=== PATIENT | female | born 1970 | race Caucasian/White ===

== ENCOUNTER → 2018-06-26 | Outpatient (CLI) | payer MEDICARE | LOC: LAB FS 18:37 | PROVIDERS: ATTEND Family Medicine | DX: N39.0 Urinary tract infection, site not specified (principal); R31.9 Hematuria, unspecified; Z79.2 Long term (current) use of antibiotics | CPT/HCPCS: 87077; 87088 ==

== ENCOUNTER → 2018-07-09 | Outpatient (CLI) | payer MEDICARE ==
[2018-07-09 16:09] LABS: CREATININE SERUM 0.62 MG/DL (0.60-1.30)
== END ==
LOC: LAB FS 14:16
PROVIDERS: ATTEND Family Medicine
DX: N39.0 Urinary tract infection, site not specified (principal)
CPT/HCPCS: 36415; 80170; 82565; 84520

== ENCOUNTER → 2018-07-17 | Outpatient (CLI) | payer MEDICARE ==
[2018-07-17 11:10] LABS: WHITE BLOOD COUNT 9.6 10^3/uL (4.3-11.0)
[2018-07-17 11:11] LABS: BASOPHILS # (AUTO) 0.1 10^3/uL (0.0-0.1); BASOPHILS % (AUTO) 1 % (0-10); EOSINOPHILS # (AUTO) 0.7 10^3/uL (0.0-0.3); EOSINOPHILS % (AUTO) 7 % (0-10); HEMATOCRIT 41 % (35-52); HEMOGLOBIN 13.4 G/DL (11.5-16.0); LYMPHOCYTES # (AUTO) 3.1 X 10^3 (1.0-4.0); LYMPHOCYTES % (AUTO) 32 % (12-44); MEAN CORPUSCULAR HEMOGLOBIN 31 PG (25-34); MEAN CORPUSCULAR HGB CONC 33 G/DL (32-36); MEAN CORPUSCULAR VOLUME 95 FL (80-99); MEAN PLATELET VOLUME 10.2 FL (7.4-10.4); MONOCYTES # (AUTO) 0.9 X 10^3 (0.0-1.0); MONOCYTES % (AUTO) 10 % (0-12); NEUTROPHILS # (AUTO) 4.7 X 10^3 (1.8-7.8); NEUTROPHILS % (AUTO) 49 % (42-75); PLATELET COUNT 343 10^3/uL (130-400); RED CELL DISTRIBUTION WIDTH 13.7 % (10.0-14.5)
[2018-07-17 11:32] LABS: BUN/CREATININE RATIO 20; CREATININE SERUM 0.46 MG/DL (0.60-1.30); GFR ESTIMATED > 60
== END ==
LOC: LAB FS 10:52
PROVIDERS: ATTEND Family Medicine
DX: Z51.81 Encounter for therapeutic drug level monitoring (principal); Z79.01 Long term (current) use of anticoagulants
CPT/HCPCS: 36415; 80170; 82565; 84520; 85025

== ENCOUNTER → 2018-09-09 | Outpatient (CLI) | payer MEDICARE ==
[2018-09-09 18:12] LABS: BILIRUBIN,URINE NEGATIVE (NEGATIVE); CLARITY,URINE CLOUDY; COLOR,URINE YELLOW; GLUCOSE, URINE (UA) NEGATIVE (NEGATIVE); KETONES,URINE NEGATIVE (NEGATIVE); LEUKOCYTE ESTERASE ,URINE 2+ (NEGATIVE); NITRITE,URINE NEGATIVE (NEGATIVE); PH,URINE 8.5 (5-9); PROTEIN,URINE 1+ (NEGATIVE); RBC,URINE 50-100 /HPF; UROBILINOGEN,URINE 0.2 MG/DL (NORMAL)
[2018-09-09 18:13] LABS: AMORPHOUS SEDIMENT,UR LARGE AMOR PHOSPHATE /LPF; BACTERIA,URINE TRACE /HPF; WBC,URINE 25-50 /HPF
== END ==
LOC: LAB FS 17:29
PROVIDERS: ATTEND Family Medicine
DX: R82.998 Other abnormal findings in urine (principal); Z87.440 Personal history of urinary (tract) infections
CPT/HCPCS: 81000; 87088

== ENCOUNTER 2018-10-23 21:02 | Emergency (ER) | payer MEDICARE, MEDICAID ==
[~2018-10-23] VITALS: Ht 167.6 cm; Wt 61.2 kg
--- OUTSIDE RECORDS SUMMARY | 2018-10-23 21:07 | XMS REPORT | Clinical Summary ---
Author Author Admin, E Organization [facility] Address Unknown Phone Unavailable Allergies, Adverse Reactions, Alerts Allergy Name Reaction Description Start Date Severity Status Provider VANCOMYCIN Critical Active Susan Zelaya MD SULFA Critical Active Susan Zelaya MD Conditions or Problems Problem Name Problem Code Onset Date Status Entry Date Provider Comment Standard Description Annotate Neurogenic Bladder Active Susan Zelaya MD Urinary Retention Active Susan Zelaya MD Retention of urine, unspecified Medication List Medication Instructions Start Date Stop Date Generic Name NDC Status Provider Patient Instruction DOXYCYCLINE HYCLATE 100 MG CAP 1 cap by mouth twice daily DOXYCYCLINE HYCLATE 05095716686 Active Susan Zelaya MD Active CALCIUM 1500 MG TAB 1 tab by mouth daily CALCIUM CARBONATE 18871228768 Active Susan Zelaya MD Active VITAMIN C 500 MG CHEW TAB 1 tab by mouth daily ASCORBIC ACID 81344749547 Active Susan Zelaya MD Active ZYRTEC ALLERGY 10 MG CAPS 1 po qd CETIRIZINE HCL 28261413722 Active Susan Zelaya MD Active DIAZEPAM 2 MG TABS 1 twice a day as needed for vertigo or stress DIAZEPAM 59652273172 Active Susan Zelaya MD Active BACLOFEN 10 MG TAB 1 tab by mouth daily BACLOFEN 55967743056 Active Susan Zelaya MD Active Vital Signs Date Name Value Unit Range Description blood pressure, diastolic - 8462-4 80 mm[Hg] BP santos blood pressure, systolic - 8480-6 118 mm[Hg] BP sys pulse rate E&M - 8867-4 75 /min Heart rate temperature E&M 98.6 [degF] Body temperature Encounters Code Encounter Date Provider Facility CPT-60159 Level 3 New Patient 08:20:55 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
--- OUTSIDE RECORDS SUMMARY | 2018-10-23 21:07 | XMS REPORT | Clinical Summary ---
Author Author Admin, QIE Organization [facility] Address Unknown Phone Unavailable Allergies, Adverse Reactions, [...] Generic Name NDC Status Provider Patient Instruction RENACIDIN SOLN instill 30ml threw catheter into the bladder and plug the catheter for 30ml for 20m irrigate the catheter with 60ml normal saline. CITRIC ACID-D GLUCONIC ACID 03057811356 Active Susan Zelaya MD Active DOXYCYCLINE HYCLATE 100 MG CAP 1 cap by mouth twice daily DOXYCYCLINE HYCLATE 11759578480 Active Susan Zelaya MD Active CALCIUM 1500 MG TAB 1 tab by mouth daily CALCIUM CARBONATE 67429768549 Active Susan Zelaya MD Active VITAMIN C 500 MG CHEW TAB 1 tab by mouth daily ASCORBIC ACID 45554834018 Active Susan Zelaya MD Active ZYRTEC ALLERGY 10 MG CAPS 1 po qd CETIRIZINE HCL 84228576803 Active Susan Zelaya MD Active DIAZEPAM 2 MG TABS 1 twice a day as needed for vertigo or stress DIAZEPAM 13394580852 Active Susan Zelaya MD Active BACLOFEN 10 MG TAB 1 tab by mouth daily BACLOFEN 70869865832 Active Susan Zelaya MD Active Vital Signs Date Name Value Unit Range Description blood pressure, diastolic 80 mm[Hg] BP santos blood pressure, systolic 118 mm[Hg] BP sys pulse rate E&M 75 /min Heart rate temperature E&M 98.6 [degF] Body temperature Encounters Code Encounter Date Provider Facility CPT-48058 Level 1 Est. 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
--- OUTSIDE RECORDS SUMMARY | 2018-10-23 21:07 | XMS REPORT | Clinical Summary ---
Author Author Admin, QIE Organization [facility] Address Unknown Phone Unavailable Allergies, Adverse Reactions, [...] 60ml normal saline. CITRIC ACID-D GLUCONIC ACID 41491255543 Active Susan Zelaya MD Active DOXYCYCLINE HYCLATE 100 MG CAP 1 cap by mouth twice daily DOXYCYCLINE HYCLATE 09722157166 Active Susan Zelaya MD Active CALCIUM 1500 MG TAB 1 tab by mouth daily CALCIUM CARBONATE 00638030031 Active Susan Zelaya MD Active VITAMIN C 500 MG CHEW TAB 1 tab by mouth daily ASCORBIC ACID 08824988922 Active Susan Zelaya MD Active ZYRTEC ALLERGY 10 MG CAPS 1 po qd CETIRIZINE HCL 31343480650 Active Susan Zelaya MD Active DIAZEPAM 2 MG TABS 1 twice a day as needed for vertigo or stress DIAZEPAM 76419930370 Active Susan Zelaya MD Active BACLOFEN 10 MG TAB 1 tab by mouth daily BACLOFEN 57143418232 Active Susan Zelaya MD Active Vital Signs Date Name Value Unit Range Description blood pressure, diastolic - 8462-4 80 mm[Hg] BP santos blood pressure, systolic - 8480-6 118 mm[Hg] BP sys pulse rate E&M - 8867-4 75 /min Heart rate temperature E&M 98.6 [degF] Body temperature Encounters Code Encounter Date Provider Facility CPT-07310 Level 3 New Patient 08:20:55 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
--- OUTSIDE RECORDS SUMMARY | 2018-10-23 21:07 | XMS REPORT | Clinical Summary ---
Author Author Admin, QIE Organization [facility] Address Unknown Phone Unavailable Allergies, Adverse [...] 60ml normal saline. CITRIC ACID-D GLUCONIC ACID 79874054649 Active Susan Zelaya MD Active DOXYCYCLINE HYCLATE 100 MG CAP 1 cap by mouth twice daily DOXYCYCLINE HYCLATE 94844899958 Active Susan Zelaya MD Active CALCIUM 1500 MG TAB 1 tab by mouth daily CALCIUM CARBONATE 13247162733 Active Susan Zelaya MD Active VITAMIN C 500 MG CHEW TAB 1 tab by mouth daily ASCORBIC ACID 88259271148 Active Susan Zelaya MD Active ZYRTEC ALLERGY 10 MG CAPS 1 po qd CETIRIZINE HCL 45442933026 Active Susan Zelaya MD Active DIAZEPAM 2 MG TABS 1 twice a day as needed for vertigo or stress DIAZEPAM 68079711611 Active Susan Zelaya MD Active BACLOFEN 10 MG TAB 1 tab by mouth daily BACLOFEN 39822696950 Active Susan Zelaya MD Active Vital Signs Date Name Value Unit Range Description blood pressure, diastolic - 8462-4 80 mm[Hg] BP santos blood pressure, systolic - 8480-6 118 mm[Hg] BP sys pulse rate E&M - 8867-4 75 /min Heart rate temperature E&M 98.6 [degF] Body temperature Encounters Code Encounter Date Provider Facility CPT-11447 Level 1 Est. 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
--- OUTSIDE RECORDS SUMMARY | 2018-10-23 21:07 | XMS REPORT | Clinical Summary ---
Author Author Admin, E Organization [facility] Address Unknown Phone Unavailable Allergies, [...] cap by mouth twice daily DOXYCYCLINE HYCLATE 92995430239 Active Susan Zelaya MD Active CALCIUM 1500 MG TAB 1 tab by mouth daily CALCIUM CARBONATE 37115488597 Active Susan Zelaya MD Active VITAMIN C 500 MG CHEW TAB 1 tab by mouth daily ASCORBIC ACID 61448081439 Active Susan Zelaya MD Active ZYRTEC ALLERGY 10 MG CAPS 1 po qd CETIRIZINE HCL 23952814866 Active Susan Zelaya MD Active DIAZEPAM 2 MG TABS 1 twice a day as needed for vertigo or stress DIAZEPAM 06707420691 Active Susan Zelaya MD Active BACLOFEN 10 MG TAB 1 tab by mouth daily BACLOFEN 93411980606 Active Susan Zelaya MD Active Vital Signs Date Name Value Unit Range Description blood pressure, diastolic - 8462-4 80 mm[Hg] BP santos blood pressure, systolic - 8480-6 118 mm[Hg] BP sys pulse rate E&M - 8867-4 75 /min Heart rate temperature E&M 98.6 [degF] Body temperature Encounters Code Encounter Date Provider Facility CPT-66065 Level 3 New Patient 08:20:55 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
--- OUTSIDE RECORDS SUMMARY | 2018-10-23 21:07 | XMS REPORT | Clinical Summary ---
Author Author Admin, QIE Organization [facility] Address Unknown Phone Unavailable Allergies, Adverse [...] 60ml normal saline. CITRIC ACID-D GLUCONIC ACID 55762083201 Active Susan Zelaya MD Active DOXYCYCLINE HYCLATE 100 MG CAP 1 cap by mouth twice daily DOXYCYCLINE HYCLATE 25418234195 Active Susan Zelaya MD Active CALCIUM 1500 MG TAB 1 tab by mouth daily CALCIUM CARBONATE 16667790588 Active Susan Zelaya MD Active VITAMIN C 500 MG CHEW TAB 1 tab by mouth daily ASCORBIC ACID 22296513921 Active Susan Zelaya MD Active ZYRTEC ALLERGY 10 MG CAPS 1 po qd CETIRIZINE HCL 23720844348 Active Susan Zelaya MD Active DIAZEPAM 2 MG TABS 1 twice a day as needed for vertigo or stress DIAZEPAM 65787092122 Active Susan Zelaya MD Active BACLOFEN 10 MG TAB 1 tab by mouth daily BACLOFEN 04198721038 Active Susan Zelaya MD Active Vital Signs Date Name Value Unit Range Description blood pressure, diastolic - 8462-4 80 mm[Hg] BP santos blood pressure, systolic - 8480-6 118 mm[Hg] BP sys pulse rate E&M - 8867-4 75 /min Heart rate temperature E&M 98.6 [degF] Body temperature Encounters Code Encounter Date Provider Facility CPT-80269 Level 1 Est. 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
--- OUTSIDE RECORDS SUMMARY | 2018-10-23 21:07 | XMS REPORT | Clinical Summary ---
Author Author Admin, QIE Organization [facility] Address Unknown Phone Unavailable Allergies, Adverse Reactions, [...] 60ml normal saline. CITRIC ACID-D GLUCONIC ACID 30576227353 Active Susan Zelaya MD Active DOXYCYCLINE HYCLATE 100 MG CAP 1 cap by mouth twice daily DOXYCYCLINE HYCLATE 82856208661 Active Susan Zelaya MD Active CALCIUM 1500 MG TAB 1 tab by mouth daily CALCIUM CARBONATE 90583795777 Active Susan Zelaya MD Active VITAMIN C 500 MG CHEW TAB 1 tab by mouth daily ASCORBIC ACID 24846417656 Active Susan Zelaya MD Active ZYRTEC ALLERGY 10 MG CAPS 1 po qd CETIRIZINE HCL 96172055743 Active Susan Zelaya MD Active DIAZEPAM 2 MG TABS 1 twice a day as needed for vertigo or stress DIAZEPAM 48926989163 Active Susan Zelaya MD Active BACLOFEN 10 MG TAB 1 tab by mouth daily BACLOFEN 43683831060 Active Susan Zelaya MD Active Vital Signs Date Name Value Unit Range Description blood pressure, diastolic - 8462-4 80 mm[Hg] BP santos blood pressure, systolic - 8480-6 118 mm[Hg] BP sys pulse rate E&M - 8867-4 75 /min Heart rate temperature E&M 98.6 [degF] Body temperature Encounters Code Encounter Date Provider Facility CPT-12271 Level 1 Est. 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
--- OUTSIDE RECORDS SUMMARY | 2018-10-23 21:08 | XMS REPORT | Continuity of Care Document ---
Author Organization Unknown Address Unknown Allergies There is no data. Medications There is no data. 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) USE OF ANTIBIOTICS 06/29/2018 MELY BEDOYA MD, Ot N39.0 URINARY TRACT INFECTION, SITE NOT SPECIF 06/29/2018 MELY BEDOYA MD, Ot R31.9 HEMATURIA, UNSPECIFIED 06/29/2018 MELY BEDOYA MD, Ot Z79.2 SHELTER (CURRENT) USE OF ANTIBIOTICS 07/01/2018 MELY BEDOYA MD Ot N39.0 URINARY TRACT INFECTION, SITE NOT SPECIF 07/01/2018 MELY BEDOYA MD Ot R31.9 HEMATURIA, UNSPECIFIED 07/01/2018 MELY BEDOYA MD Ot Z79.2 SHELTER (CURRENT) USE OF ANTIBIOTICS 07/10/2018 MELY BEDOYA MD Ot N39.0 URINARY TRACT INFECTION, SITE NOT SPECIF 07/20/2018 MELY BEDOYA MD Ot Z51.81 ENCOUNTER FOR THERAPEUTIC DRUG LEVEL MON 07/20/2018 MELY BEDOYA MD, Ot Z79.01 HEALTHCARE MANAGER (CURRENT) USE OF ANTICOAGULANT 08/06/2018 MELY BEDOYA MD Ot Z51.81 ENCOUNTER FOR THERAPEUTIC DRUG LEVEL MON 08/06/2018 MELY BEDOYA MD Ot Z79.01 SHELTER (CURRENT) USE OF ANTICOAGULANT 09/11/2018 MELY BEDOYA MD, Ot R82.998 OTHER ABNORMAL FINDINGS IN URINE 09/11/2018 MELY BEDOYA MD, Ot Z87.440 PERSONAL HISTORY OF URINARY (TRACT) INFE 10/05/2018 MELY BEDOYA MD, Ot R82.998 OTHER ABNORMAL FINDINGS IN URINE 10/05/2018 MELY BEDOYA MD, Ot Z87.440 PERSONAL HISTORY OF URINARY (TRACT) INFE Procedures There is no data. Results Test Result Range Bacterial urine culture - 06/26/18 17:15 Bacterial urine culture YEAST NRG COLONY COUNT >100,000/ML NRG FTX;REPORTABLE REPORTED 06/28/18 12:05 NRG FREE TEXT ENTRY 2 ID REPORTED 06/28/18 12:05 NRG RML Sensitivity Panel - 06/26/18 17:15 Gentamicin susceptibility test by minimum inhibitory concentration <= NRG Levofloxacin susceptibility test by minimum inhibitory concentration > NRG Tobramycin susceptibility test by minimum inhibitory concentration S NRG Piperacillin/tazobactam susceptibility test by minimum inhibitory concentration = NRG Ciprofloxacin susceptibility test by minimum inhibitory concentration > NRG Meropenem susceptibility test by minimum inhibitory concentration 1 NRG Aztreonam susceptibility test by minimum inhibitory concentration 8 NRG Cefepime susceptibility test by minimum inhibitory concentration 8 NRG Imipenem susceptibility test by minimum inhibitory concentration 4 NRG Ceftazidime susceptibility test by minimum inhibitory concentration 16 NRG Serum or plasma urea nitrogen measurement (mass/volume) - 07/09/18 09:45 Serum or plasma urea nitrogen measurement (mass/volume) 7 mg/dL 7-18 Serum or plasma creatinine measurement (mass/volume) - 07/09/18 09:45 Serum or plasma creatinine measurement (mass/volume) 0.62 mg/dL 0.60-1.30 Gentamicin trough - 07/09/18 09:45 Gentamicin trough 2.2 ug/mL <=2.0 Complete blood count (CBC) with automated white blood cell (WBC) differential - 07/17/18 10:15 Blood leukocytes automated count (number/volume) 9.6 10*3/uL 4.3-11.0 Blood erythrocytes automated count (number/volume) 4.28 10*6/uL 4.35-5.85 Venous blood hemoglobin measurement (mass/volume) 13.4 g/dL 11.5-16.0 Blood hematocrit (volume fraction) 41 % 35-52 Automated erythrocyte mean corpuscular volume 95 [foz_us] 80-99 Automated erythrocyte mean corpuscular hemoglobin (mass per erythrocyte) 31 pg 25-34 Automated erythrocyte mean corpuscular hemoglobin concentration measurement (mass/volume) 33 g/dL 32-36 Automated erythrocyte distribution width ratio 13.7 % 10.0- 14.5 Automated blood platelet count (count/volume) 343 10*3/uL 130-400 Automated blood platelet mean volume measurement 10.2 [foz_us] 7.4-10.4 Automated blood neutrophils/100 leukocytes 49 % 42-75 Automated blood lymphocytes/100 leukocytes 32 % 12-44 Blood monocytes/100 leukocytes 10 % 0-12 Automated blood eosinophils/100 leukocytes 7 % 0-10 Automated blood basophils/100 leukocytes 1 % 0-10 Blood neutrophils automated count (number/volume) 4.7 10*3 1.8-7.8 Blood lymphocytes automated count (number/volume) 3.1 10*3 1.0-4.0 Blood monocytes automated count (number/volume) 0.9 10*3 0.0- 1.0 Automated eosinophil count 0.7 10*3/uL 0.0-0.3 Automated blood basophil count (count/volume) 0.1 10*3/uL 0.0-0.1 [id number] - 07/17/18 10:15 Serum or plasma urea nitrogen measurement (mass/volume) 9 mg/dL 7-18 Serum or plasma creatinine measurement (mass/volume) 0.46 mg/dL 0.60-1.30 Serum or plasma urea nitrogen/creatinine mass ratio 20 NRG Serum or plasma creatinine measurement with calculation of estimated glomerular filtration rate > NRG Serum or plasma gentamicin measurement (mass/volume) - 07/17/18 10:15 Serum or plasma gentamicin measurement (mass/volume) 1.6 ug/mL <=10.0 CULTURE, URINE - 07/21/18 17:05 CULTURE, URINE, ROUTINE SEE NOTE NRG Complete urinalysis with reflex to culture - 09/09/18 16:20 Urine color determination YELLOW NRG Urine clarity determination CLOUDY NRG Urine pH measurement by test strip 8.5 5-9 Specific gravity of urine by test strip 1.015 1.016-1.022 Urine protein assay by test strip, semi-quantitative 1+ NEGATIVE Urine glucose detection by automated test strip NEGATIVE NEGATIVE Erythrocytes detection in urine sediment by light microscopy 3+ NEGATIVE Urine ketones detection by automated test strip NEGATIVE NEGATIVE Urine nitrite detection by test strip NEGATIVE NEGATIVE Urine total bilirubin detection by test strip NEGATIVE NEGATIVE Urine urobilinogen measurement by automated test strip (mass/volume) 0.2 mg/dL NORMAL Urine leukocyte esterase detection by dipstick 2+ NEGATIVE Automated urine sediment erythrocyte count by microscopy (number/high power field) [HPF] NRG Automated urine sediment leukocyte count by microscopy (number/high power field) [HPF] NRG Bacteria detection in urine sediment by light microscopy TRACE NRG Squamous epithelial cells detection in urine sediment by light microscopy 5-10 NRG Crystals detection in urine sediment by light microscopy PRESENT NRG Casts detection in urine sediment by light microscopy NONE NRG Mucus detection in urine sediment by light microscopy NONE NRG Complete urinalysis with reflex to culture YES NRG Amorphous sediment detection in urine sediment by light microscopy LARGE SANDIP PHOSPHATE NRG Bacterial urine culture - 09/09/18 16:20 Bacterial urine culture NG NRG Encounters ACCT No. Visit Date/Time Discharge Status Pt. Type Provider Facility Loc./Unit Complaint [id number] 07/21/2018 16:00:00 07/21/2018 23:59:59 CLS Outpatient MELY BEDOYA [facility] [id number] 07/21/2018 16:00:00 Document Registration [id number] 08/30/2016 09:44:01 ACT Unknown [id number] 09/09/2018 17:29:00 09/09/2018 23:59:59 CLS Outpatient MELY BEDOYA [facility] FS HX UTI SEPSIS [id number] 07/17/2018 10:52:00 07/17/2018 23:59:59 CLS Outpatient MELY BEDOYA MD [facility] FS UTI [id number] 07/09/2018 14:16:00 07/09/2018 23:59:59 CLS Outpatient MELY BEDOYA MD [facility] FS ACUTE UTI [id number] 06/26/2018 18:37:00 06/26/2018 23:59:59 CLS Outpatient MELY BEDOYA MD [facility] FS RECENT UTI; IV ANX RECURRENT EMATURIA
[2018-10-23 22:32] LABS: HEMATOCRIT 43 % (35-52); MEAN CORPUSCULAR HEMOGLOBIN 31 PG (25-34); MEAN CORPUSCULAR HGB CONC 33 G/DL (32-36); MEAN CORPUSCULAR VOLUME 93 FL (80-99); RED CELL DISTRIBUTION WIDTH 13.3 % (10.0-14.5); WHITE BLOOD COUNT 10.3 10^3/uL (4.3-11.0)
[2018-10-23 22:33] LABS: BASOPHILS # (AUTO) 0.1 10^3/uL (0.0-0.1); BASOPHILS % (AUTO) 1 % (0-10); EOSINOPHILS # (AUTO) 0.5 10^3/uL (0.0-0.3); EOSINOPHILS % (AUTO) 5 % (0-10); LYMPHOCYTES # (AUTO) 2.6 X 10^3 (1.0-4.0); LYMPHOCYTES % (AUTO) 26 % (12-44); MEAN PLATELET VOLUME 10.5 FL (7.4-10.4); MONOCYTES % (AUTO) 10 % (0-12); NEUTROPHILS # (AUTO) 5.9 X 10^3 (1.8-7.8); NEUTROPHILS % (AUTO) 58 % (42-75); PLATELET COUNT 311 10^3/uL (130-400)
[2018-10-23 22:34] LABS: BILIRUBIN,URINE NEGATIVE (NEGATIVE); CLARITY,URINE CLOUDY; COLOR,URINE YELLOW; GLUCOSE, URINE (UA) NEGATIVE (NEGATIVE); KETONES,URINE NEGATIVE (NEGATIVE); NITRITE,URINE NEGATIVE (NEGATIVE); PROTEIN,URINE NEGATIVE (NEGATIVE); UROBILINOGEN,URINE 0.2 MG/DL (NORMAL)
[2018-10-23 22:35] LABS: LEUKOCYTE ESTERASE ,URINE 3+ (NEGATIVE)
[2018-10-23 22:43] LABS: BACTERIA,URINE TRACE /HPF; WBC,URINE 50-100 /HPF
[2018-10-23 22:44] LABS: YEAST,URINE LARGE /HPF
[2018-10-23 22:56] LABS: BILIRUBIN,TOTAL 0.2 MG/DL (0.1-1.0); BUN/CREATININE RATIO 16; CALCIUM 9.4 MG/DL (8.5-10.1); CARBON DIOXIDE 22 MMOL/L (21-32); CHLORIDE 99 MMOL/L (98-107); CREATININE SERUM 0.43 MG/DL (0.60-1.30); GFR ESTIMATED > 60; GLUCOSE 127 MG/DL (70-105); POTASSIUM 3.8 MMOL/L (3.6-5.0); SODIUM 139 MMOL/L (135-145)
[2018-10-23 22:57] LABS: ALANINE AMINOTRANSFERASE 76 U/L (0-55); ALBUMIN 4.1 GM/DL (3.2-4.5); ALKALINE PHOSPHATASE 65 U/L (40-136); TOTAL PROTEIN 6.9 GM/DL (6.4-8.2)
[2018-10-23] MEDS ORDERED: FLUCONAZOLE 150 MG TABLET (ED ONLY) ONE (23:07)
--- NOTE | 2018-10-23 23:29 | ED Integumentary General ---
General Chief Complaint: Skin/Wound Problems Stated Complaint: SKIN PROBLEMS Nursing Triage Note: PT ARRIVED PER EMS WITH COMPLAINT OF VAGINAL SWELLING. PT STATES HER HOME HEALTH NURSE TOLD HER TO GET IT CHECKED. Source: patient Exam Limitations: no limitations History of Present Illness Date Seen by Provider: Oct 23, 2018 Time Seen by Provider: 22:30 Initial Comments Patient is a 48-year-old female with history of osteomyelitis with right isjqr-uwk-wdot amputation who presents is chronic pelvic therapy who presents with cottage cheese-like vaginal discharge with vaginal edema. Denies pain. No fever chills, nausea vomiting or sweats. No flank pain, other acute symptoms or complaints. Patient's on doxycycline and Augmentin daily. Timing/Duration: just prior to arrival Severity: mild Possible Cause: medications Associated Symptoms: change in skin texture, edema; No fever Allergies and Home Medications Allergies Coded Allergies: Sulfa (Sulfonamide Antibiotics) (Verified Allergy, Unknown, 10/23/18) vancomycin (Verified Allergy, Unknown, 10/23/18) Patient Home Medication List Home Medication List Reviewed: Yes Review of Systems Review of Systems Constitutional: no symptoms reported EENTM: no symptoms reported Respiratory: no symptoms reported Cardiovascular: no symptoms reported Gastrointestinal: no symptoms reported Genitourinary: see HPI Musculoskeletal: no symptoms reported Past Ozxutmw-Pthxlx-Ubjqvf Hx Past Med/Social Hx: Reviewed Nursing Past Med/Soc Hx Patient Social History Recent Foreign Travel: No Contact w/Someone Who Travel: No Recent Infectious Disease Expo: No Recent Hopitalizations: No Physical Abuse: No Sexual Abuse: No Mistreated: No Past Medical History Surgeries: Yes Respiratory: No Cardiac: No Neurological: No Genitourinary: No Gastrointestinal: No Musculoskeletal: No Endocrine: No HEENT: No Cancer: No Psychosocial: No Integumentary: No Blood Disorders: No Physical Exam Vital Signs Vital Signs - First Documented 10/23/18 21:02 Temp 98.4 Pulse 122 Resp 18 B/P (MAP) 130/70 (90) Pulse Ox 96 O2 Delivery Room Air Capillary Refill : Less Than 3 Seconds General Appearance: WD/WN, no apparent distress HEENT: PERRL/EOMI, normal ENT inspection Neck: full range of motion, supple Cardiovascular: normal peripheral pulses, regular rate, rhythm Respiratory: lungs clear, normal breath sounds Gastrointestinal: non tender, soft, other (external genitalia edema, copious cheese vaginal discharge, no external cellulitis, no gangrene) Back: normal inspection, no CVA tenderness Progress/Results/Core Measures Results/Orders Lab Results Laboratory Tests Test 10/23/18 22:21 Range/Units White Blood Count 10.3 4.3-11.0 10^3/uL Red Blood Count 4.58 4.35-5.85 10^6/uL Hemoglobin 14.0 11.5-16.0 G/DL Hematocrit 43 35-52 % Mean Corpuscular Volume 93 80-99 FL Mean Corpuscular Hemoglobin 31 25-34 PG Mean Corpuscular Hemoglobin Concent 33 32-36 G/DL Red Cell Distribution Width 13.3 10.0-14.5 % Platelet Count 311 130-400 10^3/uL Mean Platelet Volume 10.5 H 7.4-10.4 FL Neutrophils (%) (Auto) 58 42-75 % Lymphocytes (%) (Auto) 26 12-44 % Monocytes (%) (Auto) 10 0-12 % Eosinophils (%) (Auto) 5 0-10 % Basophils (%) (Auto) 1 0-10 % Neutrophils # (Auto) 5.9 1.8-7.8 X 10^3 Lymphocytes # (Auto) 2.6 1.0-4.0 X 10^3 Monocytes # (Auto) 1.0 0.0-1.0 X 10^3 Eosinophils # (Auto) 0.5 H 0.0-0.3 10^3/uL Basophils # (Auto) 0.1 0.0-0.1 10^3/uL Urine Color YELLOW Urine Clarity CLOUDY H Urine pH 7.0 5-9 Urine Specific [place] 1.010 L 1.016-1.022 Urine Protein NEGATIVE NEGATIVE Urine Glucose (UA) NEGATIVE NEGATIVE Urine Ketones NEGATIVE NEGATIVE Urine Nitrite NEGATIVE NEGATIVE Urine Bilirubin NEGATIVE NEGATIVE Urine Urobilinogen 0.2 NORMAL MG/DL Urine Leukocyte Esterase 3+ H NEGATIVE Urine RBC (Auto) 1+ H NEGATIVE Urine RBC 5-10 H /HPF Urine WBC 50-100 H /HPF Urine Squamous Epithelial Cells 2-5 /HPF Urine Crystals NONE /LPF Urine Bacteria TRACE /HPF Urine Casts NONE /LPF Urine Mucus NEGATIVE /LPF Urine Yeast LARGE H /HPF Urine Culture Indicated YES Sodium Level 139 135-145 MMOL/L Potassium Level 3.8 3.6-5.0 MMOL/L Chloride Level 99 98-107 MMOL/L Carbon Dioxide Level 22 21-32 MMOL/L Anion Gap 18 H 5-14 MMOL/L Blood Urea Nitrogen 7 7-18 MG/DL Creatinine 0.43 L 0.60-1.30 MG/DL Estimat Glomerular Filtration Rate > 60 BUN/Creatinine Ratio 16 Glucose Level 127 H 70-105 MG/DL Calcium Level 9.4 8.5-10.1 MG/DL Corrected Calcium 9.3 8.5-10.1 MG/DL Total Bilirubin 0.2 0.1-1.0 MG/DL Aspartate Amino Transf (AST/SGOT) 72 H 5-34 U/L Alanine Aminotransferase (ALT/SGPT) 76 H 0-55 U/L Alkaline Phosphatase 65 40-136 U/L Total Protein 6.9 6.4-8.2 GM/DL Albumin 4.1 3.2-4.5 GM/DL My Orders Orders - BELGICA ART DO Cbc With Automated Diff (10/23/18 22:08) Comprehensive Metabolic Panel (10/23/18 22:08) Ua Culture If Indicated (10/23/18 22:08) Urine Culture (10/23/18 22:21) Fluconazole Tablet (Ed Only) (Diflucan T (10/23/18 23:07) Vital Signs/I&O 10/23/18 21:02 Temp 98.4 Pulse 122 Resp 18 B/P (MAP) 130/70 (90) Pulse Ox 96 O2 Delivery Room Air Blood Pressure Mean: 90 Departure Communication (Admissions) Exam consistent with vaginal candidiasis. Patient provided hygiene and given dose of Diflucan. Will place on daily Diflucan for the next 7 days with inst ructions to follow up with PCP/INSERTING PRESS OPERATOR Impression Primary Impression: Yeast vaginitis Disposition: HOME, SELF-CARE Condition: Against Medical Advice Departure-Patient Inst. Decision time for Depature: 23:30 Referrals: MELY BEDOYA MD (PCP/Family) Primary Care Physician Patient Instructions: Vaginal Yeast Infection (DC) Add. Discharge Instructions: Please take anti-yeast medication as directed and follow-up with your PCP or INSERTING PRESS OPERATOR next week for reevaluation All discharge instructions reviewed with patient and/or family. Voiced understanding. Scripts Fluconazole (Diflucan) 100 Mg Tablet 100 MG PO DAILY, #10 TAB Prov: BELGICA ART DO 10/23/18 BELGICA ART 26, 2019 23:29
[2018-10-23] MEDS ORDERED: FLUC100T PO (23:30)
[2018-10-23 23:36] VITALS: BP 143/80
[2018-10-24] MEDS ORDERED: FLUCONAZOLE 150 MG TABLET (ED ONLY) PO ONE (20:30)
== END 2018-10-24 | disposition home or self-care (01) ==
LOC: EDUNIT# 21:02 → ER FS 21:04
DX: B37.3 Candidiasis of vulva and vagina (principal); Z89.611 Acquired absence of right leg above knee; Z88.2 Allergy status to sulfonamides; Z88.1 Allergy status to other antibiotic agents
CPT/HCPCS: 36415; 80053; 81000; 85025; 87088; 87186; 99283

== ENCOUNTER → 2018-10-30 | Outpatient (CLI) | payer MEDICARE, MEDICAID ==
[~2018-10-30] MED LIST: FLUC100T PO
[2018-10-30 16:06] LABS: CREATININE SERUM 0.59 MG/DL (0.60-1.30)
== END ==
LOC: LAB FS 15:28
PROVIDERS: ATTEND Family Medicine
DX: Z79.2 Long term (current) use of antibiotics (principal)
CPT/HCPCS: 36415; 80170; 82565; 84520

== ENCOUNTER → 2018-11-03 | Outpatient (CLI) | payer MEDICARE, MEDICAID ==
[2018-11-03 15:28] LABS: CREATININE SERUM 0.52 MG/DL (0.60-1.30)
== END ==
LOC: LAB FS 14:20
PROVIDERS: ATTEND Family Medicine
DX: N39.0 Urinary tract infection, site not specified (principal); B96.5 Pseudomonas (aeruginosa) (mallei) (pseudomallei) as the cause of diseases classified elsewhere
CPT/HCPCS: 36415; 80170; 82565; 84520

== ENCOUNTER → 2018-11-25 | Outpatient (CLI) | payer OTHER, MEDICAID ==
[2018-11-25 14:52] LABS: COLOR,URINE RED
[2018-11-25 14:53] LABS: BACTERIA,URINE MODERATE /HPF; BILIRUBIN,URINE NEGATIVE (NEGATIVE); CLARITY,URINE CLOUDY; GLUCOSE, URINE (UA) NEGATIVE (NEGATIVE); KETONES,URINE NEGATIVE (NEGATIVE); LEUKOCYTE ESTERASE ,URINE 3+ (NEGATIVE); NITRITE,URINE NEGATIVE (NEGATIVE); PH,URINE 7.5 (5-9); PROTEIN,URINE 1+ (NEGATIVE); RBC,URINE TNTC /HPF; UROBILINOGEN,URINE 0.2 MG/DL (NORMAL); WBC,URINE TNTC /HPF
== END ==
LOC: LAB FS 11:32
PROVIDERS: ATTEND Family Medicine
DX: N39.0 Urinary tract infection, site not specified (principal)
CPT/HCPCS: 81000; 87088

== ENCOUNTER 2018-12-04 15:46 | Emergency (ER) | payer MEDICARE, MEDICAID ==
[~2018-12-04] VITALS: Ht 165.1 cm; Wt 79.4 kg
[2018-12-04] MEDS ORDERED: NS IV 1000 ML 1,000 ML IV SCH (16:15)
--- NOTE | 2018-12-04 16:17 | ED GU-Female ---
General Chief Complaint: - Urinary Stated Complaint: UTI Nursing Triage Note: PT REPORTS SHE BELEIVES SHE HAS A UTI. HX OF CHRONIC UTI'S. Nursing Sepsis Screen: No Definite Risk History of Present Illness Date Seen by Provider: Dec 04, 2018 Time Seen by Provider: 16:13 Initial Comments Think she has a UTI. History of chronic intermittent UTIs. Indwelling Gonsalves catheter. Paraplegic with complicated medical history which she knows well. Treated for a UTI end of October. Allergies and Home Medications Allergies Coded Allergies: Sulfa (Sulfonamide Antibiotics) (Verified Allergy, Unknown, 10/23/18) vancomycin (Verified Allergy, Unknown, 10/23/18) Home Medications Fluconazole 100 Mg Tablet, 100 MG PO DAILY Prescribed by: BELGICA ART on 10/23/18 4589 Patient Home Medication List Home Medication List Reviewed: Yes Review of Systems Review of Systems Constitutional: No chills, No diaphoresis, No fever, No malaise, No weakness Respiratory: no symptoms reported Cardiovascular: no symptoms reported Gastrointestinal: No abdominal pain, No nausea, No vomiting Genitourinary: see HPI; denies burning, denies discharge, denies dysuria, denies frequency, denies flank pain, denies hematuria; incontinence; denies urgency Skin: other (irritated external genitalia - according to patient) Past Ytllzoq-Viwugt-Eyrakn Hx Past Med/Social Hx: Reviewed Nursing Past Med/Soc Hx Patient Social History Recent Foreign Travel: No Contact w/Someone Who Travel: No Recent Infectious Disease Expo: No Recent Hopitalizations: No Physical Abuse: No Sexual Abuse: No Mistreated: No Fear: No Past Medical History Surgeries: Yes Respiratory: No Cardiac: No Neurological: No Genitourinary: No Gastrointestinal: No Musculoskeletal: No Endocrine: No HEENT: No Cancer: No Psychosocial: No Integumentary: No Blood Disorders: No Physical Exam Vital Signs Vital Signs - First Documented 12/04/18 12/04/18 15:58 17:11 Temp 97.7 Pulse 97 Resp 18 B/P (MAP) 116/78 (91) Pulse Ox 99 O2 Delivery Room Air Capillary Refill : Less Than 3 Seconds Height, Weight, BMI Height: 5'5.00" Weight: 175lbs. oz. 79.091973jj; BMI Method:Estimated General Appearance: WD/WN, no apparent distress Cardiovascular: regular rate, rhythm, no edema, no JVD, no murmur Respiratory: chest non-tender, lungs clear, normal breath sounds Gastrointestinal: normal bowel sounds, non tender, soft; No distended, No guarding Focused Exam Lactate Level 12/04/18 16:29: Lactic Acid Level 2.34*H Lactic Acid Level Laboratory Tests Test 12/04/18 16:29 Lactic Acid Level 2.34 MMOL/L (0.50-2.00) *H Progress/Results/Core Measures Suspected Sepsis Recent Fever Within 48 Hours: No Infection Criteria Present: None New/Unexplained Altered Menta: No Sepsis Screen: No Definite Risk SIRS Temperature:97.7 Pulse: 97 Respiratory Rate: 18 Laboratory Tests 12/04/18 16:29: White Blood Count 8.4 Blood Pressure 116 /78 Mean: 91 12/04/18 16:29: Lactic Acid Level 2.34*H Laboratory Tests 12/04/18 16:29: Creatinine 0.62, Platelet Count 291, Total Bilirubin 0.3 Results/Orders Lab Results Laboratory Tests Test 12/04/18 16:25 12/04/18 16:29 Range/Units Urine Color YELLOW Urine Clarity CLOUDY Urine pH 6.0 5-9 Urine Specific [place] 1.020 1.016-1.022 Urine Protein NEGATIVE NEGATIVE Urine Glucose (UA) NEGATIVE NEGATIVE Urine Ketones NEGATIVE NEGATIVE Urine Nitrite NEGATIVE NEGATIVE Urine Bilirubin NEGATIVE NEGATIVE Urine Urobilinogen 0.2 NORMAL MG/DL Urine Leukocyte Esterase 2+ H NEGATIVE Urine RBC (Auto) NEGATIVE NEGATIVE Urine RBC 2-5 H /HPF Urine WBC 50-100 H /HPF Urine Squamous Epithelial Cells 10-25 H /HPF Urine Crystals NONE /LPF Urine Bacteria TRACE /HPF Urine Casts NONE /LPF Urine Mucus NONE /LPF Urine Yeast MODERATE H /HPF Urine Culture Indicated YES White Blood Count 8.4 4.3-11.0 10^3/uL Red Blood Count 4.53 4.35-5.85 10^6/uL Hemoglobin 14.1 11.5-16.0 G/DL Hematocrit 43 35-52 % Mean Corpuscular Volume 95 80-99 FL Mean Corpuscular Hemoglobin 31 25-34 PG Mean Corpuscular Hemoglobin Concent 33 32-36 G/DL Red Cell Distribution Width 13.4 10.0-14.5 % Platelet Count 291 130-400 10^3/uL Mean Platelet Volume 10.5 H 7.4-10.4 FL Neutrophils (%) (Auto) 54 42-75 % Lymphocytes (%) (Auto) 29 12-44 % Monocytes (%) (Auto) 8 0-12 % Eosinophils (%) (Auto) 7 0-10 % Basophils (%) (Auto) 1 0-10 % Neutrophils # (Auto) 4.5 1.8-7.8 X 10^3 Lymphocytes # (Auto) 2.4 1.0-4.0 X 10^3 Monocytes # (Auto) 0.7 0.0-1.0 X 10^3 Eosinophils # (Auto) 0.5 H 0.0-0.3 10^3/uL Basophils # (Auto) 0.1 0.0-0.1 10^3/uL Sodium Level 141 135-145 MMOL/L Potassium Level 3.8 3.6-5.0 MMOL/L Chloride Level 99 98-107 MMOL/L Carbon Dioxide Level 24 21-32 MMOL/L Anion Gap 18 H 5-14 MMOL/L Blood Urea Nitrogen 12 7-18 MG/DL Creatinine 0.62 0.60-1.30 MG/DL Estimat Glomerular Filtration Rate > 60 BUN/Creatinine Ratio 19 Glucose Level 144 H 70-105 MG/DL Lactic Acid Level 2.34 *H 0.50-2.00 MMOL/L Calcium Level 9.8 8.5-10.1 MG/DL Corrected Calcium 9.6 8.5-10.1 MG/DL Total Bilirubin 0.3 0.1-1.0 MG/DL Aspartate Amino Transf (AST/SGOT) 65 H 5-34 U/L Alanine Aminotransferase (ALT/SGPT) 77 H 0-55 U/L Alkaline Phosphatase 75 40-136 U/L Total Protein 7.1 6.4-8.2 GM/DL Albumin 4.3 3.2-4.5 GM/DL My Orders Orders - PRESLEY EVANS DO Urinalysis (12/04/18 15:57) Lactic Acid Analyzer (12/04/18 16:11) Ed Iv/Invasive Line Start (12/04/18 16:11) Cbc With Automated Diff (12/04/18 16:11) Comprehensive Metabolic Panel (12/04/18 16:11) Ns Iv 1000 Ml (Sodium Chloride 0.9%) (12/04/18 16:15) Urine Culture (12/04/18 16:25) Vital Signs/I&O 12/04/18 12/04/18 15:58 17:11 Temp 97.7 98.3 Pulse 97 82 Resp 18 16 B/P (MAP) 116/78 (91) 135/85 Pulse Ox 99 O2 Delivery Room Air Room Air Capillary Refill : Less Than 3 Seconds Blood Pressure Mean: 91 Progress Note : Progress Note discussed HPI further, treated multiple times for "UTI's".....review of most recent C&S from October 2018 shows only 40k u growth and moderate yeast. Patient treated w po Diflucan for 10 days and had no relief recently. Will treat w intravag. anti-fungal for 1 wk, the re-eval by PCP Departure Impression Primary Impression: Urinary tract infection Qualified Codes: T83.511S - Infection and inflammatory reaction due to indwelling urethral catheter, sequela; N39.0 - Urinary tract infection, site not specified Disposition: HOME, SELF-CARE Condition: Stable Departure-Patient Inst. Referrals: MELY BEDOYA MD (PCP/Family) Primary Care Physician see your doctor in follow-up in 10 to 14 days Patient Instructions: Urinary Incontinence, Female (DC) Scripts Miconazole Nitrate (Miconazole 7) 45 Gm Cream.appl 45 GM VG HS for 7 Days, #1 APPLIC 1 Refill Prov: PRESLEY EVANS DO 12/04/18 PRESLEY EVANS DO Dec 04, 2018 16:17
[2018-12-04 16:44] LABS: BASOPHILS % (AUTO) 1 % (0-10); EOSINOPHILS % (AUTO) 7 % (0-10); HEMATOCRIT 43 % (35-52); HEMOGLOBIN 14.1 G/DL (11.5-16.0); LYMPHOCYTES % (AUTO) 29 % (12-44); MEAN CORPUSCULAR HEMOGLOBIN 31 PG (25-34); MEAN CORPUSCULAR HGB CONC 33 G/DL (32-36); MEAN CORPUSCULAR VOLUME 95 FL (80-99); MEAN PLATELET VOLUME 10.5 FL (7.4-10.4); MONOCYTES % (AUTO) 8 % (0-12); NEUTROPHILS % (AUTO) 54 % (42-75); PLATELET COUNT 291 10^3/uL (130-400); RED CELL DISTRIBUTION WIDTH 13.4 % (10.0-14.5); WHITE BLOOD COUNT 8.4 10^3/uL (4.3-11.0)
[2018-12-04 16:45] LABS: BASOPHILS # (AUTO) 0.1 10^3/uL (0.0-0.1); EOSINOPHILS # (AUTO) 0.5 10^3/uL (0.0-0.3); LYMPHOCYTES # (AUTO) 2.4 X 10^3 (1.0-4.0); MONOCYTES # (AUTO) 0.7 X 10^3 (0.0-1.0); NEUTROPHILS # (AUTO) 4.5 X 10^3 (1.8-7.8)
[2018-12-04 16:53] LABS: BILIRUBIN,URINE NEGATIVE (NEGATIVE); CLARITY,URINE CLOUDY; COLOR,URINE YELLOW; GLUCOSE, URINE (UA) NEGATIVE (NEGATIVE); KETONES,URINE NEGATIVE (NEGATIVE); LEUKOCYTE ESTERASE ,URINE 2+ (NEGATIVE); NITRITE,URINE NEGATIVE (NEGATIVE); PROTEIN,URINE NEGATIVE (NEGATIVE); UROBILINOGEN,URINE 0.2 MG/DL (NORMAL); WBC,URINE 50-100 /HPF
[2018-12-04 16:54] LABS: BACTERIA,URINE TRACE /HPF; YEAST,URINE MODERATE /HPF
[2018-12-04 17:09] LABS: ALANINE AMINOTRANSFERASE 77 U/L (0-55); ALBUMIN 4.3 GM/DL (3.2-4.5); ALKALINE PHOSPHATASE 75 U/L (40-136); BILIRUBIN,TOTAL 0.3 MG/DL (0.1-1.0); BUN/CREATININE RATIO 19; CALCIUM 9.8 MG/DL (8.5-10.1); CARBON DIOXIDE 24 MMOL/L (21-32); CHLORIDE 99 MMOL/L (98-107); CREATININE SERUM 0.62 MG/DL (0.60-1.30); GFR ESTIMATED > 60; GLUCOSE 144 MG/DL (70-105); POTASSIUM 3.8 MMOL/L (3.6-5.0); SODIUM 141 MMOL/L (135-145); TOTAL PROTEIN 7.1 GM/DL (6.4-8.2)
[2018-12-04] MEDS ORDERED: MICO45CR16 VG (17:36)
[2018-12-04 17:50] VITALS: BP 111/57
== END 2018-12-04 18:15 | disposition home or self-care (01) ==
LOC: EDUNIT# 15:46 → ER FS 15:47
DX: N39.0 Urinary tract infection, site not specified (principal); Z88.2 Allergy status to sulfonamides; Z88.1 Allergy status to other antibiotic agents
CPT/HCPCS: 36415; 80053; 81000; 83605; 85025; 87088

== ENCOUNTER → 2019-01-05 | Outpatient (CLI) | payer MEDICARE, MEDICAID ==
[~2019-01-05] MED LIST changes: +MICO45CR16 VG
[2019-01-05 15:15] LABS: BASOPHILS # (AUTO) 0.1 10^3/uL (0.0-0.1); BASOPHILS % (AUTO) 1 % (0-10); EOSINOPHILS # (AUTO) 0.7 10^3/uL (0.0-0.3); EOSINOPHILS % (AUTO) 8 % (0-10); HEMATOCRIT 41 % (35-52); LYMPHOCYTES # (AUTO) 2.7 X 10^3 (1.0-4.0); LYMPHOCYTES % (AUTO) 30 % (12-44); MEAN CORPUSCULAR HEMOGLOBIN 31 PG (25-34); MEAN CORPUSCULAR HGB CONC 32 G/DL (32-36); MEAN CORPUSCULAR VOLUME 97 FL (80-99); MEAN PLATELET VOLUME 10.6 FL (7.4-10.4); MONOCYTES # (AUTO) 0.9 X 10^3 (0.0-1.0); MONOCYTES % (AUTO) 10 % (0-12); NEUTROPHILS # (AUTO) 4.5 X 10^3 (1.8-7.8); NEUTROPHILS % (AUTO) 40 % (42-75); PLATELET COUNT 315 10^3/uL (130-400); RED CELL DISTRIBUTION WIDTH 13.4 % (10.0-14.5)
[2019-01-05 16:25] LABS: ALKALINE PHOSPHATASE 72 U/L (40-136); BILIRUBIN,TOTAL 0.3 MG/DL (0.1-1.0); BUN/CREATININE RATIO 22; CALCIUM 9.5 MG/DL (8.5-10.1); CARBON DIOXIDE 25 MMOL/L (21-32); CHLORIDE 102 MMOL/L (98-107); CREATININE SERUM 0.45 MG/DL (0.60-1.30); GFR ESTIMATED > 60; GLUCOSE 99 MG/DL (70-105); POTASSIUM 3.5 MMOL/L (3.6-5.0); SODIUM 142 MMOL/L (135-145)
[2019-01-05 16:26] LABS: ALANINE AMINOTRANSFERASE 57 U/L (0-55); ALBUMIN 3.9 GM/DL (3.2-4.5); TOTAL PROTEIN 6.6 GM/DL (6.4-8.2)
[2019-01-06 15:13] LABS: TSH (THYROID ANALYZER) 2.36 UIU/ML (0.35-4.94)
== END ==
LOC: LAB FS 14:46
PROVIDERS: ATTEND Family Medicine
DX: N39.0 Urinary tract infection, site not specified (principal); G82.20 Paraplegia, unspecified
CPT/HCPCS: 36415; 80053; 80061; 84443; 85025

== ENCOUNTER → 2019-03-05 | Outpatient (CLI) | payer MEDICARE, MEDICAID ==
[~2019-03-05] MED LIST changes: +AMOX-358 PO; +ASCO10006 PO; +BACL20TA PO; +CALC200T50 PO; +CETI10TA17 PO; +DIAZ10TA3 PO; +DOXY100C42 PO; +IBUP-2473 PO; +OMEP20TA7 PO; +OXB5TCR PO; +OXYB10TA6 PO; +RIVA10TA PO; +RIVA20TA PO; +SERT100T8 PO
[2019-03-05 20:43] LABS: BASOPHILS % (AUTO) 1 % (0-10); EOSINOPHILS % (AUTO) 6 % (0-10); HEMATOCRIT 41 % (35-52); HEMOGLOBIN 13.2 G/DL (11.5-16.0); LYMPHOCYTES % (AUTO) 29 % (12-44); MEAN CORPUSCULAR HEMOGLOBIN 30 PG (25-34); MEAN CORPUSCULAR HGB CONC 32 G/DL (32-36); MEAN CORPUSCULAR VOLUME 94 FL (80-99); MEAN PLATELET VOLUME 10.4 FL (7.4-10.4); MONOCYTES % (AUTO) 9 % (0-12); NEUTROPHILS % (AUTO) 54 % (42-75); PLATELET COUNT 344 10^3/uL (130-400); RED CELL DISTRIBUTION WIDTH 13.3 % (10.0-14.5); WHITE BLOOD COUNT 8.7 10^3/uL (4.3-11.0)
[2019-03-05 20:44] LABS: BASOPHILS # (AUTO) 0.1 10^3/uL (0.0-0.1); EOSINOPHILS # (AUTO) 0.5 10^3/uL (0.0-0.3); LYMPHOCYTES # (AUTO) 2.6 X 10^3 (1.0-4.0); MONOCYTES # (AUTO) 0.8 X 10^3 (0.0-1.0); NEUTROPHILS # (AUTO) 4.7 X 10^3 (1.8-7.8)
[2019-03-05 21:09] LABS: ALANINE AMINOTRANSFERASE 41 U/L (0-55); ALBUMIN 3.8 GM/DL (3.2-4.5); ALKALINE PHOSPHATASE 72 U/L (40-136); BILIRUBIN,TOTAL 0.2 MG/DL (0.1-1.0); BUN/CREATININE RATIO 27; CALCIUM 9.2 MG/DL (8.5-10.1); CARBON DIOXIDE 25 MMOL/L (21-32); CHLORIDE 101 MMOL/L (98-107); CREATININE SERUM 0.45 MG/DL (0.60-1.30); GFR ESTIMATED > 60; GLUCOSE 165 MG/DL (70-105); POTASSIUM 3.4 MMOL/L (3.6-5.0); SODIUM 138 MMOL/L (135-145); TOTAL PROTEIN 6.7 GM/DL (6.4-8.2)
[2019-03-06 09:08] LABS: FREE T4 (FREE THYROXINE) 0.91 NG/DL (0.70-1.48)
== END ==
LOC: LAB FS 20:29
PROVIDERS: ATTEND Family Medicine
DX: M86.60 Other chronic osteomyelitis, unspecified site (principal); Z79.01 Long term (current) use of anticoagulants
CPT/HCPCS: 36415; 80053; 84439; 84443; 85025

== ENCOUNTER → 2019-03-11 | Outpatient (CLI) | payer MEDICARE, MEDICAID ==
[~2019-03-11] MED LIST changes: -AMOX-358 PO; -ASCO10006 PO; -BACL20TA PO; -CALC200T50 PO; -CETI10TA17 PO; -DIAZ10TA3 PO; -DOXY100C42 PO; -IBUP-2473 PO; -OMEP20TA7 PO; -OXB5TCR PO; -OXYB10TA6 PO; -RIVA10TA PO; -RIVA20TA PO; -SERT100T8 PO
== END ==
LOC: LAB FS 19:59
PROVIDERS: ATTEND Family Medicine
DX: Z43.5 Encounter for attention to cystostomy (principal); G82.20 Paraplegia, unspecified
CPT/HCPCS: 87077; 87088; 87186

== ENCOUNTER → 2019-03-16 | Outpatient (CLI) | payer MEDICARE, MEDICAID | LOC: IHC 17:50 | PROVIDERS: ATTEND Family Medicine | DX: M86.60 Other chronic osteomyelitis, unspecified site (principal); Z79.01 Long term (current) use of anticoagulants; Z53.8 Procedure and treatment not carried out for other reasons ==

== ENCOUNTER → 2019-04-04 | Outpatient (CLI) | payer MEDICARE, MEDICAID ==
[2019-04-04 19:09] LABS: CARBON DIOXIDE 24 MMOL/L (21-32); CHLORIDE 99 MMOL/L (98-107); POTASSIUM 3.5 MMOL/L (3.6-5.0); SODIUM 138 MMOL/L (135-145)
[2019-04-04 19:10] LABS: ALANINE AMINOTRANSFERASE 32 U/L (0-55); ALKALINE PHOSPHATASE 73 U/L (40-136); BILIRUBIN,TOTAL 0.3 MG/DL (0.1-1.0); BUN/CREATININE RATIO 23; CALCIUM 9.5 MG/DL (8.5-10.1); CREATININE SERUM 0.53 MG/DL (0.60-1.30); GFR ESTIMATED > 60; GLUCOSE 135 MG/DL (70-105); TOTAL PROTEIN 7.2 GM/DL (6.4-8.2)
== END ==
LOC: LAB FS 18:41
PROVIDERS: ATTEND Family Medicine
DX: G82.20 Paraplegia, unspecified (principal)
CPT/HCPCS: 36415; 80053

== ENCOUNTER → 2019-04-05 | Outpatient (CLI) | payer MEDICARE, MEDICAID ==
[~2019-04-05] MED LIST changes: +AMOX-358 PO; +ASCO10006 PO; +BACL20TA PO; +CALC200T50 PO; +CETI10TA17 PO; +DIAZ10TA3 PO; +DOXY100C42 PO; +IBUP-2055 PO; +OMEP20TA7 PO; +OXB5TCR PO; +OXYB10TA6 PO; +RIVA10TA PO; +RIVA20TA PO; +SERT100T8 PO
== END ==
LOC: CATH 18:25
PROVIDERS: ATTEND Family Medicine
DX: Z01.89 Encounter for other specified special examinations (principal); Z87.440 Personal history of urinary (tract) infections
CPT/HCPCS: 87077; 87088

== ENCOUNTER 2019-04-10 09:34 | Inpatient (IN) | payer MEDICARE, MEDICAID ==
[2019-04-10] VITALS (8 sets, daily range): BP systolic 116–142; BP diastolic 65–89
[~2019-04-10] VITALS: Ht 165 cm; Wt 78.0 kg
[~2019-04-10 09:34] MED LIST changes: -AMOX-358 PO; -ASCO10006 PO; -BACL20TA PO; -CALC200T50 PO; -CETI10TA17 PO; -DIAZ10TA3 PO; -DOXY100C42 PO; -IBUP-2055 PO; -OMEP20TA7 PO; -OXB5TCR PO; -OXYB10TA6 PO; -RIVA10TA PO; -RIVA20TA PO; -SERT100T8 PO
--- NOTE | 2019-04-10 10:03 | ED GI ---
General Chief Complaint: Abdominal/GI Problems Stated Complaint: VOMITING, NAUSEA Source of Information: Patient Exam Limitations: No Limitations History of Present Illness Date Seen by Provider: Apr 10, 2019 Time Seen by Provider: 09:59 Initial Comments This 49-year-old white female was found to have a urinary tract infection within the last several days. The urinary tract infection has not been treated. The patient subsequently developed nausea and vomiting with associated fever and chills. Allergies and Home Medications Allergies Coded Allergies: Sulfa (Sulfonamide Antibiotics) (Verified Allergy, Unknown, 10/23/18) vancomycin (Verified Allergy, Unknown, 10/23/18) Home Medications Fluconazole 100 Mg Tablet, 100 MG PO DAILY Prescribed by: BELGICA ART on 10/23/18 2330 Miconazole Nitrate 45 Gm Cream.appl, 45 GM VG HS Prescribed by: PRESLEY EVANS on 12/04/18 6886 Patient Home Medication List Home Medication List Reviewed: Yes Review of Systems Review of Systems Constitutional: chills, malaise EENTM: No Symptoms Reported Respiratory: No Symptoms Reported Cardiovascular: No Symptoms Reported Gastrointestinal: Nausea, Vomiting Genitourinary: See HPI Musculoskeletal: no symptoms reported Skin: no symptoms reported Psychiatric/Neurological: No Symptoms Reported Endocrine: No Symptoms Reported Hematologic/Lymphatic: No Symptoms Reported Past Bbfodqo-Tfjtsn-Mzcdvs Hx Past Med/Social Hx: Reviewed Nursing Past Med/Soc Hx Patient Social History 2nd Hand Smoke Exposure: No Recent Hopitalizations: No Past Medical History Surgeries: Yes Amputation, Cystectomy, Gallbladder, 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, Orthopedic, Urinary Diversion Respiratory: No Cardiac: No Neurological: Yes Paralysis, Spinal Cord Injury Female Reproductive Disorders: Endometriosis, Ovarian Cyst 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 oz. 79.226345dq; BMI Method:Estimated General Appearance: WD/WN, mild distress HEENT: normal ENT inspection Neck: non-tender, full range of motion, supple Respiratory: no respiratory distress Cardiovascular: regular rate, rhythm, tachycardia Gastrointestinal: abnormal bowel sounds, distended, tenderness Extremities: other (amputation) Back: normal inspection Neurologic/Psychiatric: no motor/sensory deficits, alert, normal mood/affect Skin: normal color, warm/dry Focused Exam Lactate Level 04/10/19 09:45: Lactic Acid Level 2.95*H Lactic Acid Level Laboratory Tests Test 04/10/19 09:45 Lactic Acid Level 2.95 MMOL/L (0.50-2.00) *H Progress/Results/Core Measures Results/Orders Lab Results Laboratory Tests Test 04/10/19 09:45 Range/Units White Blood Count 12.7 H 4.3-11.0 10^3/uL Red Blood Count 5.39 4.35-5.85 10^6/uL Hemoglobin 16.3 H 11.5-16.0 G/DL Hematocrit 49 35-52 % Mean Corpuscular Volume 91 80-99 FL Mean Corpuscular Hemoglobin 30 25-34 PG Mean Corpuscular Hemoglobin Concent 33 32-36 G/DL Red Cell Distribution Width 13.7 10.0-14.5 % Platelet Count 377 130-400 10^3/uL Mean Platelet Volume 10.1 7.4-10.4 FL Neutrophils (%) (Auto) 81 H 42-75 % Lymphocytes (%) (Auto) 10 L 12-44 % Monocytes (%) (Auto) 7 0-12 % Eosinophils (%) (Auto) 1 0-10 % Basophils (%) (Auto) 1 0-10 % Neutrophils # (Auto) 10.3 H 1.8-7.8 X 10^3 Lymphocytes # (Auto) 1.3 1.0-4.0 X 10^3 Monocytes # (Auto) 0.9 0.0-1.0 X 10^3 Eosinophils # (Auto) 0.1 0.0-0.3 10^3/uL Basophils # (Auto) 0.1 0.0-0.1 10^3/uL Prothrombin Time 16.1 H 12.2-14.7 SEC INR Comment 1.2 0.8-1.4 Activated Partial Thromboplast Time 37 H 24-35 SEC Urine Color YELLOW Urine Clarity CLOUDY Urine pH 5.5 5-9 Urine Specific [place] >1.030 1.016-1.022 Urine Protein 2+ H NEGATIVE Urine Glucose (UA) NEGATIVE NEGATIVE Urine Ketones 1+ H NEGATIVE Urine Nitrite POSITIVE H NEGATIVE Urine Bilirubin NEGATIVE NEGATIVE Urine Urobilinogen 0.2 < = 1.0 MG/DL Urine Leukocyte Esterase 2+ H NEGATIVE Urine RBC (Auto) 3+ H NEGATIVE Urine RBC /HPF Urine WBC /HPF Urine Crystals /LPF Urine Bacteria /HPF Urine Casts /LPF Urine Mucus /LPF Urine Culture Indicated CULTURE PENDING Sodium Level 139 135-145 MMOL/L Potassium Level 3.1 L 3.6-5.0 MMOL/L Chloride Level 97 L 98-107 MMOL/L Carbon Dioxide Level 24 21-32 MMOL/L Anion Gap 18 H 5-14 MMOL/L Blood Urea Nitrogen 13 7-18 MG/DL Creatinine 0.50 L 0.60-1.30 MG/DL Estimat Glomerular Filtration Rate > 60 BUN/Creatinine Ratio 26 Glucose Level 142 H 70-105 MG/DL Lactic Acid Level 2.95 *H 0.50-2.00 MMOL/L Calcium Level 9.4 8.5-10.1 MG/DL Corrected Calcium 8.5-10.1 MG/DL Total Bilirubin 0.3 0.1-1.0 MG/DL Aspartate Amino Transf (AST/SGOT) 33 5-34 U/L Alanine Aminotransferase (ALT/SGPT) 43 0-55 U/L Alkaline Phosphatase 86 40-136 U/L Total Protein 7.9 6.4-8.2 GM/DL Albumin 4.6 H 3.2-4.5 GM/DL My Orders Orders - RANJITH ROME MD Cbc With Automated Diff (04/10/19 09:56) Comprehensive Metabolic Panel (04/10/19 09:56) Blood Culture (04/10/19 09:56) Sputum Culture (04/10/19 09:56) Urinalysis (04/10/19 09:56) Urine Culture (04/10/19 09:56) Protime With Inr (04/10/19 09:56) Partial Thromboplastin Time (04/10/19 09:56) Chest 1 View Ap/Pa Only (04/10/19 09:56) Ed Iv/Invasive Line Start (04/10/19 09:56) Ed Iv/Invasive Line Start (04/10/19 09:56) Vital Signs Adult Sepsis Patie Q15M (04/10/19 09:56) O2 (04/10/19 09:56) Remove Rings In Anticipation O (04/10/19 09:56) Lactic Acid Analyzer (04/10/19 09:56) Ns Iv 1000 Ml (Sodium Chloride 0.9%) (04/10/19 09:56) Meropenem (Merrem 1000 Mg) (04/10/19 11:00) Ct Abdomen/Pelvis Wo (04/10/19 10:55) Meropenem (Merrem 500 Mg) (04/10/19 11:01) Water (Sterile) For Injection (Sterile W (04/10/19 11:01) Vital Signs/I&O 04/10/19 09:40 Temp 36.2 Pulse 136 Resp 16 B/P (MAP) 126/62 (83) Pulse Ox 97 Progress Progress Note : Time: 11:37 Progress Note The patient's lactic acid was elevated. 2 blood cultures have been done. The patient received a gram of meropenem IV. Because of the distended abdomen and a CT of the abdomen and pelvis as been ordered. Telephone consultation was undertaken with Dr. Castillo who is kind enough to accept the patient to the ICU at [facility] for her urosepsis. We anticipate that the transfer will be delayed due to weather conditions. Departure Communication (Admissions) Time/Spoke to Admitting Phy: 11:39 Dr. Castillo. Impression Primary Impression: Urinary tract infection Qualified Codes: T83.511A - Infection and inflammatory reaction due to indwelling urethral catheter, initial encounter; N39.0 - Urinary tract infection, site not specified Additional Impressions: Sepsis due to urinary tract infection Osteomyelitis Qualified Codes: M86.461 - Chronic osteomyelitis with draining sinus, right tibia and fibula Disposition: ADMITTED INPATIENT Condition: Improved Admissions Decision to Admit Reason: Admit from ER (General) Decision to Admit/Date: Apr 10, 2019 Time/Decision to Admit Time: 12:08 Transfer Transfer Reason: Exceeds level of care Time Spoke to Accepting Phy: 12:[address] Castillo Transfer Time: 12:07 Transfer Facility: [facility] Method of Transfer: EMS Departure-Patient Inst. Referrals: MELY BEDOYA MD (PCP/Family) Primary Care Physician RANJITH ROME MD Apr 10, 2019 10:02
[2019-04-10] MEDS: NS IV 1000 ML 1,000 ML IV SCH ×4 (10:08→23:37)
[2019-04-10 10:10] LABS: BASOPHILS # (AUTO) 0.1 10^3/uL (0.0-0.1); BASOPHILS % (AUTO) 1 % (0-10); EOSINOPHILS # (AUTO) 0.1 10^3/uL (0.0-0.3); EOSINOPHILS % (AUTO) 1 % (0-10); HEMATOCRIT 49 % (35-52); HEMOGLOBIN 16.3 G/DL (11.5-16.0); LYMPHOCYTES # (AUTO) 1.3 X 10^3 (1.0-4.0); LYMPHOCYTES % (AUTO) 10 % (12-44); MEAN CORPUSCULAR HEMOGLOBIN 30 PG (25-34); MEAN CORPUSCULAR HGB CONC 33 G/DL (32-36); MEAN CORPUSCULAR VOLUME 91 FL (80-99); MEAN PLATELET VOLUME 10.1 FL (7.4-10.4); MONOCYTES # (AUTO) 0.9 X 10^3 (0.0-1.0); MONOCYTES % (AUTO) 7 % (0-12); NEUTROPHILS # (AUTO) 10.3 X 10^3 (1.8-7.8); NEUTROPHILS % (AUTO) 81 % (42-75); PLATELET COUNT 377 10^3/uL (130-400); RED CELL DISTRIBUTION WIDTH 13.7 % (10.0-14.5); WHITE BLOOD COUNT 12.7 10^3/uL (4.3-11.0)
[2019-04-10 10:11] LABS: CLARITY,URINE CLOUDY; COLOR,URINE YELLOW
[2019-04-10 10:12] LABS: BACTERIA,URINE QNS /HPF; BILIRUBIN,URINE NEGATIVE (NEGATIVE); GLUCOSE, URINE (UA) NEGATIVE (NEGATIVE); KETONES,URINE 1+ (NEGATIVE); LEUKOCYTE ESTERASE ,URINE 2+ (NEGATIVE); NITRITE,URINE POSITIVE (NEGATIVE); PH,URINE 5.5 (5-9); PROTEIN,URINE 2+ (NEGATIVE); RBC,URINE QNS /HPF; WBC,URINE QNS /HPF
[2019-04-10 10:17] LABS: INR 1.2 (0.8-1.4); PROTHROMBIN TIME PATIENT 16.1 SEC (12.2-14.7)
[2019-04-10 10:25] LABS: BUN/CREATININE RATIO 26; CALCIUM 9.4 MG/DL (8.5-10.1); CARBON DIOXIDE 24 MMOL/L (21-32); CHLORIDE 97 MMOL/L (98-107); GFR ESTIMATED > 60; GLUCOSE 142 MG/DL (70-105); POTASSIUM 3.1 MMOL/L (3.6-5.0); SODIUM 139 MMOL/L (135-145)
[2019-04-10 10:26] LABS: ALANINE AMINOTRANSFERASE 43 U/L (0-55); ALBUMIN 4.6 GM/DL (3.2-4.5); ALKALINE PHOSPHATASE 86 U/L (40-136); BILIRUBIN,TOTAL 0.3 MG/DL (0.1-1.0); TOTAL PROTEIN 7.9 GM/DL (6.4-8.2)
[2019-04-10] MEDS ORDERED: MEROPENEM 1,000 MG in WATER (STERILE) FOR INJECTION 20 ML IV ONE (11:00)
[2019-04-10] MEDS ORDERED: WATER (STERILE) FOR INJECTION 20 ML ONE (11:01)
[2019-04-10] MEDS ORDERED: MEROPENEM 500 MG VIAL (MERREM) IV ONE (11:01)
--- NOTE | 2019-04-10 12:24 | Diagnostic Imaging Report ---
INDICATION: Fever, nausea and vomiting.. TECHNIQUE: Single view chest 11:31 a.m. CORRELATION STUDY: None FINDINGS: Left-sided Dhdbtm-w-Dmsi catheter tip is obscured by extensive thoracolumbar spinal fixation hardware. Heart size and mediastinal vasculature are within normal limits. The lungs are clear with no consolidating infiltrate. There is no significant effusion or pneumothorax. Mild rightward curvature of the thoracic spine. IMPRESSION: 1. Negative for acute abnormality of the chest. Dictated by: Dictated on workstation # [id number]
--- NOTE | 2019-04-10 12:44 | Diagnostic Imaging Report ---
PROCEDURE: CT abdomen and pelvis without contrast. TECHNIQUE: Multiple contiguous axial images were obtained through the abdomen and pelvis without the use of intravenous contrast. Auto Exposure Controls were utilized during the CT exam to meet ALARA standards for radiation dose reduction. DATE: April 10, 2019. COMPARISON: None. INDICATION: 49-year-old female, fever, nausea, vomiting. FINDINGS: There are limitations for evaluation of the abdominal organs, neoplastic processes, abscess, and limited evaluation of the vasculature relating to the lack of intravenous contrast. There is a 7 mm right lower lobe nodule on axial image 16. The additional visualized portions of the lung bases are clear. The heart is not enlarged. There is no pericardial effusion. There is diffuse fatty infiltration of the liver. The outer liver contours are not nodular. The patient is status post cholecystectomy. There is no biliary ductal dilation. Very limited noncontrast evaluation of the pancreas is grossly unremarkable. The spleen is not enlarged. There is an accessory splenule on axial image 41. The adrenal glands are unremarkable. There is a nonobstructing left renal stone on axial image 51 which measures 6.5 mm in size. There is a smaller nonobstructing left renal stone measuring approximately 2 to 3 mm in size in axial image 47. There are nonobstructing 1 to 2 mm right renal stone subjacent to each other. There is no hydronephrosis. There is no identified ureteral stone. There is a suprapubic catheter within the bladder which is underdistended and not well evaluated. The pelvis is incompletely imaged The appendiceal tip is best seen on axial image 71 and adjacent sequential images and in is unremarkable in appearance. There is distorted appearance of the cecum and expected region of the origin of the appendix with abnormal fluid attenuation in this region. Comparison imaging is not available to assess for potential stability. There are fluid-filled abnormally distended segments of small bowel measuring up to approximately 3.9 cm in diameter. There is no identified free intraperitoneal air. There is abnormal swirling of mesenteric contents well illustrated on axial image 68 and adjacent sequential images. There is no identified drainable fluid collection within the abdominal or pelvic cavities. There is extensive abnormal fluid type attenuation within the subcutaneous tissues at the distal margin of the included field of view superficial to the expected location of the right hip and more medial subcutaneous tissues. This has an axial extent of approximately 8.9 x 4.7 cm on axial image 91. This is not clearly well marginated although is fairly focal and may relate to a nonspecific developing fluid collection. The right proximal femur appears absent. The pelvic bones are incompletely imaged. There is a dysmorphic appearance of the pelvis. There is hardware in the left proximal femur incompletely imaged. There are degenerative changes of the spine. There is spinal hardware with prominent associated artifact which does limit adjacent evaluation. There is intervertebral hardware at T10-T11. There is bridging across the spinal canal at this level best illustrated on sagittal image 78 and Image 23. IMPRESSION: 1. Extensive abnormal fluid attenuation within the subcutaneous tissues superficial to the expected location of the right hip and more medial subtendinous tissues which may relate to a large developing fluid collection. Recommend correlation clinically. 2. Abnormal distorted appearance in the region of the cecum expected location of the appendiceal origin with abnormal fluid attenuation at this location. This is suspicious for an infectious or inflammatory process. The appendiceal tip is unremarkable in appearance. 3. Abnormal fluid filled segments of small bowel which are abnormally distended. There is also swirling of mesenteric contents. This does raise concern for potential small bowel obstruction. 4. Diffuse fatty infiltration of the liver. 5. 7 mm right lower lobe pulmonary nodule. 6. Postprocedural changes of the spine. 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 6. Dysmorphic appearance of the pelvis. Dictated by: Dictated on workstation # [id number]
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
[2019-04-10] MEDS ORDERED: ASCO10006 PO (16:07)
[2019-04-10] MEDS ORDERED: BACL20TA PO (16:07)
[2019-04-10] MEDS ORDERED: OXYB10TA6 PO (16:07)
[2019-04-10] MEDS ORDERED: RIVA10TA PO (16:07)
[2019-04-10] MEDS ORDERED: AMOX-358 PO (16:07)
[2019-04-10] MEDS ORDERED: CALC200T50 PO (16:07)
[2019-04-10] MEDS ORDERED: DOXY100C42 PO (16:07)
[2019-04-10] MEDS ORDERED: OXB5TCR PO (16:07)
[2019-04-10] MEDS ORDERED: SERT100T8 PO (16:07)
[2019-04-10] MEDS ORDERED: OMEP20TA7 PO (16:07)
[2019-04-10] MEDS ORDERED: DIAZ10TA3 PO (16:07)
[2019-04-10] MEDS ORDERED: DIAZEPAM 5 MG (VALIUM) TABLET PO SCH (17:00)
[2019-04-10] MEDS ORDERED: BACLOFEN 10 MG (LIORESAL) TAB PO SCH (17:00)
[2019-04-10 17:15] LABS: BASOPHILS % (AUTO) 0 % (0-10); EOSINOPHILS # (AUTO) 0.1 10^3/uL (0.0-0.3); EOSINOPHILS % (AUTO) 1 % (0-10); HEMATOCRIT 43 % (35-52); LYMPHOCYTES # (AUTO) 1.2 X 10^3 (1.0-4.0); LYMPHOCYTES % (AUTO) 13 % (12-44); MEAN CORPUSCULAR HEMOGLOBIN 30 PG (25-34); MEAN CORPUSCULAR HGB CONC 33 G/DL (32-36); MEAN CORPUSCULAR VOLUME 92 FL (80-99); MEAN PLATELET VOLUME 10.4 FL (7.4-10.4); MONOCYTES # (AUTO) 1.1 X 10^3 (0.0-1.0); MONOCYTES % (AUTO) 12 % (0-12); NEUTROPHILS # (AUTO) 6.4 X 10^3 (1.8-7.8); NEUTROPHILS % (AUTO) 73 % (42-75); PLATELET COUNT 298 10^3/uL (130-400); RED CELL DISTRIBUTION WIDTH 14.6 % (10.0-14.5); WHITE BLOOD COUNT 8.7 10^3/uL (4.3-11.0)
[2019-04-10] MEDS ORDERED: KCL 10 MEQ TAB (MICRO K) PO ONE (17:15)
[2019-04-10] MEDS: MEROPENEM 500 MG/SWFI 10 ML IV PUSH IV SCH ×4 (17:51→23:34)
[2019-04-10] MEDS: BACLOFEN 10 MG (LIORESAL) TAB PO SCH ×2 (17:54→20:49)
[2019-04-10] MEDS: PANTOPRAZOLE 20 MG TABLET (PROTONIX) PO SCH (17:55)
[2019-04-10] MEDS: DIAZEPAM 5 MG (VALIUM) TABLET PO SCH ×2 (17:55→20:49)
[2019-04-10] MEDS: LINEZOLID IVPB 300 ML IV SCH (17:58)
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
[2019-04-10 18:07] LABS: ALANINE AMINOTRANSFERASE 37 U/L (0-55); ALBUMIN 3.6 GM/DL (3.2-4.5); ALKALINE PHOSPHATASE 61 U/L (40-136); BILIRUBIN,TOTAL 0.3 MG/DL (0.1-1.0); BUN/CREATININE RATIO 15; CALCIUM 8.4 MG/DL (8.5-10.1); CARBON DIOXIDE 21 MMOL/L (21-32); CHLORIDE 108 MMOL/L (98-107); CREATININE SERUM 0.65 MG/DL (0.60-1.30); GFR ESTIMATED > 60; GLUCOSE 96 MG/DL (70-105); POTASSIUM 3.2 MMOL/L (3.6-5.0); SODIUM 141 MMOL/L (135-145)
[2019-04-10 18:42] LABS: MAGNESIUM 1.4 MG/DL (1.6-2.4); PHOSPHORUS 1.6 MG/DL (2.3-4.7)
[2019-04-10] MEDS ORDERED: RIVAROXABAN 20 MG TABLET (XARELTO) ONE (20:41)
[2019-04-10] MEDS: MAGNESIUM 1 GM/100 ML IVPB 100 ML IV SCH ×2 (20:48→21:55)
[2019-04-10] MEDS: ASCORBIC ACID (VIT C) 500 MG TABLET PO SCH (20:49)
[2019-04-10] MEDS: RIVAROXABAN 10 MG TABLET (XARELTO) PO SCH ×2 (20:50→20:52)
[2019-04-10] MEDS ORDERED: CALCIUM CITRATE 200 MG PO SCH (21:00)
[2019-04-10] MEDS ORDERED: DOXYCYCLINE 100 MG (VIBRAMYCIN) TABLET PO SCH (21:00)
[2019-04-10] MEDS ORDERED: AUGMENTIN 875 MG TAB (AMOXICILLIN/CLAVULANATE) PO SCH (21:00)
[2019-04-11] VITALS (14 sets, daily range): BP systolic 123–162; BP diastolic 77–110
[2019-04-11] MEDS ORDERED: ONDANSETRON 4 MG/2 ML (SDV) Z0FRAN ONE (00:38)
[2019-04-11] MEDS: ONDANSETRON 4 MG/2 ML (SDV) Z0FRAN IV PRN (01:00)
[2019-04-11] MEDS: DIAZEPAM 5 MG (VALIUM) TABLET PO SCH ×4 (02:06→21:25)
[2019-04-11] MEDS: BACLOFEN 10 MG (LIORESAL) TAB PO SCH ×4 (02:06→21:26)
[2019-04-11] MEDS: OXYBUTYNIN (DITROPAN) 5 MG TAB PO SCH ×2 (02:07→10:47)
[2019-04-11] MEDS ORDERED: ONDANSETRON 4 MG/2 ML (SDV) Z0FRAN IVP PRN (02:15)
[2019-04-11 03:24] LABS: BASOPHILS % (AUTO) 0 % (0-10); EOSINOPHILS # (AUTO) 0.1 10^3/uL (0.0-0.3); EOSINOPHILS % (AUTO) 1 % (0-10); HEMATOCRIT 40 % (35-52); HEMOGLOBIN 13.1 G/DL (11.5-16.0); LYMPHOCYTES # (AUTO) 1.5 X 10^3 (1.0-4.0); LYMPHOCYTES % (AUTO) 19 % (12-44); MEAN CORPUSCULAR HEMOGLOBIN 30 PG (25-34); MEAN CORPUSCULAR HGB CONC 33 G/DL (32-36); MEAN CORPUSCULAR VOLUME 91 FL (80-99); MEAN PLATELET VOLUME 10.1 FL (7.4-10.4); MONOCYTES # (AUTO) 1.3 X 10^3 (0.0-1.0); MONOCYTES % (AUTO) 17 % (0-12); NEUTROPHILS # (AUTO) 4.7 X 10^3 (1.8-7.8); NEUTROPHILS % (AUTO) 62 % (42-75); PLATELET COUNT 303 10^3/uL (130-400); RED CELL DISTRIBUTION WIDTH 14.5 % (10.0-14.5); WHITE BLOOD COUNT 7.5 10^3/uL (4.3-11.0)
[2019-04-11 03:49] LABS: ALANINE AMINOTRANSFERASE 47 U/L (0-55); ALBUMIN 3.7 GM/DL (3.2-4.5); ALKALINE PHOSPHATASE 67 U/L (40-136); BILIRUBIN,TOTAL 0.3 MG/DL (0.1-1.0); BUN/CREATININE RATIO 13; CALCIUM 7.9 MG/DL (8.5-10.1); CARBON DIOXIDE 21 MMOL/L (21-32); CHLORIDE 106 MMOL/L (98-107); CREATININE SERUM 0.56 MG/DL (0.60-1.30); GFR ESTIMATED > 60; GLUCOSE 111 MG/DL (70-105); MAGNESIUM 1.9 MG/DL (1.6-2.4); PHOSPHORUS 1.5 MG/DL (2.3-4.7); POTASSIUM 3.3 MMOL/L (3.6-5.0); SODIUM 138 MMOL/L (135-145); TOTAL PROTEIN 6.3 GM/DL (6.4-8.2)
[2019-04-11] MEDS: LINEZOLID IVPB 300 ML IV SCH ×2 (04:39→18:21)
[2019-04-11] MEDS: POTASSIUM CL 10MEQ/50ML IVPB 50 ML IV SCH ×4 (05:46→08:28)
[2019-04-11] MEDS ORDERED: KCL 20 MEQ TAB (K-DUR) PO SCH (06:00)
[2019-04-11] MEDS ORDERED: POTASSIUM CL 10MEQ/50ML IVPB 50 ML IV SCH (06:00)
[2019-04-11] MEDS ORDERED: MAGNESIUM 1 GM/100 ML IVPB 100 ML IV SCH (06:00)
[2019-04-11] MEDS: MEROPENEM 500 MG/SWFI 10 ML IV PUSH IV SCH ×10 (06:27→23:59)
[2019-04-11 06:58] LABS: OCCULT BLOOD,GASTRIC FLUID NEGATIVE (NEGATIVE)
[2019-04-11] MEDS ORDERED: POTASSIUM PHOSPHATE INJ 30 MM in NS (IVPB) 250 ML IV NR (07:15)
[2019-04-11] MEDS ORDERED: PROMETHAZINE INJ 25 MG/ML (PHENERGAN) AMP IVP PRN (07:30)
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
[2019-04-11 07:53] LABS: AMYLASE 18 U/L (25-125); LIPASE 19 U/L (8-78)
--- NOTE | 2019-04-11 08:04 | Diagnostic Imaging Report ---
EXAMINATION: Chest radiograph, portable AP view. DATE: 04/11/2019 3:13 AM hours. INDICATION: 49-year-old female, urosepsis. COMPARISON: April 10, 2019. FINDINGS: There is spine hardware. There is a redemonstrated left-sided port catheter with tip overlying the upper SVC. Stable overall appearance of the cardiomediastinal silhouette. There is no identified pneumothorax. There is no large pleural effusion. There is no identified focal airspace consolidation. There is gas distention of the stomach. IMPRESSION: 1. No identified acute cardiopulmonary abnormality. 2. Gas-distended stomach. Dictated by: Dictated on workstation # [id number]
[2019-04-11 08:31] LABS: BILIRUBIN,URINE NEGATIVE (NEGATIVE); CLARITY,URINE CLEAR; COLOR,URINE DARK YELLOW; GLUCOSE, URINE (UA) NEGATIVE (NEGATIVE); KETONES,URINE 1+ (NEGATIVE); LEUKOCYTE ESTERASE ,URINE NEGATIVE (NEGATIVE); NITRITE,URINE NEGATIVE (NEGATIVE); PROTEIN,URINE 1+ (NEGATIVE)
[2019-04-11 08:41] LABS: BACTERIA,URINE TRACE /HPF; YEAST,URINE MODERATE /HPF
--- NOTE | 2019-04-11 08:45 | NUR ---
REC'D PER BED FROM ICU. SEE ASSESSMENT.
[2019-04-11] MEDS ORDERED: SERTRALINE 100 MG (ZOLOFT) TAB PO SCH (10:30)
[2019-04-11] MEDS: NS IV 1000 ML 1,000 ML IV SCH ×4 (10:41→23:02)
[2019-04-11] MEDS: ASCORBIC ACID (VIT C) 500 MG TABLET PO SCH ×2 (10:47→21:26)
--- NOTE | 2019-04-11 11:50 | Progress Note - Surgery ---
LUIS M WILLIAMSON,MED STUDENT 04/11/19 1150: Subjective Date Seen by a Provider: Apr 11, 2019 Time Seen by a Provider: 11:04 Subjective/Events-last exam Patient seen and examined this morning in bed. States she has a sore throat, and thinks it is because she sleeps with her mouth open. She also feels like she has a fever. Stomach pain and distension about the same as yesterday. Review of Systems General: Chills, Malaise HEENT: Sinus Congestion, Sore Throat Pulmonary: No Dyspnea, No Cough Cardiovascular: No: Chest Pain, Palpitations, Edema Gastrointestinal: Abdominal Pain Focused Exam Lactate Level 04/10/19 09:45: Lactic Acid Level 2.95*H 04/10/19 12:10: Lactic Acid Level 3.38*H 04/10/19 17:00: Lactic Acid Level 1.73 Objective Exam Vital Signs Date Time Temp Pulse Resp B/P (MAP) Pulse Ox O2 Delivery O2 Flow Rate FiO2 04/11/19 08:49 36.8 117 14 162/110 (127) 94 Room Air 04/11/19 08:45 Room Air 04/11/19 08:00 94 Room Air 04/11/19 08:00 111 10 149/107 (121) 93 Room Air 04/11/19 07:00 114 12 135/89 (104) 92 Room Air 04/11/19 07:00 114 04/11/19 06:00 117 24 146/95 (112) 94 Room Air 04/11/19 05:00 112 23 141/77 (98) 90 Room Air 04/11/19 04:00 92 Room Air 04/11/19 04:00 112 23 141/89 (106) 95 Room Air 04/11/19 03:00 117 19 139/89 (106) 96 Room Air 04/11/19 02:00 114 19 126/84 (98) 95 Room Air 04/11/19 01:00 116 15 141/90 (107) 93 Room Air 04/11/19 01:00 116 04/11/19 00:00 99 Room Air 04/11/19 00:00 116 20 136/83 (100) 90 Room Air 04/10/19 23:00 120 20 131/89 (103) 93 Room Air 04/10/19 22:00 116 21 128/77 (94) 90 Room Air 04/10/19 21:00 116 16 117/79 (92) 96 Room Air 04/10/19 20:00 36.6 04/10/19 20:00 99 Room Air 04/10/19 20:00 122 18 142/89 (106) 95 Room Air 04/10/19 19:44 115 04/10/19 19:00 113 16 125/76 (92) 96 Room Air 04/10/19 17:00 118 9 116/65 (82) 96 Room Air 04/10/19 16:13 116 04/10/19 16:00 117 15 125/78 (94) 95 Room Air 04/10/19 16:00 36.6 04/10/19 15:43 95 Room Air 04/10/19 15:15 125 124/69 (87) Room Air 04/10/19 14:31 36.6 128 22 115/69 95 I & O 04/11/19 07:00 Intake Total 4095 ml Output Total 1400 ml Balance 2695 ml Capillary Refill : Less Than 3 SecondsLess Than 3 Seconds General Appearance: WD/WN, Chronically ill HEENT: PERRL/EOMI, Moist Mucous Membranes; No Pharyngeal Erythema Neck: Non Tender, Supple Respiratory: Lungs Clear, No Accessory Muscle Use, No Respiratory Distress Cardiovascular: Regular Rate, Rhythm, No Murmur Peripheral Pulses: 2+ Left Dors-Pedis (L), 2+ Radial Pulses (R), 2+ Radial Pulses (L) Gastrointestinal: normal bowel sounds, distended (minimally), tenderness (diffuse) Extremity: Other (right hip disarticulation, no erythema or tenderness to the area) Neurologic/Psychiatric: Alert, Oriented x3, Motor Weakness (T5 spinal cord) Skin: Warm/Dry, Pallor Results Lab Laboratory Tests 04/10/19 12:10: Lactic Acid Level 3.38*H 04/10/19 17:00: Lactic Acid Level 1.73, White Blood Count 8.7, Red Blood Count 4.63, Hemoglobin 14.0, Hematocrit 43, Mean Corpuscular Volume 92, Mean Corpuscular Hemoglobin 30, Mean Corpuscular Hemoglobin Concent 33, Red Cell Distribution Width 14.6H, P latelet Count 298, Mean Platelet Volume 10.4, Neutrophils (%) (Auto) 73, Lymphocytes (%) (Auto) 13, Monocytes (%) (Auto) 12, Eosinophils (%) (Auto) 1, Basophils (%) (Auto) 0, Neutrophils # (Auto) 6.4, Lymphocytes # (Auto) 1.2, Monocytes # (Auto) 1.1H, Eosinophils # (Auto) 0.1, Basophils # (Auto) 0.0 04/10/19 17:40: Sodium Level 141, Potassium Level 3.2L, Chloride Level 108H, Carbon Dioxide Level 21, Anion Gap 12, Blood Urea Nitrogen 10, Creatinine 0.65, Estimat Glomerular Filtration Rate > 60, BUN/Creatinine Ratio 15, Glucose Level 96, Tobias cium Level 8.4L, Corrected Calcium 8.7, Phosphorus Level 1.6L, Magnesium Level 1.4L, Total Bilirubin 0.3, Aspartate Amino Transf (AST/SGOT) 25, Alanine Aminotransferase (ALT/SGPT) 37, Alkaline Phosphatase 61, Total Protein 6.0L, Albumin 3.6 04/11/19 03:15: White Blood Count 7.5, Red Blood Count 4.36, Hemoglobin 13.1, Hematocrit 40, Mean Corpuscular Volume 91, Mean Corpuscular Hemoglobin 30, Mean Corpuscular Hemoglobin Concent 33, Red Cell Distribution Width 14.5, Platelet Count 303, Mean Platelet Volume 10.1, Neutrophils (%) (Auto) 62, Lymphocytes (%) (Auto) 19, Monocytes (%) (Auto) 17H, Eosinophils (%) (Auto) 1, Basophils (%) (Auto) 0, Neutrophils # (Auto) 4.7, Lymphocytes # (Auto) 1.5, Monocytes # (Auto) 1.3H, Eosinophils # (Auto) 0.1, Basophils # (Auto) 0.0, Sodium Level 138, Potassium Level 3.3L, Chloride Level 106, Carbon Dioxide Level 21, Anion Gap 11, Blood Urea Nitrogen 7, Creatinine 0.56L, Estimat Glomerular Filtration Rate > 60, BUN/Creatinine Ratio 13, Glucose Level 111H, Calcium Level 7.9L, Corrected Calcium 8.1L, Phosphorus Level 1.5L, Magnesium Level 1.9, Total Bilirubin 0.3, Aspartate Amino Transf (AST/SGOT) 41H, Alanine Aminotransferase (ALT/SGPT) 47, Alkaline Phosphatase 67, Total Protein 6.3L, Albumin 3.7, Amylase Level 18L, Lipase 19 04/11/19 05:45: Urine Color DARK YELLOW, Urine Clarity CLEAR, Urine pH 6.0, Urine Specific [place] >=1.030, Urine Protein 1+H, Urine Glucose (UA) NEGATIVE, Urine Ketones 1+H, Urine Nitrite NEGATIVE, Urine Bilirubin NEGATIVE, Urine Urobilinogen 0.2, Urine Leukocyte Esterase NEGATIVE, Urine RBC (Auto) 2+H, Urine RBC 5-10H, Urine WBC 10-25H, Urine Squamous Epithelial Cells 2-5, Urine Crystals NONE, Urine Bacteria TRACE, Urine Casts NONE, Urine Mucus NEGATIVE, Urine Yeast MODERATEH, Urine Culture Indicated YES 04/11/19 06:45: Gastric Fluid Occult Blood NEGATIVE Microbiology 04/10/19 Urine Culture - Preliminary, Resulted Gram Negative Mike YEAST Assessment/Plan Assessment/Plan Assessment/Plan Assessment: -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 Right hip area appears unchanged from yesterday. Continue IV fluids, IV antibiotics, potassium and phosphate replacement, and pain control. Clinical Quality Measures DVT/VTE Risk/Contraindication: Risk Factor Score Per Nursin RFS Level Per Nursing on Admit: 4+=Very High VU SANTOS DO 04/11/19 1324: Subjective Time Seen by a Provider: 12:04 Subjective/Events-last exam Pt seen and examined, sleeping but easily arousable. Nurse states she has not let anyone come in this am; "cause they kept me up all night". Review of Systems General: Chills, Malaise Pulmonary: Dyspnea, Cough Cardiovascular: Chest Pain, Palpitations Gastrointestinal: Abdominal Pain Objective Exam General Appearance: No Apparent Distress HEENT: PERRL/EOMI, Moist Mucous Membranes Respiratory: Lungs Clear, No Accessory Muscle Use, No Respiratory Distress Gastrointestinal: distended (minimally), tenderness (diffuse) Extremity: Other (right hip disarticulation, no erythema or tenderness to the area) Assessment/Plan Assessment/Plan Assessment/Plan No changes in the right hip/pelvis area; therefore I doubt this is an abscess. I asked pt about enema to help with impacted stool and she said, "it works itself out". Continue ABX and IV fluids. No surgical intervention needed at this time, I will continue to follow along. Supervisory-Addendum Brief Verification & Attestation Participated in pt care: history, MDM, physical Personally performed: exam, history, MDM Care discussed with: Medical Student Procedures: n/a Verification and Attestation of Medical Student E/M Service A medical student performed and documented this service in my presence. I reviewed and verified all information documented by the medical student and made modifications to such information, when appropriate. I personally performed the physical exam and medical decision making. Vu Santos, Apr 11, 2019,13:24 LUIS M WILLIAMSON,MED STUDENT Apr 11, 2019 11:50 VU SANTOS DO Apr 11, 2019 13:24
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
[2019-04-11] MEDS: FLUCONAZOLE 200 MG/100 ML 50 ML, EMPTY IV BAG (PVC) 1 EA IV SCH ×2 (15:45)
[2019-04-11] MEDS: PANTOPRAZOLE 20 MG TABLET (PROTONIX) PO SCH (15:45)
--- NOTE | 2019-04-11 18:35 | NUR ---
PT HAD C/O ABD DISTENTION. SAT UP IN BED AND LARGE AMOUNT GAS EXPELLED BY BELCHING AND LARGE AMOUNT FLATUS PASSED. ABD LESS DISTENDED AND PT STATES "I FEEL 100% BETTER".
--- NOTE | 2019-04-11 21:00 | NUR ---
Pt would not allow RN to do full assessment. RN unable to assess catheter placement and lower extremities as pt refused to cooperate. RN also unable to turn pt to check on her back due to pt refusal.
[2019-04-11] MEDS: RIVAROXABAN 10 MG TABLET (XARELTO) PO SCH (21:25)
[2019-04-12] MEDS: OXYBUTYNIN (DITROPAN) 5 MG TAB PO SCH ×2 (02:02→09:49)
[2019-04-12] MEDS: DIAZEPAM 5 MG (VALIUM) TABLET PO SCH ×4 (02:02→20:56)
[2019-04-12] MEDS: BACLOFEN 10 MG (LIORESAL) TAB PO SCH ×4 (02:08→20:56)
--- NOTE | 2019-04-12 03:15 | NUR ---
Pt is complaining of severe sinus headache and verbalized that she takes Ibuprofen 600mg at home. Notified Dr. Bear of pt's complain. Received orders for Tylenol 500mg q4 PRN and Ibuprofen 600mg TID PRN for pain. Input orders and gave Ibuprofen.
[2019-04-12] MEDS ORDERED: ACETAMINOPHEN 500 MG TAB (TYLENOL) PO PRN (03:30)
[2019-04-12] MEDS: IBUPROFEN 600 MG (MOTRIN) TAB PO PRN ×2 (03:31→09:48)
[2019-04-12] MEDS: LINEZOLID IVPB 300 ML IV SCH (04:57)
[2019-04-12 04:59] VITALS: BP 166/99
[2019-04-12 05:12] LABS: BASOPHILS % (AUTO) 0 % (0-10); EOSINOPHILS % (AUTO) 0 % (0-10); HEMATOCRIT 39 % (35-52); HEMOGLOBIN 12.8 G/DL (11.5-16.0); LYMPHOCYTES # (AUTO) 2.2 X 10^3 (1.0-4.0); LYMPHOCYTES % (AUTO) 22 % (12-44); MEAN CORPUSCULAR HEMOGLOBIN 30 PG (25-34); MEAN CORPUSCULAR HGB CONC 33 G/DL (32-36); MEAN CORPUSCULAR VOLUME 92 FL (80-99); MONOCYTES # (AUTO) 1.2 X 10^3 (0.0-1.0); MONOCYTES % (AUTO) 12 % (0-12); NEUTROPHILS # (AUTO) 6.4 X 10^3 (1.8-7.8); NEUTROPHILS % (AUTO) 65 % (42-75); PLATELET COUNT 286 10^3/uL (130-400); RED CELL DISTRIBUTION WIDTH 14.2 % (10.0-14.5); WHITE BLOOD COUNT 9.9 10^3/uL (4.3-11.0)
[2019-04-12 05:37] LABS: ALANINE AMINOTRANSFERASE 37 U/L (0-55); ALBUMIN 3.4 GM/DL (3.2-4.5); ALKALINE PHOSPHATASE 64 U/L (40-136); BILIRUBIN,TOTAL 0.3 MG/DL (0.1-1.0); BUN/CREATININE RATIO 9; CALCIUM 7.4 MG/DL (8.5-10.1); CARBON DIOXIDE 19 MMOL/L (21-32); CHLORIDE 105 MMOL/L (98-107); CREATININE SERUM 0.55 MG/DL (0.60-1.30); GFR ESTIMATED > 60; GLUCOSE 102 MG/DL (70-105); MAGNESIUM 1.6 MG/DL (1.6-2.4); PHOSPHORUS 1.3 MG/DL (2.3-4.7); POTASSIUM 3.6 MMOL/L (3.6-5.0); SODIUM 135 MMOL/L (135-145); TOTAL PROTEIN 5.7 GM/DL (6.4-8.2)
[2019-04-12] MEDS: MEROPENEM 500 MG/SWFI 10 ML IV PUSH IV SCH ×6 (06:24→17:26)
[2019-04-12] MEDS: NS IV 1000 ML 1,000 ML IV SCH ×3 (06:57→20:56)
--- NOTE | 2019-04-12 07:04 | Progress Note - Surgery ---
LUIS M WILLIAMSON,MED STUDENT 04/12/19 0704: Subjective Date Seen by a Provider: Apr 12, 2019 Time Seen by a Provider: 06:45 Subjective/Events-last exam Patient seen and examined in bed this morning. States she is not feeling well has a horrible headache. Stomach pain has improved since yesterday though. She states she is still very gassy Review of Systems General: Fatigue HEENT: No Head Aches; Eye Pain, Sore Throat Pulmonary: No Dyspnea, No Cough Cardiovascular: No: Chest Pain, Palpitations Gastrointestinal: Nausea, Vomiting; No: Abdominal Pain Focused Exam Lactate Level 04/10/19 09:45: Lactic Acid Level 2.95*H 04/10/19 12:10: Lactic Acid Level 3.38*H 04/10/19 17:00: Lactic Acid Level 1.73 Objective Exam Vital Signs Date Time Temp Pulse Resp B/P (MAP) Pulse Ox O2 Delivery O2 Flow Rate FiO2 04/12/19 04:59 36.5 116 18 166/99 (121) 94 Room Air 04/11/19 23:45 36.5 114 20 123/85 (98) 92 Room Air 04/11/19 21:00 Room Air 04/11/19 20:21 36.5 112 14 123/79 (94) 93 Room Air 04/11/19 16:14 36.5 119 16 153/98 (116) 93 Room Air 04/11/19 12:07 37.3 120 16 150/92 (111) 94 Room Air 04/11/19 08:49 36.8 117 14 162/110 (127) 94 Room Air 04/11/19 08:45 Room Air 04/11/19 08:00 94 Room Air 04/11/19 08:00 111 10 149/107 (121) 93 Room Air 04/11/19 07:00 114 12 135/89 (104) 92 Room Air 04/11/19 07:00 114 I & O 04/12/19 07:00 Intake Total 2200 ml Output Total 1400 ml Balance 800 ml Capillary Refill : Less Than 3 SecondsLess Than 3 Seconds General Appearance: WD/WN, Chronically ill, Mild Distress HEENT: PERRL/EOMI, Moist Mucous Membranes; No Pharyngeal Erythema Respiratory: Normal Breath Sounds, No Accessory Muscle Use, No Respiratory Distress Cardiovascular: Regular Rate, Rhythm, No Murmur Peripheral Pulses: 2+ Left Dors-Pedis (L), 2+ Radial Pulses (R), 2+ Radial Pulses (L) Gastrointestinal: normal bowel sounds, distended (minimally); No tenderness Extremity: Other (right hip disarticulation, no erythema or tenderness to the area) Neurologic/Psychiatric: Alert, Oriented x3, Normal Mood/Affect, Motor Weakness (paraplegia) Skin: Warm/Dry, Pallor Results Lab Laboratory Tests 04/12/19 05:00: White Blood Count 9.9, Red Blood Count 4.28L, Hemoglobin 12.8, Hematocrit 39, Mean Corpuscular Volume 92, Mean Corpuscular Hemoglobin 30, Mean Corpuscular Hemoglobin Concent 33, Red Cell Distribution Width 14.2, Platelet Count 286, Mean Platelet Volume 10.0, Neutrophils (%) (Auto) 65, Lymphocytes (%) (Auto) 22, Monocytes (%) (Auto) 12, Eosinophils (%) (Auto) 0, Basophils (%) (Auto) 0, Neutrophils # (Auto) 6.4, Lymphocytes # (Auto) 2.2, Monocytes # (Auto) 1.2H, Eosinophils # (Auto) 0.0, Basophils # (Auto) 0.0, Sodium Level 135, Potassium Level 3.6, Chloride Level 105, Carbon Dioxide Level 19L, Anion Gap 11, Blood Urea Nitrogen 5L, Creatinine 0.55L, Estimat Glomerular Filtration Rate > 60, BUN/Creatinine Ratio 9, Glucose Level 102, Calcium Level 7.4L, Corrected Calcium 7.9L, Phosphorus Level 1.3L, Magnesium Level 1.6, Total Bilirubin 0.3, Aspartate Amino Transf (AST/SGOT) 26, Alanine Aminotransferase (ALT/SGPT) 37, Alkaline Phosphatase 64, Total Protein 5.7L, Albumin 3.4 Microbiology 04/10/19 MRSA Screen - Final, Complete MRSA not isolated 04/10/19 Urine Culture - Preliminary, Resulted Gram Negative Mike YEAST Assessment/Plan Assessment/Plan Assessment/Plan Assessment: -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 Right hip area appears unchanged from yesterday. Continue IV fluids, IV antibiotics, phosphate replacement, and pain control. Clinical Quality Measures DVT/VTE Risk/Contraindication: Risk Factor Score Per Nursin RFS Level Per Nursing on Admit: 4+=Very High PAUL SANTOS DO 04/12/19 1430: Subjective Time Seen by a Provider: 13:09 Subjective/Events-last exam Pt seen and examined, no change denies any new pain. Objective Exam General Appearance: No Apparent Distress, WD/WN Respiratory: Normal Breath Sounds, No Accessory Muscle Use, No Respiratory Distress Gastrointestinal: soft; No distended, No tenderness Skin: Normal Color, Warm/Dry Assessment/Plan Assessment/Plan Assessment/Plan Fluid Collection seen on CT, doubt this is an abscess; because no changes seen s uperficially, no pain and WBC normal. No surgical intervention needed; I will sign off and can reconsult if needed. Supervisory-Addendum Brief Verification & Attestation Participated in pt care: history, MDM, physical Personally performed: exam, history, MDM Care discussed with: Medical Student Procedures: n/a Verification and Attestation of Medical Student E/M Service A medical student performed and documented this service in my presence. I reviewed and verified all information documented by the medical student and made modifications to such information, when appropriate. I personally performed the physical exam and medical decision making. Paul Santos, Apr 12, 2019,14:29 LUIS M WILLIAMSON,MED STUDENT Apr 12, 2019 07:04 PAUL SANTOS DO Apr 12, 2019 14:30
[2019-04-12 08:00] VITALS: BP 163/93
[2019-04-12] MEDS: ONDANSETRON 4 MG/2 ML (SDV) Z0FRAN IV PRN (08:58)
[2019-04-12] MEDS ORDERED: RIVA20TA PO (09:12)
[2019-04-12] MEDS ORDERED: CETI10TA17 PO (09:14)
[2019-04-12] MEDS ORDERED: IBUP-2473 PO (09:21)
--- NOTE | 2019-04-12 09:22 | NUR ---
SPOKE WITH THE PT, WENT THRU THE EXT MED HISTORY AND CALLED JASON TO COMPLETE THE MED REC. I WENT THRU THE EXT MED HISTORY WITH THE PT (SHE WAS HAVING TROUBLE RECALLING THE NAMES) AND SOON I SAID THE MED SHE WAS ABLE TO TELL ME ABOUT IT WELL HOW/WHEN SHE TAKES EACH ONE. XARELTO 20MG: PT SAYS SHE BREAKS THEM IN HALF (SO SHE IS ONLY TAKING 10MG), HOWEVER THE DIRECTIONS SHOW " 1 TAB DAILY". THE PT SAYS HER DR IS AWARE THAT SHE DOES THIS. MEDS WERE ADDED TO THE MED REC DURING THE WEEKEND BY THE ICU STAFF. SERTRALINE 100MG WAS ADDED HOWEVER WHEN I ASKED THE PT ABOUT THIS SHE REPLIED WITH "YES I TAKE CETIRIZINE". I EXPLAINED THE DIFFERENCE IN THE TWO MEDS AND CLARIFIED THAT SERTRALINE IS ZOLOFT AND CETIRIZINE IS LORATADINE SHE STATES SHE DOES NOT TAKE SERTRALINE BUT DOES TAKE CETIRIZINE. I CALLED [facility] TO VERIFY THAT SHE DOESNT HAVE AN RX FOR THIS AND NEITHER ONE OF THEM HAS A RECORD OF THIS. I REMOVED THE SERTRALINE AND ADDED THE CETIRIZINE, THEN I LET THE PHARMACIST KNOW OF THE ERROR. OXYBUTYNIN: PT HAS AN RX FILLED AT [facility] FOR THE 10MG XL 1 TAB DAILY, HOWEVER THE PT IS USING UP AN OLD SCRIPT OF THE IMMEDIATE RELEASE 5MG ( 1 D AND 2 HS) AND THEN SHE SAYS SHE WILL START THE XL TABS. OTC MEDS: VIT C CALCIUM CETIRIZINE IBUPROFEN
[2019-04-12] MEDS: FLUCONAZOLE 200 MG/100 ML 50 ML, EMPTY IV BAG (PVC) 1 EA IV SCH ×2 (09:48)
[2019-04-12] MEDS: ASCORBIC ACID (VIT C) 500 MG TABLET PO SCH ×2 (09:49→20:56)
[2019-04-12] MEDS: CALCIUM CARBONATE 500 MG (TUMS) TAB.CHEW PO SCH ×2 (09:49→16:34)
[2019-04-12] MEDS: LORATADINE (CLARITIN) 10 MG TAB PO SCH (09:49)
--- NOTE | 2019-04-12 11:47 | NUR ---
"RD ASSESSMENT PMHx: paraplegia PT INTERACTION: Pt was semi-awake and pleasant during nutrition assessment. Pt states current appetite is poor and has been for awhile. Note avg PO intake <25% x2d, per chart review. Pt states following a regular diet at home and has no issues with chewing/swallowing food. Pt states recent episodes of nausea and vomiting at this time. Pt states some recent issues with constipation/diarrhea. Note last BM was 04/11 and pt not currently on bowel regimen per chart review. Pt states unsure of recent wt changes. Note unable to determine recent wt hx, per chart review. ABNORMAL NUTRITION-RELATED LAB VALUES LOW: BUN 5; cr 0.55; Ca 7.4; phos 1.3; Pro 5.7 HIGH: Est. kcal needs: 3532-1860 kcal | 20-25 kcal/kg Est. Pro needs: 78-94 g Pro | 1.0-1.2 g Pro/kg PES STATEMENT: Inadequate oral intake (NI-2.1) related to loss of appetite | nausea | vomiting | constipation | diarrhea as evidenced by pt interview | avg PO intake <25% x2d INTERVENTION: Continue with current diet order of Regular diet. Add Ensure Enlive (vary) to meals TID for increased kcal intake. Provides 350 kcal and 13 g Pro per serving. Will continue to follow and reassess as pt needs and status change. MONITOR/EVALUATE: PO Intake; Plan of Care; Hydration Status; Weight Status; Lab Values Estrella Cadena, MS, RD, LD"
[2019-04-12 12:00] VITALS: BP 155/90
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
[2019-04-12] MEDS: PANTOPRAZOLE 20 MG TABLET (PROTONIX) PO SCH (16:34)
[2019-04-12 16:51] VITALS: BP 124/81
[2019-04-12 19:44] VITALS: BP 148/78
[2019-04-12] MEDS: RIVAROXABAN 10 MG TABLET (XARELTO) PO SCH (20:56)
[2019-04-13] VITALS: BP 146/80
[2019-04-13] MEDS ORDERED: CEFEPIME 2 GM (MAXIPIME) VIAL ONE (00:46)
[2019-04-13] MEDS ORDERED: WATER (STERILE) FOR INJECTION 0 ML ONE (00:46)
[2019-04-13] MEDS: BACLOFEN 10 MG (LIORESAL) TAB PO SCH ×4 (01:18→21:19)
[2019-04-13] MEDS: MEROPENEM 500 MG/SWFI 10 ML IV PUSH IV SCH ×8 (01:18→17:28)
[2019-04-13] MEDS: OXYBUTYNIN (DITROPAN) 5 MG TAB PO SCH ×2 (01:19→10:24)
[2019-04-13] MEDS: DIAZEPAM 5 MG (VALIUM) TABLET PO SCH ×4 (01:19→21:19)
[2019-04-13] MEDS: IBUPROFEN 600 MG (MOTRIN) TAB PO PRN (03:20)
[2019-04-13] MEDS: NS IV 1000 ML 1,000 ML IV SCH ×3 (03:46→17:27)
[2019-04-13 04:15] VITALS: BP 134/72
[2019-04-13] MEDS: CALCIUM CARBONATE 500 MG (TUMS) TAB.CHEW PO SCH ×3 (05:12→16:02)
[2019-04-13 05:20] LABS: BASOPHILS % (AUTO) 1 % (0-10); EOSINOPHILS # (AUTO) 0.1 10^3/uL (0.0-0.3); EOSINOPHILS % (AUTO) 2 % (0-10); HEMATOCRIT 36 % (35-52); HEMOGLOBIN 11.6 G/DL (11.5-16.0); LYMPHOCYTES # (AUTO) 2.3 X 10^3 (1.0-4.0); LYMPHOCYTES % (AUTO) 37 % (12-44); MEAN CORPUSCULAR HEMOGLOBIN 30 PG (25-34); MEAN CORPUSCULAR HGB CONC 32 G/DL (32-36); MEAN CORPUSCULAR VOLUME 92 FL (80-99); MEAN PLATELET VOLUME 9.7 FL (7.4-10.4); MONOCYTES # (AUTO) 0.9 X 10^3 (0.0-1.0); MONOCYTES % (AUTO) 15 % (0-12); NEUTROPHILS # (AUTO) 2.9 X 10^3 (1.8-7.8); NEUTROPHILS % (AUTO) 46 % (42-75); PLATELET COUNT 285 10^3/uL (130-400); RED CELL DISTRIBUTION WIDTH 14.2 % (10.0-14.5); WHITE BLOOD COUNT 6.2 10^3/uL (4.3-11.0)
[2019-04-13 05:45] LABS: ALANINE AMINOTRANSFERASE 37 U/L (0-55); ALBUMIN 3.2 GM/DL (3.2-4.5); ALKALINE PHOSPHATASE 49 U/L (40-136); BILIRUBIN,TOTAL 0.2 MG/DL (0.1-1.0); BUN/CREATININE RATIO 8; CALCIUM 7.7 MG/DL (8.5-10.1); CARBON DIOXIDE 23 MMOL/L (21-32); CHLORIDE 108 MMOL/L (98-107); CREATININE SERUM 0.49 MG/DL (0.60-1.30); GFR ESTIMATED > 60; GLUCOSE 76 MG/DL (70-105); MAGNESIUM 1.5 MG/DL (1.6-2.4); PHOSPHORUS 1.4 MG/DL (2.3-4.7); POTASSIUM 3.4 MMOL/L (3.6-5.0); SODIUM 140 MMOL/L (135-145); TOTAL PROTEIN 5.3 GM/DL (6.4-8.2)
[2019-04-13 08:00] VITALS: BP 154/75
[2019-04-13] MEDS: fluCOnazole (DIFLUCAN) 100 MG TAB PO SCH (08:43)
[2019-04-13] MEDS: LORATADINE (CLARITIN) 10 MG TAB PO SCH (08:43)
[2019-04-13] MEDS: ASCORBIC ACID (VIT C) 500 MG TABLET PO SCH ×2 (10:24→21:19)
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
--- NOTE | 2019-04-13 15:08 | NUR ---
CM/SS: Visited with pt to discuss discharge planning Plan: Pt will return home with [facility] resumed when determined Summary: This pt is known to this worker from the [facility] as well as [facility]. Pt reports she is feeling better and that she will need an ambulance when she is discharged due to being unable to sit up. This worker will arrange once discharged has been finalized.
[2019-04-13 15:19] VITALS: BP 158/90
[2019-04-13] MEDS: PANTOPRAZOLE 20 MG TABLET (PROTONIX) PO SCH (16:02)
[2019-04-13] MEDS ORDERED: KCL 10 MEQ TAB (MICRO K) PO NR (20:30)
[2019-04-13] MEDS: RIVAROXABAN 10 MG TABLET (XARELTO) PO SCH (21:19)
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
[2019-04-13 23:04] VITALS: BP 133/68
[2019-04-14] MEDS: MEROPENEM 500 MG/SWFI 10 ML IV PUSH IV SCH ×6 (01:02→13:39)
[2019-04-14] MEDS: DIAZEPAM 5 MG (VALIUM) TABLET PO SCH ×2 (02:36→09:17)
[2019-04-14] MEDS: OXYBUTYNIN (DITROPAN) 5 MG TAB PO SCH ×2 (02:36→09:16)
[2019-04-14] MEDS: BACLOFEN 10 MG (LIORESAL) TAB PO SCH ×2 (02:36→09:17)
[2019-04-14 04:40] LABS: BASOPHILS % (AUTO) 0 % (0-10); EOSINOPHILS # (AUTO) 0.3 10^3/uL (0.0-0.3); EOSINOPHILS % (AUTO) 4 % (0-10); HEMATOCRIT 40 % (35-52); LYMPHOCYTES % (AUTO) 42 % (12-44); MEAN CORPUSCULAR HEMOGLOBIN 30 PG (25-34); MEAN CORPUSCULAR HGB CONC 33 G/DL (32-36); MEAN CORPUSCULAR VOLUME 92 FL (80-99); MONOCYTES # (AUTO) 0.9 X 10^3 (0.0-1.0); MONOCYTES % (AUTO) 12 % (0-12); NEUTROPHILS # (AUTO) 3.1 X 10^3 (1.8-7.8); NEUTROPHILS % (AUTO) 42 % (42-75); PLATELET COUNT 300 10^3/uL (130-400); WHITE BLOOD COUNT 7.3 10^3/uL (4.3-11.0)
[2019-04-14 05:10] LABS: ALANINE AMINOTRANSFERASE 53 U/L (0-55); ALBUMIN 3.5 GM/DL (3.2-4.5); ALKALINE PHOSPHATASE 56 U/L (40-136); BILIRUBIN,TOTAL 0.3 MG/DL (0.1-1.0); BUN/CREATININE RATIO 6; CALCIUM 8.2 MG/DL (8.5-10.1); CARBON DIOXIDE 22 MMOL/L (21-32); CHLORIDE 106 MMOL/L (98-107); CREATININE SERUM 0.53 MG/DL (0.60-1.30); GFR ESTIMATED > 60; GLUCOSE 77 MG/DL (70-105); MAGNESIUM 1.5 MG/DL (1.6-2.4); PHOSPHORUS 1.8 MG/DL (2.3-4.7); POTASSIUM 3.7 MMOL/L (3.6-5.0); SODIUM 139 MMOL/L (135-145); TOTAL PROTEIN 5.8 GM/DL (6.4-8.2)
[2019-04-14] MEDS: CALCIUM CARBONATE 500 MG (TUMS) TAB.CHEW PO SCH ×2 (06:45→13:38)
[2019-04-14] MEDS ORDERED: KCL 10 MEQ TAB (MICRO K) PO SCH (07:00)
[2019-04-14 08:00] VITALS: BP 163/98
[2019-04-14] MEDS: LORATADINE (CLARITIN) 10 MG TAB PO SCH (09:16)
[2019-04-14] MEDS: ASCORBIC ACID (VIT C) 500 MG TABLET PO SCH (09:17)
[2019-04-14] MEDS: fluCOnazole (DIFLUCAN) 100 MG TAB PO SCH (09:17)
[2019-04-14] MEDS: IBUPROFEN 600 MG (MOTRIN) TAB PO PRN (09:53)
--- NOTE | 2019-04-14 11:14 | D/C HH Face to Face Order ---
D/C Face to Face Orders Reconcile Patient Problems Problems Reviewed?: Yes Instructions for Patient [facility] Patient Instructions/FollowUp: [facility] 1 week Physician to follow Patient: Dr Kenneth Nelson Discharge Diet for Home: No Restrictions Patient Problems: Sepsis Goals for Patient: Indpendence Patient Data-Allergies,Ht & Wt Patient Allergies: Coded Allergies: Sulfa (Sulfonamide Antibiotics) (Verified Allergy, Unknown, 10/23/18) vancomycin (Verified Allergy, Unknown, 10/23/18) Height (Feet): 5 Height (Inches): 5.00 Weight (Pounds): 175 Home Health Need/Face to Face Date of Face to Face: Apr 14, 2019 Clinical Findings: Generalized weakness and fatigue, Non or partial weight bearing I have seen Pt [id number]: Yes Discharged To: Home Diagnosis/Conditions: Sepsis Patient is Homebound due to: CognItive deficits, Non-weight bearing Homebound Status Due to the above stated illness, injury or surgical procedure (medical condition or diagnosis) and associated clinical findings, the patient is homebound because of his/her inability to leave home except with aid of a supportive device and/or person AND leaving the home requires a considerable and taxing effort or is medically contraindicated. Pt req the following assistanc: Wheelchair Home Health Nursing Orders Home Health Services Order: Nursing Services, Food Mixer Assembler-Evaluate & Treat, Physical Therapy-Evaluate & Treat Home Health Infusion Therapy Line Start Date: Apr 10, 2019 Certify Stmt I certify that this patient is under my care and that I, a nurse practitioner or a physician; a law office assistant working with me, had a face to face encounter that - meets the physician face to face encounter requirements with this patient as ROMY Sawyer DO Apr 14, 2019 11:14
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
[2019-04-14 15:00] VITALS: BP 163/98
--- NOTE | 2019-04-14 15:00 | NUR ---
Patient states that she has her home pill box with her meds in it here at hospital. This RN looked for pills in room, in med room lock box, and ICU. Call was placed to pharmacy, no pills in pharmacy for that patient.
--- NOTE | 2019-04-14 15:38 | NUR ---
CM/SS: Pt will be discharged today back to her home with caregivers and will resume [facility] services. Non emergent EMS will be arranged for pt. Information faxed to [facility] for services to resume.
== END 2019-04-14 15:15 | disposition home health service (06) | DRG 698 ==
LOC: EDUNIT# 09:34 → ER FS 09:35 → ICU 14:02 → 4TH 04-11 08:38
PROVIDERS: ADMIT Internal Medicine; ATTEND Internal Medicine
DX: T83.511A Infection and inflammatory reaction due to indwelling urethral catheter, initial encounter (principal); B37.49 Other urogenital candidiasis; A41.9 Sepsis, unspecified organism; M86.461 Chronic osteomyelitis with draining sinus, right tibia and fibula; R65.20 Severe sepsis without septic shock; E87.2 Acidosis; B96.5 Pseudomonas (aeruginosa) (mallei) (pseudomallei) as the cause of diseases classified elsewhere; G83.9 Paralytic syndrome, unspecified; S24.102S Unspecified injury at T2-T6 level of thoracic spinal cord, sequela; S73.001A Unspecified subluxation of right hip, initial encounter; N31.9 Neuromuscular dysfunction of bladder, unspecified; F41.9 Anxiety disorder, unspecified; D64.9 Anemia, unspecified; K21.9 Gastro-esophageal reflux disease without esophagitis; E87.6 Hypokalemia; E83.39 Other disorders of phosphorus metabolism; R09.82 Postnasal drip; V29.9XXS Motorcycle rider (driver) (passenger) injured in unspecified traffic accident, sequela; Z88.1 Allergy status to other antibiotic agents
CPT/HCPCS: 36415; 71045; 74176; 80053; 81000; 82150; 82271; 83605; 83690; 83735; 84100; 85025; 85610; 85730; 87040; 87077; 87081; 87088; 87186; 96361; 96374

== ENCOUNTER → 2019-08-13 | Outpatient (CLI) | payer MEDICARE, MEDICAID ==
[~2019-08-13] MED LIST changes: +AMOX-358 PO; +ASCO10006 PO; +BACL20TA PO; +CALC200T50 PO; +CETI10TA17 PO; +DIAZ10TA3 PO; +DOXY100C42 PO; +IBUP-2473 PO; +OMEP20TA7 PO; +OXB5TCR PO; +OXYB10TA6 PO; +RIVA10TA PO; +RIVA20TA PO; +SERT100T8 PO
[2019-08-13 15:30] LABS: BILIRUBIN,URINE NEGATIVE (NEGATIVE); CLARITY,URINE CLOUDY; COLOR,URINE YELLOW; GLUCOSE, URINE (UA) NEGATIVE (NEGATIVE); KETONES,URINE NEGATIVE (NEGATIVE); LEUKOCYTE ESTERASE ,URINE 2+ (NEGATIVE); NITRITE,URINE POSITIVE (NEGATIVE); PROTEIN,URINE TRACE (NEGATIVE)
[2019-08-13 15:34] LABS: BACTERIA,URINE MODERATE /HPF; RBC,URINE >100 /HPF; SQUAMOUS EPITHELIAL CELL,UR 25-50 /HPF; WBC,URINE >100 /HPF
== END ==
LOC: LAB FS 15:07
PROVIDERS: ATTEND Family Medicine
DX: T83.038A Leakage of other urinary catheter, initial encounter (principal); R82.998 Other abnormal findings in urine; Z96.0 Presence of urogenital implants
CPT/HCPCS: 81000; 87077; 87088

== ENCOUNTER → 2019-08-20 | Outpatient (CLI) | payer MEDICARE, MEDICAID ==
[2019-08-20 10:05] LABS: BASOPHILS % (AUTO) 1 % (0-10); EOSINOPHILS % (AUTO) 4 % (0-10); LYMPHOCYTES # (AUTO) 0.5 X 10^3 (1.0-4.0); LYMPHOCYTES % (AUTO) 5 % (12-44); MEAN CORPUSCULAR HGB CONC 32 G/DL (32-36); MEAN CORPUSCULAR VOLUME 93 FL (80-99); MEAN PLATELET VOLUME 10.5 FL (7.4-10.4); MONOCYTES # (AUTO) 1.2 X 10^3 (0.0-1.0); MONOCYTES % (AUTO) 12 % (0-12); NEUTROPHILS % (AUTO) 79 % (42-75); PLATELET COUNT 345 10^3/uL (130-400); RED CELL DISTRIBUTION WIDTH 14.2 % (10.0-14.5); WHITE BLOOD COUNT 10.2 10^3/uL (4.3-11.0)
[2019-08-20 10:06] LABS: BASOPHILS # (AUTO) 0.1 10^3/uL (0.0-0.1); EOSINOPHILS # (AUTO) 0.4 10^3/uL (0.0-0.3)
[2019-08-20 10:27] LABS: ALANINE AMINOTRANSFERASE 38 U/L (0-55); ALBUMIN 3.6 GM/DL (3.2-4.5); ALKALINE PHOSPHATASE 66 U/L (40-136); BILIRUBIN,TOTAL 0.4 MG/DL (0.1-1.0); BUN/CREATININE RATIO 29; CALCIUM 8.6 MG/DL (8.5-10.1); CARBON DIOXIDE 23 MMOL/L (21-32); CHLORIDE 98 MMOL/L (98-107); CREATININE SERUM 0.48 MG/DL (0.60-1.30); GFR ESTIMATED > 60; GLUCOSE 158 MG/DL (70-105); POTASSIUM 3.7 MMOL/L (3.6-5.0); SODIUM 137 MMOL/L (135-145); TOTAL PROTEIN 6.2 GM/DL (6.4-8.2)
[2019-08-20 10:45] LABS: ERYTHROCYTE SEDIMENTATION RATE 8 MM/HR (0-20)
[2019-08-20 14:33] LABS: HEMATOCRIT 41 % (35-52); HEMOGLOBIN 13.2 G/DL (11.5-16.0); MEAN CORPUSCULAR HEMOGLOBIN 30 PG (25-34)
== END ==
LOC: LAB FS 09:51
PROVIDERS: ATTEND Family Medicine
DX: M86.60 Other chronic osteomyelitis, unspecified site (principal); Z87.440 Personal history of urinary (tract) infections
CPT/HCPCS: 36415; 80053; 80170; 85025; 85652

== ENCOUNTER 2019-08-23 14:44 | Emergency (ER) | payer MEDICARE, MEDICAID ==
[~2019-08-23] VITALS: Ht 165 cm; Wt 70.0 kg
--- OUTSIDE RECORDS SUMMARY | 2019-08-23 14:55 | XMS REPORT ---
Author Author Yancy BEDOYA Organization [facility] Address [address] [address] Care Team Providers Care Charge Operator Name Role Phone MELY BEDOYA Unavailable PROBLEMS Type Condition ICD9-CM Code [id number] Code Onset Dates Condition S tatus SNOMED Code Problem Paraplegia G82.20 Active 85283392 Problem Folliculitis L73.9 Active 4046764 6 Problem Chronic frontal sinusitis J32.1 Acti ve [id number] ALLERGIES No Information ENCOUNTERS Encounter Location Date Diagnosis [place] [address] [place] [phone] 9 May, [facility] [address] [place] [address] 80743-528 9 Mar, [place] [address] [place] [address]97[address]063 9 Mar, Hx: UTI (urinary tract infection) Z87.440 [place] [address] [place] [address]32-414 9 Feb, [place] [address] [place], [place] [id number] [place] [address]82[address]855 9 Feb, [place] [address] [place] [address]00-851 9 Feb, [place] [address] [place] [phone] 9 Feb, [place] [address] [place] [address]65-674 9 Feb, [place] [address] [place] [phone] 9 Jan, [place] [address] [place] [address] [phone] 9 Jan, [place] [address] [place], [place] [id number] [place] [address], [place] [address] 9 Jan, Encounter for immunization Z23 [facility] [address] [place] [address], [place] [address] 9 Jan, Chronic frontal sinusitis J32.1 ; Wellness examination Z00.00 ; Lipid screening Z13.220 ; Thyroid disorder screening Z13.29 and Folliculitis L73.9 [facility] [address] [place] [address], [place] [address] 9 Dec, [facility] [address] [place] [address], [place] [address] 9 Dec, [place] [address] [place] [address], [place] [address] 9 Dec, [facility] [address] [place] [address], [place] [address] 9 Nov, [facility] [address] [place] [id number] [place] [address], [place] [address] 9 Nov, [facility] [address] [place] [address], [place] [address] 9 Nov, [facility] [address] [place] [address], [place] [address] 9 Nov, [facility] [address] [place] [address], [place] [address] 9 Nov, [facility] [address] [place] [id number] [place] [address], [place] [address] 9 Nov, [facility] [address] [place] [address], [place] [address] 9 Oct, [facility] [address] [place] [address]593 9 Oct, [facility] [address] [place] [address]464 9 Oct, Post-nasal drip R09.82 ; Chronic frontal sinusitis J32.1 and Hx: UTI (urinary tract infection) Z87.440 [facility] [address] [place] [address]-585 9 Oct, [facility] [address] [id number] [place] [address] 9 Oct, [facility] [address] [id number] [address] 9 Oct, [facility] [address] [id number] [address] 9 Oct, [facility] [address] [id number] [place] [address] 9 Oct, [facility] [address] [id number] [address] 9 Sep, [facility] [address] [id number] [address] 9 Sep, [facility] [address] [id number] [place] [address] 9 Sep, [facility] [address] [id number] [place] [address] 9 Aug, [facility] [address] [id number] [address] 9 Aug, [facility] [address] [id number] [place] [address] 9 Aug, [facility] [address] [id number] [place] [address] 9 Aug, [facility] [address] [id number] [place] [address] 9 Aug, [facility] [address] [id number] [address] 9 July, [facility] [address] [id number] [address] 9 Jun, Urinary tract infection, site not specified N39.0 ; Bacterial infection A49.9 and Drug rash L27.0 [facility] [address] [id number] [address] 9 Jun, [facility] [address] [id number] [address] 9 Jun, Central line complication, initial encounter T82.9XXA [facility] [address] [place], [place] [id number] [place] [address] 9 Jun, [facility] [address] [place], [place] [id number] [place] [address] 9 Jun, [facility] [address] [place], [place] [id number] [place] [address] 9 Jun, [facility] [address] [place], [place] [id number] [place] [address] 9 Jun, [facility] [address] [place], [place] [id number] [place] [address] 9 Jun, [facility] [address] [place] [id number] [place] [address] 9 Jun, [facility] [address] [place] [id number] [place] [address] 9 Jun, [facility] [address] [place], [place] [id number] [place] [address] 9 May, [facility] [address] [place], [place] [id number] [place] [address] 9 May, [facility] [address] [place] [id number] [place] [address] 9 May, [facility] [address] [place] [id number] [place] [address] 9 May, [facility] [address] [place], [place] [id number] [place] [address] 9 Mar, [facility] [address] [place], [place] [id number] [place] [address] 9 Mar, [facility] [address] [place], [place] [id number] [place] [address] 9 Mar, [facility] [address] [id number] [place] [address] Mar, [facility] [address] [place] [id number] [place] [address] 9 Mar, Hematuria R31.9 ; Chronic frontal sinusitis J32.1 ; Paraplegia G82.20 and 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
--- OUTSIDE RECORDS SUMMARY | 2019-08-23 14:56 | XMS REPORT | Continuity of Care Document ---
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 (enzymatic activity/volume) 76 U/L 0-55 Serum or plasma protein measurement (mass/volume) 6.9 g/dL 6.4-8.2 Serum or plasma albumin measurement (mass/volume) 4.1 g/dL 3.2-4.5 CALCIUM CORRECTED 9.3 mg/dL 8.5-10.1 Bacterial urine culture - 10/23/18 22:21 Bacterial urine culture [id number] NRG COLONY COUNT >100,000/ML NRG FTX;REPORTABLE SUSCEPTIBILITY REPORTED 10/26/18 14: 15 NRG FREE TEXT ENTRY 2 ID REPORTED 10/26/18 06:05 NRG Dirithromycin susceptibility test by dis k diffusion - 10/23/18 22:21 Gentamicin susceptibility test by minimum inhibitory c oncentration 4 NRG Levofloxacin susceptibility test by minimum inhibitory concentration > NRG Tobramycin susceptibility test by minimum inhibitory c oncentration <= NRG Piperacillin/tazobactam susceptibility t est by minimum inhibitory concentration = NRG Ciprofloxacin susceptibility test by minimum inhibitor y concentration > NRG Meropenem susceptibility test by minimum inhibitory co ncentration 2 NRG Aztreonam susceptibility test by minimum inhibitory co ncentration > NRG Cefepime susceptibility test by minimum inhibitory con centration 16 NRG Amikacin susceptibility test by minimum inhibitory con centration <= NRG Imipenem susceptibility test by minimum inhibitory con centration 8 NRG Ceftazidime susceptibility test by minimum inhibitory concentration 16 NRG Serum or plasma urea nitrogen measuremen t (mass/volume) - 10/30/18 00:00 Serum or plasma urea nitrogen measurement (mass/volume ) 9 mg/dL 7-18 Serum or plasma creatinine measurement ( mass/volume) - 10/30/18 00:00 Serum or plasma creatinine measurement (mass/volume) 0.59 mg/dL 0.60-1.30 Serum or plasma gentamicin measurement ( mass/volume) - 10/30/18 00:00 Serum or plasma gentamicin measurement (mass/volume) 1.1 ug/mL <=10.0 Serum or plasma urea nitrogen measuremen t (mass/volume) - 11/03/18 13:40 Serum or plasma urea nitrogen measurement (mass/volume ) 14 mg/dL 7-18 Serum or plasma creatinine measurement ( mass/volume) - 11/03/18 13:40 Serum or plasma creatinine measurement (mass/volume) 0.52 mg/dL 0.60-1.30 Serum or plasma gentamicin measurement ( mass/volume) - 11/03/18 13:40 Serum or plasma gentamicin measurement (mass/volume) 1.7 ug/mL <=10.0 Complete urinalysis with reflex to cultu re - 11/25/18 11:00 Urine color determination RED NRG Urine clarity determination CLOUDY NR G Urine pH measurement by test strip 7.5 5-9 Specific gravity of urine by test strip 1.010 1.016-1.022 Urine protein assay by test strip, semi-quantitative 1+ NEGATIVE Urine glucose detection by automated test strip NE GATIVE NEGATIVE Erythrocytes detection in urine sediment by light micr oscopy 3+ NEGATIVE Urine ketones detection by automated test strip NE GATIVE NEGATIVE Urine nitrite detection by test strip NEGATIVE NEGATIVE Urine total bilirubin detection by test strip NEGA TIVE NEGATIVE Urine urobilinogen measurement by automated test strip (mass/volume) 0.2 mg/dL NORMAL Urine leukocyte esterase detection by dipstick 3+ NEGATIVE Automated urine sediment erythrocyte cou nt by microscopy (number/high power field) TNTC NRG Automated urine sediment leukocyte count by microscopy (number/high power field) TNTC NRG Bacteria detection in urine sediment by light microsco py MODERATE NRG Crystals detection in urine sediment by light microsco py NONE NRG Casts detection in urine sediment by light microscopy NONE NRG Mucus detection in urine sediment by light microscopy NEGATIVE NRG Complete urinalysis with reflex to culture YES NRG Bacterial urine culture - 11/25/18 11:00 Bacterial urine culture [id number] NRG COLONY COUNT 40,000 CFU/ML NRG Complete urinalysis with reflex to cultu re - 12/04/18 16:25 Urine color determination YELLOW NRG Urine clarity determination CLOUDY NR G Urine pH measurement by test strip 6.0 5-9 Specific gravity of urine by test strip 1.020 1.016-1.022 Urine protein assay by test strip, semi-quantitative NEGATIVE NEGATIVE Urine glucose detection by automated test strip NE GATIVE NEGATIVE Erythrocytes detection in urine sediment by light micr oscopy NEGATIVE NEGATIVE Urine ketones detection by automated test strip NE GATIVE NEGATIVE Urine nitrite detection by test strip NEGATIVE NEGATIVE Urine total bilirubin detection by test strip NEGA TIVE NEGATIVE Urine urobilinogen measurement by automated test strip (mass/volume) 0.2 mg/dL NORMAL Urine leukocyte esterase detection by dipstick 2+ NEGATIVE Automated urine sediment erythrocyte cou nt by microscopy (number/high power field) [HPF] NRG Automated urine sediment leukocyte count by microscopy (number/high power field) [HPF] NRG Bacteria detection in urine sediment by light microsco py TRACE NRG Squamous epithelial cells detection in u rine sediment by light microscopy 10-25 NRG Crystals detection in urine sediment by light microsco py NONE NRG Casts detection in urine sediment by light microscopy NONE NRG Mucus detection in urine sediment by light microscopy NONE NRG Complete urinalysis with reflex to culture YES NRG Yeast detection in urine sediment by light microscopy MODERATE NRG Bacterial urine culture - 12/04/18 16:25 Bacterial urine culture 3 OR MORE NRG COLONY COUNT 60,000 cfu/ml NRG FTX;REPORTABLE GRAM POSITIVE ISOLATES; SUGGESTING NRG FREE TEXT ENTRY 2 PROBABLE COLLECTION CONTAMINATIO N WITH NRG FREE TEXT ENTRY 3 SKIN YULIA. NO SUSCEPTIBILITY PE RFORMED. NRG Complete blood count (CBC) with automate d white blood cell (WBC) differential - 12/04/18 16:29 Blood leukocytes automated count (number/volume) 8.4 10*3/uL 4.3-11.0 Blood erythrocytes automated count (number/volume) 4.53 10*6/uL 4.35-5.85 Venous blood hemoglobin measurement (mass/volume) 14.1 g/dL 11.5-16.0 Blood hematocrit (volume fraction) 43 % 35-52 Automated erythrocyte mean corpuscular volume 95 [ foz_us] 80-99 Automated erythrocyte mean corpuscular h emoglobin (mass per erythrocyte) 31 pg 25-34 Automated erythrocyte mean corpuscular h emoglobin concentration measurement (mass/volume) 33 g/dL 32-36 Automated erythrocyte distribution width ratio 13. 4 % 10.0- 14.5 Automated blood platelet count (count/volume) 291 10*3/uL 130-400 Automated blood platelet mean volume measurement 10.5 [foz_us] 7.4-10.4 Automated blood neutrophils/100 leukocytes 54 % 42-75 Automated blood lymphocytes/100 leukocytes 29 % 12-44 Blood monocytes/100 leukocytes 8 % 0-12 Automated blood eosinophils/100 leukocytes 7 % 0-10 Automated blood basophils/100 leukocytes 1 % 0-10 Blood neutrophils automated count (number/volume) 4.5 10*3 1.8-7.8 Blood lymphocytes automated count (number/volume) 2.4 10*3 1.0-4.0 Blood monocytes automated count (number/volume) 0. 7 10*3 0.0-1.0 Automated eosinophil count 0.5 10*3/uL 0 .0-0.3 Automated blood basophil count (count/volume) 0.1 10*3/uL 0.0-0.1 Blood lactic acid measurement (moles/vol ume) - 12/04/18 16:29 Blood lactic acid measurement (moles/volume) 2.34 mmol/L 0.50-2.00 Comprehensive metabolic panel - 12/04/18 16:29 Serum or plasma sodium measurement (moles/volume) 141 mmol/L 135-145 Serum or plasma potassium measurement (moles/volume) 3.8 mmol/L 3.6-5.0 Serum or plasma chloride measurement (moles/volume) 99 mmol/L 98-107 Carbon dioxide 24 mmol/L 21-32 Serum or plasma anion gap determination (moles/volume) 18 mmol/L 5-14 Serum or plasma urea nitrogen measurement (mass/volume ) 12 mg/dL 7-18 Serum or plasma creatinine measurement (mass/volume) 0.62 mg/dL 0.60-1.30 Serum or plasma urea nitrogen/creatinine mass ratio 19 NRG Serum or plasma creatinine measurement w ith calculation of estimated glomerular filtration rate > NRG Serum or plasma glucose measurement (mass/volume) 144 mg/dL 70-105 Serum or plasma calcium measurement (mass/volume) 9.8 mg/dL 8.5-10.1 Serum or plasma total bilirubin measurement (mass/volu me) 0.3 mg/dL 0.1-1.0 Serum or plasma alkaline phosphatase leslie surement (enzymatic activity/volume) 75 U/L 40-136 Serum or plasma aspartate aminotransfera se measurement (enzymatic activity/volume) 65 U/L 5-34 Serum or plasma alanine aminotransferase measurement (enzymatic activity/volume) 77 U/L 0-55 Serum or plasma protein measurement (mass/volume) 7.1 g/dL 6.4-8.2 Serum or plasma albumin measurement (mass/volume) 4.3 g/dL 3.2-4.5 CALCIUM CORRECTED 9.6 mg/dL 8.5-10.1 Complete blood count (CBC) with automate d white blood cell (WBC) differential - 01/05/19 13:50 Blood leukocytes automated count (number/volume) 9.0 10*3/uL 4.3-11.0 Blood erythrocytes automated count (number/volume) 4.26 10*6/uL 4.35-5.85 Venous blood hemoglobin measurement (mass/volume) 13.0 g/dL 11.5-16.0 Blood hematocrit (volume fraction) 41 % 35-52 Automated erythrocyte mean corpuscular volume 97 [ foz_us] 80-99 Automated erythrocyte mean corpuscular h emoglobin (mass per erythrocyte) 31 pg 25-34 Automated erythrocyte mean corpuscular h emoglobin concentration measurement (mass/volume) 32 g/dL 32-36 Automated erythrocyte distribution width ratio 13. 4 % 10.0- 14.5 Automated blood platelet count (count/volume) 315 10*3/uL 130-400 Automated blood platelet mean volume measurement 10.6 [foz_us] 7.4-10.4 Automated blood neutrophils/100 leukocytes 40 % 42-75 Automated blood lymphocytes/100 leukocytes 30 % 12-44 Blood monocytes/100 leukocytes 10 % 0-12 Automated blood eosinophils/100 leukocytes 8 % 0-10 Automated blood basophils/100 leukocytes 1 % 0-10 Blood neutrophils automated count (number/volume) 4.5 10*3 1.8-7.8 Blood lymphocytes automated count (number/volume) 2.7 10*3 1.0-4.0 Blood monocytes automated count (number/volume) 0. 9 10*3 0.0-1.0 Automated eosinophil count 0.7 10*3/uL 0 .0-0.3 Automated blood basophil count (count/volume) 0.1 10*3/uL 0.0-0.1 Lipid 1996 panel - 01/05/19 13:50 Serum or plasma triglyceride measurement (mass/volume) 285 mg/dL <150 Serum or plasma cholesterol measurement (mass/volume) 213 mg/dL < 200 Serum or plasma cholesterol in HDL measurement (mass/v olume) 33 mg/dL 40-60 Cholesterol in LDL [mass/volume] in serum or plasma by direct assay 148 mg/dL 1-129 Serum or plasma cholesterol in VLDL measurement (mass/ volume) 57 mg/dL 5-40 Serum or plasma thyrotropin measurement by detection limit <=0.05 miu/l (units/volume) - 01/05/19 13:50 Serum or plasma thyrotropin measurement by detection limit <=0.05 miu/l (units/volume) 2.36 u[iU]/mL 0.35-4.94 Comprehensive metabolic panel - 01/05/19 14:10 Serum or plasma sodium measurement (moles/volume) 142 mmol/L 135-145 Serum or plasma potassium measurement (moles/volume) 3.5 mmol/L 3.6-5.0 Serum or plasma chloride measurement (moles/volume) 102 mmol/L 98-107 Carbon dioxide 25 mmol/L 21-32 Serum or plasma anion gap determination (moles/volume) 15 mmol/L 5-14 Serum or plasma urea nitrogen measurement (mass/volume ) 10 mg/dL 7-18 Serum or plasma creatinine measurement (mass/volume) 0.45 mg/dL 0.60-1.30 Serum or plasma urea nitrogen/creatinine mass ratio 22 NRG Serum or plasma creatinine measurement w ith calculation of estimated glomerular filtration rate > NRG Serum or plasma glucose measurement (mass/volume) 99 mg/dL 70-105 Serum or plasma calcium measurement (mass/volume) 9.5 mg/dL 8.5-10.1 Serum or plasma total bilirubin measurement (mass/volu me) 0.3 mg/dL 0.1-1.0 Serum or plasma alkaline phosphatase leslie surement (enzymatic activity/volume) 72 U/L 40-136 Serum or plasma aspartate aminotransfera se measurement (enzymatic activity/volume) 42 U/L 5-34 Serum or plasma alanine aminotransferase measurement (enzymatic activity/volume) 57 U/L 0-55 Serum or plasma protein measurement (mass/volume) 6.6 g/dL 6.4-8.2 Serum or plasma albumin measurement (mass/volume) 3.9 g/dL 3.2-4.5 CALCIUM CORRECTED 9.6 mg/dL 8.5-10.1 Complete blood count (CBC) with automate d white blood cell (WBC) differential - 03/05/19 18:50 Blood leukocytes automated count (number/volume) 8.7 10*3/uL 4.3-11.0 Blood erythrocytes automated count (number/volume) 4.38 10*6/uL 4.35-5.85 Venous blood hemoglobin measurement (mass/volume) 13.2 g/dL 11.5-16.0 Blood hematocrit (volume fraction) 41 % 35-52 Automated erythrocyte mean corpuscular volume 94 [ foz_us] 80-99 Automated erythrocyte mean corpuscular h emoglobin (mass per erythrocyte) 30 pg 25-34 Automated erythrocyte mean corpuscular h emoglobin concentration measurement (mass/volume) 32 g/dL 32-36 Automated erythrocyte distribution width ratio 13. 3 % 10.0- 14.5 Automated blood platelet count (count/volume) 344 10*3/uL 130-400 Automated blood platelet mean volume measurement 10.4 [foz_us] 7.4-10.4 Automated blood neutrophils/100 leukocytes 54 % 42-75 Automated blood lymphocytes/100 leukocytes 29 % 12-44 Blood monocytes/100 leukocytes 9 % 0-12 Automated blood eosinophils/100 leukocytes 6 % 0-10 Automated blood basophils/100 leukocytes 1 % 0-10 Blood neutrophils automated count (number/volume) 4.7 10*3 1.8-7.8 Blood lymphocytes automated count (number/volume) 2.6 10*3 1.0-4.0 Blood monocytes automated count (number/volume) 0. 8 10*3 0.0-1.0 Automated eosinophil count 0.5 10*3/uL 0 .0-0.3 Automated blood basophil count (count/volume) 0.1 10*3/uL 0.0-0.1 Comprehensive metabolic panel - 03/05/19 18:50 Serum or plasma sodium measurement (moles/volume) 138 mmol/L 135-145 Serum or plasma potassium measurement (moles/volume) 3.4 mmol/L 3.6-5.0 Serum or plasma chloride measurement (moles/volume) 101 mmol/L 98-107 Carbon dioxide 25 mmol/L 21-32 Serum or plasma anion gap determination (moles/volume) 12 mmol/L 5-14 Serum or plasma urea nitrogen measurement (mass/volume ) 12 mg/dL 7-18 Serum or plasma creatinine measurement (mass/volume) 0.45 mg/dL 0.60-1.30 Serum or plasma urea nitrogen/creatinine mass ratio 27 NRG Serum or plasma creatinine measurement w ith calculation of estimated glomerular filtration rate > NRG Serum or plasma glucose measurement (mass/volume) 165 mg/dL 70-105 Serum or plasma calcium measurement (mass/volume) 9.2 mg/dL 8.5-10.1 Serum or plasma total bilirubin measurement (mass/volu me) 0.2 mg/dL 0.1-1.0 Serum or plasma alkaline phosphatase leslie surement (enzymatic activity/volume) 72 U/L 40-136 Serum or plasma aspartate aminotransfera se measurement (enzymatic activity/volume) 31 U/L 5-34 Serum or plasma alanine aminotransferase measurement (enzymatic activity/volume) 41 U/L 0-55 Serum or plasma protein measurement (mass/volume) 6.7 g/dL 6.4-8.2 Serum or plasma albumin measurement (mass/volume) 3.8 g/dL 3.2-4.5 CALCIUM CORRECTED 9.4 mg/dL 8.5-10.1 THYROID STIMULATING HORMONE - 03/05/19 1 8:50 THYROID STIMULATING HORMONE 2.22 u[iU]/mL 0.35-4.94 Serum or plasma thyroxine (T4) free dee dee urement (mass/volume) - 03/05/19 18:50 Serum or plasma thyroxine (T4) free measurement (mass/ volume) 0.91 ng/dL 0.70-1.48 Bacterial urine culture - 03/11/19 19:15 Bacterial urine culture [id number] NRG COLONY COUNT 20,000 CFU/ML NRG FTX;REPORTABLE SUSCEPTIBILITY REPORTED 03/15 10:40 NRG Dirithromycin susceptibility test by dis k diffusion - 03/11/19 19:15 Gentamicin susceptibility test by minimum inhibitory c oncentration <= NRG Levofloxacin susceptibility test by minimum inhibitory concentration <= NRG Tobramycin susceptibility test by minimum inhibitory c oncentration <= NRG Piperacillin/tazobactam susceptibility t est by minimum inhibitory concentration = NRG Ciprofloxacin susceptibility test by minimum inhibitor y concentration <= NRG Meropenem susceptibility test by minimum inhibitory co ncentration 1 NRG Aztreonam susceptibility test by minimum inhibitory co ncentration <= NRG Cefepime susceptibility test by minimum inhibitory con centration <= NRG Imipenem susceptibility test by minimum inhibitory con centration <= NRG Ceftazidime susceptibility test by minimum inhibitory concentration <= NRG Comprehensive metabolic panel - 04/04/19 17:40 Serum or plasma sodium measurement (moles/volume) 138 mmol/L 135-145 Serum or plasma potassium measurement (moles/volume) 3.5 mmol/L 3.6-5.0 Serum or plasma chloride measurement (moles/volume) 99 mmol/L 98-107 Carbon dioxide 24 mmol/L 21-32 Serum or plasma anion gap determination (moles/volume) 15 mmol/L 5-14 Serum or plasma urea nitrogen measurement (mass/volume ) 12 mg/dL 7-18 Serum or plasma creatinine measurement (mass/volume) 0.53 mg/dL 0.60-1.30 Serum or plasma urea nitrogen/creatinine mass ratio 23 NRG Serum or plasma creatinine measurement w ith calculation of estimated glomerular filtration rate > NRG Serum or plasma glucose measurement (mass/volume) 135 mg/dL 70-105 Serum or plasma calcium measurement (mass/volume) 9.5 mg/dL 8.5-10.1 Serum or plasma total bilirubin measurement (mass/volu me) 0.3 mg/dL 0.1-1.0 Serum or plasma alkaline phosphatase leslie surement (enzymatic activity/volume) 73 U/L 40-136 Serum or plasma aspartate aminotransfera se measurement (enzymatic activity/volume) 31 U/L 5-34 Serum or plasma alanine aminotransferase measurement (enzymatic activity/volume) 32 U/L 0-55 Serum or plasma protein measurement (mass/volume) 7.2 g/dL 6.4-8.2 Serum or plasma albumin measurement (mass/volume) 4.0 g/dL 3.2-4.5 CALCIUM CORRECTED 9.5 mg/dL 8.5-10.1 Bacterial urine culture - 04/05/19 17:50 Bacterial urine culture [id number] NRG COLONY COUNT 20,000 CFU/ML NRG FTX;REPORTABLE NO SUSCEPTIBILITY PERFORMED NRG Complete blood count (CBC) with automate d white blood cell (WBC) differential - 04/10/19 09:45 Blood leukocytes automated count (number/volume) 12.7 10*3/uL 4.3-11.0 Blood erythrocytes automated count (number/volume) 5.39 10*6/uL 4.35-5.85 Venous blood hemoglobin measurement (mass/volume) 16.3 g/dL 11.5-16.0 Blood hematocrit (volume fraction) 49 % 35-52 Automated erythrocyte mean corpuscular volume 91 [ foz_us] 80-99 Automated erythrocyte mean corpuscular h emoglobin (mass per erythrocyte) 30 pg 25-34 Automated erythrocyte mean corpuscular h emoglobin concentration measurement (mass/volume) 33 g/dL 32-36 Automated erythrocyte distribution width ratio 13. 7 % 10.0- 14.5 Automated blood platelet count (count/volume) 377 10*3/uL 130-400 Automated blood platelet mean volume measurement 10.1 [foz_us] 7.4-10.4 Automated blood neutrophils/100 leukocytes 81 % 42-75 Automated blood lymphocytes/100 leukocytes 10 % 12-44 Blood monocytes/100 leukocytes 7 % 0-12 Automated blood eosinophils/100 leukocytes 1 % 0-10 Automated blood basophils/100 leukocytes 1 % 0-10 Blood neutrophils automated count (number/volume) 10.3 10*3 1.8-7.8 Blood lymphocytes automated count (number/volume) 1.3 10*3 1.0-4.0 Blood monocytes automated count (number/volume) 0. 9 10*3 0.0-1.0 Automated eosinophil count 0.1 10*3/uL 0 .0-0.3 Automated blood basophil count (count/volume) 0.1 10*3/uL 0.0-0.1 Complete urinalysis with reflex to cultu re - 04/10/19 09:45 Urine color determination YELLOW NRG Urine clarity determination CLOUDY NR G Urine pH measurement by test strip 5.5 5-9 Specific gravity of urine by test strip > 1.016-1.022 Urine protein assay by test strip, semi-quantitative 2+ NEGATIVE Urine glucose detection by automated test strip NE GATIVE NEGATIVE Erythrocytes detection in urine sediment by light micr oscopy 3+ NEGATIVE Urine ketones detection by automated test strip 1+ NEGATIVE Urine nitrite detection by test strip POSITIVE NEGATIVE Urine total bilirubin detection by test strip NEGA TIVE NEGATIVE Urine urobilinogen measurement by automated test strip (mass/volume) 0.2 mg/dL < = 1.0 Urine leukocyte esterase detection by dipstick 2+ NEGATIVE Automated urine sediment erythrocyte cou nt by microscopy (number/high power field) QNS NRG Automated urine sediment leukocyte count by microscopy (number/high power field) QNS NRG Bacteria detection in urine sediment by light microsco py QNS NRG Crystals detection in urine sediment by light microsco py QNS NRG Casts detection in urine sediment by light microscopy QNS NRG Mucus detection in urine sediment by light microscopy QNS NRG Complete urinalysis with reflex to culture CULTURE PENDING NRG PT panel in platelet poor plasma by coag ulation assay - 04/10/19 09:45 Prothrombin time (PT) in platelet poor plasma by coagu lation assay 16.1 s 12.2-14.7 INR in platelet poor plasma or blood by coagulation as say 1.2 0.8-1.4 Activated partial thromboplastin time (a PTT) in platelet poor plasma bycoagulation assay - 04/10/19 09:45 Activated partial thromboplastin time (a PTT) in platelet poor plasma bycoagulation assay 37 s 24-35 Blood lactic acid measurement (moles/vol ume) - 04/10/19 09:45 Blood lactic acid measurement (moles/volume) 2.95 mmol/L 0.50-2.00 Comprehensive metabolic panel - 04/10/19 09:45 Serum or plasma sodium measurement (moles/volume) 139 mmol/L 135-145 Serum or plasma potassium measurement (moles/volume) 3.1 mmol/L 3.6-5.0 Serum or plasma chloride measurement (moles/volume) 97 mmol/L 98-107 Carbon dioxide 24 mmol/L 21-32 Serum or plasma anion gap determination (moles/volume) 18 mmol/L 5-14 Serum or plasma urea nitrogen measurement (mass/volume ) 13 mg/dL 7-18 Serum or plasma creatinine measurement (mass/volume) 0.50 mg/dL 0.60-1.30 Serum or plasma urea nitrogen/creatinine mass ratio 26 NRG Serum or plasma creatinine measurement w ith calculation of estimated glomerular filtration rate > NRG Serum or plasma glucose measurement (mass/volume) 142 mg/dL 70-105 Serum or plasma calcium measurement (mass/volume) 9.4 mg/dL 8.5-10.1 Serum or plasma total bilirubin measurement (mass/volu me) 0.3 mg/dL 0.1-1.0 Serum or plasma alkaline phosphatase leslie surement (enzymatic activity/volume) 86 U/L 40-136 Serum or plasma aspartate aminotransfera se measurement (enzymatic activity/volume) 33 U/L 5-34 Serum or plasma alanine aminotransferase measurement (enzymatic activity/volume) 43 U/L 0-55 Serum or plasma protein measurement (mass/volume) 7.9 g/dL 6.4-8.2 Serum or plasma albumin measurement (mass/volume) 4.6 g/dL 3.2-4.5 Bacterial urine culture - 04/10/19 09:45 Bacterial urine culture SEE COMMEN NRG COLONY COUNT . NRG FTX;REPORTABLE SUSCEPTIBILITY REPORTED 04/13/19 13: 55 NRG Bacterial blood culture - 04/10/19 09:45 Bacterial blood culture NG NRG Dirithromycin susceptibility test by dis k diffusion - 04/10/19 09:45 Gentamicin susceptibility test by minimum inhibitory c oncentration <= NRG Levofloxacin susceptibility test by minimum inhibitory concentration > NRG Tobramycin susceptibility test by minimum inhibitory c oncentration <= NRG Piperacillin/tazobactam susceptibility t est by minimum inhibitory concentration = NRG Ciprofloxacin susceptibility test by minimum inhibitor y concentration > NRG Meropenem susceptibility test by minimum inhibitory co ncentration 1 NRG Aztreonam susceptibility test by minimum inhibitory co ncentration > NRG Cefepime susceptibility test by minimum inhibitory con centration > NRG Imipenem susceptibility test by minimum inhibitory con centration 4 NRG Ceftazidime susceptibility test by minimum inhibitory concentration 8 NRG Serum or plasma lactate measurement (mol es/volume) - 04/10/19 12:10 Serum or plasma lactate measurement (moles/volume) 3.38 mmol/L 0.50-2.00 Bacterial blood culture - 04/10/19 12:10 Bacterial blood culture NG NRG Methicillin resistant Staphylococcus aur eus (MRSA) screening culture - 04/10/19 16:15 Methicillin resistant Staphylococcus aureus (MRSA) scr eening culture NEG NRG Complete blood count (CBC) with automate d white blood cell (WBC) differential - 04/10/19 17:00 Blood leukocytes automated count (number/volume) 8.7 10*3/uL 4.3-11.0 Blood erythrocytes automated count (number/volume) 4.63 10*6/uL 4.35-5.85 Venous blood hemoglobin measurement (mass/volume) 14.0 g/dL 11.5-16.0 Blood hematocrit (volume fraction) 43 % 35-52 Automated erythrocyte mean corpuscular volume 92 [ foz_us] 80-99 Automated erythrocyte mean corpuscular h emoglobin (mass per erythrocyte) 30 pg 25-34 Automated erythrocyte mean corpuscular h emoglobin concentration measurement (mass/volume) 33 g/dL 32-36 Automated erythrocyte distribution width ratio 14. 6 % 10.0- 14.5 Automated blood platelet count (count/volume) 298 10*3/uL 130-400 Automated blood platelet mean volume measurement 10.4 [foz_us] 7.4-10.4 Automated blood neutrophils/100 leukocytes 73 % 42-75 Automated blood lymphocytes/100 leukocytes 13 % 12-44 Blood monocytes/100 leukocytes 12 % 0-12 Automated blood eosinophils/100 leukocytes 1 % 0-10 Automated blood basophils/100 leukocytes 0 % 0-10 Blood neutrophils automated count (number/volume) 6.4 10*3 1.8-7.8 Blood lymphocytes automated count (number/volume) 1.2 10*3 1.0-4.0 Blood monocytes automated count (number/volume) 1. 1 10*3 0.0-1.0 Automated eosinophil count 0.1 10*3/uL 0 .0-0.3 Automated blood basophil count (count/volume) 0.0 10*3/uL 0.0-0.1 Blood lactic acid measurement (moles/vol ume) - 04/10/19 17:00 Blood lactic acid measurement (moles/volume) 1.73 mmol/L 0.50-2.00 Comprehensive metabolic panel - 04/10/19 17:40 Serum or plasma sodium measurement (moles/volume) 141 mmol/L 135-145 Serum or plasma potassium measurement (moles/volume) 3.2 mmol/L 3.6-5.0 Serum or plasma chloride measurement (moles/volume) 108 mmol/L 98-107 Carbon dioxide 21 mmol/L 21-32 Serum or plasma anion gap determination (moles/volume) 12 mmol/L 5-14 Serum or plasma urea nitrogen measurement (mass/volume ) 10 mg/dL 7-18 Serum or plasma creatinine measurement (mass/volume) 0.65 mg/dL 0.60-1.30 Serum or plasma urea nitrogen/creatinine mass ratio 15 NRG Serum or plasma creatinine measurement w ith calculation of estimated glomerular filtration rate > NRG Serum or plasma glucose measurement (mass/volume) 96 mg/dL 70-105 Serum or plasma calcium measurement (mass/volume) 8.4 mg/dL 8.5-10.1 Serum or plasma total bilirubin measurement (mass/volu me) 0.3 mg/dL 0.1-1.0 Serum or plasma alkaline phosphatase leslie surement (enzymatic activity/volume) 61 U/L 40-136 Serum or plasma aspartate aminotransfera se measurement (enzymatic activity/volume) 25 U/L 5-34 Serum or plasma alanine aminotransferase measurement (enzymatic activity/volume) 37 U/L 0-55 Serum or plasma protein measurement (mass/volume) 6.0 g/dL 6.4-8.2 Serum or plasma albumin measurement (mass/volume) 3.6 g/dL 3.2-4.5 CALCIUM CORRECTED 8.7 mg/dL 8.5-10.1 Serum or plasma phosphate measurement (m ass/volume) - 04/10/19 17:40 Serum or plasma phosphate measurement (mass/volume) 1.6 mg/dL 2.3-4.7 Magnesium - 04/10/19 17:40 Magnesium 1.4 mg/dL 1.6-2.4 Complete blood count (CBC) with automate d white blood cell (WBC) differential - 04/11/19 03:15 Blood leukocytes automated count (number/volume) 7.5 10*3/uL 4.3-11.0 Blood erythrocytes automated count (number/volume) 4.36 10*6/uL 4.35-5.85 Venous blood hemoglobin measurement (mass/volume) 13.1 g/dL 11.5-16.0 Blood hematocrit (volume fraction) 40 % 35-52 Automated erythrocyte mean corpuscular volume 91 [ foz_us] 80-99 Automated erythrocyte mean corpuscular h emoglobin (mass per erythrocyte) 30 pg 25-34 Automated erythrocyte mean corpuscular h emoglobin concentration measurement (mass/volume) 33 g/dL 32-36 Automated erythrocyte distribution width ratio 14. 5 % 10.0- 14.5 Automated blood platelet count (count/volume) 303 10*3/uL 130-400 Automated blood platelet mean volume measurement 10.1 [foz_us] 7.4-10.4 Automated blood neutrophils/100 leukocytes 62 % 42-75 Automated blood lymphocytes/100 leukocytes 19 % 12-44 Blood monocytes/100 leukocytes 17 % 0-12 Automated blood eosinophils/100 leukocytes 1 % 0-10 Automated blood basophils/100 leukocytes 0 % 0-10 Blood neutrophils automated count (number/volume) 4.7 10*3 1.8-7.8 Blood lymphocytes automated count (number/volume) 1.5 10*3 1.0-4.0 Blood monocytes automated count (number/volume) 1. 3 10*3 0.0-1.0 Automated eosinophil count 0.1 10*3/uL 0 .0-0.3 Automated blood basophil count (count/volume) 0.0 10*3/uL 0.0-0.1 Comprehensive metabolic panel - 04/11/19 03:15 Serum or plasma sodium measurement (moles/volume) 138 mmol/L 135-145 Serum or plasma potassium measurement (moles/volume) 3.3 mmol/L 3.6-5.0 Serum or plasma chloride measurement (moles/volume) 106 mmol/L 98-107 Carbon dioxide 21 mmol/L 21-32 Serum or plasma anion gap determination (moles/volume) 11 mmol/L 5-14 Serum or plasma urea nitrogen measurement (mass/volume ) 7 mg/dL 7-18 Serum or plasma creatinine measurement (mass/volume) 0.56 mg/dL 0.60-1.30 Serum or plasma urea nitrogen/creatinine mass ratio 13 NRG Serum or plasma creatinine measurement w ith calculation of estimated glomerular filtration rate > NRG Serum or plasma glucose measurement (mass/volume) 111 mg/dL 70-105 Serum or plasma calcium measurement (mass/volume) 7.9 mg/dL 8.5-10.1 Serum or plasma total bilirubin measurement (mass/volu me) 0.3 mg/dL 0.1-1.0 Serum or plasma alkaline phosphatase leslie surement (enzymatic activity/volume) 67 U/L 40-136 Serum or plasma aspartate aminotransfera se measurement (enzymatic activity/volume) 41 U/L 5-34 Serum or plasma alanine aminotransferase measurement (enzymatic activity/volume) 47 U/L 0-55 Serum or plasma protein measurement (mass/volume) 6.3 g/dL 6.4-8.2 Serum or plasma albumin measurement (mass/volume) 3.7 g/dL 3.2-4.5 CALCIUM CORRECTED 8.1 mg/dL 8.5-10.1 Serum or plasma phosphate measurement (m ass/volume) - 04/11/19 03:15 Serum or plasma phosphate measurement (mass/volume) 1.5 mg/dL 2.3-4.7 Magnesium - 04/11/19 03:15 Magnesium 1.9 mg/dL 1.6-2.4 Serum or plasma amylase measurement (enz ymatic activity/volume) - 04/11/19 03:15 Serum or plasma amylase measurement (enzymatic activit y/volume) 18 U/L 25-125 Lipase - 04/11/19 03:15 Lipase 19 U/L 8-78 Complete urinalysis with reflex to cultu re - 04/11/19 05:45 Urine color determination DARK YELLOW N RG Urine clarity determination CLEAR NR G Urine pH measurement by test strip 6.0 5-9 Specific gravity of urine by test strip >= 1.016-1.022 Urine protein assay by test strip, semi-quantitative 1+ NEGATIVE Urine glucose detection by automated test strip NE GATIVE NEGATIVE Erythrocytes detection in urine sediment by light micr oscopy 2+ NEGATIVE Urine ketones detection by automated test strip 1+ NEGATIVE Urine nitrite detection by test strip NEGATIVE NEGATIVE Urine total bilirubin detection by test strip NEGA TIVE NEGATIVE Urine urobilinogen measurement by automated test strip (mass/volume) 0.2 mg/dL < = 1.0 Urine leukocyte esterase detection by dipstick NEG ATIVE NEGATIVE Automated urine sediment erythrocyte cou nt by microscopy (number/high power field) [HPF] NRG Automated urine sediment leukocyte count by microscopy (number/high power field) [HPF] NRG Bacteria detection in urine sediment by light microsco py TRACE NRG Squamous epithelial cells detection in u rine sediment by light microscopy 2-5 NRG Crystals detection in urine sediment by light microsco py NONE NRG Casts detection in urine sediment by light microscopy NONE NRG Mucus detection in urine sediment by light microscopy NEGATIVE NRG Complete urinalysis with reflex to culture YES NRG Yeast detection in urine sediment by light microscopy MODERATE NRG Bacterial urine culture - 04/11/19 05:45 Bacterial urine culture [id number] NRG COLONY COUNT 10,000/ML - 100,000/ML NRG FREE TEXT ENTRY 2 YEAST REPORTED BY [facility] 04/12 07:20 NRG Occult blood panel - gastric fluid - 03/19 06:45 Gastric fluid gastrointestinal hemoglobin detection NEGATIVE NEGATIVE Complete blood count (CBC) with automate d white blood cell (WBC) differential - 04/12/19 05:00 Blood leukocytes automated count (number/volume) 9.9 10*3/uL 4.3-11.0 Blood erythrocytes automated count (number/volume) 4.28 10*6/uL 4.35-5.85 Venous blood hemoglobin measurement (mass/volume) 12.8 g/dL 11.5-16.0 Blood hematocrit (volume fraction) 39 % 35-52 Automated erythrocyte mean corpuscular volume 92 [ foz_us] 80-99 Automated erythrocyte mean corpuscular h emoglobin (mass per erythrocyte) 30 pg 25-34 Automated erythrocyte mean corpuscular h emoglobin concentration measurement (mass/volume) 33 g/dL 32-36 Automated erythrocyte distribution width ratio 14. 2 % 10.0- 14.5 Automated blood platelet count (count/volume) 286 10*3/uL 130-400 Automated blood platelet mean volume measurement 10.0 [foz_us] 7.4-10.4 Automated blood neutrophils/100 leukocytes 65 % 42-75 Automated blood lymphocytes/100 leukocytes 22 % 12-44 Blood monocytes/100 leukocytes 12 % 0-12 Automated blood eosinophils/100 leukocytes 0 % 0-10 Automated blood basophils/100 leukocytes 0 % 0-10 Blood neutrophils automated count (number/volume) 6.4 10*3 1.8-7.8 Blood lymphocytes automated count (number/volume) 2.2 10*3 1.0-4.0 Blood monocytes automated count (number/volume) 1. 2 10*3 0.0-1.0 Automated eosinophil count 0.0 10*3/uL 0 .0-0.3 Automated blood basophil count (count/volume) 0.0 10*3/uL 0.0-0.1 Comprehensive metabolic panel - 04/12/19 05:00 Serum or plasma sodium measurement (moles/volume) 135 mmol/L 135-145 Serum or plasma potassium measurement (moles/volume) 3.6 mmol/L 3.6-5.0 Serum or plasma chloride measurement (moles/volume) 105 mmol/L 98-107 Carbon dioxide 19 mmol/L 21-32 Serum or plasma anion gap determination (moles/volume) 11 mmol/L 5-14 Serum or plasma urea nitrogen measurement (mass/volume ) 5 mg/dL 7-18 Serum or plasma creatinine measurement (mass/volume) 0.55 mg/dL 0.60-1.30 Serum or plasma urea nitrogen/creatinine mass ratio 9 NRG Serum or plasma creatinine measurement w ith calculation of estimated glomerular filtration rate > NRG Serum or plasma glucose measurement (mass/volume) 102 mg/dL 70-105 Serum or plasma calcium measurement (mass/volume) 7.4 mg/dL 8.5-10.1 Serum or plasma total bilirubin measurement (mass/volu me) 0.3 mg/dL 0.1-1.0 Serum or plasma alkaline phosphatase leslie surement (enzymatic activity/volume) 64 U/L 40-136 Serum or plasma aspartate aminotransfera se measurement (enzymatic activity/volume) 26 U/L 5-34 Serum or plasma alanine aminotransferase measurement (enzymatic activity/volume) 37 U/L 0-55 Serum or plasma protein measurement (mass/volume) 5.7 g/dL 6.4-8.2 Serum or plasma albumin measurement (mass/volume) 3.4 g/dL 3.2-4.5 CALCIUM CORRECTED 7.9 mg/dL 8.5-10.1 Serum or plasma phosphate measurement (m ass/volume) - 04/12/19 05:00 Serum or plasma phosphate measurement (mass/volume) 1.3 mg/dL 2.3-4.7 Magnesium - 04/12/19 05:00 Magnesium 1.6 mg/dL 1.6-2.4 Complete blood count (CBC) with automate d white blood cell (WBC) differential - 04/13/19 05:10 Blood leukocytes automated count (number/volume) 6.2 10*3/uL 4.3-11.0 Blood erythrocytes automated count (number/volume) 3.89 10*6/uL 4.35-5.85 Venous blood hemoglobin measurement (mass/volume) 11.6 g/dL 11.5-16.0 Blood hematocrit (volume fraction) 36 % 35-52 Automated erythrocyte mean corpuscular volume 92 [ foz_us] 80-99 Automated erythrocyte mean corpuscular h emoglobin (mass per erythrocyte) 30 pg 25-34 Automated erythrocyte mean corpuscular h emoglobin concentration measurement (mass/volume) 32 g/dL 32-36 Automated erythrocyte distribution width ratio 14. 2 % 10.0- 14.5 Automated blood platelet count (count/volume) 285 10*3/uL 130-400 Automated blood platelet mean volume measurement 9.7 [foz_us] 7.4-10.4 Automated blood neutrophils/100 leukocytes 46 % 42-75 Automated blood lymphocytes/100 leukocytes 37 % 12-44 Blood monocytes/100 leukocytes 15 % 0-12 Automated blood eosinophils/100 leukocytes 2 % 0-10 Automated blood basophils/100 leukocytes 1 % 0-10 Blood neutrophils automated count (number/volume) 2.9 10*3 1.8-7.8 Blood lymphocytes automated count (number/volume) 2.3 10*3 1.0-4.0 Blood monocytes automated count (number/volume) 0. 9 10*3 0.0-1.0 Automated eosinophil count 0.1 10*3/uL 0 .0-0.3 Automated blood basophil count (count/volume) 0.0 10*3/uL 0.0-0.1 Comprehensive metabolic panel - 04/13/19 05:10 Serum or plasma sodium measurement (moles/volume) 140 mmol/L 135-145 Serum or plasma potassium measurement (moles/volume) 3.4 mmol/L 3.6-5.0 Serum or plasma chloride measurement (moles/volume) 108 mmol/L 98-107 Carbon dioxide 23 mmol/L 21-32 Serum or plasma anion gap determination (moles/volume) 9 mmol/L 5-14 Serum or plasma urea nitrogen measurement (mass/volume ) 4 mg/dL 7-18 Serum or plasma creatinine measurement (mass/volume) 0.49 mg/dL 0.60-1.30 Serum or plasma urea nitrogen/creatinine mass ratio 8 NRG Serum or plasma creatinine measurement w ith calculation of estimated glomerular filtration rate > NRG Serum or plasma glucose measurement (mass/volume) 76 mg/dL 70-105 Serum or plasma calcium measurement (mass/volume) 7.7 mg/dL 8.5-10.1 Serum or plasma total bilirubin measurement (mass/volu me) 0.2 mg/dL 0.1-1.0 Serum or plasma alkaline phosphatase leslie surement (enzymatic activity/volume) 49 U/L 40-136 Serum or plasma aspartate aminotransfera se measurement (enzymatic activity/volume) 30 U/L 5-34 Serum or plasma alanine aminotransferase measurement (enzymatic activity/volume) 37 U/L 0-55 Serum or plasma protein measurement (mass/volume) 5.3 g/dL 6.4-8.2 Serum or plasma albumin measurement (mass/volume) 3.2 g/dL 3.2-4.5 CALCIUM CORRECTED 8.3 mg/dL 8.5-10.1 Serum or plasma phosphate measurement (m ass/volume) - 04/13/19 05:10 Serum or plasma phosphate measurement (mass/volume) 1.4 mg/dL 2.3-4.7 Magnesium - 04/13/19 05:10 Magnesium 1.5 mg/dL 1.6-2.4 Complete blood count (CBC) with automate d white blood cell (WBC) differential - 04/14/19 04:29 Blood leukocytes automated count (number/volume) 7.3 10*3/uL 4.3-11.0 Blood erythrocytes automated count (number/volume) 4.31 10*6/uL 4.35-5.85 Venous blood hemoglobin measurement (mass/volume) 13.0 g/dL 11.5-16.0 Blood hematocrit (volume fraction) 40 % 35-52 Automated erythrocyte mean corpuscular volume 92 [ foz_us] 80-99 Automated erythrocyte mean corpuscular h emoglobin (mass per erythrocyte) 30 pg 25-34 Automated erythrocyte mean corpuscular h emoglobin concentration measurement (mass/volume) 33 g/dL 32-36 Automated erythrocyte distribution width ratio 14. 0 % 10.0- 14.5 Automated blood platelet count (count/volume) 300 10*3/uL 130-400 Automated blood platelet mean volume measurement 10.0 [foz_us] 7.4-10.4 Automated blood neutrophils/100 leukocytes 42 % 42-75 Automated blood lymphocytes/100 leukocytes 42 % 12-44 Blood monocytes/100 leukocytes 12 % 0-12 Automated blood eosinophils/100 leukocytes 4 % 0-10 Automated blood basophils/100 leukocytes 0 % 0-10 Blood neutrophils automated count (number/volume) 3.1 10*3 1.8-7.8 Blood lymphocytes automated count (number/volume) 3.0 10*3 1.0-4.0 Blood monocytes automated count (number/volume) 0. 9 10*3 0.0-1.0 Automated eosinophil count 0.3 10*3/uL 0 .0-0.3 Automated blood basophil count (count/volume) 0.0 10*3/uL 0.0-0.1 Comprehensive metabolic panel - 04/14/19 04:29 Serum or plasma sodium measurement (moles/volume) 139 mmol/L 135-145 Serum or plasma potassium measurement (moles/volume) 3.7 mmol/L 3.6-5.0 Serum or plasma chloride measurement (moles/volume) 106 mmol/L 98-107 Carbon dioxide 22 mmol/L 21-32 Serum or plasma anion gap determination (moles/volume) 11 mmol/L 5-14 Serum or plasma urea nitrogen measurement (mass/volume ) 3 mg/dL 7-18 Serum or plasma creatinine measurement (mass/volume) 0.53 mg/dL 0.60-1.30 Serum or plasma urea nitrogen/creatinine mass ratio 6 NRG Serum or plasma creatinine measurement w ith calculation of estimated glomerular filtration rate > NRG Serum or plasma glucose measurement (mass/volume) 77 mg/dL 70-105 Serum or plasma calcium measurement (mass/volume) 8.2 mg/dL 8.5-10.1 Serum or plasma total bilirubin measurement (mass/volu me) 0.3 mg/dL 0.1-1.0 Serum or plasma alkaline phosphatase leslie surement (enzymatic activity/volume) 56 U/L 40-136 Serum or plasma aspartate aminotransfera se measurement (enzymatic activity/volume) 45 U/L 5-34 Serum or plasma alanine aminotransferase measurement (enzymatic activity/volume) 53 U/L 0-55 Serum or plasma protein measurement (mass/volume) 5.8 g/dL 6.4-8.2 Serum or plasma albumin measurement (mass/volume) 3.5 g/dL 3.2-4.5 CALCIUM CORRECTED 8.6 mg/dL 8.5-10.1 Serum or plasma phosphate measurement (m ass/volume) - 04/14/19 04:29 Serum or plasma phosphate measurement (mass/volume) 1.8 mg/dL 2.3-4.7 Magnesium - 04/14/19 04:29 Magnesium 1.5 mg/dL 1.6-2.4 TSH w/ FREE T4 - 07/09/19 09:11 TSH 4.09 mIU/L NRG T4, FREE 1.1 ng/dL 0.8-1.8 CMP - 07/09/19 09:11 GLUCOSE 134 mg/dL 65-99 UREA NITROGEN (BUN) 20 mg/dL 7-25 CREATININE 0.64 mg/dL 0.50-1.10 eGFR NON-AFR. CONGOLESE 106 mL/min/1.73m2 > OR = 60 eGFR 122 mL/min/1.73m2 > OR = 60 BUN/CREATININE RATIO NOT APPLICABLE (calc) 6-22 SODIUM 139 mmol/L 135-146 POTASSIUM 4.2 mmol/L 3.5-5.3 CHLORIDE 101 mmol/L 98-110 CARBON DIOXIDE 27 mmol/L 20-32 CALCIUM 9.5 mg/dL 8.6-10.2 PROTEIN, TOTAL 6.6 g/dL 6.1-8.1 ALBUMIN 3.9 g/dL 3.6-5.1 GLOBULIN 2.7 g/dL (calc) 1.9-3.7 ALBUMIN/GLOBULIN RATIO 1.4 (calc) 1.0-2. 5 BILIRUBIN, TOTAL 0.3 mg/dL 0.2-1.2 ALKALINE PHOSPHATASE 71 U/L 31-125 AST 21 U/L 10-35 ALT 31 U/L 6-29 CBC w/MANUAL DIFF - 07/09/19 09:11 WHITE BLOOD CELL COUNT 9.3 Thousand/uL 3 .8-10.8 RED BLOOD CELL COUNT 4.69 Million/uL 3.8 0-5.10 HEMOGLOBIN 13.8 g/dL 11.7-15.5 HEMATOCRIT 43.4 % 35.0-45.0 MCV 92.5 fL 80.0-100.0 MCH 29.4 pg 27.0-33.0 MCHC 31.8 g/dL 32.0-36.0 RDW 13.2 % 11.0-15.0 PLATELET COUNT 387 Thousand/uL 140-400 MPV 10.4 fL 7.5-12.5 ABSOLUTE NEUTROPHILS 5506 cells/uL 1500- 7800 ABSOLUTE MONOCYTES 363 cells/uL 200-950 ABSOLUTE EOSINOPHILS 539 cells/uL 15-500 ABSOLUTE BASOPHILS 0 cells/uL 0-200 NEUTROPHILS 59.2 % NRG LYMPHOCYTES 29.1 % NRG MONOCYTES 3.9 % NRG EOSINOPHILS 5.8 % NRG BASOPHILS 0 % NRG ABSOLUTE BAND NEUTROPHILS 186 cells/uL 0 -750 ABSOLUTE LYMPHOCYTES 2706 cells/uL 850-3 900 BAND NEUTROPHILS 2.0 % NRG PLATELET ESTIMATION ADEQUATE ADEQUATE COMMENT(S) NRG Complete urinalysis with reflex to cultu re - 08/13/19 11:43 Urine color determination YELLOW NRG Urine clarity determination CLOUDY NR G Urine pH measurement by test strip 6.0 5-9 Specific gravity of urine by test strip 1.025 1.016-1.022 Urine protein assay by test strip, semi-quantitative TRACE NEGATIVE Urine glucose detection by automated test strip NE GATIVE NEGATIVE Erythrocytes detection in urine sediment by light micr oscopy 3+ NEGATIVE Urine ketones detection by automated test strip NE GATIVE NEGATIVE Urine nitrite detection by test strip POSITIVE NEGATIVE Urine total bilirubin detection by test strip NEGA TIVE NEGATIVE Urine urobilinogen measurement by automated test strip (mass/volume) 0.2 mg/dL < = 1.0 Urine leukocyte esterase detection by dipstick 2+ NEGATIVE Automated urine sediment erythrocyte cou nt by microscopy (number/high power field) > [HPF] NRG Automated urine sediment leukocyte count by microscopy (number/high power field) > [HPF] NRG Bacteria detection in urine sediment by light microsco py MODERATE NRG Squamous epithelial cells detection in u rine sediment by light microscopy 25-50 NRG Crystals detection in urine sediment by light microsco py NONE NRG Casts detection in urine sediment by light microscopy NONE NRG Mucus detection in urine sediment by light microscopy MODERATE NRG Complete urinalysis with reflex to culture YES NRG Bacterial urine culture - 08/13/19 11:43 Bacterial urine culture [id number] NRG COLONY COUNT <10,000 NRG SUSCEPTIBILITY SUSCEPTIBILITY REPORTED 08/17 10:05 NRG Dirithromycin susceptibility test by dis k diffusion - 08/13/19 11:43 Gentamicin susceptibility test by minimum inhibitory c oncentration 4 NRG Levofloxacin susceptibility test by minimum inhibitory concentration R NRG Tobramycin susceptibility test by minimum inhibitory c oncentration <= NRG Piperacillin/tazobactam susceptibility t est by minimum inhibitory concentration I NRG Ciprofloxacin susceptibility test by minimum inhibitor y concentration R NRG Meropenem susceptibility test by minimum inhibitory co ncentration 1 NRG Aztreonam susceptibility test by minimum inhibitory co ncentration 16 NRG Cefepime susceptibility test by minimum inhibitory con centration 2 NRG Imipenem susceptibility test by minimum inhibitory con centration 2 NRG Ceftazidime susceptibility test by minimum inhibitory concentration 16 NRG Complete blood count (CBC) with automate d white blood cell (WBC) differential - 08/20/19 08:22 Blood leukocytes automated count (number/volume) 10.2 10*3/uL 4.3-11.0 Blood erythrocytes automated count (number/volume) 4.44 10*6/uL 4.35-5.85 Venous blood hemoglobin measurement (mass/volume) 13.2 g/dL 11.5-16.0 Blood hematocrit (volume fraction) 41 % 35-52 Automated erythrocyte mean corpuscular volume 93 [ foz_us] 80-99 Automated erythrocyte mean corpuscular h emoglobin (mass per erythrocyte) 30 pg 25-34 Automated erythrocyte mean corpuscular h emoglobin concentration measurement (mass/volume) 32 g/dL 32-36 Automated erythrocyte distribution width ratio 14. 2 % 10.0- 14.5 Automated blood platelet count (count/volume) 345 10*3/uL 130-400 Automated blood platelet mean volume measurement 10.5 [foz_us] 7.4-10.4 Automated blood neutrophils/100 leukocytes 79 % 42-75 Automated blood lymphocytes/100 leukocytes 5 % 12-44 Blood monocytes/100 leukocytes 12 % 0-12 Automated blood eosinophils/100 leukocytes 4 % 0-10 Automated blood basophils/100 leukocytes 1 % 0-10 Blood neutrophils automated count (number/volume) 8.0 10*3 1.8-7.8 Blood lymphocytes automated count (number/volume) 0.5 10*3 1.0-4.0 Blood monocytes automated count (number/volume) 1. 2 10*3 0.0-1.0 Automated eosinophil count 0.4 10*3/uL 0 .0-0.3 Automated blood basophil count (count/volume) 0.1 10*3/uL 0.0-0.1 Comprehensive metabolic panel - 08/20/19 08:22 Serum or plasma sodium measurement (moles/volume) 137 mmol/L 135-145 Serum or plasma potassium measurement (moles/volume) 3.7 mmol/L 3.6-5.0 Serum or plasma chloride measurement (moles/volume) 98 mmol/L 98-107 Carbon dioxide 23 mmol/L 21-32 Serum or plasma anion gap determination (moles/volume) 16 mmol/L 5-14 Serum or plasma urea nitrogen measurement (mass/volume ) 14 mg/dL 7-18 Serum or plasma creatinine measurement (mass/volume) 0.48 mg/dL 0.60-1.30 Serum or plasma urea nitrogen/creatinine mass ratio 29 NRG Serum or plasma creatinine measurement w ith calculation of estimated glomerular filtration rate > NRG Serum or plasma glucose measurement (mass/volume) 158 mg/dL 70-105 Serum or plasma calcium measurement (mass/volume) 8.6 mg/dL 8.5-10.1 Serum or plasma total bilirubin measurement (mass/volu me) 0.4 mg/dL 0.1-1.0 Serum or plasma alkaline phosphatase leslie surement (enzymatic activity/volume) 66 U/L 40-136 Serum or plasma aspartate aminotransfera se measurement (enzymatic activity/volume) 32 U/L 5-34 Serum or plasma alanine aminotransferase measurement (enzymatic activity/volume) 38 U/L 0-55 Serum or plasma protein measurement (mass/volume) 6.2 g/dL 6.4-8.2 Serum or plasma albumin measurement (mass/volume) 3.6 g/dL 3.2-4.5 CALCIUM CORRECTED 8.9 mg/dL 8.5-10.1 Erythrocyte sedimentation rate by antonio gren method - 08/20/19 08:22 Erythrocyte sedimentation rate by westergren method 8 mm 0- 20 Gentamicin trough - 08/20/19 08:22 Gentamicin trough 0.8 ug/mL <=2.0 Encounters ACCT No. Visit Date/Time Discharge Status Pt. Type Provider Facility Loc./Unit Complaint [id number] 02/24/2019 15:40:00 02/24/2019 23:59: 59 CLS Outpatient MELY BEDOYA [facility] [id number] 07/09/2019 09:00:00 Document Registration [id number] 07/21/2018 16:00:00 Document Registration [id number] 08/05/2019 14:05:00 ACT Unknown [id number] 08/13/2019 15:07:00 23:59:59 CLS Outpatient MELY BEDOYA MD, [facility] LAB FS LEAKING CATH,URINE SEDI MENT,FOUL ODER [id number] 2019 14:02:00 15:15:00 DIS Inpatient ROMY SHAIKH DO, [facility] 4TH VOMITING, NAUSEA [id number] 04/05/2019 18:25:00 23:59:59 CLS Outpatient MELY BEDOYA MD [facility] LAB FS [id number] 04/04/2019 18:41:00 23:59:59 CLS Outpatient MELY BEDOYA MD [facility] LAB FS G82.20 [id number] 03/16/2019 17:50:00 23:59:59 CLS Outpatient MELY BEDOYA MD [facility] IHC CMP [id number] 03/11/2019 19:59:00 23:59:59 CLS Outpatient MELY BEDOYA MD [facility] LAB FS G82.20 [id number] 03/05/2019 20:29:00 23:59:59 CLS Outpatient MELY BEDOYA MD [facility] LAB FS ROUTINE LAB [id number] 01/05/2019 14:46:00 23:59:59 CLS Outpatient MELY BEDOYA MD [facility] LAB FS N39.0 G82.20 [id number] 12/04/2018 15:47:00 18:15:00 DIS Emergency PRESLEY EVANS DO [facility] ER FS UTI [id number] 11/25/2018 11:32:00 23:59:59 CLS Outpatient MELY BEDOYA MD [facility] LAB FS UTI [id number] 11/03/2018 14:20:00 23:59:59 CLS Out[facility] [facility] UTI [id number] 10/30/2018 15:28:00 23:59:59 CLS Outpatient MELY BEDOYA MD [facility] LAB FS IV ANTIBIOTICS [id number] 10/23/2018 21:04:00 00:00:00 DIS Emergency BELGICA ART DO [facility] ER FS SKIN PROBLEMS [id number] 09/09/2018 17:29:00 23:59:59 CLS Outpatient MELY BEDOYA MD [facility] LAB FS HX UTI SEPSIS [id number] 07/17/2018 10:52:00 23:59:59 CLS Outpatient MELY BEDOYA MD [facility] LAB FS UTI [id number] 07/09/2018 14:16:00 23:59:59 CLS Outpatient MELY BEDOYA MD [facility] LAB FS ACUTE UTI [id number] 06/26/2018 18:37:00 23:59:59 CLS Outpatient MELY BEDOYA MD [facility] LAB FS RECENT UTI; IV ANX RECU RRENT EMATURIA [id number] 08/20/2019 09:51:[address] Outpatient AURELIANO MCMILLAN, MELY Salazar [facility] LAB FS [id number] M86.60
--- NOTE | 2019-08-23 14:57 | ED General ---
General Chief Complaint: Fever-Adult/Adol Stated Complaint: IV ACCESS Source of Information: Patient Exam Limitations: No Limitations History of Present Illness Date Seen by Provider: August 23, 2019 Time Seen by Provider: 14:50 Initial Comments 49-year-old female brought in by EMS because her port was plugged. EMS evidently could not start an IV in the home for continued gentamicin homebound therapy. Patient was placed in the head while in the emergency room and nursing put in a 20-gauge in her right antecubital area. 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 Patient's port is in her left upper chest shows little bit of inflammation in it but does not function. Past medical history for this patient reveals that she has paralysis. She's had a cholecystectomy hysterectomy urostomy tube which is functioning now she has had ovarian cyst removal endometriosis treatment gastroesophageal reflux disorder treatment and has a neurogenic bladder. She is a T5 6 paraplegic. Patient will seek surgical services tomorrow to have a port reinserted. No other medical problems were going on with the patient. She is slightly dehydrated on examination she states that she can tolerate oral fluids and will make an effort to drink additional oral fluids today. Follow-up with primary care and surgery services. Timing/Duration: 2-3 Days Severity: Moderate Modifying Factors: improves with Movement Associated Systoms: Other (patient is receiving home on gentamicin therapy for chronic infection) Allergies and Home Medications Allergies Coded Allergies: Sulfa (Sulfonamide Antibiotics) (Verified Allergy, Unknown, 10/23/18) vancomycin (Verified Allergy, Unknown, 10/23/18) Home Medications Ascorbic Acid 1,000 Mg Tablet, 1,000 MG PO BID, (Reported) Baclofen 20 Mg Tablet, 20 MG PO QID, (Reported) Calcium Citrate 200 Mg Tablet, 200 MG PO BID, (Reported) Cetirizine HCl 10 Mg Tablet, 10 MG PO DAILY PRN for ALLERGY SYMPTOMS, (Reported) Diazepam 10 Mg Tablet, 10 MG PO QID, (Reported) Ibuprofen 200 Mg Tablet, 600 MG PO Q8H PRN for PAIN-MILD (1-4), (Reported) Omeprazole 20 Mg Tablet.dr, 20 MG PO DAILY, (Reported) Oxybutynin Chloride 5 Mg Tab, 5 MG PO DAILY, (Reported) Oxybutynin Chloride 10 Mg Tab.er.24, 10 MG PO HS, (Reported) Rivaroxaban 20 Mg Tablet, 10 MG PO DAILY, (Reported) TAKES OF A 20 MG TAB Patient Home Medication List Home Medication List Reviewed: Yes Review of Systems Review of Systems Constitutional: see HPI, chills, weakness, other (T5 6 paraplegia with urostomy tube history of necrotizing fasciitis and above-knee amputation of the right patient has a left chest port which is nonfunctioning for 2 days for IV homebound gentamicin therapy. 20-gauge IV was inserted into the left antecubital area without difficulty and patient may maintain her gentamicin with this IV and will seek surgical services for [place] tomorrow.) EENTM: see HPI, no symptoms reported, other (dry mouth and patient states that she can tolerate oral fluids and will increase her oral fluids today.) Respiratory: no symptoms reported Cardiovascular: no symptoms reported Gastrointestinal: heartburn (with gastroesophageal reflux disorder prior history of cholecystectomy and hysterectomy) Genitourinary: no symptoms reported, other (patient has chronic neurogenic bladder with urostomy tube T56 paraplegia. Patient also has had a hysterectomy.) : No Musculoskeletal: back pain, muscle stiffness (secondary T5 6 paraplegia.), muscle cramps Skin: change in color (near the port on her left upper chest this will be evaluated and most likely replaced by surgery no signs of fluctuance or) Psychiatric/Neurological: Anxiety (regarding nonfunctioning port patient understands to continue gentamicin when she returns home with herIV.) Hematologic/Lymphatic: No Symptoms Reported (but has chronic recurrent inf ections) Immunological/Allergic: no symptoms reported Past Sivmlsl-Htwndf-Pojtfm Hx Past Med/Social Hx: Reviewed Nursing Past Med/Soc Hx Patient Social History Alcohol Use: Denies Use Recreational Drug Use: No (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) Smoking Status: Never a Smoker 2nd Hand Smoke Exposure: No Recent Foreign Travel: No Contact w/Someone Who Travel: No Recent Hopitalizations: No Physical Abuse: No Sexual Abuse: No Mistreated: No Fear: No Immunizations Up To Date Date of Influenza Vaccine: Feb 08, 2019 Past Medical History Surgeries: Yes Amputation, Cystectomy, Gallbladder, 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, Orthopedic, Urinary Diversion Respiratory: No Cardiac: No Neurological: Yes Paralysis, Spinal Cord Injury Female Reproductive Disorders: Endometriosis, Ovarian Cyst TISSUE 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 Genitourinary: Yes Kidney Stones, Neurogenic Bladder, UTI-Chronic Gastrointestinal: No Gastroesophageal Reflux Musculoskeletal: Yes (OSTEOMYELITIS) Amputee, Back Injury Endocrine: No HEENT: No Cancer: No Psychosocial: Yes Anxiety Integumentary: Yes (DECUB STAGE 4, PRESSURE ULCER, CELLULITIS, MRSA) Blood Disorders: Yes (IRON DEFICIENCY ANEMIA) Family Medical History Reviewed Nursing Family Hx Heart Disease, Cancer, Stroke Physical Exam Vital Signs Vital Signs - First Documented 08/23/19 14:45 Temp 36.7 Pulse 102 Resp 16 B/P (MAP) 142/82 (102) Pulse Ox 95 Capillary Refill : Height, Weight, BMI Height: 5'5.00" Weight: 175lbs. oz. 79.320233cl; 19.00 BMI Method:Estimated General Appearance: Chronically ill (T56 paraplegia in addition to neurogenic bladder and chronic infections needing IV gentamicin therapy IV has been inserted and patient can continue on her gentamicin but will need to have a new port inserted by surgery tomorrow or the day after.) Eyes: Bilateral Eye Normal Inspection, Bilateral Eye PERRL, Bilateral Eye EOMI HEENT: PERRL/EOMI, Normal ENT Inspection (dry mucous membranes), Pharynx Normal Neck: Full Range of Motion, Normal Inspection, Non Tender, Supple Respiratory: Chest Non Tender, Lungs Clear, Normal Breath Sounds, No Accessory Muscle Use, No Respiratory Distress Cardiovascular: Regular Rate, Rhythm, No Edema (right lower leg removed above- knee), No Gallop, No JVD, No Murmur Gastrointestinal: Normal Bowel Sounds (urostomy tube present), No Organomegaly, No Pulsatile Mass, Non Tender, Soft Back: Decreased Range of Motion (patient has T5 6 paraplegia) Extremity: Normal Capillary Refill (in the 3 remaining extremities), Normal Inspection, Normal Range of Motion, Non Tender, No Calf Tenderness (in the left calf) Neurologic/Psychiatric: Alert, Oriented x3, No Motor/Sensory Deficits, Normal Mood/Affect (somewhat anxious in regard to be nonfunctioning port and understanding that he needs to be replaced), 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 Norm as Tested Skin: Normal Color (slight erythema around the left port surgery to evaluate), Warm/Dry Lymphatic: No Adenopathy Progress/Results/Core Measures Suspected Sepsis SIRS Temperature: Pulse: Respiratory Rate: Blood Pressure / Mean: Results/Orders My Orders Orders - GAGE HERRERA DO Iv/Invasive Line Insertion .IV start (08/23/19 14:51) Vital Signs/I&O 08/23/19 14:45 Temp 36.7 Pulse 102 Resp 16 B/P (MAP) 142/82 (102) Pulse Ox 95 Capillary Refill : Departure Impression Primary Impression: Obstruction of central line Additional Impressions: Dehydration Paraplegia at T4 level Neurogenic bladder Disposition: 01 HOME, SELF-CARE Condition: Improved Departure-Patient Inst. Decision time for Depature: 15:05 Referrals: MELY BEDOYA MD (PCP) Primary Care Physician Patient Instructions: Dehydration, Adult (DC), How to Care for a Central Line Catheter, Neurogenic Bladder in Adults Add. Discharge Instructions: 49-year-old female with T5 6 paraplegia and neurogenic bladder and recurrent infections right above-knee amputation presents for a dysfunctioning left upper chest central line port. Patient had a IV inserted into her right antecubital area for IV hydration. She also has some clinical dehydration and will continue to drink water which she says she can do without difficulty. Patient will follow up with Dr. Mely Bedoya and with surgery for reinsertion of a New port there is some discoloration in the in the area reports slight erythema which may indicate infiltration and/or infection patient agrees with discharge to home and continue care with IV gentamicin and oral hydration. All discharge instructions reviewed with patient and/or family. Voiced understanding. Copy Copies To 1: [facility]/GAGE NELSON DO August 23, 2019 14:57
[2019-08-23 15:04] VITALS: BP 142/82
== END 2019-08-23 15:23 | disposition home or self-care (01) ==
LOC: EDUNIT# 14:49 → ER FS 14:51
DX: T82.598A Other mechanical complication of other cardiac and vascular devices and implants, initial encounter (principal); E86.0 Dehydration; G82.20 Paraplegia, unspecified; N31.9 Neuromuscular dysfunction of bladder, unspecified; K21.9 Gastro-esophageal reflux disease without esophagitis; F41.9 Anxiety disorder, unspecified; Z90.49 Acquired absence of other specified parts of digestive tract; Z93.8 Other artificial opening status; Z88.2 Allergy status to sulfonamides; Z88.1 Allergy status to other antibiotic agents; Z89.611 Acquired absence of right leg above knee; Z90.710 Acquired absence of both cervix and uterus; Z82.49 Family history of ischemic heart disease and other diseases of the circulatory system

== ENCOUNTER 2019-10-25 18:37 | Inpatient (IN) | payer MEDICARE, MEDICAID ==
[~2019-10-25] VITALS: Ht 165 cm; Wt 64.8 kg
[2019-10-25] MEDS ORDERED: NS IV 500 ML 500 ML IV STA (18:40)
--- NOTE | 2019-10-25 18:46 | ED General ---
General Stated Complaint: ABD PAIN,HEADACHE Source of Information: Patient, EMS, EMS Notes Reviewed, Old Records, RN/MD Exam Limitations: No Limitations History of Present Illness Date Seen by Provider: Oct 25, 2019 Time Seen by Provider: 18:30 Initial Comments This patient is a 49-year-old female presents to the emergency department complaining of abdominal distention. Patient states that she is always like this patient is bed confined and is a paraplegic. Patient was seen by her home health nurse on Friday 4 days ago concern is possibly had a plugged catheter patient has a suprapubic Gonsalves catheter due to her chronic conditions of an injury at T4 level.. And concerned that she needed to go to the ER for evaluation. Patient did not go to the ER but decided to come here today to rule out sepsis. Patient has had no fever patient appears to be comfortable in no acute distress. Patient is actually leaking on a lollipop that she brought in with her. Patient states that her abdomen is distended but is always distended and had actually had a bowel movement prior to coming to the emergency department. We will do a medical screening exam and evaluate treat further as needed. This patient does not appear to be acutely sick. Timing/Duration: Intermittent Associated Systoms: Denies Symptoms Allergies and Home Medications Allergies Coded Allergies: Sulfa (Sulfonamide Antibiotics) (Verified Allergy, Unknown, 10/23/18) vancomycin (Verified Allergy, Unknown, 10/23/18) Home Medications Ascorbic Acid 1,000 Mg Tablet, 1,000 MG PO BID, (Reported) Baclofen 20 Mg Tablet, 20 MG PO QID, (Reported) Calcium Citrate 200 Mg Tablet, 200 MG PO BID, (Reported) Cetirizine HCl 10 Mg Tablet, 10 MG PO DAILY PRN for ALLERGY SYMPTOMS, (Reported) Diazepam 10 Mg Tablet, 10 MG PO QID, (Reported) Ibuprofen 200 Mg Tablet, 600 MG PO Q8H PRN for PAIN-MILD (1-4), (Reported) Omeprazole 20 Mg Tablet.dr, 20 MG PO DAILY, (Reported) Oxybutynin Chloride 5 Mg Tab, 5 MG PO DAILY, (Reported) Oxybutynin Chloride 10 Mg Tab.er.24, 10 MG PO HS, (Reported) Rivaroxaban 20 Mg Tablet, 10 MG PO DAILY, (Reported) TAKES OF A 20 MG TAB Patient Home Medication List Home Medication List Reviewed: Yes Review of Systems Review of Systems Constitutional: No no symptoms reported; see HPI; No chills, No diaphoresis, No dizziness, No fever, No malaise, No weakness, No weight gain, No weight loss, No other EENTM: No see HPI, No no symptoms reported, No ear discharge, No hearing loss, No ear pain, No blurred vision, No double vision, No eye pain, No tearing, No vision loss, No dental problems, No hoarseness, No mouth pain, No mouth swelling, No epistaxis, No nose congestion, No nose pain, No throat pain, No throat swelling, No other Respiratory: No no symptoms reported, No see HPI, No cough, No dyspnea on exertion, No hemoptysis, No orthopnea, No phlegm, No short of breath, No stridor, No wheezing, No other Cardiovascular: No no symptoms reported, No see HPI, No chest pain, No edema, No Hx of Intervention, No palpitations, No syncope, No vascular heart diseas, No other Gastrointestinal: No RUQ, No LUQ, No RLQ, No LLQ, No no symptoms reported; see HPI; No abdominal pain, No constipation, No diarrhea, No dysphagia, No hemate mesis, No heartburn, No jaundice, No loss of appetite, No melena, No nausea, No vomiting, No other Genitourinary: No no symptoms reported, No see HPI, No decreased output, No discharge, No dysuria, No frequency, No hematuria, No hesitancy, No incontinence, No nocturia, No pain, No other Musculoskeletal: No no symptoms reported, No see HPI, No back pain, No gout, No joint pain, No joint swelling, No muscle pain, No muscle stiffness, No muscle cramps, No muscle twitching, No muscle weakness, No neck pain, No other Skin: No no symptoms reported, No see HPI, No change in color, No change in hair/nails, No dryness, No hx of skin cancer, No lesions, No lumps, No pruritus, No rash, No other All Other Systems Reviewed Negative Unless Noted: Yes Past Cucqznb-Mlwwyf-Uxvvod Hx Patient Social History 2nd Hand Smoke Exposure: No Recent Hopitalizations: No Immunizations Up To Date Date of Influenza Vaccine: Feb 08, 2019 Past Medical History Surgeries: Yes Amputation, Cystectomy, Gallbladder, 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, Orthopedic, Urinary Diversion Respiratory: No Cardiac: No Neurological: Yes Paralysis, Spinal Cord Injury Female Reproductive Disorders: Endometriosis, Ovarian Cyst AUDIOVISUAL 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 Genitourinary: Yes Kidney Stones, Neurogenic Bladder, UTI-Chronic Gastrointestinal: No Gastroesophageal Reflux Musculoskeletal: Yes (OSTEOMYELITIS) Amputee, Back Injury Endocrine: No HEENT: No Cancer: No Psychosocial: Yes Anxiety Integumentary: Yes (DECUB STAGE 4, PRESSURE ULCER, CELLULITIS, MRSA) Blood Disorders: Yes (IRON DEFICIENCY ANEMIA) Family Medical History Heart Disease, Cancer, Stroke Physical Exam Vital Signs Vital Signs - First Documented 10/25/19 18:56 Temp 35.9 Pulse 105 Resp 16 B/P (MAP) 156/92 (113) Pulse Ox 96 Capillary Refill : Height, Weight, BMI Height: 5'5.00" Weight: 175lbs. oz. 79.277754gl; 25.00 BMI Method:Estimated General Appearance: No Apparent Distress, WD/WN Respiratory: Chest Non Tender, Lungs Clear, Normal Breath Sounds, No Accessory Muscle Use, No Respiratory Distress Cardiovascular: Regular Rate, Rhythm, No Edema, No Gallop, No JVD, No Murmur, Normal Peripheral Pulses Gastrointestinal: Normal Bowel Sounds, No Organomegaly, No Pulsatile Mass, Non Tender, Soft, Distended, Other (mildly distended abdomen the bowel sounds are present. Patient has no tenderness on palpation) Neurologic/Psychiatric: Alert, Oriented x3, No Motor/Sensory Deficits, Normal Mood/Affect Focused Exam Lactate Level 10/25/19 18:53: Lactic Acid Level 3.28*H Lactic Acid Level Laboratory Tests Test 10/25/19 18:53 Lactic Acid Level 3.28 MMOL/L (0.50-2.00) *H Progress/Results/Core Measures Suspected Sepsis SIRS Temperature: Pulse: Respiratory Rate: Laboratory Tests 10/25/19 18:53: White Blood Count 9.3 Blood Pressure / Mean: 10/25/19 18:53: Lactic Acid Level 3.28*H Laboratory Tests 10/25/19 18:53: Creatinine 0.37L, Platelet Count 320, Total Bilirubin 0.3 Results/Orders Lab Results Laboratory Tests Test 10/25/19 18:53 10/25/19 18:58 Range/Units White Blood Count 9.3 4.3-11.0 10^3/uL Red Blood Count 4.51 4.35-5.85 10^6/uL Hemoglobin 13.2 11.5-16.0 G/DL Hematocrit 41 35-52 % Mean Corpuscular Volume 90 80-99 FL Mean Corpuscular Hemoglobin 29 25-34 PG Mean Corpuscular Hemoglobin Concent 33 32-36 G/DL Red Cell Distribution Width 13.8 10.0-14.5 % Platelet Count 320 130-400 10^3/uL Mean Platelet Volume 10.5 H 7.4-10.4 FL Neutrophils (%) (Auto) 63 42-75 % Lymphocytes (%) (Auto) 23 12-44 % Monocytes (%) (Auto) 10 0-12 % Eosinophils (%) (Auto) 3 0-10 % Basophils (%) (Auto) 1 0-10 % Neutrophils # (Auto) 5.8 1.8-7.8 X 10^3 Lymphocytes # (Auto) 2.1 1.0-4.0 X 10^3 Monocytes # (Auto) 0.9 0.0-1.0 X 10^3 Eosinophils # (Auto) 0.3 0.0-0.3 10^3/uL Basophils # (Auto) 0.1 0.0-0.1 10^3/uL Sodium Level 137 135-145 MMOL/L Potassium Level 4.5 3.6-5.0 MMOL/L Chloride Level 100 98-107 MMOL/L Carbon Dioxide Level 22 21-32 MMOL/L Anion Gap 15 H 5-14 MMOL/L Blood Urea Nitrogen 9 7-18 MG/DL Creatinine 0.37 L 0.60-1.30 MG/DL Estimat Glomerular Filtration Rate > 60 BUN/Creatinine Ratio 24 Glucose Level 214 H 70-105 MG/DL Lactic Acid Level 3.28 *H 0.50-2.00 MMOL/L Calcium Level 9.5 8.5-10.1 MG/DL Corrected Calcium 9.4 8.5-10.1 MG/DL Total Bilirubin 0.3 0.1-1.0 MG/DL Aspartate Amino Transf (AST/SGOT) 93 H 5-34 U/L Alanine Aminotransferase (ALT/SGPT) 70 H 0-55 U/L Alkaline Phosphatase 80 40-136 U/L Total Protein 7.0 6.4-8.2 GM/DL Albumin 4.1 3.2-4.5 GM/DL Urine Color PALE YELLOW Urine Clarity SLT CLOUDY Urine pH 8.0 5-9 Urine Specific [place] 1.010 L 1.016-1.022 Urine Protein NEGATIVE NEGATIVE Urine Glucose (UA) NEGATIVE NEGATIVE Urine Ketones NEGATIVE NEGATIVE Urine Nitrite NEGATIVE NEGATIVE Urine Bilirubin NEGATIVE NEGATIVE Urine Urobilinogen 0.2 < = 1.0 MG/DL Urine Leukocyte Esterase 3+ H NEGATIVE Urine RBC (Auto) 1+ H NEGATIVE Urine RBC 2-5 H /HPF Urine WBC 5-10 H /HPF Urine Squamous Epithelial Cells RARE /HPF Urine Crystals NONE /LPF Urine Bacteria TRACE /HPF Urine Casts NONE /LPF Urine Mucus NEGATIVE /LPF Urine Yeast FEW H /HPF Urine Culture Indicated YES My Orders Orders - SHERRY VAZQUEZ MD Cbc With Automated Diff (10/25/19 18:40) Comprehensive Metabolic Panel (10/25/19 18:40) Urinalysis (10/25/19 18:40) Abdomen Flat & Upright/Decub (10/25/19 18:40) Ns Iv 500 Ml (Sodium Chloride 0.9%) (10/25/19 18:40) Lactic Acid Analyzer (10/25/19 18:42) Urine Culture (10/25/19 18:58) Ns Iv 1000 Ml (Sodium Chloride 0.9%) (10/25/19 19:19) Blood Culture (10/25/19 19:19) Blood Culture (10/25/19 19:19) Meropenem (Merrem 1000 Mg) (10/25/19 19:30) Piperacillin Sodium/Tazobactam (Zosyn Vi (10/25/19 19:30) Meropenem (Merrem 500 Mg) (10/25/19 19:25) Vital Signs/I&O 10/25/19 18:56 Temp 35.9 Pulse 105 Resp 16 B/P (MAP) 156/92 (113) Pulse Ox 96 Capillary Refill : Progress Note : Time: 19:32 Progress Note Patient appears to have some urosepsis going on due to a suprapubic catheter that's indwelling this is a chronic issue that patient has had numerous times always related to pseudomonas and Proteus infections in her urine. Patient's lactic acid is 3.8. I did discuss at length with Dr. Castillo. She is accepted this patient for transfer to [facility]. She recommends the patient be on meropenem and Zyvox. Patient has had order meropenem and Zosyn in the emergency department. Dr. Castillo states understanding she will see patient upon arrival. Departure Impression Primary Impression: Paraplegia at T4 level Additional Impressions: Sepsis UTI (urinary tract infection) Suprapubic catheter Pressure injury of skin of coccygeal region Disposition: 02 XFER SHT-TRM HOSP Condition: Stable Admissions Decision to Admit Reason: Admit from ER (General) Decision to Admit/Date: Oct 25, 2019 Time/Decision to Admit Time: 19:34 Transfer Transfer Reason: Exceeds level of care Time Spoke to Accepting Phy: 19:34 Transfer Progress Notes MD Jonathan Transfer Time: 19:34 Transfer Facility: [facility] Method of Transfer: EMS Departure-Patient Inst. Referrals: MELY BEDOYA MD (PCP/Family) Primary Care Physician SHERRY VAZQUEZ MD Oct 25, 2019 18:46
[2019-10-25 19:07] LABS: HEMATOCRIT 41 % (35-52); HEMOGLOBIN 13.2 G/DL (11.5-16.0); MEAN CORPUSCULAR HEMOGLOBIN 29 PG (25-34); MEAN CORPUSCULAR HGB CONC 33 G/DL (32-36); MEAN CORPUSCULAR VOLUME 90 FL (80-99); MEAN PLATELET VOLUME 10.5 FL (7.4-10.4); PLATELET COUNT 320 10^3/uL (130-400); RED CELL DISTRIBUTION WIDTH 13.8 % (10.0-14.5); WHITE BLOOD COUNT 9.3 10^3/uL (4.3-11.0)
[2019-10-25 19:08] LABS: BASOPHILS # (AUTO) 0.1 10^3/uL (0.0-0.1); BASOPHILS % (AUTO) 1 % (0-10); EOSINOPHILS # (AUTO) 0.3 10^3/uL (0.0-0.3); EOSINOPHILS % (AUTO) 3 % (0-10); LYMPHOCYTES # (AUTO) 2.1 X 10^3 (1.0-4.0); LYMPHOCYTES % (AUTO) 23 % (12-44); MONOCYTES # (AUTO) 0.9 X 10^3 (0.0-1.0); MONOCYTES % (AUTO) 10 % (0-12); NEUTROPHILS # (AUTO) 5.8 X 10^3 (1.8-7.8); NEUTROPHILS % (AUTO) 63 % (42-75)
[2019-10-25 19:15] LABS: BACTERIA,URINE TRACE /HPF; BILIRUBIN,URINE NEGATIVE (NEGATIVE); CLARITY,URINE SLT CLOUDY; COLOR,URINE PALE YELLOW; GLUCOSE, URINE (UA) NEGATIVE (NEGATIVE); KETONES,URINE NEGATIVE (NEGATIVE); LEUKOCYTE ESTERASE ,URINE 3+ (NEGATIVE); NITRITE,URINE NEGATIVE (NEGATIVE); PROTEIN,URINE NEGATIVE (NEGATIVE); SQUAMOUS EPITHELIAL CELL,UR RARE /HPF
[2019-10-25 19:16] LABS: YEAST,URINE FEW /HPF
[2019-10-25] MEDS ORDERED: NS IV 1000 ML 1,000 ML IV STA (19:19)
[2019-10-25 19:20] LABS: CARBON DIOXIDE 22 MMOL/L (21-32); CHLORIDE 100 MMOL/L (98-107); POTASSIUM 4.5 MMOL/L (3.6-5.0); SODIUM 137 MMOL/L (135-145)
[2019-10-25 19:21] LABS: ALANINE AMINOTRANSFERASE 70 U/L (0-55); ALBUMIN 4.1 GM/DL (3.2-4.5); ALKALINE PHOSPHATASE 80 U/L (40-136); BILIRUBIN,TOTAL 0.3 MG/DL (0.1-1.0); BUN/CREATININE RATIO 24; CALCIUM 9.5 MG/DL (8.5-10.1); CREATININE SERUM 0.37 MG/DL (0.60-1.30); GFR ESTIMATED > 60; GLUCOSE 214 MG/DL (70-105)
--- NOTE | 2019-10-25 19:24 | Diagnostic Imaging Report ---
INDICATION: Abdominal pain and distention There are postoperative findings with posterior spinal fixation involving the thoracic and upper lumbar regions. There is left hip internal fixation with disarticulation of the right hip. There is a moderate amount of colonic stool indicating constipation. No definite transition point is seen to indicate a site of obstruction. There is no evidence of free intraperitoneal gas or pneumatosis. IMPRESSION: Large stool load compatible with constipation. No definite site of obstruction or pneumoperitoneum is detected. Dictated by: Dictated on workstation # [id number]
[2019-10-25] MEDS ORDERED: MEROPENEM 500 MG VIAL (MERREM) IV ONE (19:25)
[2019-10-25] MEDS ORDERED: PIPERACILLIN SODIUM/TAZOBACTAM 4.5 GM in NS (IVPB) 100 ML IV ONE (19:30)
[2019-10-25] MEDS: MEROPENEM 1,000 MG in WATER (STERILE) FOR INJECTION 20 ML IV SCH (19:48)
--- NOTE | 2019-10-25 20:23 | NUR ---
EMS CALLED FOR TRANSPORT
--- OUTSIDE RECORDS SUMMARY | 2019-10-25 21:06 | XMS REPORT | Clinical Summary ---
Author Author Sigifredo, Yancy Davis Organization [facility] Address Unknown Phone Unavailable Allergies, Adverse Reactions, Alerts Allergy Name Reaction Description Start Date Severity Status Pr ovider VANCOMYCIN Critical Active Susan jennings MD SULFA Critical Active Susan jennings MD Conditions or Problems Problem Name Problem Code Onset Date Status Entry Date Provider Comment Standard Description Annotate Neurogenic Bladder Active Susan osorio MD Urinary Retention Active Susan Zelaya MD Retention of urine, unspecified Medication List Medication Instructions Start Date Stop Date Generic Name NDC Status Provider Patient Instruction RENACIDIN IRRIGATION SOLUTION instill 30ml threw [address] ter into the bladder and plug the catheter for 30ml for 20m irrigate the catheter with 60ml normal saline. CITRIC ACID-D GLUCONIC ACID 56764775397 Active Susan Zelaya MD Active DOXYCYCLINE HYCLATE 100 MG ORAL CAPSULE 1 cap by mouth twice daily DOXYCYCLINE HYCLATE 86086381758 Active Susan Zelaya MD A ctive CALCIUM CARBONATE 1500 (600 Ca) MG ORAL TABLET 1 tab by mouth daily CALCIUM CARBONATE 11389475475 Active Susan Zelaya MD Active VITAMIN C 500 MG ORAL TABLET CHEWABLE 1 tab by mouth daily ASCORBIC ACID 49292703338 Active Susan Zelaya MD Active ZYRTEC ALLERGY 10 MG ORAL CAPSULE 1 po qd CETIRIZINE HCL 40987627706 Active Susan Zelaya MD Active DIAZEPAM 2 MG ORAL TABLET 1 twice a day as needed for vertigo or st ress DIAZEPAM 80485495624 Active Susan Zelaya MD Active BACLOFEN 10 MG ORAL TABLET 1 tab by mouth daily BACLOFEN 22009665165 Active Susan Zelaya MD Active Vital Signs Date Name Value Unit Range Description blood pressure, diastolic, repeated by physician 60 BP santos blood pressure, diastolic 60 mm[Hg] BP santos blood pressure, systolic, repeated by physician 112 BP sys blood pressure, systolic 112 mm[Hg] BP sys pulse rate 70 /min Heart rate temperature E&M 98.7 [degF] Body temp erature Diagnostic Results Date Name Value Unit Range Description Office Visit: follow SP tube - PMH sexually transmitted disease no risk noted Encounters Code Encounter Date Provider Facility [id number] Level 3 Est. Patient 12:35:26 CDT Susan angel MD [facility] CPT-92131 Level 1 Est. 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
--- OUTSIDE RECORDS SUMMARY | 2019-10-25 21:06 | XMS REPORT | Clinical Summary ---
Author Author Sigifredo, Yancy Davis Organization [facility] Address Unknown Phone Unavailable Allergies, Adverse [...] 60ml normal saline. CITRIC ACID-D GLUCONIC ACID 62604882850 Active Susan Zelaya MD Active DOXYCYCLINE HYCLATE 100 MG ORAL CAPSULE 1 cap by mouth twice daily DOXYCYCLINE HYCLATE 65515083372 Active Susan Zelaya MD A ctive CALCIUM CARBONATE 1500 (600 Ca) MG ORAL TABLET 1 tab by mouth daily CALCIUM CARBONATE 44666415262 Active Susan Zelaya MD Active VITAMIN C 500 MG ORAL TABLET CHEWABLE 1 tab by mouth daily ASCORBIC ACID 69942537976 Active Susan Zelaya MD Active ZYRTEC ALLERGY 10 MG ORAL CAPSULE 1 po qd CETIRIZINE HCL 10955121338 Active Susan Zelaya MD Active DIAZEPAM 2 MG ORAL TABLET 1 twice a day as needed for vertigo or st ress DIAZEPAM 77114669266 Active Susan Zelaya MD Active BACLOFEN 10 MG ORAL TABLET 1 tab by mouth daily BACLOFEN 83866518248 Active Susan Zelaya MD Active Vital Signs [...] noted Encounters Code Encounter Date Provider Facility [id number] Level 3 Est. Patient 12:35:26 CDT Susan angel MD [facility] CPT-74879 Level 1 Est. 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
--- OUTSIDE RECORDS SUMMARY | 2019-10-25 21:06 | XMS REPORT | Clinical Summary ---
Author Author Sigifredo, Yancy Davis Organization [facility] Address Unknown Phone Unavailable Allergies, Adverse Reactions, [...] 60ml normal saline. CITRIC ACID-D GLUCONIC ACID 34077621258 Active Susan Zelaya MD Active DOXYCYCLINE HYCLATE 100 MG ORAL CAPSULE 1 cap by mouth twice daily DOXYCYCLINE HYCLATE 55097002593 Active Susan Zelaya MD A ctive CALCIUM CARBONATE 1500 (600 Ca) MG ORAL TABLET 1 tab by mouth daily CALCIUM CARBONATE 61081043148 Active Susan Zelaya MD Active VITAMIN C 500 MG ORAL TABLET CHEWABLE 1 tab by mouth daily ASCORBIC ACID 95933952129 Active Susan Zelaya MD Active ZYRTEC ALLERGY 10 MG ORAL CAPSULE 1 po qd CETIRIZINE HCL 42909904438 Active Susan Zelaya MD Active DIAZEPAM 2 MG ORAL TABLET 1 twice a day as needed for vertigo or st ress DIAZEPAM 10040891308 Active Susan Zelaya MD Active BACLOFEN 10 MG ORAL TABLET 1 tab by mouth daily BACLOFEN 48533708905 Active Susan Zelaya MD Active Vital Signs [...] noted Encounters Code Encounter Date Provider Facility CPT-32630 Level 3 Est. Patient 12:35:26 CDT Susan angel MD [facility] CPT-78728 Level 1 Est. 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
--- OUTSIDE RECORDS SUMMARY | 2019-10-25 21:06 | XMS REPORT | Clinical Summary ---
Author Author Sigifredo, Yancy Davis Organization [facility] Address Unknown Phone Unavailable Allergies, Adverse Reactions, [...] 60ml normal saline. CITRIC ACID-D GLUCONIC ACID 10573903817 Active Susan Zelaya MD Active DOXYCYCLINE HYCLATE 100 MG ORAL CAPSULE 1 cap by mouth twice daily DOXYCYCLINE HYCLATE 01517412852 Active Susan Zelaya MD A ctive CALCIUM CARBONATE 1500 (600 Ca) MG ORAL TABLET 1 tab by mouth daily CALCIUM CARBONATE 81825915209 Active Susan Zelaya MD Active VITAMIN C 500 MG ORAL TABLET CHEWABLE 1 tab by mouth daily ASCORBIC ACID 05588054194 Active Susan Zelaya MD Active ZYRTEC ALLERGY 10 MG ORAL CAPSULE 1 po qd CETIRIZINE HCL 90878390845 Active Susan Zelaya MD Active DIAZEPAM 2 MG ORAL TABLET 1 twice a day as needed for vertigo or st ress DIAZEPAM 89063858351 Active Susan Zelaya MD Active BACLOFEN 10 MG ORAL TABLET 1 tab by mouth daily BACLOFEN 26123246515 Active Susan Zelaya MD Active Vital Signs [...] noted Encounters Code Encounter Date Provider Facility CPT-19221 Level 3 Est. Patient 12:35:26 CDT Susan angel MD [facility] CPT-04515 Level 1 Est. 

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
[2019-10-25 22:00] VITALS: BP 106/84
[2019-10-25 22:15] VITALS: BP 127/91
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
[2019-10-25 23:00] VITALS: BP 119/72
[2019-10-25] MEDS ORDERED: NS IV 1000 ML 1,000 ML IV SCH ×2 (23:08→23:15)
[2019-10-25 23:09] LABS: BASOPHILS # (AUTO) 0.1 10^3/uL (0.0-0.1); BASOPHILS % (AUTO) 1 % (0-10); EOSINOPHILS # (AUTO) 0.3 10^3/uL (0.0-0.3); EOSINOPHILS % (AUTO) 4 % (0-10); HEMATOCRIT 40 % (35-52); LYMPHOCYTES # (AUTO) 2.1 X 10^3 (1.0-4.0); LYMPHOCYTES % (AUTO) 26 % (12-44); MEAN CORPUSCULAR HEMOGLOBIN 29 PG (25-34); MEAN CORPUSCULAR HGB CONC 32 G/DL (32-36); MEAN CORPUSCULAR VOLUME 91 FL (80-99); MEAN PLATELET VOLUME 10.5 FL (7.4-10.4); MONOCYTES # (AUTO) 0.8 X 10^3 (0.0-1.0); MONOCYTES % (AUTO) 10 % (0-12); NEUTROPHILS % (AUTO) 60 % (42-75); PLATELET COUNT 321 10^3/uL (130-400); RED CELL DISTRIBUTION WIDTH 14.1 % (10.0-14.5); WHITE BLOOD COUNT 8.4 10^3/uL (4.3-11.0)
[2019-10-25] MEDS: BACLOFEN 10 MG (LIORESAL) TAB PO SCH (23:11)
[2019-10-25] MEDS: DIAZEPAM 5 MG (VALIUM) TABLET PO SCH (23:11)
[2019-10-25] MEDS ORDERED: EPINEPHrine 1 MG INJECTION 2 MG in NS (IVPB) 248 ML IV SCH (23:15)
[2019-10-25] MEDS: NOREPINEPHRINE 4 MG/250 ML 250 ML IV SCH (23:21)
[2019-10-25] MEDS: VASOPRESSIN INJECTION 20 UNIT in NORMAL SALINE 100 ML IV SCH (23:21)
[2019-10-25 23:23] LABS: ALBUMIN 3.9 GM/DL (3.2-4.5); CHLORIDE 107 MMOL/L (98-107); POTASSIUM 3.7 MMOL/L (3.6-5.0); SODIUM 140 MMOL/L (135-145)
[2019-10-25 23:24] LABS: CALCIUM 8.6 MG/DL (8.5-10.1)
[2019-10-25 23:25] LABS: GLUCOSE 141 MG/DL (70-105)
[2019-10-25 23:26] LABS: TOTAL PROTEIN 6.6 GM/DL (6.4-8.2)
[2019-10-25 23:27] LABS: BILIRUBIN,TOTAL 0.4 MG/DL (0.1-1.0); CARBON DIOXIDE 19 MMOL/L (21-32)
[2019-10-25 23:29] LABS: ALKALINE PHOSPHATASE 77 U/L (40-136); GFR ESTIMATED > 60
[2019-10-25 23:30] VITALS: BP 119/72
[2019-10-25 23:30] LABS: BUN/CREATININE RATIO 13
[2019-10-25 23:32] LABS: ALANINE AMINOTRANSFERASE 72 U/L (0-55)
[2019-10-25] MEDS: LINEZOLID 600MG/300ML IVPB (PRE-MIX) IV SCH (23:44)
[2019-10-25] MEDS: NS IV 1000 ML 1,000 ML IV SCH (23:44)
[2019-10-26] VITALS (14 sets, daily range): BP systolic 83–173; BP diastolic 54–91
[2019-10-26 01:36] LABS: BASOPHILS % (AUTO) 1 % (0-10); EOSINOPHILS # (AUTO) 0.3 10^3/uL (0.0-0.3); EOSINOPHILS % (AUTO) 3 % (0-10); HEMATOCRIT 39 % (35-52); HEMOGLOBIN 12.6 G/DL (11.5-16.0); LYMPHOCYTES # (AUTO) 2.3 X 10^3 (1.0-4.0); LYMPHOCYTES % (AUTO) 26 % (12-44); MEAN CORPUSCULAR HEMOGLOBIN 29 PG (25-34); MEAN CORPUSCULAR HGB CONC 32 G/DL (32-36); MEAN CORPUSCULAR VOLUME 91 FL (80-99); MEAN PLATELET VOLUME 10.5 FL (7.4-10.4); MONOCYTES % (AUTO) 12 % (0-12); NEUTROPHILS % (AUTO) 58 % (42-75); PLATELET COUNT 321 10^3/uL (130-400); WHITE BLOOD COUNT 8.6 10^3/uL (4.3-11.0)
[2019-10-26 01:40] LABS: CHLORIDE 105 MMOL/L (98-107); POTASSIUM 3.8 MMOL/L (3.6-5.0); SODIUM 139 MMOL/L (135-145)
[2019-10-26 01:41] LABS: CALCIUM 8.7 MG/DL (8.5-10.1)
[2019-10-26 01:42] LABS: GLUCOSE 158 MG/DL (70-105)
[2019-10-26 01:43] LABS: CARBON DIOXIDE 21 MMOL/L (21-32)
[2019-10-26 01:45] LABS: PHOSPHORUS 2.4 MG/DL (2.3-4.7)
[2019-10-26 01:46] LABS: BUN/CREATININE RATIO 10; CREATININE SERUM 0.67 MG/DL (0.60-1.30); GFR ESTIMATED > 60
[2019-10-26 01:48] LABS: MAGNESIUM 1.6 MG/DL (1.6-2.4)
[2019-10-26] MEDS: NS IV 1000 ML 1,000 ML IV SCH ×3 (02:54→10:23)
[2019-10-26] MEDS ORDERED: MEROPENEM 1000 MG (MERREM) VIAL IV ONE (02:57)
[2019-10-26] MEDS ORDERED: WATER (STERILE) FOR INJECTION 20 ML ONE (02:57)
[2019-10-26] MEDS: MEROPENEM 1,000 MG in WATER (STERILE) FOR INJECTION 20 ML IV SCH (03:10)
[2019-10-26] MEDS: MAGNESIUM 1 GM/100 ML IVPB 100 ML IV SCH ×2 (03:34→04:23)
[2019-10-26] MEDS ORDERED: POTASSIUM CL 10MEQ/50ML IVPB 50 ML IV SCH (06:00)
[2019-10-26] MEDS ORDERED: KCL 20 MEQ TAB (K-DUR) PO SCH (06:00)
[2019-10-26] MEDS ORDERED: MAGNESIUM 1 GM/100 ML IVPB 100 ML IV SCH (06:00)
--- NOTE | 2019-10-26 06:31 | History & Physical-Hospitalist ---
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 She was givenaggressive IV fluid resuscitation, placed on broad spectrum antibiotics and she overall has improved since that time and will be transferred out of the ICU and down to the 4th floor. She is very sleepy down to the 4th floor. She is very sleepy and doesn't want to talk to me. Source: patient, RN/MD Exam Limitations: no limitations Date Seen 10/26/19 Time Seen by a Provider: 10:00 Attending Physician Nela Castillo Jay L MD Referring Physician Date of Admission Oct 25, 2019 at 21:22 Home Medications & Allergies Home Medications Reviewed patient Home Medication Reconciliation performed by pharmacy medication reconciliations survey field technician and/or nursing. Patients Allergies have been reviewed. Allergies Allergies Coded Allergies Sulfa (Sulfonamide Antibiotics) (Verified Allergy, Unknown, 10/23/18) vancomycin (Verified Allergy, Unknown, 10/23/18) Past Yauzmtx-Aentil-Djzajs Hx Past Med/Social Hx: Reviewed Nursing Past Med/Soc Hx, Reviewed and Corrections made Patient Social History Marrital Status: single Employed/Student: unemployed Alcohol Use: Denies Use Recreational Drug Use: No Smoking Status: Never a Smoker 2nd Hand Smoke Exposure: No Recent Foreign Travel: No Contact w/other who traveled: No Recent Hopitalizations: No Recent Infectious Disease Expo: No Immunizations Up To Date Date of Influenza Vaccine: Feb 08, 2019 Past Medical History Surgeries: Amputation, Cystectomy, Gallbladder, 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, Orthopedic, Urinary Diversion Neurological: Paralysis, Spinal Cord Injury Female Reproductive Disorders: Endometriosis, Ovarian Cyst 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 Genitourinary: Kidney Stones, Neurogenic Bladder, UTI-Chronic suprapubic catheter Gastrointestinal: Gastroesophageal Reflux Musculoskeletal: Amputee, Back Injury Psychosocial: Anxiety skin grafts History of Blood Disorders: Yes (IRON DEFICIENCY ANEMIA) Family History Heart Disease, Cancer, Stroke Review of Systems Constitutional: see HPI Physical Exam Physical Exam Vital Signs Vital Signs - First Documented 10/25/19 10/25/19 18:56 20:43 Temp 35.9 Pulse 105 Resp 16 B/P (MAP) 156/92 (113) Pulse Ox 96 O2 Delivery Room Air Capillary Refill : Less Than 3 Seconds Height, Weight, BMI Height: 5'5.00" Weight: 175lbs. oz. 79.745955ik; 25.27 BMI Method:Estimated General Appearance: No Apparent Distress, Chronically ill Eyes: Right Eye Normal Inspection, Right Eye PERRL HEENT: PERRL/EOMI, Normal ENT Inspection, Pharynx Normal, Moist Mucous Membranes Neck: Full Range of Motion, Normal Inspection, Non Tender Respiratory: Chest Non Tender, Lungs Clear, Normal Breath Sounds, No Accessory Muscle Use, No Respiratory Distress Cardiovascular: Regular Rate, Rhythm, No Edema, No Gallop, No JVD, No Murmur, Normal Peripheral Pulses Gastrointestinal: Normal Bowel Sounds, No Organomegaly, No Pulsatile Mass, Non Tender, Soft Back: Normal Inspection, No CVA Tenderness, No Vertebral Tenderness Extremity: Normal Capillary Refill, Normal Inspection, Normal Range of Motion, Non Tender, No Calf Tenderness, No Pedal Edema Neurologic/Psychiatric: Alert, Oriented x3, Normal Mood/Affect, Motor Weakness (lower extremities) Skin: Normal Color, Warm/Dry Lymphatic: No Adenopathy Results Results/Procedures Labs Laboratory Tests 10/25/19 18:53 10/25/19 22:55 10/26/19 01:14 Patient resulted labs reviewed. Assessment/Plan Admission Diagnosis Assessment: Severe sepsis UTI Paraplegia at T4 chronic SP catheter Mental illness Depression Leukocytosis Plan: IVF IV abx Tx to 4th floor Home meds Admission Status: Inpatient Order (span 2 midnights) Reason for Inpatient Admission: severe sepsis Diagnosis/Problems Diagnosis/Problems (1) Severe sepsis (2) UTI (urinary tract infection) (3) Suprapubic catheter (4) Paraplegia at T4 level (5) Pressure injury of skin of coccygeal region (6) Lactic acid acidosis (7) H/O skin graft (8) Neurogenic bladder Status: Acute Clinical Quality Measures DVT/VTE Risk/Contraindication: Risk Factor Score Per Nursin RFS Level Per Nursing on Admit: 4+=Very High NELA CASTILLO DO Oct 26, 2019 06:31
[2019-10-26] MEDS: VASOPRESSIN INJECTION 20 UNIT in NORMAL SALINE 100 ML IV SCH (07:18)
[2019-10-26] MEDS: NOREPINEPHRINE 4 MG/250 ML 250 ML IV SCH (07:18)
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
--- NOTE | 2019-10-26 08:02 | Diagnostic Imaging Report ---
INDICATION: Sepsis. Comparison with 04/10/2019. FINDINGS: Portable chest shows the lungs to be well-aerated and clear. Heart is not enlarged. No pneumothorax or pleural effusion. Baxter rods are present and unchanged. IMPRESSION: Stable portable chest with no acute abnormalities. Dictated by: Dictated on workstation # [id number]
[2019-10-26] MEDS ORDERED: ENOXAPARIN 40 MG/0.4 ML (LOVENOX) SYR SC SCH (09:00)
[2019-10-26] MEDS: BACLOFEN 10 MG (LIORESAL) TAB PO SCH ×4 (10:23→20:37)
[2019-10-26] MEDS: DIAZEPAM 5 MG (VALIUM) TABLET PO SCH ×4 (10:23→20:36)
[2019-10-26] MEDS: LINEZOLID 600MG/300ML IVPB (PRE-MIX) IV SCH ×2 (10:26→23:17)
[2019-10-26] MEDS ORDERED: MEROPENEM 500 MG/SWFI 10 ML IV PUSH IV SCH ×2 (12:00)
[2019-10-26] MEDS: MEROPENEM 500 MG/SWFI 10 ML IV PUSH IV SCH ×4 (13:35→17:41)
[2019-10-26] MEDS ORDERED: DOXY100C2 PO (13:42)
[2019-10-26] MEDS ORDERED: AMOX1TAB12 PO (13:42)
[2019-10-26] MEDS ORDERED: OXYB15TA19 PO (13:42)
--- NOTE | 2019-10-26 13:43 | NUR ---
SPOKE WITH THE PT AND WENT THRU THE EXT MED HISTORY TO COMPLETE THE MED REC PT WAS ABLE TO LIST ALL HER MEDS WELL HOW/WHEN SHE TAKES EACH XARELTO 20MG: DIRECTIONS SHOW 1 TAB DAILY HOWEVER THE PT SAYS SHE "BITES THEM IN HALF" AND ONLY TAKES TAB DAILY DOXYCYCLINE AND AMOX/CLAV ARE ANTIBIOTICS THE PT SAYS SHE TAKES ALL THE TIME FOR OSTEOMYELITIS OTC MEDS: VIT C CALCIUM ZYRTEC IBUPROFEN
--- NOTE | 2019-10-26 15:14 | NUR ---
CM/SS: Visited with pt as to the plan for discharge Plan: Pt is from home and has home community based services and [facility] in place Summary: Pt reports feeling better and that she has [facility] to assist her in the home as well as [facility]. [facility] is aware that pt is in the hospital. Pt has maintained with being home for several months. Pt does report she will need EMS stretcher transport for her return trip home. This worker will follow up.
[2019-10-26] MEDS ORDERED: OXYBUTYNIN (DITROPAN) 5 MG TAB ONE (16:35)
[2019-10-26] MEDS ORDERED: NON-FORMULARY MEDICATION 1 EA EA (Baclofen 20 MG) PO SCH (17:00)
[2019-10-26] MEDS ORDERED: NON-FORMULARY MEDICATION 1 EA EA (Diazepam 10 MG) PO SCH (17:00)
[2019-10-26] MEDS: ASCORBIC ACID (VIT C) 500 MG TABLET PO SCH (17:43)
[2019-10-26] MEDS: RIVAROXABAN 20 MG TABLET (XARELTO) PO SCH (20:38)
[2019-10-26] MEDS ORDERED: NON-FORMULARY MEDICATION 1 EA EA (Ascorbic Acid (Vitamin C) 1,000 MG) PO SCH (21:00)
[2019-10-26] MEDS ORDERED: CALCIUM CITRATE 200 MG PO SCH (21:00)
[2019-10-27 00:16] VITALS: BP 154/80
[2019-10-27] MEDS: MEROPENEM 500 MG/SWFI 10 ML IV PUSH IV SCH ×8 (00:43→16:53)
[2019-10-27 04:53] VITALS: BP 130/83
[2019-10-27] MEDS: NS IV 1000 ML 1,000 ML IV SCH ×2 (05:04→10:59)
[2019-10-27 05:51] LABS: BASOPHILS # (AUTO) 0.1 10^3/uL (0.0-0.1); BASOPHILS % (AUTO) 1 % (0-10); EOSINOPHILS # (AUTO) 0.3 10^3/uL (0.0-0.3); EOSINOPHILS % (AUTO) 4 % (0-10); HEMATOCRIT 42 % (35-52); HEMOGLOBIN 13.3 G/DL (11.5-16.0); LYMPHOCYTES # (AUTO) 2.2 X 10^3 (1.0-4.0); LYMPHOCYTES % (AUTO) 29 % (12-44); MEAN CORPUSCULAR HEMOGLOBIN 29 PG (25-34); MEAN CORPUSCULAR HGB CONC 32 G/DL (32-36); MEAN CORPUSCULAR VOLUME 91 FL (80-99); MEAN PLATELET VOLUME 10.4 FL (7.4-10.4); MONOCYTES # (AUTO) 0.8 X 10^3 (0.0-1.0); MONOCYTES % (AUTO) 10 % (0-12); NEUTROPHILS # (AUTO) 4.2 X 10^3 (1.8-7.8); NEUTROPHILS % (AUTO) 56 % (42-75); PLATELET COUNT 330 10^3/uL (130-400); RED CELL DISTRIBUTION WIDTH 14.5 % (10.0-14.5); WHITE BLOOD COUNT 7.5 10^3/uL (4.3-11.0)
[2019-10-27 06:08] LABS: CHLORIDE 106 MMOL/L (98-107); POTASSIUM 3.8 MMOL/L (3.6-5.0); SODIUM 139 MMOL/L (135-145)
[2019-10-27 06:09] LABS: CALCIUM 8.4 MG/DL (8.5-10.1)
[2019-10-27 06:10] LABS: GLUCOSE 130 MG/DL (70-105); TOTAL PROTEIN 6.8 GM/DL (6.4-8.2)
[2019-10-27 06:11] LABS: CARBON DIOXIDE 21 MMOL/L (21-32)
[2019-10-27 06:12] LABS: BILIRUBIN,TOTAL 0.4 MG/DL (0.1-1.0)
[2019-10-27 06:13] LABS: ALKALINE PHOSPHATASE 78 U/L (40-136)
[2019-10-27 06:14] LABS: CREATININE SERUM 0.61 MG/DL (0.60-1.30); GFR ESTIMATED > 60
[2019-10-27 06:15] LABS: BUN/CREATININE RATIO 10
[2019-10-27 06:16] LABS: ALANINE AMINOTRANSFERASE 74 U/L (0-55)
[2019-10-27 08:00] VITALS: BP 140/75
[2019-10-27] MEDS ORDERED: NON-FORMULARY MEDICATION 1 EA EA (Oxybutynin Chloride (Oxybutynin Chloride ER) 15 MG) PO SCH (09:00)
[2019-10-27] MEDS ORDERED: NON-FORMULARY MEDICATION 1 EA EA (Cetirizine HCl 10 MG) PO SCH (09:00)
[2019-10-27] MEDS: OXYBUTYNIN (DITROPAN) 5 MG TAB PO SCH ×3 (09:17→19:59)
[2019-10-27] MEDS: DIAZEPAM 5 MG (VALIUM) TABLET PO SCH ×4 (09:17→19:59)
[2019-10-27] MEDS: LORATADINE (CLARITIN) 10 MG TAB PO SCH (09:17)
[2019-10-27] MEDS: ASCORBIC ACID (VIT C) 500 MG TABLET PO SCH ×2 (09:17→16:53)
[2019-10-27] MEDS: BACLOFEN 10 MG (LIORESAL) TAB PO SCH ×4 (09:17→19:59)
[2019-10-27] MEDS: LINEZOLID 600MG/300ML IVPB (PRE-MIX) IV SCH ×2 (10:43→23:30)
--- NOTE | 2019-10-27 11:16 | Progress Note - Hospitalist ---
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 She was givenaggressive IV fluid resuscitation, placed on broad spectrum antibiotics and she overall has improved since that time and will be transferred out of the ICU and down to the 4th floor. She is very sleepy down to the 4th floor. She is very sleepy and doesn't want to talk to me. Subjective/Events-last exam Pt having some significant difficulties and quotes a lot about Pt rights. Urine culture pending still Vanc and Meropenem maintained Home medications were restarted Overall still having issues with her care and I tried to reassure her and provide support Discharge planned for or Friday Will need transport with a stretcher so will give social work plenty of time to arrange that Review of Systems General: Fatigue, Malaise Neurological: Weakness Focused Exam Lactate Level 10/25/19 23:15: Lactic Acid Level 2.25*H 10/26/19 01:14: Lactic Acid Level 2.41*H 10/26/19 03:19: Lactic Acid Level 2.00 Objective Exam Vital Signs Vital Signs Date Time Temp Pulse Resp B/P (MAP) Pulse Ox O2 Delivery O2 Flow Rate FiO2 10/27/19 19:59 36.0 10/27/19 16:15 Room Air 10/27/19 09:00 97 10/27/19 08:00 94 20 140/75 (96) Capillary Refill : Less Than 3 Seconds General Appearance: No Apparent Distress, WD/WN, Chronically ill HEENT: PERRL/EOMI, TMs Normal, Normal ENT Inspection, Pharynx Normal, Moist Mucous Membranes Neck: Full Range of Motion, Normal Inspection, Non Tender, Supple, Carotid Bruit Respiratory: Chest Non Tender, Lungs Clear, Normal Breath Sounds, No Accessory Muscle Use, No Respiratory Distress Cardiovascular: Regular Rate, Rhythm, No Edema, No Gallop, No JVD, No Murmur, Normal Peripheral Pulses Gastrointestinal: Normal Bowel Sounds, No Organomegaly, No Pulsatile Mass, Non Tender, Soft Back: Normal Inspection, No CVA Tenderness, No Vertebral Tenderness Extremity: Normal Capillary Refill, Normal Inspection, Normal Range of Motion, Non Tender, No Calf Tenderness, No Pedal Edema, Other (right leg amputation) Neurologic/Psychiatric: Alert, Oriented x3, No Motor/Sensory Deficits, Normal Mood/Affect Skin: Normal Color, Warm/Dry Lymphatic: No Adenopathy Results/Procedures Lab Laboratory Tests 10/27/19 05:10 Patient resulted labs reviewed. Assessment/Plan Assessment and Plan Assess & Plan/Chief Complaint Assessment: Severe sepsis UTI Paraplegia at T4 chronic SP catheter Mental illness Depression Leukocytosis 10/27/19: Maintain Vancomycin and Imelda Home meds Discharge planned for or Friday Diagnosis/Problems Diagnosis/Problems (1) Severe sepsis (2) UTI (urinary tract infection) (3) Suprapubic catheter (4) Paraplegia at T4 level (5) Pressure injury of skin of coccygeal region (6) Lactic acid acidosis (7) H/O skin graft (8) Neurogenic bladder Status: Acute Clinical Quality Measures DVT/VTE Risk/Contraindication: Risk Factor Score Per Nursin RFS Level Per Nursing on Admit: 4+=Very High ROMY SHAIKH DO Oct 27, 2019 11:16
--- NOTE | 2019-10-27 12:40 | Physician Query Clarification ---
"Physician Query-General Query to Physician: The medical record reflects the following clinical scenario: History/Risk factors: Paraplegia, supra pubic catheter Clinical Findings: Urine culture + for Pseudomonas and Yeast Treatment: IV ABX, IVFs Question: What condition best reflects the above clinical scenario? Please document response in the Progress notes or Discharge Summary. 1. UTI Due to Suprapubic catheter 2. UTI/Supra pubic catheter (As currently documented) 3. Other , with explanation of the clinical findings 4. Clinically undetermined, no explanation for the clinical findings Please remember a lack of response to the above will prompt a phone page by CDI/coding staff In responding to this query, please exercise your independent professional judgment. The purpose of this communication is to more accurately reflect the complexity of your patients condition. The fact that a question is asked does not imply that any particular answer is desired or expected. Thank you for timely response to this clarification. Mima Ames, MSN, RN RN Specialist-Clinical Doc Improvement CD -Health Info Mgmt Operations [address] [facility] t: [phone] | f: [phone] If you are unable to reach me at my extension, I may be working from home. Please contact me at [phone] PHYSICIAN RESPONSE: Based on the clinical findings in the record, please respond to the query above on this document as an addendum. Physician Response: Physician Response 1 If you have questions please contact: Trial Paralegal: Ext: Thank you for your time and cooperation. Clinical Scheduling Representative/Trial Paralegal This is a permanent part of the medical record MIMA AMES Oct 27, 2019 12:40 ROMY SHAIKH DO Oct 27, 2019 20:59"
[2019-10-27] MEDS: PANTOPRAZOLE 20 MG TABLET (PROTONIX) PO SCH (13:13)
[2019-10-27] MEDS ORDERED: CALCIUM CARBONATE 500 MG (TUMS) TAB.CHEW PO PRN (16:45)
--- NOTE | 2019-10-27 16:55 | NUR ---
HALF BOTTLE OF MAG CITRATE GIVEN ON 10/26/2019 FOR BOWEL PREP BUT THIS RN WAS UNABLE TO CHART THIS MEDICATION IT STATED IT WAS FROM HOME. PATIENT DID DRINK HALF THE BOTTLE BEFORE REFUSING TO DRINK THE REST.
[2019-10-27] MEDS ORDERED: CALCIUM CARBONATE 500 MG (TUMS) TAB.CHEW ONE (17:19)
[2019-10-27] MEDS: IBUPROFEN TABLET 200 MG TAB PO PRN (19:59)
[2019-10-27] MEDS: RIVAROXABAN 20 MG TABLET (XARELTO) PO SCH (20:00)
[2019-10-28] MEDS: MEROPENEM 500 MG/SWFI 10 ML IV PUSH IV SCH ×8 (04:59→18:09)
[2019-10-28] MEDS: NS IV 1000 ML 1,000 ML IV SCH (04:59)
--- NOTE | 2019-10-28 05:23 | NUR ---
pt refuses to have vitals taken and refuses to be turned and repositioned
[2019-10-28 05:38] LABS: BASOPHILS # (AUTO) 0.1 10^3/uL (0.0-0.1); BASOPHILS % (AUTO) 1 % (0-10); EOSINOPHILS # (AUTO) 0.3 10^3/uL (0.0-0.3); EOSINOPHILS % (AUTO) 4 % (0-10); HEMATOCRIT 41 % (35-52); HEMOGLOBIN 13.1 G/DL (11.5-16.0); LYMPHOCYTES # (AUTO) 2.5 X 10^3 (1.0-4.0); LYMPHOCYTES % (AUTO) 33 % (12-44); MEAN CORPUSCULAR HEMOGLOBIN 29 PG (25-34); MEAN CORPUSCULAR HGB CONC 32 G/DL (32-36); MEAN CORPUSCULAR VOLUME 91 FL (80-99); MEAN PLATELET VOLUME 10.4 FL (7.4-10.4); MONOCYTES # (AUTO) 0.7 X 10^3 (0.0-1.0); MONOCYTES % (AUTO) 9 % (0-12); NEUTROPHILS % (AUTO) 53 % (42-75); PLATELET COUNT 340 10^3/uL (130-400); RED CELL DISTRIBUTION WIDTH 14.3 % (10.0-14.5); WHITE BLOOD COUNT 7.6 10^3/uL (4.3-11.0)
[2019-10-28 05:56] LABS: ALANINE AMINOTRANSFERASE 78 U/L (0-55); ALBUMIN 3.9 GM/DL (3.2-4.5); ALKALINE PHOSPHATASE 79 U/L (40-136); BILIRUBIN,TOTAL 0.3 MG/DL (0.1-1.0); BUN/CREATININE RATIO 13; CALCIUM 8.7 MG/DL (8.5-10.1); CARBON DIOXIDE 20 MMOL/L (21-32); CHLORIDE 107 MMOL/L (98-107); CREATININE SERUM 0.67 MG/DL (0.60-1.30); GFR ESTIMATED > 60; GLUCOSE 136 MG/DL (70-105); POTASSIUM 3.7 MMOL/L (3.6-5.0); SODIUM 138 MMOL/L (135-145); TOTAL PROTEIN 6.8 GM/DL (6.4-8.2)
[2019-10-28 08:00] VITALS: BP_SYST 131; BP_SYST 31; BP_DIAS 84
[2019-10-28] MEDS: ASCORBIC ACID (VIT C) 500 MG TABLET PO SCH ×2 (10:27→18:10)
[2019-10-28] MEDS: BACLOFEN 10 MG (LIORESAL) TAB PO SCH ×4 (10:27→20:41)
[2019-10-28] MEDS: LORATADINE (CLARITIN) 10 MG TAB PO SCH (10:27)
[2019-10-28] MEDS: DIAZEPAM 5 MG (VALIUM) TABLET PO SCH ×4 (10:27→20:41)
[2019-10-28] MEDS: OXYBUTYNIN (DITROPAN) 5 MG TAB PO SCH ×3 (10:28→20:41)
[2019-10-28] MEDS ORDERED: fluCOnazole (DIFLUCAN) 100 MG TAB PO NR (11:15)
--- NOTE | 2019-10-28 12:15 | Progress Note - Hospitalist ---
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 She was givenaggressive IV fluid resuscitation, placed on broad spectrum antibiotics and she overall has improved since that time and will be transferred out of the ICU and down to the 4th floor. She is very sleepy down to the 4th floor. She is very sleepy and doesn't want to talk to me. Subjective/Events-last exam We will replace the port because it has dysfunction and she refuses a picc line but will need Meropenem at DC for resistant Pseudomonas organism along with addition of Diflucan Consulted Dr. Zuluaga for port placement Distended abdomen will also be assessed by Dr. Zuluaga Review of Systems General: Fatigue, Malaise Neurological: Weakness Focused Exam Lactate Level 10/25/19 23:15: Lactic Acid Level 2.25*H 10/26/19 01:14: Lactic Acid Level 2.41*H 10/26/19 03:19: Lactic Acid Level 2.00 Objective Exam Vital Signs Vital Signs Date Time Temp Pulse Resp B/P (MAP) Pulse Ox O2 Delivery O2 Flow Rate FiO2 10/28/19 16:27 36.0 85 20 150/90 (110) 97 Room Air Capillary Refill : Less Than 3 Seconds General Appearance: No Apparent Distress, WD/WN HEENT: PERRL/EOMI, Normal ENT Inspection, Pharynx Normal, Moist Mucous Membranes Neck: Full Range of Motion, Normal Inspection, Non Tender, Supple, Carotid Bruit Respiratory: Chest Non Tender, Lungs Clear, Normal Breath Sounds, No Accessory Muscle Use, No Respiratory Distress Cardiovascular: Regular Rate, Rhythm, No Edema, No Gallop, No JVD, No Murmur, Normal Peripheral Pulses Gastrointestinal: Normal Bowel Sounds, No Organomegaly, No Pulsatile Mass, Non Tender, Soft Back: Normal Inspection, No CVA Tenderness, No Vertebral Tenderness Extremity: Normal Capillary Refill, Normal Inspection, Normal Range of Motion, Non Tender, No Calf Tenderness, No Pedal Edema Neurologic/Psychiatric: Alert, Oriented x3, Normal Mood/Affect, Motor Weakness (right leg amputation at pelvis, paraplegia) Skin: Normal Color, Warm/Dry Lymphatic: No Adenopathy Results/Procedures Lab Laboratory Tests 10/28/19 05:10 Patient resulted labs reviewed. Assessment/Plan Assessment and Plan Assess & Plan/Chief Complaint Assessment: Severe sepsis UTI Paraplegia at T4 chronic SP catheter Mental illness Depression Leukocytosis 10/27/19: Maintain Vancomycin and Imelda Home meds Discharge planned for or Friday10/28/19: Replace port by Dr. Zuluaga Needs Meropenem and Diflucan Abdominal distension will be addressed by Dr. Zuluaga Diagnosis/Problems Diagnosis/Problems (1) Severe sepsis (2) UTI (urinary tract infection) (3) Suprapubic catheter (4) Paraplegia at T4 level (5) Pressure injury of skin of coccygeal region (6) Lactic acid acidosis (7) H/O skin graft (8) Neurogenic bladder Status: Acute Clinical Quality Measures DVT/VTE Risk/Contraindication: Risk Factor Score Per Nursin RFS Level Per Nursing on Admit: 4+=Very High ROMY SHAIKH DO Oct 28, 2019 12:15
--- NOTE | 2019-10-28 13:51 | NUR ---
CM/SS: Visit with pt as to plan for discharge Plan: When appropriate, pt will be discharge to home with [facility] Summary: Pt is eating lunch, and laying down while she is doing so. She is offered to assist with raising the head of the bed. Pt reports she eats this way all of the time. Pt reports she is in bed all of the time at home as she can not sit up due to being dizzy. Pt then begins to say she is needing to get with a company out of [place] to get her wheelchair, as her current one has flat tires, and that she has not used for at least a year. Pt request that her [place] worker be called to let her know that she is in the hospital and that she needs to get things going so she can get her wheelchair. Pt also talks about her rights and working with new people. Pt also says that she does not always like to be bothered. Pt is reminded that this worker will set up transportation when she is ready to discharge when deemed appropriate. This worker will follow up. Telephone Call to Mona Ricardo - [facility]/ [facility] - [place] [phone] - Letting her know that the pt is here and that she is checking on her wheelchair. Mona confirms that pt has 36.5 hours a week as well as 14 meals per week. She will put in the request for pt related to the wheelchair. Mona is informed that pt should be released to home on Friday or Friday, with [facility]. Mona reports she will follow up with pt once she is discharged from hospital.
[2019-10-28] MEDS: PANTOPRAZOLE 20 MG TABLET (PROTONIX) PO SCH (14:05)
--- NOTE | 2019-10-28 15:52 | Progress Note-Pre Operative ---
Pre-Operative Progress Note H&P Reviewed The H&P was reviewed, patient examined and no changes noted. Date Seen by Provider: Oct 28, 2019 Time Seen by Provider: 15:50 Date H&P Reviewed: Oct 28, 2019 Time H&P Reviewed: 15:50 Pre-Operative Diagnosis: malfunctioning port AIDA GOMEZ MD Oct 28, 2019 15:52
[2019-10-28 16:27] VITALS: BP 150/90
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
[2019-10-28] MEDS: RIVAROXABAN 20 MG TABLET (XARELTO) PO SCH (20:43)
[2019-10-28] MEDS: METOCLOPRAMIDE INJ 10 MG/2 ML (REGLAN) IVP SCH (20:44)
[2019-10-29] MEDS: MEROPENEM 500 MG/SWFI 10 ML IV PUSH IV SCH ×6 (00:38→12:28)
--- NOTE | 2019-10-29 04:54 | NUR ---
refuses vital signs yells at staff when enterng room Addendum: 10/29/19 at 0454 by KEVIN TURNER RN Amended: Links added.
--- NOTE | 2019-10-29 05:02 | NUR ---
pt is aware of npo status this am refuses to be tested for covid at this time
[2019-10-29 05:52] LABS: BASOPHILS # (AUTO) 0.1 10^3/uL (0.0-0.1); BASOPHILS % (AUTO) 1 % (0-10); EOSINOPHILS # (AUTO) 0.3 10^3/uL (0.0-0.3); EOSINOPHILS % (AUTO) 5 % (0-10); HEMATOCRIT 44 % (35-52); HEMOGLOBIN 13.7 G/DL (11.5-16.0); LYMPHOCYTES # (AUTO) 2.5 X 10^3 (1.0-4.0); LYMPHOCYTES % (AUTO) 33 % (12-44); MEAN CORPUSCULAR HEMOGLOBIN 29 PG (25-34); MEAN CORPUSCULAR HGB CONC 32 G/DL (32-36); MEAN CORPUSCULAR VOLUME 92 FL (80-99); MEAN PLATELET VOLUME 9.9 FL (7.4-10.4); MONOCYTES # (AUTO) 0.7 X 10^3 (0.0-1.0); MONOCYTES % (AUTO) 9 % (0-12); NEUTROPHILS # (AUTO) 3.9 X 10^3 (1.8-7.8); NEUTROPHILS % (AUTO) 52 % (42-75); PLATELET COUNT 363 10^3/uL (130-400); RED CELL DISTRIBUTION WIDTH 14.9 % (10.0-14.5); WHITE BLOOD COUNT 7.4 10^3/uL (4.3-11.0)
[2019-10-29 06:11] LABS: ALBUMIN 4.2 GM/DL (3.2-4.5); CHLORIDE 108 MMOL/L (98-107); POTASSIUM 3.9 MMOL/L (3.6-5.0); SODIUM 141 MMOL/L (135-145)
--- NOTE | 2019-10-29 06:11 | Progress Note - Hospitalist ---
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 She was givenaggressive IV fluid resuscitation, placed on broad spectrum antibiotics and she overall has improved since that time and will be transferred out of the ICU and down to the 4th floor. She is very sleepy down to the 4th floor. She is very sleepy and doesn't want to talk to me. Objective Exam Vital Signs Vital Signs Date Time Temp Pulse Resp B/P (MAP) Pulse Ox O2 Delivery O2 Flow Rate FiO2 10/29/19 09:00 Room Air 10/29/19 08:00 36.2 84 16 161/84 (109) 98 Capillary Refill : Less Than 3 SecondsLess Than 3 Seconds Results/Procedures Lab Laboratory Tests 10/29/19 05:41 Patient resulted labs reviewed. Assessment/Plan Assessment and Plan Assess & Plan/Chief Complaint Assessment: Severe sepsis UTI Paraplegia at T4 chronic SP catheter Mental illness Depression Leukocytosis 10/27/19: Maintain Vancomycin and Imelda Home meds Discharge planned for or Friday10/28/19: Replace port by Dr. Zuluaga Needs Meropenem and Diflucan Abdominal distension will be addressed by Dr. Zuluaga Diagnosis/Problems Diagnosis/Problems (1) Severe sepsis (2) UTI (urinary tract infection) (3) Suprapubic catheter (4) Paraplegia at T4 level (5) Pressure injury of skin of coccygeal region (6) Lactic acid acidosis (7) H/O skin graft (8) Neurogenic bladder Status: Acute Clinical Quality Measures DVT/VTE Risk/Contraindication: Risk Factor Score Per Nursin RFS Level Per Nursing on Admit: 4+=Very High ROMY SHAIKH DO Oct 29, 2019 06:11
[2019-10-29 06:13] LABS: GLUCOSE 133 MG/DL (70-105)
[2019-10-29 06:14] LABS: TOTAL PROTEIN 7.3 GM/DL (6.4-8.2)
[2019-10-29 06:15] LABS: BILIRUBIN,TOTAL 0.4 MG/DL (0.1-1.0); CARBON DIOXIDE 22 MMOL/L (21-32)
[2019-10-29 06:17] LABS: ALKALINE PHOSPHATASE 78 U/L (40-136); CREATININE SERUM 0.65 MG/DL (0.60-1.30); GFR ESTIMATED > 60
[2019-10-29 06:18] LABS: BUN/CREATININE RATIO 12
[2019-10-29 06:20] LABS: ALANINE AMINOTRANSFERASE 98 U/L (0-55)
[2019-10-29 08:00] VITALS: BP 161/84
[2019-10-29] MEDS ORDERED: fluCOnazole (DIFLUCAN) 100 MG TAB PO SCH (08:00)
[2019-10-29] MEDS: IBUPROFEN TABLET 200 MG TAB PO PRN (08:07)
--- NOTE | 2019-10-29 08:13 | NUR ---
PT C/O PAIN, SHE IS NPO. THIS RN CALLED ENVIRONMENTAL ENGINEERING TECHNICIAN, POOJA, TO SEE WHAT THE ESTIMATED TIME FOR HER SURGERY IS. POOJA REPORTED THAT TIME IS [id number] THIS MORNING AND POOJA ADVISED THIS NURSE HOSPICE CHAPLAIN TO ADMIN IBUPROFEN WITH A SMALL SIP OF WATER.
[2019-10-29] MEDS ORDERED: PROPOFOL INJECTION 50 ML IV ONE (09:08)
[2019-10-29] MEDS ORDERED: MIDAZOLAM 2 MG/2 ML (VERSED) VIAL ONE (09:09)
[2019-10-29] MEDS ORDERED: HEParin (CENTRAL IV FLUSH) 500 UNIT/5 ML SYR ONE (09:20)
[2019-10-29] MEDS ORDERED: 0.9% SODIUM CHLORIDE PF INJ 20 ML VIAL ONE (09:20)
[2019-10-29] MEDS ORDERED: BUP/EPI 0.5% 1:200,000 (MARCAINE) 10ML VIAL IJ ONE (09:20)
--- NOTE | 2019-10-29 10:01 | NUR ---
PT GOING TO SURGERY AT THIS TIME FOR PORT PLACEMENT.
[2019-10-29] MEDS ORDERED: ceFAZolin INJECTION 1,000 MG ONE (10:40)
[2019-10-29] MEDS ORDERED: LACTATED RINGERS 1,000 ML IV PRN (11:01)
[2019-10-29] MEDS ORDERED: FLUC100T6 PO (11:03)
[2019-10-29] MEDS ORDERED: METO5TAB75 PO (11:03)
[2019-10-29] MEDS ORDERED: MERO1PIG IV (11:03)
--- NOTE | 2019-10-29 11:05 | D/C HH Face to Face Order ---
D/C Face to Face Orders Reconcile Patient Problems Problems Reviewed?: Yes Instructions for Patient Home Health Patient Instructions/FollowUp: [facility] 1 week Physician to follow Patient: [facility] Discharge Diet for Home: No Restrictions Patient Problems: UTI resistant bacteria Goals for Patient: Complete IV abx Patient Data-Allergies,Ht & Wt Patient Allergies: Coded Allergies: Sulfa (Sulfonamide Antibiotics) (Verified Allergy, Unknown, 10/23/18) vancomycin (Verified Allergy, Unknown, 10/23/18) Height (Feet): 5 Height (Inches): 5.00 Weight (Pounds): 175 Home Health Need/Face to Face Date of Face to Face: Oct 29, 2019 Clinical Findings: Generalized weakness and fatigue, Immune-compromised, Muscle weakness, Non or partial weight bearing I have seen Pt venq-ib-[id number]: Yes Discharged To: Home Diagnosis/Conditions: UTI Patient is Homebound due to: Muscle weakness, Non-weight bearing Homebound Status Due to the above stated illness, injury or surgical procedure (medical condition or diagnosis) and associated clinical findings, the patient is homebound because of his/her inability to leave home except with aid of a supportive device and/or person AND leaving the home requires a considerable and taxing effort or is medically contraindicated. Pt req the following assistanc: Wheelchair Home Health Nursing Orders Home Health Services Order: Nursing Services (Meropenem 1000mg IV Q8 hours for 21 doses), Staff Radiographer-Evaluate & Treat, Physical Therapy-Evaluate & Treat Home Health Infusion Therapy Line Start Date: Oct 25, 2019 Certify Stmt I certify that this patient is under my care and that I, a nurse practitioner or a physician; a lead recreation assistant working with me, had a face to face encounter that -me ets the physician face to face encounter requirements with this patient as dated. ROMY SHAIKH DO Oct 29, 2019 11:05
--- NOTE | 2019-10-29 11:06 | Discharge Summary ---
Discharge Summary Hospital Course Was the Problem List Reviewed?: Yes Problems/Dx: (1) Severe sepsis (2) UTI (urinary tract infection) (3) Suprapubic catheter (4) Paraplegia at T4 level (5) Pressure injury of skin of coccygeal region (6) Lactic acid acidosis (7) H/O skin graft (8) Neurogenic bladder Status: Acute Hospital Course Date of Admission: Oct 25, 2019 at 21:22 Admission Diagnosis : Family Physician/Provider: Kenneth Nelson MD Date of Discharge: 10/29/19 Discharge Diagnosis: Assessment: Severe sepsis UTI Paraplegia at T4 chronic SP catheter Mental illness Depression Leukocytosis 10/27/19: Maintain Vancomycin and Imelda Home meds Discharge planned for or Friday10/28/19: Replace port by Dr. Zuluaga Needs Meropenem and Diflucan Abdominal distension will be addressed by Dr. Zuluaga Hospital Course: Patient had an uneventful course after admitted for severe sepsis with elevated lactic acid from UTI. Placed on empiric abx for presumed resistant organism. Port was replaced due to dysfunction and patient was dc in improved condition with 7 days of IV abx and PO diflucan. Labs and Pending Lab Test: Laboratory Tests 10/29/19 05:41: White Blood Count 7.4, Red Blood Count 4.75, Hemoglobin 13.7, Hematocrit 44, Mean Corpuscular Volume 92, Mean Corpuscular Hemoglobin 29, Mean Corpuscular Hemoglobin Concent 32, Red Cell Distribution Width 14.9H, Platelet Count 363, Mean Platelet Volume 9.9, Neutrophils (%) (Auto) 52, Lymphocytes (%) (Auto) 33, Monocytes (%) (Auto) 9, Eosinophils (%) (Auto) 5, Basophils (%) (Auto) 1, Neutrophils # (Auto) 3.9, Lymphocytes # (Auto) 2.5, Monocytes # (Auto) 0.7, Eosinophils # (Auto) 0.3, Basophils # (Auto) 0.1, Sodium Level 141, Potassium Level 3.9, Chloride Level 108H, Carbon Dioxide Level 22, Anion Gap 11, Blood Urea Nitrogen 8, Creatinine 0.65, Estimat Glomerular Filtration Rate > 60, BUN/Creatinine Ratio 12, Glucose Level 133H, Calcium Level 9.0, Corrected Calcium 8.8, Total Bilirubin 0.4, Aspartate Amino Transf (AST/SGOT) 132H, Alanine Aminotransferase (ALT/SGPT) 98H, Alkaline Phosphatase 78, Total Protein 7.3, Albumin 4.2 Microbiology 10/25/19 MRSA Screen - Final, Complete MRSA not isolated 10/25/19 Blood Culture - Preliminary, Resulted No growth 10/25/19 Urine Culture - Final, Complete Pseudomonas aeruginosa YEAST Home Meds Active Meropenem-0.9% NaCl 1 Gram/50 (Meropenem-0.9% Sodium Chloride) 1 Gm/50 Ml Piggyback 1 Gm IV Q8H Reglan (Metoclopramide HCl) 5 Mg Tablet 5 Mg PO BID Fluconazole 100 Mg Tablet 100 Mg PO DAILY@0800 Reported Oxybutynin Chloride ER (Oxybutynin Chloride) 15 Mg Tab.er.24 15 Mg PO DAILY Amox Tr-K Clv 875-125 mg Tab (Amoxicillin/Potassium Clav) 1 Each Tablet 1 Ea PO BID Doxycycline Hyclate 100 Mg Capsule 100 Mg PO BID Ibuprofen 200 Mg Tablet 600 Mg PO Q8H PRN Cetirizine HCl 10 Mg Tablet 10 Mg PO DAILY Xarelto (Rivaroxaban) 20 Mg Tablet 10 Mg PO HS TAKES OF A 20 MG TAB Omeprazole 20 Mg Tablet.dr 20 Mg PO 1400 Baclofen 20 Mg Tablet 20 Mg PO QID Diazepam 10 Mg Tablet 10 Mg PO QID Calcium Citrate 200 Mg Tablet 200 Mg PO BID Vitamin C (Ascorbic Acid) 1,000 Mg Tablet 1,000 Mg PO BID Assessment/Pt Instructions [facility] [address] Nelson Discharge Planning: <30 minutes discharge planning Discharge Instructions Pneumonia Vaccine Order Indica: Yes Discharge Physical Examination Vital Signs Vital Signs Date Time Temp Pulse Resp B/P (MAP) Pulse Ox O2 Delivery O2 Flow Rate FiO2 10/29/19 09:00 Room Air 10/29/19 08:00 36.2 84 16 161/84 (109) 98 General Appearance: No Apparent Distress, WD/WN Respiratory: Normal Breath Sounds Neurologic/Psychiatric: Alert, Oriented x3 Allergies: Coded Allergies: Sulfa (Sulfonamide Antibiotics) (Verified Allergy, Unknown, 10/23/18) vancomycin (Verified Allergy, Unknown, 10/23/18) Discharge Summary Date of Admission Oct 25, 2019 at 21:22 Date of Discharge Discharge Date: Oct 29, 2019 Admission Diagnosis Assessment: Severe sepsis UTI Paraplegia at T4 chronic SP catheter Mental illness Depression Leukocytosis Plan: IVF IV abx Tx to 4th floor Home meds Discharge Diagnosis Assessment: Severe sepsis UTI Paraplegia at T4 chronic SP catheter Mental illness Depression Leukocytosis 10/27/19: Maintain Vancomycin and Imelda Home meds Discharge planned for or Friday10/28/19: Replace port by Dr. Zuluaga Needs Meropenem and Diflucan Abdominal distension will be addressed by Dr. Zuluaga (1) Severe sepsis (2) UTI (urinary tract infection) (3) Suprapubic catheter (4) Paraplegia at T4 level (5) Pressure injury of skin of coccygeal region (6) Lactic acid acidosis (7) H/O skin graft (8) Neurogenic bladder Status: Acute Clinical Quality Measures DVT/VTE Risk/Contraindication: Risk Factor Score Per Nursin RFS Level Per Nursing on Admit: 4+=Very High ROMY SHAIKH DO Oct 29, 2019 11:06
--- NOTE | 2019-10-29 11:21 | Progress Note-Post Operative ---
Post-Operative Progess Note Surgeon (s)/Char Belt Operator (s) Surgeon AIDA GOMEZ MD Char Belt Operator: none Pre-Operative Diagnosis malfunctioning port Post-Operative Diagnosis same Procedure & Operative Findings Date of Procedure 10/29/19 Procedure Performed/Findings placement right subclavian groshong with power port under flouroscopy. removal left groshong implantable catheter. Anesthesia Type mac with local Estimated Blood Loss Estimated blood loss (mL): minimal Specimens/Packing Specimens Removed none AIDA GOMEZ MD Oct 29, 2019 11:21
[2019-10-29 11:26] VITALS: BP 132/77
[2019-10-29 11:31] VITALS: BP 125/78
[2019-10-29 11:40] VITALS: BP 122/78
--- NOTE | 2019-10-29 11:45 | Anesthesia-General Post-Op ---
MAC Patient Condition Mental Status/LOC: Same as Preop Cardiovascular: Satisfactory Nausea/Vomiting: Absent Respiratory: Satisfactory Pain: Controlled Complications: Absent Post Op Complications Complications None Follow Up Care/Instructions Patient Instructions None needed. Anesthesiology Discharge Order Discharge Order Patient is doing well, no complaints, stable vital signs, no apparent adverse anesthesia problems. No complications reported per nursing. CHRIS MCCORD CRNA Oct 29, 2019 11:45
[2019-10-29 11:48] VITALS: BP 116/81
--- NOTE | 2019-10-29 11:55 | NUR ---
PT BACK FROM SURGERY AT THIS TIME. SHE IS AWAKE AND ALERT. PORT PLACEMENT SUCCESSFUL
--- NOTE | 2019-10-29 12:09 | Diagnostic Imaging Report ---
INDICATION: Fluoroscopy INDICATION: Removal of left port and placement of a right port. Fluoroscopic assistance was provided for Dr. Zuluaga during his PowerPoint exchange procedure. 8 seconds of fluoroscopy time was utilized. A single spot film of the right thorax was obtained. There does appear to be a Port-A-Cath in place although the tip of the catheter is difficult to visualize. It seems to overlie the midportion of the superior vena cava. IMPRESSION: Fluoroscopic assistance was provided for Dr. Zuluaga. Dictated by: Dictated on workstation # [id number]
--- NOTE | 2019-10-29 12:14 | Diagnostic Imaging Report ---
INDICATION: Groshong catheter placement. COMPARISON: 10/26/2019. FINDINGS: Right subclavian line has been placed. Tip overlies the cavoatrial junction in good position. There is no pneumothorax. Postsurgical changes to the visualized thoracolumbar spine again noted. The heart size within normal limits. No vascular congestion. No failure, effusion or pneumothorax. IMPRESSION: Catheter placed via the right subclavian in good position. No pneumothorax. Interval removal of prior left-sided central venous catheter. Dictated by: Dictated on workstation # [id number]
[2019-10-29] MEDS: BACLOFEN 10 MG (LIORESAL) TAB PO SCH ×2 (12:28→12:45)
[2019-10-29] MEDS: DIAZEPAM 5 MG (VALIUM) TABLET PO SCH ×2 (12:28→12:45)
[2019-10-29] MEDS: METOCLOPRAMIDE INJ 10 MG/2 ML (REGLAN) IVP SCH (12:28)
[2019-10-29] MEDS: LORATADINE (CLARITIN) 10 MG TAB PO SCH (12:29)
[2019-10-29] MEDS: ASCORBIC ACID (VIT C) 500 MG TABLET PO SCH (12:29)
[2019-10-29] MEDS: OXYBUTYNIN (DITROPAN) 5 MG TAB PO SCH ×2 (12:35→12:36)
[2019-10-29] MEDS: PANTOPRAZOLE 20 MG TABLET (PROTONIX) PO SCH (12:35)
--- NOTE | 2019-10-29 13:12 | NUR ---
CM/SS: Pt wants to return home on today, getting Port placed and physician has ordered IV antibiotics for 7 days. Pt has used [facility] out of [place] in the past for IV antibiotics and has [facility]. Information is faxed to [facility] for IV medication. They are informed about [facility]. They will contact them as to the antibiotics. Stretcher transport is arranged for pt via [employer] [phone]. They are notified to picking supervisor pt around 2pm. [facility] - Mary [facility] Gonzales is faxed records from this hospital stay as well as the discharge information on pt. faxed to [phone] - This worker has been in contact with [facility] via telephone. They are aware of the dosing and frequency of the IV antibiotics. GILMAR Kwok from [facility] calls and speaks with this worker. The medication dosing is read to the nurse. Pt's [facility] [employer] Anesthesiologist Attending Mona Silva [phone] - was notified via voice mail left that pt will be discharged today to home with the IV antibiotics and [facility].
--- NOTE | 2019-10-29 13:26 | NUR ---
PT DISCHARGED VIA [facility].
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
== END 2019-10-29 13:20 | disposition home health service (06) | DRG 698 ==
LOC: EDUNIT# 18:37 → ER FS 18:38 → ICU 21:22 → 4TH 10-26 11:39
PROVIDERS: ADMIT Internal Medicine; ATTEND Internal Medicine
PROC: 02PY33Z Removal of Infusion Device from Great Vessel, Percutaneous Approach (ICD-10-PCS; 2019-10-29)
PROC: 0JPT0XZ Removal of Tunneled Vascular Access Device from Trunk Subcutaneous Tissue and Fascia, Open Approach (ICD-10-PCS; 2019-10-29)
PROC: 0JH63XZ Insertion of Tunneled Vascular Access Device into Chest Subcutaneous Tissue and Fascia, Percutaneous Approach (ICD-10-PCS; 2019-10-29)
PROC: 02HV33Z Insertion of Infusion Device into Superior Vena Cava, Percutaneous Approach (ICD-10-PCS; principal; 2019-10-29 10:25)
DX: T83.510A Infection and inflammatory reaction due to cystostomy catheter, initial encounter (principal); A41.9 Sepsis, unspecified organism; L89.154 Pressure ulcer of sacral region, stage 4; N39.0 Urinary tract infection, site not specified; E87.2 Acidosis; G82.20 Paraplegia, unspecified; E86.0 Dehydration; R51 Headache; N31.9 Neuromuscular dysfunction of bladder, unspecified; F41.9 Anxiety disorder, unspecified; K21.9 Gastro-esophageal reflux disease without esophagitis; Z89.611 Acquired absence of right leg above knee; Z90.6 Acquired absence of other parts of urinary tract; Z99.3 Dependence on wheelchair; Z74.01 Bed confinement status; Z86.14 Personal history of Methicillin resistant Staphylococcus aureus infection; Z87.828 Personal history of other (healed) physical injury and trauma
CPT/HCPCS: 36415; 71045; 74019; 76000; 80048; 80053; 81000; 83605; 83735; 84100; 85025; 87040; 87077; 87081; 87088; 87186

== ENCOUNTER → 2020-02-11 | Outpatient (CLI) | payer MEDICARE, MEDICAID ==
[~2020-02-11] MED LIST changes: +AMOX1TAB12 PO; +ASCO100024 PO; -ASCO10006 PO; +DOXY100C2 PO; +FLUC100T6 PO; +MERO1PIG IV; +METO5TAB75 PO; +OXYB15TA19 PO
[2020-02-11 18:14] LABS: CLARITY,URINE CLOUDY; COLOR,URINE YELLOW; PH,URINE 8.5 (5-9)
[2020-02-11 18:15] LABS: BACTERIA,URINE FEW /HPF; BILIRUBIN,URINE NEGATIVE (NEGATIVE); GLUCOSE, URINE (UA) NEGATIVE (NEGATIVE); KETONES,URINE TRACE (NEGATIVE); LEUKOCYTE ESTERASE ,URINE 2+ (NEGATIVE); NITRITE,URINE POSITIVE (NEGATIVE); PROTEIN,URINE 2+ (NEGATIVE); RBC,URINE >100 /HPF
== END ==
LOC: LAB FS 17:52
PROVIDERS: ATTEND Family Medicine
DX: N31.9 Neuromuscular dysfunction of bladder, unspecified (principal)
CPT/HCPCS: 81000; 87077; 87088; 87186

== ENCOUNTER → 2020-02-27 | Outpatient (CLI) | payer MEDICARE, MEDICAID | LOC: LAB FS 14:52 | PROVIDERS: ATTEND Family Medicine | DX: N31.9 Neuromuscular dysfunction of bladder, unspecified (principal); Z74.01 Bed confinement status | CPT/HCPCS: 87088 ==

== ENCOUNTER → 2020-03-09 | Outpatient (CLI) | payer MEDICARE, MEDICAID | LOC: LAB FS 17:35 | PROVIDERS: ATTEND Family Medicine | DX: N31.9 Neuromuscular dysfunction of bladder, unspecified (principal) | CPT/HCPCS: 87077; 87088; 87186 ==

== ENCOUNTER → 2020-04-11 | Outpatient (CLI) | payer MEDICARE, MEDICAID | LOC: LAB FS 12:15 | PROVIDERS: ATTEND Family Medicine | DX: N31.9 Neuromuscular dysfunction of bladder, unspecified (principal); M86.60 Other chronic osteomyelitis, unspecified site; R31.9 Hematuria, unspecified | CPT/HCPCS: 87088 ==

== ENCOUNTER → 2020-04-14 | Outpatient (CLI) | payer MEDICARE, MEDICAID ==
[2020-04-14 13:47] LABS: WHITE BLOOD COUNT 8.7 10^3/uL (4.3-11.0)
[2020-04-14 13:48] LABS: BASOPHILS % (AUTO) 1 % (0-10); EOSINOPHILS % (AUTO) 4 % (0-10); HEMATOCRIT 45 % (35-52); HEMOGLOBIN 14.6 G/DL (11.5-16.0); LYMPHOCYTES % (AUTO) 36 % (12-44); MEAN CORPUSCULAR HEMOGLOBIN 29 PG (25-34); MEAN CORPUSCULAR HGB CONC 32 G/DL (32-36); MEAN CORPUSCULAR VOLUME 91 FL (80-99); MONOCYTES % (AUTO) 9 % (0-12); NEUTROPHILS % (AUTO) 50 % (42-75); PLATELET COUNT 308 10^3/uL (130-400)
[2020-04-14 13:49] LABS: BASOPHILS # (AUTO) 0.1 10^3/uL (0.0-0.1); EOSINOPHILS # (AUTO) 0.3 10^3/uL (0.0-0.3); LYMPHOCYTES # (AUTO) 3.2 X 10^3 (1.0-4.0); MONOCYTES # (AUTO) 0.8 X 10^3 (0.0-1.0); NEUTROPHILS # (AUTO) 4.3 X 10^3 (1.8-7.8)
[2020-04-14 14:08] LABS: BUN/CREATININE RATIO 27; CARBON DIOXIDE 24 MMOL/L (21-32); CHLORIDE 102 MMOL/L (98-107); CREATININE SERUM 0.41 MG/DL (0.60-1.30); GFR ESTIMATED > 60; GLUCOSE 114 MG/DL (70-105); SODIUM 140 MMOL/L (135-145)
[2020-04-14 14:09] LABS: ALANINE AMINOTRANSFERASE 163 U/L (0-55); ALBUMIN 4.5 GM/DL (3.2-4.5); ALKALINE PHOSPHATASE 86 U/L (40-136); BILIRUBIN,TOTAL 0.2 MG/DL (0.1-1.0); CALCIUM 9.7 MG/DL (8.5-10.1); TOTAL PROTEIN 7.2 GM/DL (6.4-8.2)
== END ==
LOC: LAB FS 13:26
PROVIDERS: ATTEND Family Medicine
DX: Z43.5 Encounter for attention to cystostomy (principal)
CPT/HCPCS: 36415; 80053; 85025

== ENCOUNTER → 2020-05-03 | Outpatient (CLI) | payer MEDICARE, MEDICAID | LOC: LAB FS 17:45 | PROVIDERS: ATTEND Family Medicine | DX: Z43.5 Encounter for attention to cystostomy (principal); N31.9 Neuromuscular dysfunction of bladder, unspecified | CPT/HCPCS: 87088 ==

== ENCOUNTER → 2020-05-22 | Outpatient (CLI) | payer MEDICARE, MEDICAID ==
[~2020-05-22] MED LIST changes: +SERT-414 PO; -SERT100T8 PO
== END ==
LOC: IHC 17:31
PROVIDERS: ATTEND Family Medicine
DX: Z01.89 Encounter for other specified special examinations (principal); Z79.2 Long term (current) use of antibiotics
CPT/HCPCS: 87324; 87449

== ENCOUNTER → 2020-07-07 | Outpatient (CLI) | payer MEDICARE, MEDICAID ==
[2020-07-07 18:38] LABS: CLARITY,URINE CLOUDY; COLOR,URINE BROWN
[2020-07-07 18:39] LABS: BILIRUBIN,URINE NEGATIVE (NEGATIVE); GLUCOSE, URINE (UA) NEGATIVE (NEGATIVE); KETONES,URINE TRACE (NEGATIVE); LEUKOCYTE ESTERASE ,URINE 1+ (NEGATIVE); NITRITE,URINE POSITIVE (NEGATIVE); PROTEIN,URINE 2+ (NEGATIVE); RBC,URINE TNTC /HPF
== END ==
LOC: IHC 18:23
PROVIDERS: ATTEND Family Medicine
DX: Z43.5 Encounter for attention to cystostomy (principal); N31.9 Neuromuscular dysfunction of bladder, unspecified; Z87.440 Personal history of urinary (tract) infections
CPT/HCPCS: 81000; 87077; 87088

== ENCOUNTER 2020-07-17 14:48 | Emergency (ER) | payer MEDICARE, MEDICAID ==
[2020-07-17 15:03] VITALS: BP 149/66
--- NOTE | 2020-07-17 15:07 | ED General ---
General Chief Complaint: General Problems/Pain Stated Complaint: PORT NOT FLUSHING Source of Information: Patient Exam Limitations: No Limitations History of Present Illness Date Seen by Provider: Jul 17, 2020 Time Seen by Provider: 14:50 Initial Comments Here with report of Port-A-Cath not flushing. Patient received IV antibiotics f or resistant UTI. Port has not worked overnight and there was concerns about port failure. Denies any new symptoms otherwise. Quadriplegia limits movement. Timing/Duration: 12 Hours Severity: Moderate Associated Systoms: No Fever/Chills, No Nausea/Vomiting Allergies and Home Medications Allergies Coded Allergies: Sulfa (Sulfonamide Antibiotics) (Verified Allergy, Unknown, 10/23/18) vancomycin (Verified Allergy, Unknown, 10/23/18) Home Medications Ascorbic Acid 1,000 Mg Tablet, 1,000 MG PO BID, (Reported) Baclofen 20 Mg Tablet, 20 MG PO QID, (Reported) Calcium Citrate 200 Mg Tablet, 200 MG PO BID, (Reported) Cetirizine HCl 10 Mg Tablet, 10 MG PO DAILY, (Reported) Diazepam 10 Mg Tablet, 10 MG PO QID, (Reported) Doxycycline Hyclate 100 Mg Capsule, 100 MG PO BID, (Reported) Fluconazole 100 Mg Tablet, 100 MG PO DAILY@0800 Prescribed by: ROMY SHAIKH on 10/29/191102 Ibuprofen 200 Mg Tablet, 600 MG PO Q8H PRN for PAIN-MILD (1-4), (Reported) Meropenem-0.9% Sodium Chloride 1 Gm/50 Ml Piggyback, 1 GM IV Q8H Prescribed by: ROMY SHAIKH on 10/29/191102 Metoclopramide HCl 5 Mg Tablet, 5 MG PO BID Prescribed by: ROMY SHAIKH on 10/29/191102 Omeprazole 20 Mg Tablet.dr, 20 MG PO 1400, (Reported) Oxybutynin Chloride 15 Mg Tab.er.24, 15 MG PO DAILY, (Reported) Rivaroxaban 20 Mg Tablet, 10 MG PO HS, (Reported) TAKES OF A 20 MG TAB Patient Home Medication List Home Medication List Reviewed: Yes Review of Systems Review of Systems Constitutional: No chills, No fever Respiratory: no symptoms reported Musculoskeletal: see HPI Psychiatric/Neurological: See HPI Past Cbhnrhg-Zukdhi-Kjvjmp Hx Past Med/Social Hx: Reviewed Nursing Past Med/Soc Hx Patient Social History Alcohol Use: Denies Use Smoking Status: Never a Smoker 2nd Hand Smoke Exposure: No Recent Hopitalizations: No Immunizations Up To Date Date of Influenza Vaccine: Feb 08, 2019 Past Medical History Surgeries: Yes Amputation, Cystectomy, Gallbladder, 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, Orthopedic, Urinary Diversion Respiratory: No Cardiac: No Neurological: Yes Paralysis, Spinal Cord Injury Female Reproductive Disorders: Endometriosis, 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 Cyst 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: 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 Genitourinary: Yes Kidney Stones, Neurogenic Bladder, UTI-Chronic Gastrointestinal: No Gastroesophageal Reflux Musculoskeletal: Yes (OSTEOMYELITIS) Amputee, Back Injury Endocrine: No HEENT: No Cancer: No Psychosocial: Yes Anxiety Integumentary: Yes (DECUB STAGE 4, PRESSURE ULCER, CELLULITIS, MRSA) Blood Disorders: Yes (IRON DEFICIENCY ANEMIA) Family Medical History Reviewed Nursing Family Hx Heart Disease, Cancer, Stroke Physical Exam Vital Signs Vital Signs - First Documented 07/17/20 15:03 Temp 36.7 Pulse 102 Resp 18 B/P (MAP) 149/66 (93) Pulse Ox 100 Capillary Refill : Height, Weight, BMI Height: 5'5.00" Weight: 175lbs. oz. 79.628496to; 25.27 BMI Method:Estimated General Appearance: No Apparent Distress, WD/WN Respiratory: Lungs Clear, Normal Breath Sounds Cardiovascular: Regular Rate, Rhythm, No Murmur Neurologic/Psychiatric: Alert, Oriented x3 Skin: Normal Color, Warm/Dry Progress/Results/Core Measures Suspected Sepsis SIRS Temperature: Pulse: Respiratory Rate: Blood Pressure / Mean: Results/Orders Vital Signs/I&O 07/17/20 15:03 Temp 36.7 Pulse 102 Resp 18 B/P (MAP) 149/66 (93) Pulse Ox 100 Capillary Refill : Progress Note : Progress Note Seen and evaluated. Port-A-Cath site appears normal. We will have nursing attempt to place Port-A-Cath needle and flush. 1510: Port-A-Cath needle placed and nurse was able to achieve good flush and draw. Patient much more com fortable with port now. Discharged home with return precautions. Patient verbalized understanding instructions and agreement with plan. Departure Impression Primary Impression: Encounter for care related to Port-a-Cath Disposition: HOME, SELF-CARE Condition: Improved Departure-Patient Inst. Decision time for Depature: 15:10 Referrals: MELY BEDOYA MD (PCP/Family) Primary Care Physician Patient Instructions: How to Care for a Portacath Add. Discharge Instructions: All discharge instructions reviewed with patient and/or family. Voiced understanding. Continue medications as previously prescribed. Follow-up with Dr. Zuluaga as needed. Return for other concerns as needed. EDSI MONTANO MD Jul 17, 2020 15:07
== END 2020-07-17 15:20 | disposition home or self-care (01) ==
LOC: EDUNIT# 14:48 → ER FS 14:49
DX: Z45.2 Encounter for adjustment and management of vascular access device (principal); N39.0 Urinary tract infection, site not specified; K21.9 Gastro-esophageal reflux disease without esophagitis; F41.9 Anxiety disorder, unspecified; Z79.2 Long term (current) use of antibiotics; Z86.14 Personal history of Methicillin resistant Staphylococcus aureus infection; Z88.1 Allergy status to other antibiotic agents; Z88.2 Allergy status to sulfonamides; Z79.01 Long term (current) use of anticoagulants

== ENCOUNTER → 2020-07-20 | Outpatient (CLI) | payer MEDICARE, MEDICAID ==
[2020-07-20 18:09] LABS: HEMATOCRIT 42 % (35-52); HEMOGLOBIN 13.4 G/DL (11.5-16.0); LYMPHOCYTES % (AUTO) 39 % (12-44); MEAN CORPUSCULAR HEMOGLOBIN 30 PG (25-34); MEAN CORPUSCULAR HGB CONC 32 G/DL (32-36); MEAN CORPUSCULAR VOLUME 93 FL (80-99); MEAN PLATELET VOLUME 10.5 FL (7.4-10.4); NEUTROPHILS % (AUTO) 40 % (42-75); PLATELET COUNT 311 10^3/uL (130-400); WHITE BLOOD COUNT 7.5 10^3/uL (4.3-11.0)
[2020-07-20 18:10] LABS: BASOPHILS # (AUTO) 0.1 10^3/uL (0.0-0.1); BASOPHILS % (AUTO) 1 % (0-10); EOSINOPHILS # (AUTO) 0.7 10^3/uL (0.0-0.3); EOSINOPHILS % (AUTO) 10 % (0-10); LYMPHOCYTES # (AUTO) 2.9 X 10^3 (1.0-4.0); MONOCYTES # (AUTO) 0.8 X 10^3 (0.0-1.0); MONOCYTES % (AUTO) 10 % (0-12)
[2020-07-20 18:23] LABS: BUN/CREATININE RATIO 26; CARBON DIOXIDE 28 MMOL/L (21-32); CHLORIDE 103 MMOL/L (98-107); CREATININE SERUM 0.35 MG/DL (0.60-1.30); GFR ESTIMATED > 60; POTASSIUM 4.1 MMOL/L (3.6-5.0); SODIUM 142 MMOL/L (135-145)
[2020-07-20 18:24] LABS: ALANINE AMINOTRANSFERASE 126 U/L (0-55); ALBUMIN 4.4 GM/DL (3.2-4.5); ALKALINE PHOSPHATASE 82 U/L (40-136); BILIRUBIN,TOTAL 0.3 MG/DL (0.1-1.0); CALCIUM 9.8 MG/DL (8.5-10.1); GLUCOSE 83 MG/DL (70-105); TOTAL PROTEIN 6.9 GM/DL (6.4-8.2)
== END ==
LOC: IHC 17:52
PROVIDERS: ATTEND Family Medicine
DX: N39.0 Urinary tract infection, site not specified (principal)
CPT/HCPCS: 80053; 85025

== ENCOUNTER → 2020-08-17 | Outpatient (CLI) | payer MEDICARE, MEDICAID ==
[2020-08-17 20:43] LABS: BASOPHILS % (AUTO) 1 % (0-10); EOSINOPHILS % (AUTO) 5 % (0-10); HEMATOCRIT 41 % (35-52); HEMOGLOBIN 13.1 G/DL (11.5-16.0); LYMPHOCYTES % (AUTO) 42 % (12-44); MEAN CORPUSCULAR HEMOGLOBIN 30 PG (25-34); MEAN CORPUSCULAR HGB CONC 32 G/DL (32-36); MEAN CORPUSCULAR VOLUME 93 FL (80-99); MEAN PLATELET VOLUME 11.2 FL (7.4-10.4); MONOCYTES % (AUTO) 9 % (0-12); NEUTROPHILS % (AUTO) 42 % (42-75); PLATELET COUNT 309 10^3/uL (130-400); WHITE BLOOD COUNT 9.1 10^3/uL (4.3-11.0)
[2020-08-17 20:44] LABS: BASOPHILS # (AUTO) 0.1 10^3/uL (0.0-0.1); EOSINOPHILS # (AUTO) 0.5 10^3/uL (0.0-0.3); LYMPHOCYTES # (AUTO) 3.8 X 10^3 (1.0-4.0); MONOCYTES # (AUTO) 0.8 X 10^3 (0.0-1.0); NEUTROPHILS # (AUTO) 3.9 X 10^3 (1.8-7.8)
[2020-08-17 20:55] LABS: BILIRUBIN,DIRECT < 0.2 MG/DL (0.0-0.3); BILIRUBIN,TOTAL 0.2 MG/DL (0.1-1.0)
[2020-08-17 20:56] LABS: ALANINE AMINOTRANSFERASE 81 U/L (0-55); ALKALINE PHOSPHATASE 80 U/L (40-136); CLARITY,URINE CLOUDY; COLOR,URINE YELLOW; GLUCOSE, URINE (UA) NEGATIVE (NEGATIVE); KETONES,URINE NEGATIVE (NEGATIVE); PH,URINE 7.5 (5-9); PROTEIN,URINE 1+ (NEGATIVE); TOTAL PROTEIN 6.7 GM/DL (6.4-8.2)
[2020-08-17 20:57] LABS: BACTERIA,URINE MODERATE /HPF; BILIRUBIN,URINE NEGATIVE (NEGATIVE); CALCIUM OXALATE CRYSTALS,UR RARE /LPF; LEUKOCYTE ESTERASE ,URINE 3+ (NEGATIVE); NITRITE,URINE POSITIVE (NEGATIVE); WBC,URINE 25-50 /HPF
[2020-08-17 20:58] LABS: YEAST,URINE MODERATE /HPF
== END ==
LOC: IHC 20:21
PROVIDERS: ATTEND Family Medicine
DX: Z43.5 Encounter for attention to cystostomy (principal); N31.9 Neuromuscular dysfunction of bladder, unspecified; M86.60 Other chronic osteomyelitis, unspecified site; Z87.440 Personal history of urinary (tract) infections
CPT/HCPCS: 80076; 81000; 85025; 87077; 87088

== ENCOUNTER → 2020-09-01 | Outpatient (CLI) | payer MEDICARE, MEDICAID ==
[2020-09-01 13:46] LABS: BACTERIA,URINE FEW /HPF; BILIRUBIN,URINE NEGATIVE (NEGATIVE); CLARITY,URINE CLOUDY; COLOR,URINE YELLOW; GLUCOSE, URINE (UA) NEGATIVE (NEGATIVE); KETONES,URINE TRACE (NEGATIVE); LEUKOCYTE ESTERASE ,URINE 2+ (NEGATIVE); NITRITE,URINE POSITIVE (NEGATIVE); PROTEIN,URINE NEGATIVE (NEGATIVE); WBC,URINE 25-50 /HPF; YEAST,URINE LARGE /HPF
== END ==
LOC: IHC 13:04
PROVIDERS: ATTEND Family Medicine
DX: N31.9 Neuromuscular dysfunction of bladder, unspecified (principal)
CPT/HCPCS: 81000; 87077; 87088; 87106; 87186

== ENCOUNTER 2020-09-18 17:39 | Emergency (ER) | payer MEDICARE, MEDICAID ==
[~2020-09-18 17:39] MED LIST changes: +DOXY-311 PO; -DOXY100C42 PO
[2020-09-18] MEDS ORDERED: NS IV 1000 ML 1,000 ML IV STA ×2 (18:03→19:11)
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
[2020-09-18 18:43] LABS: HEMATOCRIT 43 % (35-52); HEMOGLOBIN 13.8 G/DL (11.5-16.0); MEAN CORPUSCULAR HEMOGLOBIN 29 PG (25-34); MEAN CORPUSCULAR HGB CONC 32 G/DL (32-36); MEAN CORPUSCULAR VOLUME 91 FL (80-99); WHITE BLOOD COUNT 11.3 10^3/uL (4.3-11.0)
[2020-09-18 18:44] LABS: BASOPHILS # (AUTO) 0.1 10^3/uL (0.0-0.1); BASOPHILS % (AUTO) 1 % (0-10); EOSINOPHILS # (AUTO) 0.7 10^3/uL (0.0-0.3); EOSINOPHILS % (AUTO) 6 % (0-10); LYMPHOCYTES % (AUTO) 35 % (12-44); MONOCYTES # (AUTO) 0.8 X 10^3 (0.0-1.0); MONOCYTES % (AUTO) 7 % (0-12); NEUTROPHILS # (AUTO) 5.7 X 10^3 (1.8-7.8); NEUTROPHILS % (AUTO) 51 % (42-75); PLATELET COUNT 325 10^3/uL (130-400)
[2020-09-18 18:46] LABS: BILIRUBIN,URINE NEGATIVE (NEGATIVE); CLARITY,URINE SL CLOUDY; COLOR,URINE YELLOW; GLUCOSE, URINE (UA) NEGATIVE (NEGATIVE); KETONES,URINE NEGATIVE (NEGATIVE); NITRITE,URINE POSITIVE (NEGATIVE); PROTEIN,URINE TRACE (NEGATIVE)
[2020-09-18 18:47] LABS: LEUKOCYTE ESTERASE ,URINE 2+ (NEGATIVE)
[2020-09-18 18:53] LABS: BACTERIA,URINE 1+ /HPF; RBC,URINE 50-100 /HPF; WBC,URINE 25-50 /HPF
[2020-09-18 18:54] LABS: YEAST,URINE MODERATE /HPF
[2020-09-18 18:59] LABS: POTASSIUM 3.9 MMOL/L (3.6-5.0); SODIUM 136 MMOL/L (135-145)
[2020-09-18 19:00] LABS: ALANINE AMINOTRANSFERASE 93 U/L (0-55); ALBUMIN 4.4 GM/DL (3.2-4.5); ALKALINE PHOSPHATASE 84 U/L (40-136); BILIRUBIN,TOTAL 0.4 MG/DL (0.1-1.0); BUN/CREATININE RATIO 25; CALCIUM 9.8 MG/DL (8.5-10.1); CARBON DIOXIDE 23 MMOL/L (21-32); CHLORIDE 101 MMOL/L (98-107); GFR ESTIMATED > 60; GLUCOSE 112 MG/DL (70-105); TOTAL PROTEIN 7.4 GM/DL (6.4-8.2)
[2020-09-18 19:08] LABS: ATYPICAL LYMPHOCYTES 12 %; BAND NEUTROPHILS 2 %; BASOPHILS % (MANUAL) 1 %; EOSINOPHILS % (MANUAL) 6 %; LYMPHOCYTES % (MANUAL) 20 %; MONOCYTES % (MANUAL) 7 %; NEUTROPHILS % (MANUAL) 52 %
[2020-09-18 19:09] LABS: RBC MORPH NORMAL
[2020-09-18] MEDS ORDERED: MEROPENEM 1,000 MG in WATER (STERILE) FOR INJECTION 20 ML IV STA (19:11)
[2020-09-18] MEDS ORDERED: WATER (STERILE) FOR INJECTION 20 ML ONE (19:18)
[2020-09-18] MEDS ORDERED: MEROPENEM 500 MG VIAL (MERREM) IV ONE (19:18)
[2020-09-18 20:10] VITALS: BP 134/75
== END 2020-09-18 20:42 | disposition short-term general hospital (02) ==
LOC: EDUNIT# 17:39 → ER FS 17:43
DX: A41.52 Sepsis due to Pseudomonas (principal); N30.80 Other cystitis without hematuria; B96.5 Pseudomonas (aeruginosa) (mallei) (pseudomallei) as the cause of diseases classified elsewhere; K21.9 Gastro-esophageal reflux disease without esophagitis; F41.9 Anxiety disorder, unspecified; Z46.6 Encounter for fitting and adjustment of urinary device; Z79.01 Long term (current) use of anticoagulants; Z79.899 Other long term (current) drug therapy
CPT/HCPCS: 36415; 80053; 81000; 83605; 85007; 85027; 86141; 87040; 87077; 87088; 87186; 93005; 93041; 99291

== ENCOUNTER 2020-12-08 05:33 | Outpatient (CLI) | payer MEDICARE, MEDICAID ==
[2020-12-08] MEDS ORDERED: METF-397 PO (09:43)
[2020-12-08] MEDS ORDERED: AMOX1TAB12 PO (09:43)
== END 2020-12-08 09:49 ==
LOC: PREOP 05:33
PROVIDERS: ATTEND Surgery
DX: Z01.818 Encounter for other preprocedural examination (principal)

== ENCOUNTER 2020-12-14 12:01 | Day surgery (SDC) | payer MEDICARE, MEDICAID ==
[2020-12-14] VITALS (8 sets, daily range): BP systolic 103–143; BP diastolic 56–81
[~2020-12-14 12:01] MED LIST changes: +METF-397 PO
--- OUTSIDE RECORDS SUMMARY | 2020-12-14 12:07 | XMS REPORT | Encounter Summary ---
Author Author [facility] Organization [facility] Address Unknown Phone Unavailable Care Team Providers Care Runner Man Name Role Phone Iban Arboleda PA-C Unavailable Agapito Garcia MD Unavailable Matthias Rutherford MD Unavailable Karime De La Cruz MD Unavailable Steffany Fair RN Unavailable Unavailable Suri Borrero MD Unavailable Anni Gordon RN Unavailable Unavailable Sunny Krishna MD Unavailable Trevon Brand MD Unavailable Rochelle Yen LPN Unavailable Unavailable Brianne Warren MD Unavailable Unavailable Delaney Rascon RN Unavailable Unavailable Esteban Britt MD Unavailable [phone] Surinder Ruiz MD Unavailable Henry Moeller MD Unavailable Kenneth Nelson MD PCP Reason for Visit * Reason Onset Date Comments Appointment 11/29/2020 Encounter Details Care Team Description Date Type Department Frank Parish MD [address] [facility] [address] [place] [address] Appointment 11/29/2020 Telephone Urology: Dusty aldana, [facility] [address] [place] [id number] Social History Date Tobacco Use Types Packs/Day Years Used Never Smoker Smokeless Tobacco: Never Used Comments Alcohol Use Standard Drinks/Week No 0 (1 standard drink = 0.6 o z pure alcohol) Sex Assigned at Date Recorded Not on file documented as of this encounter Functional Status Date of Assessment Functional Status Response 09/19/2020 Does the patient have a hearing impairment: No documented as of this encounter Miscellaneous Notes * Telephone Encounter - Deidre Silva RN - 11/29/2020 3:28 PM CDT Received call from patient requesting return call from department to get fax num [email or web address] for her to coordinate transportation. Returned call and spoke to patient. In quired further details about patient's initial message for fax number. Patient s tated she doesn't need it anymore. Stated her transportation company didn't ask for it. Confirmed upcoming appointment detail for [facility] establishing care with Dr. Parish. Patient verbalized understanding and was appreciative for call. No furt her questions. documented in this encounter Plan of Treatment Not on filedocumented as of this encounter Goals Goal Patient Associated Recent Progress Patient-Stat Aut hor Goal Type Problems ed? GOAL General On track (09/19/2020 No Alistair marcus, 12:02 PM CDT) GILMAR Steele Note: Get better and be able to sit up documented as of this encounter Visit Diagnoses Not on filedocumented in this encounter Additional Health Concerns Last Indicated Resolved Time Infection Onset Date 09/19/2020 Pseudomonas - MDRO 09/19/2020 Assessment Noted Time A fall risk assessment has been completed for the pat ient 09/21/2020 10:02 AM CDT documented as of this encounter
--- OUTSIDE RECORDS SUMMARY | 2020-12-14 12:07 | XMS REPORT | Clinical Summary ---
Author Author [facility] Organization [facility] Address Unknown Phone Unavailable Care Team Providers Care Log Manager Name Role Phone Iban Arboleda PA-C Unavailable Agapito Garcia MD Unavailable Matthias Rutherford MD Unavailable Karime De La Cruz MD Unavailable Steffany Fair RN Unavailable Unavailable Suri Borrero MD Unavailable Anni Gordon RN Unavailable Unavailable Sunny Krishna MD Unavailable Trevon Brand MD Unavailable Rochelle Yen LPN Unavailable Unavailable Brianne Warren MD Unavailable Unavailable Delaney Rascon RN Unavailable Unavailable Esteban Britt MD Unavailable [phone] Surinder Ruiz MD Unavailable Henry Moeller MD Unavailable Kenneth Nelson MD PCP Source Comments Some departments are not documenting in the electronic medical record. If you d o not see the information that you expected, contact Release of Information in [facility] Information Management department at [phone] for further assistan ce in locating additional records.[facility] Allergies Comments Active Allergy Reactions Severity Noted Date Meropenem HIVES Medium 10/04/2020 "tongue felt funny" Sulfa (Sulfonamide SEE COMMENTS 06/04/2011 Antibiotics) Vancomycin HIVES 06/04/2011 Medications End Date Status Medication Sig Dispensed Refills Start Date Active baclofen (LIORESAL) 20 mg Take 1 Tab by 0 08/30 tablet mouth four 2 times daily. Active ascorbic acid (VITAMIN-C) Take 1,000 mg 0 500 mg tablet by mouth twice daily. Active cetirizine (ZYRTEC) 10 mg Take 10 mg by 0 tablet mouth daily. Active calcium carbonate/vitamin Take 1 Tab by 0 D-3 (OSCAL-500+D) 1250 mouth twice mg/200 unit tablet daily. Calcium Carb 1250mg delivers 500mg elemental Ca Active diazepam (VALIUM) 10 mg Take 1 Tab by 0 tablet mouth four 6 times daily. Active calcium carbonate (TUMS) Chew 1-2 Tabs 0 12/05 500 mg (200 mg elemental by mouth 6 calcium) chewable tablet every 6 hours as needed (for heart burn). Active ibuprofen (MOTRIN) 600 mg Take 1 Tab by 30 Tab 0 tablet mouth every 6 6 hours as needed for Pain. Take with food. Active amoxicillin/K clavulanate TAKE 1 TABLET 60 Tab 3 (AUGMENTIN) 875/125 mg BY MOUTH 7 tablet EVERY 12 HOURS Active doxycycline(+) TAKE 1 60 capsule 11 (VIBRAMYCIN) 100 mg CAPSULE BY 7 capsule MOUTH TWICE DAILY Active oxybutynin XL (DITROPAN Take 15 mg by 0 XL) 15 mg tablet mouth daily. Active omeprazole DR (PRILOSEC) Take 20 mg by 0 20 mg capsule mouth daily before breakfast. Active metFORMIN (GLUCOPHAGE) Take 500 mg 0 500 mg tablet by mouth daily with breakfast. Active rivaroxaban (XARELTO) 10 Take one 30 tablet 0 0 mg tablet tablet by 1 mouth daily with dinner. Active Problems Problem Noted Date Hypotension 09/21/2020 Urinary tract infection associated with cystostomy ca theter 09/18/2020 Decubitus ulcer of ischium 11/29/2015 Paraplegia, complete 11/29/2015 Acute pulmonary embolism 11/07/2015 Tachycardia 11/07/2015 Pulmonary embolism 11/07/2015 Decubitus ulcer of left ischium, stage 4 09/28/2015 Neurogenic bowel 02/08/2015 Thoracic spinal cord injury 02/07/2015 Amputation of leg 02/01/2015 Overview: Formatting of this note might be differ ent from the original. right hemipelvectomy Neurogenic bladder 10/28/2013 Overview: Formatting of this note might be differ ent from the original. T5/6 paraplegia and neurogenic bladder managed with indwelling power (due to tx for necrotizing fascitis), previo usly performed CIC and ditropan 5mg bid Cysto (12/06/13): posterior bladder eryth ematous patch (likely secondary to indwelling fc) UDS (12/06/13): normal capacity; incomple te emptying; dyssinergia; +LPP Last cystoscopy (03/07/14): normal Using ditropan 5mg bid and cic q3-4hour s L ast Assessment & Plan: Formatting of this note might be differ ent from the original. - continue q3-4 h cic - continue ditropan 5mg bid - rtc one year w/ repeat renal US and f or cystoscopy Recurrent urinary tract infection 10/28/2013 Overview: Formatting of this note might be differ ent from the original. Frequent UTIs with indwelling catheter. We have no UCx confirmation of this and she dx based upon urine qualit y. L ast Assessment & Plan: Formatting of this note might be differ ent from the original. Will obtain UCx today - she is currentl y being treated with Cipro for a UTI by PCP. Paraplegia 10/18/2012 UTI (urinary tract infection) 07/30/2012 Osteomyelitis 07/30/2012 DVT (deep venous thrombosis) 07/30/2012 UTI (lower urinary tract infection) 07/28/2012 Sacral decubitus ulcer 11/04/2011 Protein-calorie malnutrition, severe 11/04/2011 Hypomagnesemia 11/04/2011 Charcot's joint, vertebrae 06/28/2011 Resolved Problems Problem Noted Date Resolved Date Femur fracture, left 10/22/2012 09/28/2015 Fracture, femur, shaft 05/25/2012 10/22/2012 Open wound of hip and thigh, complicated 09/18/2011 09/28/2015 Encounters Care Team Description Date Type Specialty Frank Parish MD Appointment 11/29/2020 Telephone Urology Elio Weber MD Outpatient Antibiotic Therapy (Opat) 10/04/2020 Telephone Infectious Diseases Elio Weber MD 09/28/2020 Outpt. Infectious Diseases Antibiotic Therapy Elio Weber MD Outpatient Antibiotic Therapy (Opat) 09/22/2020 Telephone Infectious Diseases Kavita Marie MD Upadhyayula, Satyasree, MD Poddutoori, Padma, MD Urinary tract infection associated with cystostomy catheter (HCC) 09/18/2020 Hospital - Encounter 09/22/2020 09/18/2020 Travel from Last 3 Months Immunizations Name Administration Dates Next Due FLU VACCINE >3YO 02/02/2012 (Preservative Free) Tdap Vaccine 02/02/2012 Surgical History Surgery Date Site/Laterality Comments HX BACK SURGERY HX CHOLECYSTECTOMY THORACOTOMY anterior; with corpectomy a nd strut grafting HX FUSION PROCEDURE posterior instrumented fusi on FEMUR FRACTURE SURGERY HERNIA REPAIR HX HYSTERECTOMY OOPHORECTOMY PRESSURE ULCER 11/29/2015 N/A V-Y ADVANCEMENT FLAP WITH GLUTEUS FOR LEFT DEBRIDEMENT PARASACRAL ULCER AND ADVANC EMENT OF THIGH FLAP FOR THE RIGHT ISCHEAL ULCER performed by Trevon Krishnamurthy MD at Main OR/Periop Medical History Medical History Date Comments Fracture of thoracic spine (HCC) T7, T11 DDD (degenerative disc disease), L5-S1 lumbar Charcot spine T10-11 Scoliosis Unspecified site of spinal cord injury 1988 without evidence of spinal bone injury Bladder infection recurrent Kidney reflex Back pain Wound healing, delayed Unspecified deficiency anemia Incontinence Family History Medical History Relation Name Comments Cancer Father Heart Failure Maternal Grandmother Arthritis-rheumatoid Mother Heart Disease Mother Stroke Mother Arthritis Other Lung Disease Other Relation Name Status Comments Father Maternal Grandmother Mother Other Other Social History Date Tobacco Use Types Packs/Day Years Used Never Smoker Smokeless Tobacco: Never Used Tobacco Cessation: Counseling Given: Yes Comments Alcohol Use Standard Drinks/Week No 0 (1 standard drink = 0.6 o z pure alcohol) Sex Assigned at Date Recorded Not on file Last Filed Vital Signs Reading Time Taken Comments Vital Sign 110/61 09/21/2020 8:33 PM CDT Blood Pressure 86 09/21/2020 8:33 PM CDT Pulse 36.7 C (98 F) 09/21/2020 8:33 PM CDT Temperature 16 10/28/2013 1:06 PM CDT Respiratory Rate 100% 09/21/2020 8:33 PM CDT Oxygen Saturation - - Inhaled Oxygen Concentration 61 kg (134 lb 7.7 oz) 09/19/2020 1:26 AM CDT Weight 163 cm (5' 4.17") 09/19/2020 1:26 AM CDT Height 22.96 09/19/2020 1:26 AM CDT Body Mass Index Plan of Treatment Health Maintenance Due Date Last Done Comments MEDICARE ANNUAL WELLNESS 1971 VISIT HIV SCREENING 1986 HEPATITIS C SCREENING 1989 PHYSICAL (COMPREHENSIVE) 1989 EXAM CERVICAL CANCER SCREENING 1992 BREAST CANCER SCREENING 2011 INFLUENZA VACCINE 12/29/2020 02/24/2019, 02/02/2012 DTAP/TDAP VACCINES (2 - 02/01/2022 02/02/2012 Td or Tdap) COVID-19 VACCINE Completed 07/25/2020, 06/28/2020 Goals Goal Patient Associated Recent Progress Patient-Stat Aut hor Goal Type Problems ed? GOAL General On track (09/19/2020 No Alistair marcus, 12:02 PM CDT) GILMAR Steele Note: Get better and be able to sit up Procedures Comments Procedure Name Priority Date/Time Associated Diag nosis COMPREHENSIVE METABOLIC Routine 09/25/2020 Compli cated UTI (urinary PANEL 1:00 PM CDT tract infection) CBC AND DIFF Routine 09/25/2020 Complicated UTI (urinary 1:00 PM CDT tract infection) HC MAGNESIUM Routine 09/21/2020 2:40 AM CDT HC COMPREHENSIVE Routine 09/21/2020 METABOLIC PANEL 2:40 AM CDT HC CBC W/ AUTOMATED DIFF Routine 09/21/2020 2:40 AM CDT HC MAGNESIUM Routine 09/20/2020 9:30 AM CDT HC COMPREHENSIVE Routine 09/20/2020 METABOLIC PANEL 9:30 AM CDT HC CBC W/ AUTOMATED DIFF Routine 09/20/2020 9:30 AM CDT HC LACTIC ACID(LACTATE) Routine 09/19/2020 5:30 PM CDT US RENAL BLADDER COMPLETE Routine 09/19/2020 5:01 PM CDT HC COMPREHENSIVE Routine 09/19/2020 METABOLIC PANEL 6:11 AM CDT HC CBC W/ AUTOMATED DIFF Routine 09/19/2020 6:11 AM CDT CULTURE-BLOOD Routine 09/19/2020 W/SENSITIVITY 1:00 AM CDT COVID-19 (SARS-COV-2) PCR Routine 09/19/2020 12:50 AM CDT URINALYSIS, MICROSCOPIC Routine 09/19/2020 12:30 AM CDT HC URINALYSIS, AUTO W Routine 09/19/2020 MICRO 12:30 AM CDT HC PHOSPHOROUS, SERUM Routine 09/19/2020 12:30 AM CDT HC MAGNESIUM Routine 09/19/2020 12:30 AM CDT HC COMPREHENSIVE Routine 09/19/2020 METABOLIC PANEL 12:30 AM CDT HC CBC W/ AUTOMATED DIFF Routine 09/19/2020 12:30 AM CDT CULTURE-BLOOD Routine 09/19/2020 W/SENSITIVITY 12:30 AM CDT CULTURE-URINE Routine 09/19/2020 W/SENSITIVITY 12:30 AM CDT ECG-SCAN 09/18/2020 12:00 AM CDT from Last 3 Months Results * CBC AND DIFF (09/25/2020 1:00 PM CDT) Only the most recent of 5 results within the time period is included. White Blood 11.38 OTHER OUTSIDE Cells LAB RBC OTHER OUTSIDE LAB Hemoglobin 13.3 OTHER OUTSIDE LAB Hematocrit OTHER OUTSIDE LAB MCV OTHER OUTSIDE LAB MCH OTHER OUTSIDE LAB MCHC OTHER OUTSIDE LAB Platelet Count 381 OTHER OUTSIDE LAB MPV OTHER OUTSIDE LAB RDW OTHER OUTSIDE LAB Neutrophils OTHER OUTSIDE LAB Absolute OTHER OUTSIDE Neutrophil LAB Count Lymphocytes OTHER OUTSIDE LAB Absolute Lymph OTHER OUTSIDE Count LAB Monocytes OTHER OUTSIDE LAB Absolute OTHER OUTSIDE Monocyte Count LAB Eosinophil OTHER OUTSIDE LAB Absolute OTHER OUTSIDE Eosinophil LAB Count Basophils OTHER OUTSIDE LAB Absolute OTHER OUTSIDE Basophil Count LAB Atypical Lym OTHER OUTSIDE LAB Metamyelocyte OTHER OUTSIDE LAB Myelocyte OTHER OUTSIDE LAB Promyelocyte OTHER OUTSIDE LAB Blast OTHER OUTSIDE LAB RBC Morph OTHER OUTSIDE LAB WBC Morphology OTHER OUTSIDE LAB Specimen Blood - Blood Narrative Performed At This result has an attachment that is n ot available. Performing Organization Address City/State/ZIP Code P varun Number OTHER OUTSIDE LAB * COMPREHENSIVE METABOLIC PANEL (09/25/2020 1:00 PM CDT) Only the most recent of 5 results within the time period is included. Sodium OTHER OUTSIDE LAB Potassium 3.9 OTHER OUTSIDE LAB Chloride OTHER OUTSIDE LAB CO2 OTHER OUTSIDE LAB Blood Urea 17 OTHER OUTSIDE Nitrogen LAB Creatinine 0.6 OTHER OUTSIDE LAB Glucose OTHER OUTSIDE LAB Calcium OTHER OUTSIDE LAB Total Protein OTHER OUTSIDE LAB Total Bilirubin OTHER OUTSIDE LAB Albumin OTHER OUTSIDE LAB Alk Phosphatase 79 OTHER OUTSIDE LAB AST (SGOT) 62 OTHER OUTSIDE LAB ALT (SGPT) 92 OTHER OUTSIDE LAB eGFR Non OTHER OUTSIDE LAB Angolan eGFR OTHER OUTSIDE Angolan LAB Anion Gap OTHER OUTSIDE LAB Specimen Blood - Blood Performing Organization Address City/State/ZIP Code P varun Number OTHER OUTSIDE LAB * MAGNESIUM (09/21/2020 2:40 AM CDT) Only the most recent of 3 results within the time period is included. Magnesium 2.0 1.6 - 2.6 mg/dL [facility] Specimen Blood Performing Organization Address City/State/ZIP Code P varun Number [facility] [address] [place] [address] * LACTIC ACID(LACTATE) (09/19/2020 5:30 PM CDT) Lactic Acid 1.5 0.5 - 2.0 MMOL/L [facility] Specimen Blood Performing Organization Address City/[facility]/ZIP Code P varun Number [facility] [address] [place] [address] * US RENAL BLADDER COMPLETE (09/19/2020 5:01 PM CDT) Specimen Impressions Performed At 1. Normal ultrasound appearance of the kidneys. No hydronephrosis or [facility] RESULTS ultrasound evidence of nephrolithiasis. 2. Diffuse hepatic steatosis. Finalized by Jordyn Askew M.D. on 5:06 PM. Dictated by Jordyn Askew M.D. on 09/19/2020 5:02 PM. Narrative Performed At RENAL ULTRASOUND [facility] RES[facility] CLINICAL INDICATION: Female, 50 years o ld; neurogenic bladder, evaluate for renal or bladder calculi. TECHNIQUE: Multiple grayscale ultrasoun d images were obtained through the kidneys and urinary bladder. COMPARISON: CT chest 11/07/2015 FINDINGS: Right kidney: Measures 10.3 cm in lengt h. No hydronephrosis. No shadowing renal calculus. Normal cortical thickne ss and echogenicity. Left kidney: Measures 10.1 cm in length . No hydronephrosis. No shadowing renal calculus. Normal cortical thickness and echogenicity. A dromedary hump is noted at the lateral aspect of the left kidne y, an anatomic variant. Urinary bladder: Decompressed by a Fole y catheter. Other findings: Visualized portions of the liver demonstrate diffuse steatosis. Procedure Note Interface, Radiant Results - 09/19/2020 5:09 PM CDT RENAL ULTRASOUND CLINICAL INDICATION: Female, 50 years old; neurogenic bladder, evaluate for renal or bladder calculi. TECHNIQUE: Multiple grayscale ultrasound images were obtained through the kidneys and urinary bladder. COMPARISON: CT chest 11/07/2015 FINDINGS: Right kidney: Measures 10.3 cm in length. No hydronephrosis. No shadowing renal calculus. Normal cortical thickness and echogenicity. Left kidney: Measures 10.1 cm in length. No hydronephrosis. No shadowing renal calculus. Normal cortical thickness and echogenicity. A dromedary hump is noted at the lateral aspect of the left kidney, an anatomic variant. Urinary bladder: Decompressed by a Power catheter. Other findings: Visualized portions of the liver demonstrate diffuse steatosis. IMPRESSION 1. Normal ultrasound appearance of the kidneys. No hydronephrosis or ultrasound evidence of nephrolithiasis. 2. Diffuse hepatic steatosis. Finalized by Jordyn Askew M.D. on 09/19/2020 5:06 PM. Dictated by Jordyn Askew M.D. on 09/19/2020 5:02 PM. Performing Organization Address City/State/ZIP Code P varun Number RAD RESULTS * CULTURE-BLOOD W/SENSITIVITY (09/19/2020 1:00 AM CDT) Only the most recent of 2 results within the time period is included. Battery Name BLOOD CULTURE [facility] Report Status FINAL 09/25/2020 [facility] Specimen BLOOD BLOOD, PERIPHERAL RIGHT MAIN LAB Description ANTECUBITAL Special NONE [facility] Requests Culture NO GROWTH 5 DAYS [facility] Specimen Blood - Blood,Peripheral Performing Organization Address City/[facility]/ZIP Code P varun Number MAIN LAB [address] [place] [address] * COVID-19 (SARS-COV-2) PCR (09/19/2020 12:50 AM CDT) COVID-19 FLOCKED SWAB [facility] (SARS-CoV-2) NASOPHARYNGEAL PCR Source COVID-19 NOT DETECTED DN-NOT DETECTED [facility] (SARS-CoV-2) Comment: PCR This assay is designed to detect the S and/or ORF1ab genes of SARS-CoV-2 using nucleic acid amplification. A "Not Detected" result does not preclude the possibility of SARS-CoV-2 infection since the adequacy of sample collection and/or low viral burden may result in the presence of viral nucleic acids below the analytical sensitivity of this test method. Test results should be used along with other clinical and laboratory data in making the diagnosis. Test parameters have not been validated for screening in asymptomatic patients.This test has not been FDA cleared or approved. This test is authorized for use under the FDA Emergency Use Authorization and performance characteristics have been verified by the [facility]. Fact sheet for providers: https://www.fda.gov/media/2903 85/download Fact sheet for patients: https://www.fda.gov/media/5725 87/download Specimen Flocked Swab - Nasopharyngeal Performing Organization Address City/State/ZIP Code P varun Number [facility] [address] [place] [id number] * URINALYSIS, MICROSCOPIC (09/19/2020 12:30 AM CDT) WBCs,UA 20-50 0 - 2 /HPF MAIN LAB RBCs,UA PACKED 0 - 3 /HPF [facility] MucousUA TRACE [facility] Hyaline Cast 0-2 MAIN LAB Specimen Urine - Urine Performing Organization Address City/State/ZIP Code P varun Number [facility] [address] [place] [address] * URINALYSIS DIPSTICK (09/19/2020 12:30 AM CDT) Color,UA YELLOW [facility] Turbidity,UA 1+ (A) CLEAR-CLEAR MAIN LAB Specific 1.012 1.003 - 1.035 MAIN LAB [place]-Urine pH,UA 6.0 5.0 - 8.0 [facility] Protein,UA NEG NEG-NEG [facility] Glucose,UA NEG NEG-NEG [facility] Ketones,UA NEG NEG-NEG MAIN LAB Bilirubin,UA NEG NEG-NEG MAIN LAB Blood,UA 2+ (A) NEG-NEG MAIN LAB Urobilinogen,UA NORMAL NORM-NORMAL MAIN LAB Nitrite,UA POS (A) NEG-NEG MAIN LAB Leukocytes,UA 3+ (A) NEG-NEG MAIN LAB Urine Ascorbic POS (A) NEG-NEG MAIN LAB Acid, UA Comment: Ascorbic acid is found in various food supplies and dietary supplements, and is reported to cause strong interference with Macroscopic Urinalysis testing for glucose, blood and nitrite, and can result in a false negative result. Specimen Urine - Urine Performing Organization Address City/State/ZIP Code P varun Number MAIN LAB [address] [place] [address] * CULTURE-URINE W/SENSITIVITY (09/19/2020 12:30 AM CDT) Battery Name URINE CULTURE MAIN LAB Report Status FINAL 09/20/2020 MAIN LAB Specimen URINE INDWELLING CATHETER MAIN LAB Description Special NONE MAIN LAB Requests Culture <100,000 CFU/ml MAIN LAB PSEUDOMONAS AERUGINOSA (A) Specimen Urine - Indwelling Catheter Antibiotic Method Susceptibility Organism Amikacin MARY (MCG/ML), INTERPRETATION, PHX <=8: Susceptible Pseudomonas aeruginosa Aztreonam MARY (MCG/ML), INTERPRETATION, PHX >16: Resistant Pseudomonas aeruginosa Cefepime MARY (MCG/ML), INTERPRETATION, PHX 16: Resistant Pseudomonas aeruginosa Gentamicin MARY (MCG/ML), INTERPRETATION, PHX 4: Susceptible Pseudomonas aeruginosa Levofloxacin MARY (MCG/ML), INTERPRETATION, PHX >4: Resistant Pseudomonas aeruginosa Meropenem MARY (MCG/ML), INTERPRETATION, PHX 1: Susceptible Pseudomonas aeruginosa Piperacil/Tazobactam MARY (MCG/ML), INTERPRETATION, PHX 16/4: Susceptible Pseudomonas aeruginosa Tobramycin MARY (MCG/ML), INTERPRETATION, PHX <=2: Susceptible Pseudomonas aeruginosa Performing Organization Address City/State/ZIP Code P varun Number MAIN LAB [address] [place] [address] * PHOSPHORUS (09/19/2020 12:30 AM CDT) Phosphorus 2.9 2.0 - 4.5 MG/DL [facility] Specimen Blood Performing Organization Address City/[facility]/ZIP Code P varun Number MAIN LAB [address] [place] [address] * ECG-SCAN (09/18/2020 12:00 AM CDT) Narrative Performed At This result has an attachment that is n ot available. Ordered by an unspecified provider. from Last 3 Months Additional Health Concerns Last Indicated Resolved Time Infection Onset Date 09/19/2020 Pseudomonas - MDRO 09/19/2020 Insurance Type Payer Benefit Subscriber ID Effective Phone Address Plan / Dates Group [employer] [address] [id number] 2020-P resent Medicaid [facility] MEDICAID [facility] [id number] 2015-P [facility]/HO [id number] 03/31/2014- P [place] resent HEALTH/SNF /INTERMEDIATE [phone] Advance Directives Patient Office Agent Explanation Type Date Recorded Advance Directives and Living Will Advance 11/07/2015 6:24 PM Directive/DPOA Date Inactivated Comments Code Status Date Activated 09/22/2020 11:15 AM Full Code 09/18/2020 11:31 PM Provider has discussed Code Status No, more discussi on w/Patient or Family? needed 12/06/2015 8:02 PM Full Code 11/29/2015 11:11 AM Provider has discussed Code Status No, discussion no t w/Patient or Family? necessary based on Dx 11/21/2015 9:04 PM Full Code 11/08/2015 4:02 PM Provider has discussed Code Status Yes w/Patient or Family? 11/08/2015 4:02 PM Full Code 11/08/2015 2:05 AM Provider has discussed Code Status No, more discussi on w/Patient or Family? needed 10/06/2012 7:16 PM Full Code 10/02/2012 8:00 AM Provider has discussed Code Status No, more discussi on w/Patient or Family? needed
[2020-12-14] MEDS: LACTATED RINGERS 1,000 ML IV PRN ×2 (12:30→14:40)
[2020-12-14] MEDS ORDERED: 0.9% SODIUM CHLORIDE PF INJ 20 ML VIAL ONE (12:45)
[2020-12-14] MEDS ORDERED: HEParin (CENTRAL IV FLUSH) 500 UNIT/5 ML SYR ONE (12:45)
[2020-12-14] MEDS ORDERED: LIDOCAINE/EPI 1%-1:100,000 (XYLOCAINE) 20ML ONE (12:45)
[2020-12-14] MEDS ORDERED: ceFAZolin 2 GM IV Premixed 50 ML IV ONE (13:00)
[2020-12-14] MEDS ORDERED: fentaNYL INJ 100 MCG/2 ML AMP ONE ×2 (13:00→15:35)
[2020-12-14] MEDS ORDERED: proPOfol 200 MG/20 ML (DIPRIVAN) VIAL IV ONE ×4 (13:00→15:01)
[2020-12-14] MEDS ORDERED: MIDAZOLAM 2 MG/2 ML (VERSED) VIAL ONE (13:00)
--- NOTE | 2020-12-14 13:53 | Progress Note-Pre Operative ---
Pre-Operative Progress Note H&P Reviewed The H&P was reviewed, patient examined and no changes noted. Date Seen by Provider: Dec 14, 2020 Time Seen by Provider: 13:00 Date H&P Reviewed: Dec 14, 2020 Time H&P Reviewed: 13:00 Pre-Operative Diagnosis: paraplegia, poor peripheral venous circulation AIDA GOMEZ MD Dec 14, 2020 13:53
[2020-12-14] MEDS ORDERED: HYDR-3817 PO (13:56)
--- NOTE | 2020-12-14 13:56 | Discharge Inst-Surgical ---
D/C Lap Instructions-PATRICIA New, Converted, or Re-Newed RX: RX on Chart AIDA GOMEZ MD Dec 14, 2020 13:56
[2020-12-14] MEDS ORDERED: ONDANSETRON 4 MG/2 ML (SDV) Z0FRAN IVP PRN ×2 (14:00→16:00)
[2020-12-14] MEDS ORDERED: morphine INJ 10 MG/ML 1ML (SYR OR VIAL) IVP PRN ×2 (14:00)
[2020-12-14] MEDS ORDERED: ACETAMINOPHEN 325 MG TABLET PO PRN (14:00)
[2020-12-14] MEDS ORDERED: oxyCODONE/APAP 5/325MG (PERCOCET 5) TABLET PO PRN (14:00)
[2020-12-14] MEDS: LIDOCAINE/EPI 1%-1:100,000 (XYLOCAINE) 20ML ONE ×2 (15:19→15:21)
--- NOTE | 2020-12-14 15:23 | Progress Note-Post Operative ---
Post-Operative Progess Note Surgeon (s)/Water Plant Maintenance Mechanic (s) Surgeon AIDA GOMEZ MD Water Plant Maintenance Mechanic: nay garza CREDIT CARD CONTROL CLERK Pre-Operative Diagnosis paraplegia, poor peripheral venous circulation Post-Operative Diagnosis same Procedure & Operative Findings Date of Procedure 12/14/20 Procedure Performed/Findings placement right IJ groshong implantable catheter under flouroscopy. Anesthesia Type mac with local Estimated Blood Loss Estimated blood loss (mL): minimal Specimens/Packing Specimens Removed none AIDA GOMEZ MD Dec 14, 2020 15:23
--- NOTE | 2020-12-14 15:35 | Diagnostic Imaging Report ---
INDICATION: Fluoroscopy during Groshong catheter placement. Fluoroscopy was provided in the OR during Groshong catheter placement. 550 seconds of fluoroscopic time was utilized. A single image was obtained showing a right-sided catheter overlying SVC. IMPRESSION: Fluoroscopy during Groshong catheter placement. Dictated by: Dictated on workstation # [id number]
--- NOTE | 2020-12-14 15:53 | Anesthesia-General Post-Op ---
MAC Patient Condition Mental Status/LOC: Same as Preop Cardiovascular: Satisfactory Nausea/Vomiting: Absent Respiratory: Satisfactory Pain: Controlled Complications: Absent Post Op Complications Complications None Follow Up Care/Instructions Patient Instructions None needed. Anesthesiology Discharge Order Discharge Order Patient is doing well, no complaints, stable vital signs, no apparent adverse anesthesia problems. No complications reported per nursing. QUAN GIL CRNA Dec 14, 2020 15:53
[2020-12-14] MEDS ORDERED: fentaNYL INJ 100 MCG/2 ML AMP IVP ONE (16:00)
--- NOTE | 2020-12-14 16:06 | Diagnostic Imaging Report ---
EXAMINATION: Chest 1 view HISTORY: Port placement COMPARISON: 10/28/2020 FINDINGS: There is a new right internal jugular port tip in the superior vena cava. There is a thoracic spine fusion. No pleural effusion or pneumothorax. Heart size is normal. Upper mediastinum widening is likely due in part to patient positioning and technique. IMPRESSION: 1. New right internal jugular port tip in the superior vena cava. Dictated by: Dictated on workstation # [id number]
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
== END 2020-12-14 17:15 ==
LOC: SDC 12:01
PROVIDERS: ATTEND Surgery
DX: T82.598A Other mechanical complication of other cardiac and vascular devices and implants, initial encounter (principal); G82.20 Paraplegia, unspecified; I87.2 Venous insufficiency (chronic) (peripheral); K21.9 Gastro-esophageal reflux disease without esophagitis; D64.9 Anemia, unspecified; N80.9 Endometriosis, unspecified; E11.9 Type 2 diabetes mellitus without complications; D50.9 Iron deficiency anemia, unspecified; Z79.899 Other long term (current) drug therapy; Z79.84 Long term (current) use of oral hypoglycemic drugs; Z90.49 Acquired absence of other specified parts of digestive tract; Z90.710 Acquired absence of both cervix and uterus
CPT/HCPCS: 71045; 76000; 87081

== ENCOUNTER 2020-12-15 17:40 | Emergency (ER) | payer MEDICARE, MEDICAID ==
[~2020-12-15 17:40] MED LIST changes: +HYDR-3817 PO
--- NOTE | 2020-12-15 19:05 | ED General ---
General Chief Complaint: Cardiac/General Problems Stated Complaint: ELEVATED HEART RATE Nursing Triage Note: Patient presents to the ED via EMS with c/o left upper abdominal pain and tachycardia. She reports that she had her port placed yesterday and then today started having sharp pains in her left upper abdomen. States, "When I get gas it travels up to my head and gets stuck and causes my chest to hurt". Reports that the pain is better when she change positions and worse when she is lying flat. Source of Information: Patient, EMS, Old Records History of Present Illness Date Seen by Provider: Dec 15, 2020 Time Seen by Provider: 17:44 Initial Comments 50 yo female presenting with complaints of chest pains since port placement yesterday and short of breath when laying flat. She feels better with being propped up. She also was concerned about her heart rate being elevated. She had sensation of gas pains in her upper left abdomen going into her chest. She states usually her gas pains going to her head and cause headaches. She has pain in her chest from where attempt was made to place a port on the left and then was successfully placed on the right yesterday on December 14. She has no fever or chills. She had a bowel movement just prior to leaving her house to come back to the ED. Timing/Duration: 1 Day Severity: Moderate Modifying Factors: worse with Other (position of laying flat worsens symptoms but improved with sitting up) Associated Systoms: Chest Pain (chest wall pain around sites of attempted placement in left chest and successful placement in right chest from 12/14); No Cough, No Diaphoresis, No Fever/Chills, No Headaches, No Loss of Appetite, No Nausea/Vomiting, No Seizure; Shortness of Air; No Syncope Allergies and Home Medications Allergies Coded Allergies: Sulfa (Sulfonamide Antibiotics) (Verified Allergy, Unknown, 10/23/18) vancomycin (Verified Allergy, Unknown, 10/23/18) Patient Home Medication List Home Medication List Reviewed: Yes Amoxicillin/Potassium Clav (Amox Tr-K Clv 875-125 mg Tab) 1 Each Tablet, 1 TAB PO Q12H, (Reported) Entered as Reported by: CONNOR SANTORO on 12/08/20 0943 Ascorbic Acid (Vitamin C) 1,000 Mg Tablet, 1,000 MG PO BID, (Reported) Entered as Reported by: CARLEY VERNON on 04/10/19 1607 Baclofen (Baclofen) 20 Mg Tablet, 20 MG PO QID, (Reported) Entered as Reported by: CARLEY VERNON on 04/10/19 160 Cetirizine HCl (Cetirizine HCl) 10 Mg Tablet, 10 MG PO DAILY, (Reported) Entered as Reported by: JAELYN MADRID on 04/12/19 0914 Diazepam (Diazepam) 10 Mg Tablet, 10 MG PO QID, (Reported) Entered as Reported by: CARLEY VERNON on 04/10/19 160 Doxycycline Hyclate (Doxycycline Hyclate) 100 Mg Capsule, 100 MG PO BID, (Reported) Entered as Reported by: JAELYN MADRID on 10/26/19 1342 Hydrocodone/Acetaminophen (Hydrocodone-Acetamin 7.5-325) 1 Each Tablet, 1 EACH PO Q4H Prescribed by: AIDA GOMEZ on 12/14/20 1356 Ibuprofen (Ibuprofen) 200 Mg Tablet, 600 MG PO Q8H PRN for PAIN-MILD (1-4), (Reported) Entered as Reported by: JAELYN MADRID on 04/12/19 0921 Metformin HCl (Metformin HCl) 500 Mg Tablet, 500 MG PO DAILY, (Reported) Entered as Reported by: CONNOR SANTORO on 12/08/20 0943 Omeprazole (Omeprazole) 20 Mg Tablet.dr, 20 MG PO 1400, (Reported) Entered as Reported by: CARLEY VERNON on 04/10/19 160 Oxybutynin Chloride (Oxybutynin Chloride ER) 15 Mg Tab.er.24, 15 MG PO DAILY, (Reported) Entered as Reported by: JAELYN MADRID on 10/26/19 1342 Rivaroxaban (Xarelto) 20 Mg Tablet, 20 MG PO HS, (Reported) Entered as Reported by: JAELYN MADRID on 04/12/19 0912 Review of Systems Review of Systems Constitutional: no symptoms reported EENTM: no symptoms reported Respiratory: no symptoms reported Cardiovascular: see HPI Gastrointestinal: see HPI; No nausea, No vomiting Genitourinary: no symptoms reported Musculoskeletal: other (Pain in the chest wall with palpation especially around incision sites for Port-A-Cath placement) Skin: see HPI, change in color (Some bruising around the recent Port-A-Cath sites) Psychiatric/Neurological: Anxiety Past Mjdrttl-Nhcxxf-Bjhusl Hx Patient Social History Tobacco Use?: No Use of E-Cig and/or Vaping dev: No Substance use?: No Alcohol Use?: No Pt feels they are or have been: No Immunizations Up To Date First/Initial COVID19 Vaccinat: yes Second COVID19 Vaccination Roosevelt: yes Seasonal Allergies Seasonal Allergies: No Past Medical History Surgeries: Yes (right AKA, sp tube, port x2, ORIF Left leg) Amputation, Cystectomy, Gallbladder, 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, Orthopedic, Urinary Diversion Respiratory: No Cardiac: No Neurological: Yes Paralysis, Spinal Cord Injury Female Reproductive Disorders: Endometriosis, Ovarian Cyst 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 Genitourinary: Yes (SP cath) Kidney Stones, Neurogenic Bladder, UTI-Chronic Gastrointestinal: Yes Gastroesophageal Reflux Musculoskeletal: Yes (OSTEOMYELITIS) Amputee, Back Injury Endocrine: Yes Diabetes, Non-Insulin dep HEENT: No Cancer: No Psychosocial: Yes Anxiety Integumentary: Yes (hx of DECUB STAGE 4, PRESSURE ULCER, CELLULITIS, MRSA) Blood Disorders: Yes (IRON DEFICIENCY ANEMIA) Family Medical History Heart Disease, Cancer, Stroke Physical Exam Vital Signs Vital Signs - First Documented 12/15/20 17:41 Temp 36.7 Pulse 119 Resp 15 B/P (MAP) 125/50 (75) Pulse Ox 94 O2 Delivery Room Air Capillary Refill : Less Than 3 Seconds Height, Weight, BMI Height: 5'5.00" Weight: 175lbs. oz. 79.663050at; 0.00 BMI Method:Estimated General Appearance: No Apparent Distress, Chronically ill HEENT: PERRL/EOMI, TMs Normal, Normal ENT Inspection, Pharynx Normal Neck: Full Range of Motion, Normal Inspection, Non Tender Respiratory: Lungs Clear, Normal Breath Sounds, No Accessory Muscle Use, Accessory Muscle Use Cardiovascular: Regular Rate, Rhythm, Normal Peripheral Pulses Extremity: Normal Capillary Refill Neurologic/Psychiatric: Alert, Oriented x3 Skin: Warm/Dry Progress/Results/Core Measures Suspected Sepsis SIRS Temperature: Pulse: 119 Respiratory Rate: 15 Blood Pressure 125 /50 Mean: 75 Results/Orders My Orders Orders - OZZY LEMUS MD Ekg Tracing (12/15/20 18:36) Vital Signs/I&O 12/15/20 12/15/20 12/15/20 12/15/20 17:41 18:45 19:15 19:20 Temp 36.7 36.7 Pulse 119 114 113 113 Resp 15 21 23 23 B/P (MAP) 125/50 (75) 110/57 112/60 112/60 Pulse Ox 94 94 94 94 O2 Delivery Room Air Room Air Room Air Room Air Capillary Refill : Less Than 3 Seconds Blood Pressure Mean: 75 Progress Note : Progress Note Electrocardiogram was obtained on arrival due to the patient's complaint of fast heart rate. This did show some mild tachycardia without ischemia. Discussed with the patient about obtaining x-rays and basic labs however she refused stating that she was feeling better would be appropriate set up so she would like to just try things at home with additional assistance sitting up. Anticipate this may be related to shallow breathing from chest wall pain due to her placement of Port-A-Cath yesterday. Counseled patient on follow-up and return precautions. ECG Initial ECG Impression Date: Dec 15, 2020 Initial ECG Impression Time: 17:45 Initial ECG Rate: 118 Initial ECG Rhythm: S.Tach Initial ECG Comparisson: No Previous ECG Available Comment Sinus tachycardia with heart rate of 118 bpm. IL interval 156 ms. QT interval 351 ms with a QTc interval [address] elevation. Appears similar to prior tracings in the system. Departure Impression Primary Impression: Musculoskeletal chest pain Additional Impressions: Port-A-Cath in place Shortness of breath Disposition: 01 HOME, SELF-CARE Condition: Stable Departure-Patient Inst. Decision time for Depature: 19:04 Referrals: MELY BEDOYA MD (PCP/Family) Primary Care Physician Patient Instructions: Shortness of Breath, Adult ED, [facility] ([place]) Add. Discharge Instructions: You can try the pillows and see if being propped up more helps control your symptoms. If you have worsening symptoms or are not improving then you can certainly follow up with surgeon in [place] or return for evaluation as discussed today of xrays of the chest, labs, IV fluids. All discharge instructions reviewed with patient and/or family. Voiced understanding. OZZY LEMUS MD Dec 15, 2020 19:05
[2020-12-15 19:20] VITALS: BP 112/60
== END 2020-12-15 19:20 | disposition home or self-care (01) ==
LOC: EDUNIT# 17:40 → ER FS 17:41
DX: R07.89 Other chest pain (principal); R06.02 Shortness of breath; R00.0 Tachycardia, unspecified; E11.9 Type 2 diabetes mellitus without complications; F41.9 Anxiety disorder, unspecified; K21.9 Gastro-esophageal reflux disease without esophagitis; Z95.9 Presence of cardiac and vascular implant and graft, unspecified; Z79.84 Long term (current) use of oral hypoglycemic drugs; Z79.899 Other long term (current) drug therapy
CPT/HCPCS: 93005

== ENCOUNTER 2020-12-23 18:41 | Emergency (ER) | payer MEDICARE, MEDICAID ==
[~2020-12-23] VITALS: Ht 167.7 cm; Wt 63.5 kg
[2020-12-23 18:41] VITALS: BP 119/70
[~2020-12-23 18:41] MED LIST changes: -DOXY100C2 PO; +DOXY100C5 PO
--- NOTE | 2020-12-23 19:54 | ED Upper Extremity ---
General Chief Complaint: Upper Extremity Stated Complaint: RT ARM PAIN Nursing Triage Note: PT ARRIVED BY [facility] WITH CHIEF COMPLAINT OF ARM PAIN, AREA OF CONCERN, POSSIBLE BLOOD CLOT. PT WAS ALERT, ORIENTED X4. PT STATED SHE GOT PORT PLACED ON THE . PT HAS PAIN IN RIGHT ARM/HAND AND WORRIED ABOUT A BLOOD CLOT DUE TO PORT BEING PLACED ON THE RIGHT SIDE OF HER CHEST. VITALS WERE DONE ON ARRIVAL AND REPORT WAS GIVEN TO PROVIDER. Source: patient, EMS, old records History of Present Illness Date Seen by Provider: Dec 23, 2020 Time Seen by Provider: 19:26 Initial Comments 50-year-old female presenting with complaints of right arm pain and swelling. She had a port placed on the right side of her chest December 12. She noticed soreness in her shoulder and right forearm that seem to be worse tonight. She felt like there was some swelling to her right forearm as well. There is no redness or increased warmth. She has oxygen saturation 96 to 98% on room air. Her blood pressure is normal. Her initial heart rate was in the 112-118 range which is not unusual for her. On my exam of her she was down to 100-104 for her heart rate. She denies any numbness or tingling to her right arm. She has good pulses and capillary refill. She is currently taking Xarelto and states that she has not missed any doses. She was concerned that she may have had a blood clot in her arm and came in to be evaluated. Pain/Injury Location: right shoulder, right forearm Modifying Factors: Worse With Movement Allergies and Home Medications Allergies Coded Allergies: Sulfa (Sulfonamide Antibiotics) (Verified Allergy, Unknown, 10/23/18) vancomycin (Verified Allergy, Unknown, 10/23/18) Patient Home Medication List Home Medication List Reviewed: Yes Amoxicillin/Potassium Clav (Amox Tr-K Clv 875-125 mg Tab) 1 Each Tablet, 1 TAB PO Q12H, (Reported) Entered as Reported by: CONNOR SANTORO on 12/08/20 0940 Ascorbic Acid (Vitamin C) 1,000 Mg Tablet, 1,000 MG PO BID, (Reported) Entered as Reported by: CARLEY VERNON on 04/10/19 1607 Baclofen (Baclofen) 20 Mg Tablet, 20 MG PO QID, (Reported) Entered as Reported by: CARLEY VERNON on 04/10/19 1607 Cetirizine HCl (Cetirizine HCl) 10 Mg Tablet, 10 MG PO DAILY, (Reported) Entered as Reported by: JAELYN MADRID on 04/12/19 0914 Diazepam (Diazepam) 10 Mg Tablet, 10 MG PO QID, (Reported) Entered as Reported by: CARLEY VERNON on 04/10/19 1607 Doxycycline Hyclate (Doxycycline Hyclate) 100 Mg Capsule, 100 MG PO BID, (Reported) Entered as Reported by: JAELYN MADRID on 10/26/19 1342 Hydrocodone/Acetaminophen (Hydrocodone-Acetamin 7.5-325) 1 Each Tablet, 1 EACH PO Q4H Prescribed by: AIDA GOMEZ on 12/14/20 1356 Ibuprofen (Ibuprofen) 200 Mg Tablet, 600 MG PO Q8H PRN for PAIN-MILD (1-4), (Reported) Entered as Reported by: JAELYN MADRID on 04/12/19 0921 Metformin HCl (Metformin HCl) 500 Mg Tablet, 500 MG PO DAILY, (Reported) Entered as Reported by: CONNOR SANTORO on 12/08/20 0943 Omeprazole (Omeprazole) 20 Mg Tablet.dr, 20 MG PO 1400, (Reported) Entered as Reported by: CARLEY VERNON on 04/10/19 1607 Oxybutynin Chloride (Oxybutynin Chloride ER) 15 Mg Tab.er.24, 15 MG PO DAILY, (Reported) Entered as Reported by: JAELYN MADRID on 10/26/19 1342 Rivaroxaban (Xarelto) 20 Mg Tablet, 20 MG PO HS, (Reported) Entered as Reported by: JAELYN MADRID on 04/12/19 0912 Review of Systems Constitutional: No chills, No fever EENTM: no symptoms reported Respiratory: No short of breath Cardiovascular: chest pain (improving musculoskeletal chest wall pain from recent procedure) Gastrointestinal: no symptoms reported Genitourinary: other (indwelling power) Musculoskeletal: see HPI Skin: see HPI; No change in color Psychiatric/Neurological: Anxiety Past Mlgwbho-Skcaod-Wwervw Hx Patient Social History Tobacco Use?: No Substance use?: No Alcohol Use?: No Pt feels they are or have been: No Immunizations Up To Date First/Initial COVID19 Vaccinat: yes Second COVID19 Vaccination [place]: yes Seasonal Allergies Seasonal Allergies: No Past Medical History Surgery/Hospitalization HX: 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 Surgeries: Yes (right AKA, sp tube, port x2, ORIF Left leg) Amputation, Cystectomy, Gallbladder, 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, Orthopedic, Urinary Diversion Respiratory: No Cardiac: No Neurological: Yes Paralysis, Spinal Cord Injury Female Reproductive Disorders: Endometriosis, Ovarian Cyst 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 Genitourinary: Yes (SP cath) Kidney Stones, Neurogenic Bladder, UTI-Chronic Gastrointestinal: Yes Gastroesophageal Reflux Musculoskeletal: Yes (OSTEOMYELITIS) Amputee, Back Injury Endocrine: Yes Diabetes, Non-Insulin dep HEENT: No Cancer: No Psychosocial: Yes Anxiety Integumentary: Yes (hx of DECUB STAGE 4, PRESSURE ULCER, CELLULITIS, MRSA) Blood Disorders: Yes (IRON DEFICIENCY ANEMIA) Family Medical History Heart Disease, Cancer, Stroke Physical Exam Vital Signs Vital Signs - First Documented 12/23/20 18:41 Temp 36.8 Pulse 112 Resp 16 B/P (MAP) 119/70 (86) Pulse Ox 96 O2 Delivery Room Air Capillary Refill : Less Than 3 Seconds Height, Weight, BMI Height: 5'5.00" Weight: 175lbs. oz. 79.470917mg; 22.00 BMI Method:Estimated General Appearance: no apparent distress Cardiovascular: normal peripheral pulses, tachycardia (100-104 heart rate) Respiratory: lungs clear, normal breath sounds, other (tender to palpation of chest wall) Elbow/Forearm: ecchymosis, soft tissue tenderness (right forearm) Neurologic/Tendon: normal sensation, normal motor functions, normal tendon functions Neurologic/Psychiatric: alert, oriented x 3 Skin: normal color, warm/dry Progress/Results/Core Measures Results/Orders Vital Signs/I&O 12/23/20 18:41 Temp 36.8 Pulse 112 Resp 16 B/P (MAP) 119/70 (86) Pulse Ox 96 O2 Delivery Room Air Blood Pressure Mean: 86 Progress Progress Note : Progress Note Explained to patient the process of obtaining ultrasound over the weekend to evaluate for DVT. She stated then she is on Xarelto already and did not have transportation to get to outpatient US if she did have positive D dimer. She Wanted to wait and just try symptomatic treatment and then if not improved counseled she could be seen during the week for ultrasound or have her doctor order outpatient order. Vital signs reassuring that O2 sats are mid to upper 90s and Heart rate down to 100-104. Departure Impression Primary Impression: Right forearm pain Additional Impressions: Right shoulder strain Qualified Codes: S46.911A - Strain of unspecified muscle, fascia and tendon at shoulder and upper arm level, right arm, initial encounter History of blood clots Disposition: HOME, SELF-CARE Condition: Stable Departure-Patient Inst. Decision time for Depature: 19:52 Referrals: MELY BEDOYA MD (PCP/Family) Primary Care Physician Patient Instructions: Muscle Strain ED, Muscle and Bone Pain (DC) Add. Discharge Instructions: Make sure you are continuing to take the Xarelto to treat for any blood clots and prevent any from forming. You may try applying a warm pack or heat to your forearm and shoulder to help with pain and inflammation. If not improving or having worsening symptoms over the next several days then you could call your doctor about scheduling an ultrasound as an outpatient or return during the morning hours when ultrasound would be available during the week All discharge instructions reviewed with patient and/or family. Voiced understanding. OZZY LEMUS MD Dec 23, 2020 19:54
== END 2020-12-23 20:16 | disposition home or self-care (01) ==
LOC: EDUNIT# 18:41 → ER FS 18:42
DX: S46.911A Strain of unspecified muscle, fascia and tendon at shoulder and upper arm level, right arm, initial encounter (principal); S50.11XA Contusion of right forearm, initial encounter; E11.9 Type 2 diabetes mellitus without complications; F41.9 Anxiety disorder, unspecified; K21.9 Gastro-esophageal reflux disease without esophagitis; Z79.01 Long term (current) use of anticoagulants; Z79.84 Long term (current) use of oral hypoglycemic drugs; Z79.899 Other long term (current) drug therapy; X58.XXXA Exposure to other specified factors, initial encounter
CPT/HCPCS: 99283

== ENCOUNTER → 2021-01-02 | Outpatient (CLI) | payer MEDICARE, MEDICAID | LOC: IHC 18:52 | PROVIDERS: ATTEND Family Medicine | DX: N39.0 Urinary tract infection, site not specified (principal) | CPT/HCPCS: 87077; 87088 ==

== ENCOUNTER 2021-01-08 09:02 | Emergency (ER) | payer MEDICARE, MEDICAID ==
[~2021-01-08] VITALS: Ht 162 cm; Wt 63.0 kg
[2021-01-08] MEDS ORDERED: PANTOPRAZOLE 40 MG (PROTONIX) VIAL IV STA (09:19)
[2021-01-08] MEDS ORDERED: ONDANSETRON 4 MG/2 ML (SDV) Z0FRAN IVP STA (09:19)
[2021-01-08] MEDS ORDERED: morphine INJ 10 MG/ML 1ML (SYR OR VIAL) IVP STA (09:19)
[2021-01-08] MEDS ORDERED: NS IV 1000 ML 1,000 ML IV STA (09:20)
[2021-01-08 09:39] LABS: HEMATOCRIT 39 % (35-52); HEMOGLOBIN 12.4 g/dL (11.5-16.0); MEAN CORPUSCULAR HEMOGLOBIN 29 pg (25-34); MEAN CORPUSCULAR HGB CONC 32 g/dL (32-36); MEAN CORPUSCULAR VOLUME 89 fL (80-99); MEAN PLATELET VOLUME 10.2 fL (9.0-12.2); PLATELET COUNT 437 10^3/uL (130-400); WHITE BLOOD COUNT 13.4 10^3/uL (4.3-11.0)
[2021-01-08 09:40] LABS: BASOPHILS % (AUTO) 1 % (0-10); EOSINOPHILS % (AUTO) 5 % (0-10); LYMPHOCYTES % (AUTO) 23 % (12-44); MONOCYTES % (AUTO) 12 % (0-12); NEUTROPHILS % (AUTO) 58 % (42-75)
[2021-01-08 09:41] LABS: BASOPHILS # (AUTO) 0.1 10^3/uL (0.0-0.1); EOSINOPHILS # (AUTO) 0.7 10^3/uL (0.0-0.3); LYMPHOCYTES # (AUTO) 3.2 X 10^3 (1.0-4.0); MONOCYTES # (AUTO) 1.6 X 10^3 (0.0-1.0); NEUTROPHILS # (AUTO) 7.8 X 10^3 (1.8-7.8)
--- NOTE | 2021-01-08 09:46 | ED General ---
General Chief Complaint: Chest Wall Stated Complaint: CHEST PAIN Nursing Triage Note: ARRIVED VIA AMBULANCE FROM HOME WITH MULTIPLE COMPLAINTS. COMPLAINS OF BILAT ARM PAIN, PAIN OVER HER RIGHT PORT AREA, AND REFLUX. Source of Information: Patient, EMS, Old Records History of Present Illness Date Seen by Provider: Jan 08, 2021 Time Seen by Provider: 09:03 Initial Comments 50-year-old female presenting by EMS from home with multiple complaints. She has had a port placed to her right chest in the last month. Ever since the port was placed she has had multiple ER visits for complaints of pain. She states that they are scheduled to do an ultrasound of her arm to check for blood clots. She does take a blood thinner. She has a history of DVT and PEs. She also has been having a lot of reflux and heartburn symptoms. She has been having to belch a lot. She takes chronic hydrocodone and ibuprofen for pain but states that it was not helping. She had EMS bring her to the emergency department today because she said that she could not take her symptoms any longer. She has testing scheduled for tomorrow to evaluate her arm and the port but again came in today to the ED because she felt like she could not tolerate her symptoms any longer. Severity: Moderate Modifying Factors: worse with Movement Associated Systoms: Chest Pain (burning indigestion pain in central chest); No Cough, No Diaphoresis, No Fever/Chills; Headaches; No Loss of Appetite; Malaise, Nausea/Vomiting (nausea with her heartburn but no vomiting); No Shortness of Air, No Syncope, No Weakness Allergies and Home Medications Allergies Coded Allergies: Sulfa (Sulfonamide Antibiotics) (Verified Allergy, Unknown, 10/23/18) vancomycin (Verified Allergy, Unknown, 10/23/18) Patient Home Medication List Home Medication List Reviewed: Yes Amoxicillin/Potassium Clav (Amox Tr-K Clv 875-125 mg Tab) 1 Each Tablet, 1 TAB PO Q12H, (Reported) Entered as Reported by: CONNOR SANTORO on 12/08/20 0961 Ascorbic Acid (Vitamin C) 1,000 Mg Tablet, 1,000 MG PO BID, (Reported) Entered as Reported by: CARLEY VERNON on 04/10/19 1607 Baclofen (Baclofen) 20 Mg Tablet, 20 MG PO QID, (Reported) Entered as Reported by: CARLEY VERNON on 04/10/19 1607 Cetirizine HCl (Cetirizine HCl) 10 Mg Tablet, 10 MG PO DAILY, (Reported) Entered as Reported by: JAELYN MADRID on 04/12/19 0914 Diazepam (Diazepam) 10 Mg Tablet, 10 MG PO QID, (Reported) Entered as Reported by: CARLEY VERNON on 04/10/19 1607 Doxycycline Hyclate (Doxycycline Hyclate) 100 Mg Capsule, 100 MG PO BID, (Reported) Entered as Reported by: JAELYN MADRID on 10/26/19 1342 Hydrocodone/Acetaminophen (Hydrocodone-Acetamin 7.5-325) 1 Each Tablet, 1 EACH PO Q4H Prescribed by: AIDA GOMEZ on 12/14/20 1356 Ibuprofen (Ibuprofen) 200 Mg Tablet, 600 MG PO Q8H PRN for PAIN-MILD (1-4), (Reported) Entered as Reported by: JAELYN MADRID on 04/12/19 0921 Magnesium Oxide (Magnesium Oxide) 250 Mg Tablet, 250 MG PO BID Prescribed by: OZZY LEMUS on 01/08/21 1042 Metformin HCl (Metformin HCl) 500 Mg Tablet, 500 MG PO DAILY, (Reported) Entered as Reported by: CONNOR SANTORO on 12/08/20 0943 Omeprazole (Omeprazole) 20 Mg Tablet.dr, 20 MG PO 1400, (Reported) Entered as Reported by: CARLEY VERNON on 04/10/19 1607 Oxybutynin Chloride (Oxybutynin Chloride ER) 15 Mg Tab.er.24, 15 MG PO DAILY, (Reported) Entered as Reported by: JAELYN MADRID on 10/26/19 1342 Rivaroxaban (Xarelto) 20 Mg Tablet, 20 MG PO HS, (Reported) Entered as Reported by: JAELYN MADRID on 04/12/19 0912 Sucralfate (Carafate) 1 Gm/10 Ml Oral.susp, 1 GM PO TID PRN for GERD with Esophagitis Prescribed by: OZZY LEMUS on 01/08/21 1042 Review of Systems Review of Systems Constitutional: No chills, No fever EENTM: no symptoms reported Respiratory: no symptoms reported Cardiovascular: see HPI, palpitations Gastrointestinal: see HPI; No abdominal pain, No constipation, No diarrhea; heartburn, nausea; No vomiting Genitourinary: other (recent diagnosis of UTI with pseudomonas and is to start IV antibiotics through port) Musculoskeletal: see HPI, muscle pain (RUE pain since shortly after port placed right chest) Skin: No change in color Psychiatric/Neurological: Anxiety Hematologic/Lymphatic: Blood Clots (hx of blood clots and takes Xarelto chronically) Past Wtdyyvm-Soaqdz-Ycxkoj Hx Patient Social History Smoking Status: Never a Smoker Substance use?: No Alcohol Use?: No Immunizations Up To Date First/Initial COVID19 Vaccinat: yes Second COVID19 Vaccination Roosevelt: unknown COVID19 Vaccine Grape Picker: moderna Seasonal Allergies Seasonal Allergies: No Past Medical History Surgery/Hospitalization HX: 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 Surgeries: Yes (right AKA, sp tube, port x2, ORIF Left leg) Amputation, Cystectomy, Gallbladder, 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, Orthopedic, Urinary Diversion Respiratory: No Cardiac: No Neurological: Yes Paralysis, Spinal Cord Injury Female Reproductive Disorders: Endometriosis, 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 Genitourinary: Yes (SP cath) Kidney Stones, Neurogenic Bladder, UTI-Chronic Gastrointestinal: Yes Gastroesophageal Reflux Musculoskeletal: Yes (OSTEOMYELITIS) Amputee, Back Injury Endocrine: Yes Diabetes, Non-Insulin dep HEENT: No Cancer: No Psychosocial: Yes Anxiety Integumentary: Yes (hx of DECUB STAGE 4, PRESSURE ULCER, CELLULITIS, MRSA) Blood Disorders: Yes (IRON DEFICIENCY ANEMIA) Family Medical History Heart Disease, Cancer, Stroke Physical Exam Vital Signs Vital Signs - First Documented 01/08/21 09:02 Temp 36.3 Pulse 119 Resp 16 B/P (MAP) 126/82 (97) Pulse Ox 95 O2 Delivery Room Air Capillary Refill : Less Than 3 Seconds Height, Weight, BMI Height: 5'5.00" Weight: 175lbs. oz. 79.721208wh; 24.00 BMI Method:Estimated General Appearance: No Apparent Distress HEENT: PERRL/EOMI, Pharynx Normal Neck: Full Range of Motion, Supple Respiratory: Lungs Clear, Normal Breath Sounds, No Accessory Muscle Use, No Respiratory Distress, Other (tender to palpation right anterior chest wall around port) Cardiovascular: Normal Peripheral Pulses, Tachycardia Gastrointestinal: Normal Bowel Sounds, No Pulsatile Mass, Non Tender, Soft Rectal: Deferred Extremity: Normal Capillary Refill, Other (complains of pain with palpation and movement of right arm) Neurologic/Psychiatric: Alert, Oriented x3, linen sorter II-XII Norm as Tested Skin: Normal Color, Warm/Dry; No Erythema Progress/Results/Core Measures Suspected Sepsis SIRS Temperature: Pulse: 119 Respiratory Rate: 16 Laboratory Tests 01/08/21 09:25: White Blood Count 13.4H Blood Pressure 126 /82 Mean: 97 Laboratory Tests 01/08/21 09:25: Creatinine 0.35L, INR Comment 1.2, Platelet Count 437H, Total Bilirubin 0.4 Results/Orders Lab Results Laboratory Tests Test 01/08/21 09:25 Range/Units White Blood Count 13.4 H 4.3-11.0 10^3/uL Red Blood Count 4.32 3.80-5.11 10^6/uL Hemoglobin 12.4 11.5-16.0 g/dL Hematocrit 39 35-52 % Mean Corpuscular Volume 89 80-99 fL Mean Corpuscular Hemoglobin 29 25-34 pg Mean Corpuscular Hemoglobin Concent 32 32-36 g/dL Red Cell Distribution Width 13.9 10.0-14.5 % Platelet Count 437 H 130-400 10^3/uL Mean Platelet Volume 10.2 9.0-12.2 fL Immature Granulocyte % (Auto) 0 % Neutrophils (%) (Auto) 58 42-75 % Lymphocytes (%) (Auto) 23 12-44 % Monocytes (%) (Auto) 12 0-12 % Eosinophils (%) (Auto) 5 0-10 % Basophils (%) (Auto) 1 0-10 % Neutrophils # (Auto) 7.8 1.8-7.8 X 10^3 Lymphocytes # (Auto) 3.2 1.0-4.0 X 10^3 Monocytes # (Auto) 1.6 H 0.0-1.0 X 10^3 Eosinophils # (Auto) 0.7 H 0.0-0.3 10^3/uL Basophils # (Auto) 0.1 0.0-0.1 10^3/uL Immature Granulocyte # (Auto) 0.1 0.0-0.1 10^3/uL Prothrombin Time 15.1 H 12.2-14.7 SEC INR Comment 1.2 0.8-1.4 Activated Partial Thromboplast Time 98 H 24-35 SEC Sodium Level 137 135-145 MMOL/L Potassium Level 3.6 3.6-5.0 MMOL/L Chloride Level 99 98-107 MMOL/L Carbon Dioxide Level 25 21-32 MMOL/L Anion Gap 13 5-14 MMOL/L Blood Urea Nitrogen 14 7-18 MG/DL Creatinine 0.35 L 0.60-1.30 MG/DL Estimat Glomerular Filtration Rate 198 BUN/Creatinine Ratio 40 Glucose Level 116 H 70-105 MG/DL Calcium Level 9.4 8.5-10.1 MG/DL Corrected Calcium 9.5 8.5-10.1 MG/DL Magnesium Level 1.4 L 1.6-2.4 MG/DL Total Bilirubin 0.4 0.1-1.0 MG/DL Aspartate Amino Transf (AST/SGOT) 17 5-34 U/L Alanine Aminotransferase (ALT/SGPT) 21 0-55 U/L Alkaline Phosphatase 89 40-136 U/L Troponin I < 0.30 <0.30 NG/ML Total Protein 7.3 6.4-8.2 GM/DL Albumin 3.9 3.2-4.5 GM/DL Lipase 21 8-78 U/L My Orders Orders - OZZY LEMUS MD Cbc With Automated Diff (01/08/21:) Magnesium (01/08/21:16) Chest 1 View Ap/Pa Only (01/08/21:) Ekg Tracing (01/08/21:) Comprehensive Metabolic Panel (01/08/21:16) Protime With Inr (01/08/21:) Partial Thromboplastin Time (01/08/21:) O2 (01/08/21:) Monitor-Rhythm Ecg Trace Only (01/08/21:16) Ed Iv/Invasive Line Start (01/08/21:16) Lipase (01/08/21:16) Troponin I Fs (01/08/21:16) Us Venous Upper Ext Rt (01/08/21:16) Pantoprazole Injection (Protonix Injecti (01/08/21:19) Ondansetron Injection (Zofran Injectio (01/08/21:19) Morphine Injection (Morphine Injection (01/08/21:) Ns Iv 1000 Ml (Sodium Chloride 0.9%) (01/08/21:20) Sucralfate Tablet (Carafate Tablet) (01/08/21 10:30) Heparin (Central Iv Flush) (Heparin (Raine (01/08/21 10:35) Vital Signs/I&O 01/08/21 01/08/21 09:02 11:01 Temp 36.3 Pulse 119 92 Resp 16 16 B/P (MAP) 126/82 (97) 138/76 Pulse Ox 95 98 O2 Delivery Room Air Room Air Capillary Refill : Less Than 3 Seconds Blood Pressure Mean: 97 Progress Note #1: Progress Note Access port to see if it is drawing back and flushing. CXR to evaluate port and chest. Ultrasound of RUE to evaluate for DVT. Morphine for pain, Zofran for nausea, Protonix for GERD. Check ECG and labs including cardiac enzymes since she has been having pain for several days to weeks. Progress Note #2: Progress Note Labs appear stable for patient without acute significant abnormality other than hypomagnesemia with a value of 1.4. Her cardiac enzymes and electrocardiogram did not show any acute ischemic damage or myocardial infarction. The ultrasound of the right arm did not demonstrate any acute DVT. Her x-ray of the chest showed port in place on the right and a small left pleural effusion. Reassured patient and educated about the results. Advised that the arm pain may be more musculoskeletal in nature. She already takes baclofen, Valium, ibuprofen, hydrocodone for spasms and pain. Encouraged to continue on those medicines will supplement with magnesium. From a reflux and heartburn standpoint will add on Carafate in addition to her omeprazole. Counseled on follow-up and return precautions. Her port was de-accessed and packed with Heparin. ECG Initial ECG Impression Date: Jan 08, 2021 Initial ECG Impression Time: 09:27 Initial ECG Rate: 118 Initial ECG Rhythm: S.Tach Initial ECG Comparisson: Unchanged Comment Sinus tachycardia with a heart rate of 118 bpm. SC interval 163 ms. QT interval 294 milliseconds and QTc interval [address] elevation. Appears similar to prior tracings in the system. Diagnostic Imaging Diagonstic Imaging: Xray Plain Films/CT/US/NM/MRI: chest Comments [facility] [place], [place] NAME: VIKI MCGREGOR MED REC#: [id number] PT STATUS: DEP ER : 1970 PHYSICIAN: OZZY LEMUS MD ADMIT DATE: 01/08/21/ER FS Signed Date of Exam:01/08/21 CHEST 1 VIEW AP/PA ONLY Indication: Chest wall pain, right arm pain, left shoulder pain. Compared: 12/14/2020. Findings: There has been interval development of a left pleural effusion. Right IJ at the SVC. Postoperative changes to the thoracolumbar spine stable. Impression: New left pleural effusion, no other change. Dictated by: Dictated on workstation # [id number] Dict: 01/08/21 0935 Trans: 01/08/21 1137 CVB [id number] Interpreted by: CIARRA GUZMÁN Electronically signed by: CIARRA GUZMÁN 01/08/21 1137 Reviewed: Reviewed by In Diagonstic Imaging: Ultrasound Plain Films/CT/US/NM/MRI: other (right arm) Comments [facility] [place], [place] NAME: VIKI MCGREGOR [facility] REC#: [id number] PT STATUS: REG ER : 1970 PHYSICIAN: OZZY LEMUS MD ADMIT DATE: 01/08/21/ER FS Draft Date of Exam:01/08/21 US VENOUS UPPER EXT RT INDICATION: Right arm pain. TECHNIQUE: Grayscale, color-flow, and duplex Doppler evaluation of the right upper extremity venous system was performed. FINDINGS: The right internal jugular vein as well as the right subclavian and axillary veins are widely patent. The brachial as well as cephalic and basilic veins are widely patent. The radial and ulnar veins are patent. No thrombus is identified. No fluid collection is detected. IMPRESSION: No evidence of right upper extremity DVT. Dictated on workstation # [id number] Dict: 01/08/21 1005 Trans: 01/08/21 1008 [id number] Interpreted by: ACE VELASQUEZ MD Electronically signed by: Departure Impression Primary Impression: Right arm pain Additional Impressions: GERD with esophagitis Qualified Codes: K21.00 - Gastro-esophageal reflux disease with esophagitis, without bleeding Chest wall pain Musculoskeletal pain of right upper extremity Pleural effusion on left Hypomagnesemia Disposition: HOME, SELF-CARE Condition: Stable Departure-Patient Inst. Decision time for Depature: 10:36 Referrals: MELY BEDOYA MD (PCP/Family) Primary Care Physician Patient Instructions: Shoulder Pain ED, Muscle Strain ED, Acid Reflux, Adult and Adolescent ED, Pleural Effusion (DC) Add. Discharge Instructions: Take Carafate (Sucralfate) to help with acid and indigestion. Take Magnesium supplement to help with your low magnesium. Follow up with your regular providers about your pain and pleural effusion. All discharge instructions reviewed with patient and/or family. Voiced understanding. Scripts Magnesium Oxide (Magnesium Oxide) 250 Mg Tablet 250 MG PO BID for hypomagnesemia for 15 Days, #30 TAB 0 Refills Prov: OZZY LEMUS MD 01/08/21 Sucralfate (Carafate) 1 Gm/10 Ml Oral.susp 1 GM PO TID PRN for GERD with Esophagitis for 7 Days, #210 ML 0 Refills Prov: OZZY LEMUS MD 01/08/21 OZZY LEMUS MD Jan 08, 2021 09:46
[2021-01-08 09:48] LABS: INR 1.2 (0.8-1.4); PROTHROMBIN TIME PATIENT 15.1 SEC (12.2-14.7)
[2021-01-08 10:06] LABS: BILIRUBIN,TOTAL 0.4 MG/DL (0.1-1.0); CALCIUM 9.4 MG/DL (8.5-10.1); CREATININE SERUM 0.35 MG/DL (0.60-1.30); MAGNESIUM 1.4 MG/DL (1.6-2.4); POTASSIUM 3.6 MMOL/L (3.6-5.0)
[2021-01-08 10:07] LABS: ALBUMIN 3.9 GM/DL (3.2-4.5); TOTAL PROTEIN 7.3 GM/DL (6.4-8.2)
--- NOTE | 2021-01-08 10:09 | Diagnostic Imaging Report ---
INDICATION: Right arm pain. TECHNIQUE: Grayscale, color-flow, and duplex Doppler evaluation of the right upper extremity venous system was performed. FINDINGS: The right internal jugular vein as well as the right subclavian and axillary veins are widely patent. The brachial as well as cephalic and basilic veins are widely patent. The radial and ulnar veins are patent. No thrombus is identified. No fluid collection is detected. IMPRESSION: No evidence of right upper extremity DVT. Dictated by: Dictated on workstation # [id number]
[2021-01-08] MEDS ORDERED: SUCRALFATE 1 GM (CARAFATE) TAB PO STA (10:30)
[2021-01-08] MEDS ORDERED: HEParin (CENTRAL IV FLUSH) 500 UNIT/5 ML SYR IV STA (10:35)
[2021-01-08] MEDS ORDERED: SUCR1ORA5 PO (10:42)
[2021-01-08] MEDS ORDERED: MAGN250T35 PO (10:42)
[2021-01-08 11:01] VITALS: BP 138/76
== END 2021-01-08 11:01 | disposition home or self-care (01) ==
LOC: EDUNIT# 09:02 → ER FS 09:04
DX: M79.601 Pain in right arm (principal); K21.00 Gastro-esophageal reflux disease with esophagitis, without bleeding; R07.89 Other chest pain; M79.621 Pain in right upper arm; J90 Pleural effusion, not elsewhere classified; E83.42 Hypomagnesemia; K21.9 Gastro-esophageal reflux disease without esophagitis; E11.9 Type 2 diabetes mellitus without complications; Z86.711 Personal history of pulmonary embolism; Z86.718 Personal history of other venous thrombosis and embolism; Z79.01 Long term (current) use of anticoagulants; Z79.899 Other long term (current) drug therapy; Z79.84 Long term (current) use of oral hypoglycemic drugs
CPT/HCPCS: 36415; 71045; 80053; 83690; 83735; 84484; 85025; 85610; 85730; 93005; 93041

== ENCOUNTER 2021-01-09 17:23 | Emergency (ER) | payer MEDICARE, MEDICAID ==
[~2021-01-09] VITALS: Ht 160 cm; Wt 63.0 kg
--- NOTE | 2021-01-09 17:45 | ED General ---
General Chief Complaint: General Problems/Pain Stated Complaint: PORT PROBLEMS Nursing Triage Note: PT ARRIVED VIA EMS ET STATES HER PORT WILL NOT WORK. PT CAME WITH A ACCESSED PORT TO RIGHT CHEST THAT SHE GETS IV ABX THRU. PT SITE CLEAN ET FLUSHED WITH 10CC NS WITH GOOD BLOOD RETURN ET PORT FLUSHED AGAIN. PT NOTIFIED BY STAFF INCLUDING THAT HER PORT WAS WORKING FINE. History of Present Illness Date Seen by Provider: Jan 09, 2021 Time Seen by Provider: 17:35 Initial Comments 50 y/o female presents w concern that her "port" is not functioning. Seen by home health today and they said it didn't work. No other significant concern Allergies and Home Medications Allergies Coded Allergies: Sulfa (Sulfonamide Antibiotics) (Verified Allergy, Unknown, 10/23/18) vancomycin (Verified Allergy, Unknown, 10/23/18) Patient Home Medication List Home Medication List Reviewed: Yes Amoxicillin/Potassium Clav (Amox Tr-K Clv 875-125 mg Tab) 1 Each Tablet, 1 TAB PO Q12H, (Reported) Entered as Reported by: CONNOR SANTORO on 12/08/20 0943 Ascorbic Acid (Vitamin C) 1,000 Mg Tablet, 1,000 MG PO BID, (Reported) Entered as Reported by: CARLEY VERNON on 04/10/19 1607 Baclofen (Baclofen) 20 Mg Tablet, 20 MG PO QID, (Reported) Entered as Reported by: CARLEY VERNON on 04/10/19 1607 Cetirizine HCl (Cetirizine HCl) 10 Mg Tablet, 10 MG PO DAILY, (Reported) Entered as Reported by: JAELYN MADRID on 04/12/19 0914 Diazepam (Diazepam) 10 Mg Tablet, 10 MG PO QID, (Reported) Entered as Reported by: CARLEY VERNON on 04/10/19 1607 Doxycycline Hyclate (Doxycycline Hyclate) 100 Mg Capsule, 100 MG PO BID, (Reported) Entered as Reported by: JAELYN MADRID on 10/26/19 1342 Hydrocodone/Acetaminophen (Hydrocodone-Acetamin 7.5-325) 1 Each Tablet, 1 EACH PO Q4H Prescribed by: AIDA GOMEZ on 12/14/20 1356 Ibuprofen (Ibuprofen) 200 Mg Tablet, 600 MG PO Q8H PRN for PAIN-MILD (1-4), (Reported) Entered as Reported by: JAELYN MADRID on 04/12/19 0921 Magnesium Oxide (Magnesium Oxide) 250 Mg Tablet, 250 MG PO BID Prescribed by: OZZY LEMUS on 01/08/21 1042 Metformin HCl (Metformin HCl) 500 Mg Tablet, 500 MG PO DAILY, (Reported) Entered as Reported by: CONNOR SANTORO on 12/08/20 0943 Omeprazole (Omeprazole) 20 Mg Tablet.dr, 20 MG PO 1400, (Reported) Entered as Reported by: CARLEY VERNON on 04/10/19 1607 Oxybutynin Chloride (Oxybutynin Chloride ER) 15 Mg Tab.er.24, 15 MG PO DAILY, (Reported) Entered as Reported by: JAELYN MADRID on 10/26/19 1342 Rivaroxaban (Xarelto) 20 Mg Tablet, 20 MG PO HS, (Reported) Entered as Reported by: JAELYN MADRID on 04/12/19 0912 Sucralfate (Carafate) 1 Gm/10 Ml Oral.susp, 1 GM PO TID PRN for GERD with Esophagitis Prescribed by: OZZY LEMUS on 01/08/21 1042 Review of Systems Review of Systems Constitutional: No chills, No fever, No weakness Respiratory: No cough, No short of breath Gastrointestinal: No nausea, No vomiting Skin: No change in color, No rash Past Pnohqtx-Hauhua-Jkfadw Hx Patient Social History Smoking Status: Never a Smoker Substance use?: No Alcohol Use?: No Immunizations Up To Date First/Initial COVID19 Vaccinat: yes Second COVID19 Vaccination [place]: unknown Seasonal Allergies Seasonal Allergies: No Past Medical History Surgery/Hospitalization HX: 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 Surgeries: Yes (right AKA, sp tube, port x2, ORIF Left leg) Amputation, Cystectomy, Gallbladder, 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, Orthopedic, Urinary Diversion Respiratory: No Cardiac: No Neurological: Yes Paralysis, Spinal Cord Injury Female Reproductive Disorders: Endometriosis, 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 Genitourinary: Yes (SP cath) Kidney Stones, Neurogenic Bladder, UTI-Chronic Gastrointestinal: Yes Gastroesophageal Reflux Musculoskeletal: Yes (OSTEOMYELITIS) Amputee, Back Injury Endocrine: Yes Diabetes, Non-Insulin dep HEENT: No Cancer: No Psychosocial: Yes Anxiety Integumentary: Yes (hx of DECUB STAGE 4, PRESSURE ULCER, CELLULITIS, MRSA) Blood Disorders: Yes (IRON DEFICIENCY ANEMIA) Family Medical History Heart Disease, Cancer, Stroke Physical Exam Vital Signs Vital Signs - First Documented 01/09/21 17:23 Temp 36.3 Pulse 130 Resp 16 B/P (MAP) 117/69 (85) Pulse Ox 94 O2 Delivery Room Air Capillary Refill : Less Than 3 Seconds Height, Weight, BMI Height: 5'5.00" Weight: 175lbs. oz. 79.829120qe; 24.00 BMI Method:Estimated General Appearance: No Apparent Distress, WD/WN Respiratory: Chest Non Tender, Lungs Clear Cardiovascular: Regular Rate, Rhythm, No JVD Gastrointestinal: Non Tender, Soft Skin: Normal Color, Warm/Dry Progress/Results/Core Measures Suspected Sepsis SIRS Temperature: Pulse: 130 Respiratory Rate: 16 Blood Pressure 117 /69 Mean: 85 Results/Orders Vital Signs/I&O 01/09/21 01/09/21 17:23 18:25 Temp 36.3 36.3 Pulse 130 119 Resp 16 16 B/P (MAP) 117/69 (85) 121/68 Pulse Ox 94 94 O2 Delivery Room Air Room Air Capillary Refill : Less Than 3 Seconds Blood Pressure Mean: 85 Progress Note : Progress Note Nurse accessed port with ease. Able to draw blood and flush. Nurse spent a lot of time attempting to alleviate patients concern that the port was not working when clearly it worked fine. Departure Impression Primary Impression: Feared condition not demonstrated Disposition: 01 HOME, SELF-CARE Condition: Stable Departure-Patient Inst. Decision time for Depature: 17:44 Referrals: MELY NELSON MD (PCP/Family) Primary Care Physician Add. Discharge Instructions: Follow up with Dr Nelson for any further questions related to your IV port. Continue your current medications and medical regimen including home health care All discharge instructions reviewed with patient and/or family. Voiced underst anding. PRESLEY EVANS DO Jan 09, 2021 17:45
[2021-01-09 18:25] VITALS: BP 121/68
== END 2021-01-09 18:25 | disposition home or self-care (01) ==
LOC: EDUNIT# 17:23 → ER FS 17:24
DX: Z71.1 Person with feared health complaint in whom no diagnosis is made (principal); E11.9 Type 2 diabetes mellitus without complications; F41.9 Anxiety disorder, unspecified; K21.9 Gastro-esophageal reflux disease without esophagitis; Z79.01 Long term (current) use of anticoagulants; Z79.84 Long term (current) use of oral hypoglycemic drugs; Z79.899 Other long term (current) drug therapy
CPT/HCPCS: 99285

== ENCOUNTER → 2021-01-09 | Outpatient (CLI) | payer MEDICARE, MEDICAID ==
[~2021-01-09] MED LIST changes: +MAGN250T35 PO; +SUCR1ORA5 PO
== END ==
LOC: IHC 08:36
PROVIDERS: ATTEND Family Medicine
DX: N39.0 Urinary tract infection, site not specified (principal)
CPT/HCPCS: 80170

== ENCOUNTER 2021-01-12 07:39 | Outpatient (CLI) | payer MEDICARE, MEDICAID ==
[~2021-01-12] VITALS: Wt 59.5 kg
[2021-01-12 07:50] VITALS: BP 85/59
== END 2021-01-12 08:30 | disposition home or self-care (01) ==
LOC: SDC 07:39
PROVIDERS: ATTEND Family Medicine
DX: N39.0 Urinary tract infection, site not specified (principal)
CPT/HCPCS: 36410; 76937

== ENCOUNTER → 2021-01-20 | Outpatient (CLI) | payer MEDICARE, MEDICAID | LOC: IHC 14:03 | PROVIDERS: ATTEND Family Medicine | DX: Z43.5 Encounter for attention to cystostomy (principal); N31.9 Neuromuscular dysfunction of bladder, unspecified; Z87.440 Personal history of urinary (tract) infections | CPT/HCPCS: 87088 ==

== ENCOUNTER → 2021-01-31 | Outpatient (CLI) | payer MEDICARE, MEDICAID ==
--- NOTE | 2021-01-31 11:06 | Diagnostic Imaging Report ---
INDICATION: Neck and back pain. COMPARISON: None. FINDINGS: Frontal, lateral, and open-mouth radiographic views of the cervical spine were obtained. The cervical spine is only seen down to the C6-C7 level on the lateral view. Evaluation of static alignment shows reversal of the normal lordotic curvature epicentered at the C5 level. There is no evidence of jumped facets. The open-mouth view shows normal C1-C2 alignment. The vertebral body heights are maintained. There is no acute fracture. Moderate multilevel degenerative changes are noted and consist of intervertebral disc height loss as well as multilevel anterior and posterior endplate osteophyte formations. These changes are greatest at the C4 through C6-7 levels. The included portions of the lung apices are clear. IMPRESSION: 1. No acute fracture or dislocation of the cervical spine with limitations as above. 2. Multilevel degenerative changes. Dictated by: Dictated on workstation # [id number]
--- NOTE | 2021-01-31 11:12 | Diagnostic Imaging Report ---
INDICATION: Back pain. History of previous thoracolumbar fusion. COMPARISON: CT abdomen and pelvis dated 04/10/2019 FINDINGS: Frontal and lateral radiograph views of the thoracic spine were obtained. There is mild S-shaped scoliotic deformity. Patient is status post previous T10 and T11 corpectomy. There are erosive changes involving the superior endplate of T12. This is best visualized on the frontal view and does appear to be new when compared to prior CT of the abdomen dated 04/10/2019. Bilateral Saleem rods are also identified. Evaluation of the mid and upper thoracic spine is suboptimal secondary to patient positioning and obscuration by overlying soft tissue and osseous structures. Visualized portions of the thoracic spine show no appreciable vertebral body height loss. No unexpected radiopaque foreign bodies are seen. Included portions lungs are clear. IMPRESSION: 1. Extensive postsurgical changes of the thoracic spine as described above. Again, there does appear to be new erosion of the superior endplate of T12. This is concerning for underlying infectious process. Correlation with CT or MRI is recommended. 2. Exam is otherwise significantly limited. Dictated by: Dictated on workstation # [id number]
== END ==
LOC: RAD FS 10:37
PROVIDERS: ATTEND Family Medicine
DX: M47.812 Spondylosis without myelopathy or radiculopathy, cervical region (principal); M41.84 Other forms of scoliosis, thoracic region; Z98.1 Arthrodesis status
CPT/HCPCS: 72040; 72070

== ENCOUNTER → 2021-02-15 | Outpatient (CLI) | payer MEDICARE, MEDICAID ==
--- NOTE | 2021-02-15 09:55 | Diagnostic Imaging Report ---
INDICATION: PLEURAL EFFUSION. TECHNIQUE: Two view chest 9:46 AM CORRELATION STUDY: 01/08/2021 FINDINGS: Right IJ Ancgzu-c-Djwb catheter tip obscured by thoracic spinal fixation rods but likely over the low SVC. Heart size and mediastinum unchanged. Decrease in size of the left pleural effusion. Small amount of fluid and/or pleural thickening does remain. No appreciable pneumothorax. Right lung clear. Extensive thoracolumbar spinal fixation hardware does obscure detail. Cholecystectomy clips in the right upper quadrant. IMPRESSION: 1. Decrease in size left pleural effusion. Some fluid and/or pleural thickening does remain. Dictated by: Dictated on workstation # [id number]
== END ==
LOC: RAD FS 09:36
PROVIDERS: ATTEND Family Medicine
DX: J90 Pleural effusion, not elsewhere classified (principal)
CPT/HCPCS: 71046

== ENCOUNTER → 2021-03-19 | Outpatient (CLI) | payer MEDICARE, MEDICAID ==
[~2021-03-19] MED LIST changes: +IOHEXOL 300 MG/ML 50 ML (OMNIPAQUE 300) VIAL IV ONE
--- NOTE | 2021-03-19 14:32 | Diagnostic Imaging Report ---
INDICATION: Malfunctioning port. Patient brought to the procedure room and placed on table in the supine position. The patient's right chest wall port was accessed by radiology nursing. A total of 70 mL Omnipaque 300 contrast was injected under fluoroscopic observation. 32 seconds of fluoroscopic time was utilized. 5 images were obtained. Right chest wall port has the tip in the lower right atrium. The port is widely patent. No abnormal kinking or interruption of the tubing is seen. There is no abnormal extravasation of contrast. IMPRESSION: No evidence of port malfunction. Dictated by: Dictated on workstation # [id number]
== END ==
LOC: RAD 14:00
DX: T82.598A Other mechanical complication of other cardiac and vascular devices and implants, initial encounter (principal)
CPT/HCPCS: 36598

== ENCOUNTER 2021-03-21 17:08 | Emergency (ER) | payer MEDICARE, MEDICAID ==
--- OUTSIDE RECORDS SUMMARY | 2021-03-21 17:13 | XMS REPORT | Encounter Summary ---
Author Author [facility] Organization [facility] Address Unknown Phone Unavailable Care Team Providers Care Noxious Weeds And Pest Inspector Name Role Phone Iban Arboleda PA-C Unavailable Agapito Garcia MD Unavailable Matthias Rutherford MD Unavailable Karime De La Cruz MD Unavailable Steffany Fair RN Unavailable Unavailable Suri Borrero MD Unavailable Anni Gordon RN Unavailable Unavailable Sunny Krishna MD Unavailable Trevon Brand MD Unavailable Rochelle Yen LPN Unavailable Unavailable Brianne Warren MD Unavailable Unavailable Delaney Rascon RN Unavailable Unavailable Esteban Britt MD Unavailable [phone] Surinder Ruiz MD Unavailable Henry Moeller MD Unavailable Kenneth Nelson MD PCP Reason for Visit * Reason Onset Date Comments General Question 03/21/2021 Encounter Details Care Team Description Date Type Department Benji Dow, DO [address] [place] [address] General Question 03/21/2021 Telephone Infectious Diseases : [facility] [place], [address], [address] [address] Social History Date Tobacco Use Types Packs/Day Years Used Never Smoker Smokeless Tobacco: Never Used Comments Alcohol Use Standard Drinks/Week No 0 (1 standard drink = 0.6 o z pure alcohol) Sex Assigned at Date Recorded Female 02/01/2021 9:37 AM CDT documented as of this encounter Functional Status Date of Assessment Functional Status Response 01/31/2021 Does the patient have a hearing impairment: No documented as of this encounter Miscellaneous Notes * Telephone Encounter - Maryam Lin RN - 03/21/2021 10:39 AM FACILITIES CUSTODIAN Called patients PCP office back, spoke with Dea. Let her know we would not be direct admitting patient and that they would need to speak with the hospitalist to arrange that. She voiced they were not able to do that as well. She will advi se patient to head to ED for evaluation of line. I let her know that would be ou r recommendation as well. No further questions. Maryam Lin RN LITIES CUSTODIAN * Telephone Encounter - Maryam Lin RN - 03/21/2021 9:13 AM FACILITIES CUSTODIAN RVM from Dea at patients pcp office letting us know patient has had complicati ons starting treatment. She states patient is needing admitted into the hospital and would like to know if we could direct admit her. Routing to to advise. Maryam Lin RN LITIES CUSTODIAN documented in this encounter Plan of Treatment Not on filedocumented as of this encounter Goals Goal Patient Associated Recent Progress Patient-Stat Aut hor Goal Type Problems ed? GOAL General On track (02/01/2021 No Alistair marcus, 9:39 AM CDT) GILMAR Steele Note: Get better and be able to sit up documented as of this encounter Visit Diagnoses Not on filedocumented in this encounter Additional Health Concerns Noted Time Assessment 02/09/2021 9:53 AM FACILITIES CUSTODIAN A fall risk assessment has been complet ed for the patient documented as of this encounter Care Teams Start Date End Date Noxious Weeds And Pest Inspector Relationship Specialty 09/28/20 Kenneth Nelson MD PCP - General Family [address] [place] [address] 05/31/11 Iban Arboleda PA-C Surgery, [address] [facility] [place] [address] 06/04/11 Agapito Garcia MD Surgery, [address] [place] [address] 09/06/11 Matthias Rutherford MD Trauma [address] [place] [address] 09/26/11 Karime De La Cruz MD Plastic [address] [place] [address] 11/04/11 Steffany Fair, RN 03/09/12 Suri Borrero MD Infectious [address] Disease [facility] Lvl [address] [place] [address] 03/10/12 Anni Gordon, RN 05/04/12 Sunny Krishna MD Surgery, [address] Orthopedic [facility] [address] [place] [address] 09/04/12 Trevon Brand MD Plastic [address] [place] [address] 09/11/12 Rochelle Yen LPN 10/28/13 Brianne Warren MD Urology Forwarding Address Unknown Left [facility] 10/28/18 11/25/13 Delaney Rascon, RN 02/01/15 Esteban Britt Rehabilitati MD on [address] [place] [address] 11/29/15 Surinder Ruiz MD Anesthesiolo [address] [facility] [id number] [place] [address] 12/08/15 Henry Moeller MD Infectious [address] Disease [facility] Lvl [address] [place] [address] documented as of this encounter
--- OUTSIDE RECORDS SUMMARY | 2021-03-21 17:13 | XMS REPORT | Encounter Summary ---
Author Author [facility] Organization [facility] Address Unknown Phone Unavailable Care Team Providers Care Sugar Mixer Name Role Phone Iban Arboleda PA-C Unavailable Agapito Garcia MD Unavailable Mtathias Rutherford MD Unavailable Karime De La Cruz MD Unavailable Steffany Fair RN Unavailable Unavailable Suri Borrero MD Unavailable Anni Gordon RN Unavailable Unavailable Sunny Krishna MD Unavailable Trevon Brand MD Unavailable Rochelle Yen LPN Unavailable Unavailable Brianne Warren MD Unavailable Unavailable Delaney Rascon RN Unavailable Unavailable Esteban Birtt MD Unavailable [phone] Surinder Ruiz MD Unavailable Henry Moeller MD Unavailable Kenneth Nelson MD PCP Reason for Visit * Reason Onset Date Comments UTI 02/27/2021 Results 02/27/2021 Encounter Details Care Team Description Date Type Department Elio Weber MD [address] Ortho[facility] [address] [place] [address] UTI; Results 02/27/2021 Telephone Infectious Diseases : Main [place], [facility] [address], [address] [phone] Social History Date Tobacco Use Types Packs/Day Years Used Never Smoker Smokeless Tobacco: Never Used Comments Alcohol Use Standard Drinks/Week No 0 (1 standard drink = 0.6 o z pure alcohol) Sex Assigned at Date Recorded Female 02/01/2021 9:37 AM CDT Date Recorded COVID-19 Exposure Response 01/31/2021 2:51 PM CDT In the last month, have you been in contact with No / Unsure someone who was confirmed or suspected to have Coronavirus / COVID-19? documented as of this encounter Functional Status Date of Assessment Functional Status Response 01/31/2021 Does the patient have a hearing impairment: No documented as of this encounter Miscellaneous Notes * Telephone Encounter - Maryam Lin RN - 03/06/2021 8:11 AM HAT CLEANER Called Anni at PCP's office to update her on plan. Let her know that patient woul d need to be admitted. She voiced understanding and had no further questions. Maryam Lin RN CLEANER * Telephone Encounter - Andree Shabazz RN - 03/05/2021 1:34 PM HAT CLEANER ----- Message from Benji Dow DO sent at 03/05/2021 1:23 PM HAT CLEANER ----- Regarding: RE: Urine culture There were no oral antibiotic options for this urine culture isolate. If she is having symptoms her primary care doctor needs to arrange for her to be admitted and receive IV antibiotics based on the sensitivity report. ----- Message ----- From: Maryam Lin RN Sent: 03/02/2021 3:23 PM HAT CLEANER To: Benji Dow DO Subject: RE: Urine culture Patient expressed she is having bleeding in her catheter. She reports she usuall y doesn't have symptoms until she is almost septic. She reports not feeling good though. ----- Message ----- From: Benji Dow DO Sent: 03/02/2021 2:53 PM HAT CLEANER To: Maryam Lin RN, Andree Shabazz RN Subject: Urine culture There is no oral options for treatment of this urine culture. Was she is sympto matic when they obtain the culture? ----- Message ----- From: Andree Shabazz RN Sent: 02/28/2021 3:21 PM HAT CLEANER To: Benji Dow DO CLEANER * Telephone Encounter - Andree Shabazz RN - 02/28/2021 1:28 PM HAT CLEANER Anni called back and LVM. We keep managing to miss each other and play phone tag. She stated that she needs a fax number so she can fax us results on Yancy's uri ne because Dr. Nelson would like us to treat her UTI that she has as she is a com plicated patient. Asking Dr. Weber whether or not he would like to receive these results, or if Dr. Dow would see patient since he saw her most recently in the hospital. Per Dr. Weber, Dr. Dow has seen patient most recently so he would like his input. Per Dr. Dow if they send over progress note, UA and urine culture he will formulate a plan on how to treat patient. Called Anni and got a hold of her. Let her know that we needed progress note, UA and urine cult ure. 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 Told her to go ahead and send the progress note and the ur ine culture. Provided her with my fax number and awaiting results. CLEANER * Telephone Encounter - Andree Shabazz RN - 02/27/2021 2:30 PM HAT CLEANER Anni from Dr. Nelson's called and LVM asking for return call. Attempted to call curry silva and had to leave message with someone else in office. CLEANER documented in this encounter Plan of Treatment Not on filedocumented as of this encounter Goals Goal Patient Associated Recent Progress Patient-Stat Aut hor Goal Type Problems ed? GOAL General On track (02/01/2021 No Claudejd amrit, 9:39 AM CDT) GILMAR Steele Note: Get better and be able to sit up documented as of this encounter Procedures Comments Procedure Name Priority Date/Time Associated Diag nosis CULTURE-URINE Routine 02/21/2021 Complicated UTI (urinary W/SENSITIVITY tract infection) documented in this encounter Results * (ABNORMAL) CULTURE-URINE W/SENSITIVITY (02/21/2021) Isolate 1 50,000-100,000 CFU/mL of OTHER OUTSID E psudomonas aeruginosa (A) LAB Specimen Urine - Urine specimen obtained via suprapubic indwelling urinary catheter (specimen) Narrative Antibiotic Method Susceptibility Organism Cefepime Intermediate Pseudomonas aeruginosa Ceftazidime Susceptible Pseudomonas aeruginosa Ciprofloxacin Resistant Pseudomonas aeruginosa Gentamicin Susceptible Pseudomonas aeruginosa Imipenem Resistant Pseudomonas aeruginosa Levofloxacin Resistant Pseudomonas aeruginosa Performing Organization Address City/State/ZIP Code P varun Number OTHER OUTSIDE LAB documented in this encounter Visit Diagnoses Diagnosis Complicated UTI (urinary tract infectio n) - Primary Urinary tract infection, site not speci fied documented in this encounter Additional Health Concerns Noted Time Assessment 02/09/2021 9:53 AM HAT CLEANER A fall risk assessment has been complet ed for the patient documented as of this encounter Care Teams Start Date End Date Sugar Mixer Relationship Specialty 09/28/20 Kenneth Nelson MD PCP - [place] [address] [place] [address] 05/31/11 Iban Arboleda PA-C Surgery, [address] [facility] [place] [address] 06/04/11 Agapito Garcia MD Surgery, [address] [facility] [place] [address] 09/06/11 Matthias Rutherford MD Trauma [address] [place] [address] 09/26/11 Karime De La Cruz MD Plastic [address] [place] [address] 11/04/11 Steffany Fair, RN 03/09/12 Suri Borrero MD Infectious [address] Disease Orth[facility] Lvl [address] [place] [address] 03/10/12 Anni Gordon, RN 05/04/12 Sunny Krishna MD Surgery, [address] Orthopedic [facility] [address] [place] [address] 09/04/12 Trevon Brand MD Plastic [address] [place] [address] 09/11/12 Rochelle Yen, CHALK EXTRUDING MACHINE OPERATOR 10/28/13 Brianne Warren MD Urology Forwarding Address Unknown Left 10/28/18 11/25/13 Delaney Rascon, RN 02/01/15 Esteban Britt, Malathi MCMILLAN on [address] [place] [address] 11/29/15 Surinder Ruiz MD Anesthesiolo [address] [facility] [address] [facility] [place] [address] 12/08/15 Henry Moeller MD Infectious [address] Disease Orth[facility] Lvl [address] [place] [address] documented as of this encounter
--- OUTSIDE RECORDS SUMMARY | 2021-03-21 17:13 | XMS REPORT | Clinical Summary ---
Author Author [facility] Organization [facility] Address Unknown Phone Unavailable Care Team Providers Care Webmaster Name Role Phone Iban Arboleda PA-C Unavailable Agapito Garcia MD Unavailable Matthias Rutherford MD Unavailable Karime De La Cruz MD Unavailable Steffany Fair RN Unavailable Unavailable Suri Borrero MD Unavailable Anni Gordon RN Unavailable Unavailable Sunny Krishna MD Unavailable Trevon Brand MD Unavailable Rochelle Yen LPN Unavailable Unavailable Brianne Warren MD Unavailable Unavailable Delaney Rascon RN Unavailable Unavailable Esteban Britt MD Unavailable [phone] Surinder Ruiz MD Unavailable Henry Moeller MD Unavailable Kenneth Nelson MD PCP Source Comments Some departments are not documenting in the electronic medical record. If you d o not see the information that you expected, contact Release of Information in [facility] Information Management department at [phone] for further assistan ce in locating additional records.[facility] Allergies Comments Active Allergy Reactions Severity [...] Take 10 mg by 0 tablet mouth every morning. Active calcium carbonate/vitamin Take 1 tablet 0 D-3 (OSCAL-500+D) 1250 by mouth mg/200 unit tablet twice daily. Active diazepam (VALIUM) 10 mg Take 1 Tab by 0 tablet mouth four 6 times daily. Active calcium carbonate (TUMS) Chew 1-2 Tabs 0 12/05 500 mg (200 mg elemental by mouth 6 calcium) chewable tablet every 6 hours as needed (for heart burn). Active oxybutynin XL (DITROPAN Take 15 mg by 0 XL) 15 mg tablet mouth daily. Active metFORMIN (GLUCOPHAGE) Take 500 mg 0 500 mg tablet by mouth daily with breakfast. Active rivaroxaban (XARELTO) 10 Take one 30 tablet 0 0 mg tablet tablet by 1 mouth daily with dinner. Additional Information Patient taking differently: 10 mg Oral AT BEDTIME DAILY, Informant: Self, Reported on 02/01/2021 Active traMADoL (ULTRAM) 50 mg Take 50 mg by 0 tablet mouth four times daily as needed for Pain. Active HYDROcodone/acetaminophen Take 1 tablet 0 (NORCO) 7.5/325 mg tablet by mouth every 4 hours as needed for Pain Active famotidine (PEPCID) 20 mg Take one 180 tablet 1 tablet tablet by 1 mouth twice daily. Active omeprazole DR (PRILOSEC) Take one 90 capsule 1 1 20 mg capsule capsule by 1 mouth daily before breakfast. Active Problems Problem Noted Date Loculated pleural effusion 02/09/2021 Lower back pain 01/31/2021 Hypotension 09/21/2020 Urinary tract infection associated with [...] Encounters Care Team Description Date Type Specialty Benji Dow, DO General Question 03/21/2021 Telephone Infectious Diseases Elio Weber MD UTI; Results 02/27/2021 Telephone Infectious Diseases Tita Abdi DO Barbaryan, Aram, MD Upadhyayula, Satyasree, MD Kelly, Brendan S, DO Loculated pleural effusion 01/31/2021 Hospital - Encounter 02/09/2021 01/31/2021 Travel from Last 3 Months Immunizations Name [...] Date Recorded Female 02/01/2021 9:37 AM CDT Last Filed Vital Signs Reading Time Taken Comments Vital Sign 114/74 02/09/2021 10:17 AM [employer] Blood Pressure 114 02/09/2021 10:17 AM [employer] Pulse 36.7 C (98.1 F) 02/09/2021 10:17 AM [employer] Temperature 16 10/28/2013 1:06 PM CDT Respiratory Rate 94% 02/09/2021 10:17 AM [employer] Oxygen Saturation - - Inhaled Oxygen Concentration 52.2 kg (115 lb) 02/01/2021 12:35 AM CDT Weight 162.6 cm (5' 4") 02/01/2021 12:35 AM CDT reported Height 19.74 02/01/2021 12:35 AM CDT Body Mass Index Plan of Treatment Health Maintenance Due Date Last Done Comments MEDICARE ANNUAL WELLNESS 1971 VISIT HIV SCREENING 1986 HEPATITIS C SCREENING 1989 PHYSICAL (COMPREHENSIVE) 1989 EXAM CERVICAL CANCER SCREENING 1992 BREAST CANCER SCREENING 2011 INFLUENZA VACCINE 10/29/2020 02/02/2012 COVID-19 VACCINE (3 - 01/24/2021 07/25/2020, Booster for Moderna 06/28/2020 series) DTAP/TDAP VACCINES (2 - 02/01/2022 02/02/2012 Td or Tdap) Goals Goal Patient Associated Recent Progress Patient-Stat Aut hor Goal Type Problems ed? GOAL General On track (02/01/2021 No Alistair marcus, 9:39 AM CDT) GILMAR Steele Note: Get better and be able to sit up Procedures Comments Procedure Name Priority Date/Time Associated Diag nosis CULTURE-URINE Routine 02/21/2021 Complicated UTI (urinary W/SENSITIVITY tract infection) CHEST SINGLE VIEW Routine 02/09/2021 9:50 AM [employer] HC MAGNESIUM Routine 02/08/2021 9:14 AM [employer] HC COMPREHENSIVE Routine 02/08/2021 METABOLIC PANEL 9:14 AM [employer] HC CBC,AUTOMATED Routine 02/08/2021 9:14 AM [employer] CHEST SINGLE VIEW Routine 02/08/2021 8:25 AM [employer] MRI PELVIS WO/W CONTRAST Routine 02/08/2021 4:03 AM [employer] HC MAGNESIUM Routine 02/07/2021 10:18 AM [employer] HC COMPREHENSIVE Routine 02/07/2021 METABOLIC PANEL 10:18 AM [employer] HC CBC,AUTOMATED Routine 02/07/2021 10:18 AM [employer] CHEST SINGLE VIEW Routine 02/07/2021 6:20 AM [employer] [facility] [place] Routine 02/06/2021 5:38 PM [employer] [facility] [place] Routine 02/06/2021 5:38 PM [employer] CHEST SINGLE VIEW Routine 02/06/2021 6:26 AM [employer] HC MAGNESIUM Routine 02/06/2021 5:59 AM [employer] HC COMPREHENSIVE Routine 02/06/2021 METABOLIC PANEL 5:59 AM [employer] HC CBC,AUTOMATED Routine 02/06/2021 5:59 AM [employer] CHEST SINGLE VIEW Routine 02/05/2021 6:17 AM [employer] HC MAGNESIUM Routine 02/05/2021 5:33 AM [employer] HC COMPREHENSIVE Routine 02/05/2021 METABOLIC PANEL 5:33 AM [employer] HC CBC,AUTOMATED Routine 02/05/2021 5:33 AM [employer] CHEST SINGLE VIEW Routine 02/04/2021 11:32 AM [employer] HC MAGNESIUM Routine 02/04/2021 9:23 AM [employer] HC COMPREHENSIVE Routine 02/04/2021 METABOLIC PANEL 9:23 AM [employer] HC CBC,AUTOMATED Routine 02/04/2021 9:23 AM [employer] HC NON-ENZYME CHEMIST/THIN PREP Routine 02/03/2021 3:42 PM CDT CYTOLOGY SPECIMEN LABEL Routine 02/03/2021 3:35 PM CDT HC TRIGLYCERIDE-FLUID Specimen 02/03/2021 in Lab 3:35 PM CDT MD FLOW CYTOMETRY INTERPJ 02/03/2021 9-15 MARKERS 3:30 PM CDT LEUKEMIA/LYMPHOMA PANEL Routine 02/03/2021 FLUID/TISSUE 3:30 PM CDT HC MAGNESIUM Routine 02/03/2021 5:48 AM CDT HC COMPREHENSIVE Routine 02/03/2021 METABOLIC PANEL 5:48 AM CDT HC CBC,AUTOMATED Routine 02/03/2021 5:48 AM CDT HC LIPASE-FLUID Routine 02/02/2021 4:55 PM CDT HC BILIRUBIN;TOTAL,FLUID Routine 02/02/2021 4:55 PM CDT NM WBC SCAN LIMITED Routine 02/02/2021 SINGLE DAY 2:19 PM CDT HC T-SPOT TB TEST Routine 02/02/2021 1:26 PM CDT CHEST 2 VIEWS Routine 02/02/2021 11:14 AM CDT HC LD(LDH;LACTIC Add on 02/02/2021 DEHYDROGENASE) 6:00 AM CDT HC MAGNESIUM Routine 02/02/2021 6:00 AM CDT HC COMPREHENSIVE Routine 02/02/2021 METABOLIC PANEL 6:00 AM CDT HC CBC,AUTOMATED Routine 02/02/2021 6:00 AM CDT HC PTT(APTT) Routine 02/02/2021 4:42 AM CDT MRI C-SPINE WO/W CONTRAST Routine 02/02/2021 2:20 AM CDT CULTURE-BLOOD Routine 02/02/2021 W/SENSITIVITY 12:12 AM CDT CULTURE-BLOOD Routine 02/02/2021 W/SENSITIVITY 12:05 AM CDT CONSULT VASCULAR ACCESS Routine 02/01/2021 TEAM 11:25 PM CDT US EXTRM-ANATOM SPEC Routine 02/01/2021 RIGHT 10:47 PM CDT HC PTT(APTT) Routine 02/01/2021 9:46 PM CDT CHEST IMMEDIATE POST STAT 02/01/2021 PROCEDURE INSP/EXP 4:42 PM CDT HC CELL COUNT Routine 02/01/2021 W/DIFF-FLUIDS 3:35 PM CDT HC LDH-FLUID Routine 02/01/2021 3:35 PM CDT HC PH-FLUID Routine 02/01/2021 3:35 PM CDT HC TOTAL PROTEIN-FLUID Routine 02/01/2021 3:35 PM CDT HC GLUCOSE-FLUID Routine 02/01/2021 3:35 PM CDT CULTURE-TB (AFB) Specimen 02/01/2021 in Lab 3:35 PM CDT CULTURE-FUNGAL,OTHER Routine 02/01/2021 3:35 PM CDT GRAM STAIN Routine 02/01/2021 3:35 PM CDT CULTURE-ANAEROBIC Routine 02/01/2021 3:35 PM CDT CULTURE-WOUND/TISSUE/FLUI Routine 02/01/2021 D(AEROBIC 3:35 PM CDT ONLY)W/SENSITIVITY IR CHEST TUBE PLACEMENT Routine 02/01/2021 2:44 PM CDT IR THORACENTESIS WITH Routine 02/01/2021 INTERVENTION 2:44 PM CDT HC PTT(APTT) 02/01/2021 2:40 PM CDT HC PTT(APTT) Routine 02/01/2021 8:[address] CHEST W CONTRAST Routine 02/01/2021 3:55 AM CDT HC PTT(APTT) Routine 02/01/2021 2:16 AM CDT HC MAGNESIUM Routine 02/01/2021 1:50 AM CDT HC COMPREHENSIVE Routine 02/01/2021 METABOLIC PANEL 1:50 AM CDT HC CBC,AUTOMATED Routine 02/01/2021 1:50 AM CDT CONSULT VASCULAR ACCESS Routine 02/01/2021 TEAM 1:26 AM CDT MRI T-SPINE W CONTRAST [place] 02/01/2021 12:05 AM CDT MRI L-SPINE W CONTRAST [place] 02/01/2021 12:05 AM CDT COVID-19 (SARS-COV-2) PCR STAT 01/31/2021 9:44 PM CDT MRI L-SPINE WO CONTRAST STAT 01/31/2021 8:13 PM CDT MRI T-SPINE WO CONTRAST STAT 01/31/2021 8:13 PM CDT UA REFLEX LABEL STAT 01/31/2021 5:41 PM CDT URINALYSIS MICROSCOPIC STAT 01/31/2021 REFLEX TO CULTURE 5:41 PM CDT HC URINALYSIS UAR STAT 01/31/2021 5:41 PM CDT CULTURE-URINE 01/31/2021 W/SENSITIVITY 5:41 PM CDT CULTURE-BLOOD STAT 01/31/2021 W/SENSITIVITY 3:40 PM CDT HC TROPONIN I, POC 01/31/2021 3:36 PM CDT HC POC LACTIC ACID 01/31/2021 3:35 PM CDT HC C-REACTIVE PROTEIN STAT 01/31/2021 (CRP) 3:35 PM CDT HC SED RATE; MANUAL STAT 01/31/2021 3:35 PM CDT HC MAGNESIUM STAT 01/31/2021 3:35 PM CDT HC CBC W/ AUTOMATED DIFF STAT 01/31/2021 3:35 PM CDT HC COMPREHENSIVE STAT 01/31/2021 METABOLIC PANEL 3:35 PM CDT CULTURE-BLOOD STAT 01/31/2021 W/SENSITIVITY 3:35 PM CDT POC CREATININE, RAD 01/31/2021 3:34 PM CDT POC GLUCOSE 01/31/2021 3:33 PM CDT from Last 3 Months Results * (ABNORMAL) CULTURE-URINE W/SENSITIVITY (02/21/2021) Only the most recent of 2 results within the time period is included. Isolate 1 50,000-100,000 CFU/mL of OTHER OUTSID [...] P varun Number OTHER OUTSIDE LAB * CHEST SINGLE VIEW (02/09/2021 9:50 AM [employer]) Only the most recent of 6 results within the time period is included. Modality Anatomical Region Laterality Computed Radiography Chest Specimen Impressions [facility] RESULTS - 02/09/2021 10:08 AM [employer] Stable small left hydropneumothorax after left pleural drain removal. Left basilar atelectasis. Finalized by Pacheco Weems M.D. on 02/09/2021 10:08 AM. Dictated by Pacheco Weems M.D. on 02/09/2021 10:08 AM. Narrative [facility] RESULTS - 02/09/2021 10:08 AM [employer] Single view INDICATION: Chest tube removal COMPARISON CHEST FILM: February 08, 2021 FINDINGS: Devices: Right IJ chest port, spinal hardware remain in place. Left pleural drain has been removed. Heart And Pulmonary Vasculature: The heart size is normal without pulmonary vascular congestion. Lungs and Pleura: Small left hydropneumothorax is stable. Left basilar atelectasis again noted. The right lung is clear. Procedure Note Pacheco Weems MD - 02/09/2021 Single view INDICATION: Chest tube removal COMPARISON CHEST FILM: February 08, 2021 FINDINGS: Devices: Right IJ chest port, spinal hardware remain in place. Left pleural drain has been removed. Heart And Pulmonary Vasculature: The heart size is normal without pulmonary vascular congestion. Lungs and Pleura: Small left hydropneumothorax is stable. Left basilar atelectasis again noted. The right lung is clear. IMPRESSION Stable small left hydropneumothorax after left pleural drain removal. Left basilar atelectasis. Finalized by Pacheco Weems M.D. on 02/09/2021 10:08 AM. Dictated by Pacheco Weems M.D. on 02/09/2021 10:08 AM. Performing Organization Address City/State/ZIP Code P varun Number [facility] * CBC (02/08/2021 9:14 AM [employer]) Only the most recent of 8 results within the time period is included. White Blood 8.4 4.5 - 11.0 K/UL [facility] Cells RBC 4.67 4.0 - 5.0 M/UL [facility] Hemoglobin 13.0 12.0 - 15.0 GM/DL [facility] Hematocrit 40.2 36 - 45 % [facility] MCV 86.1 80 - 100 FL [facility] MCH 27.9 26 - 34 PG [facility] MCHC 32.4 32.0 - 36.0 G/DL [facility] RDW 14.9 11 - 15 % [facility] Platelet Count 318 150 - 400 K/UL [facility] MPV 7.8 7 - 11 FL [facility] Specimen Performing Organization Address City/State/ZIP Code P varun Number [facility] [address] [place] [address] * MAGNESIUM (02/08/2021 9:14 AM [employer]) Only the most recent of 9 results within the time period is included. Magnesium 1.6 1.6 - 2.6 mg/dL [facility] Specimen Performing Organization Address City/State/ZIP Code P varun Number [facility] [address] [place] [address] * COMPREHENSIVE METABOLIC PANEL (02/08/2021 9:14 AM [employer]) Only the most recent of 9 results within the time period is included. Sodium 140 137 - 147 MMOL/L [facility] Potassium 3.7 3.5 - 5.1 MMOL/L [facility] Chloride 103 98 - 110 MMOL/L [facility] Glucose 81 70 - 100 MG/DL [facility] Blood Urea 7 7 - 25 MG/DL [facility] Nitrogen Creatinine 0.42 0.4 - 1.00 MG/DL [facility] Calcium 9.5 8.5 - 10.6 MG/DL [facility] Total Protein 6.5 6.0 - 8.0 G/DL [facility] Total Bilirubin 0.4 0.3 - 1.2 MG/DL [facility] Albumin 3.5 3.5 - 5.0 G/DL [facility] Alk Phosphatase 74 25 - 110 U/L [facility] AST (SGOT) 22 7 - 40 U/L [facility] CO2 25 21 - 30 MMOL/L [facility] ALT (SGPT) 25 7 - 56 U/L [facility] Anion Gap 12 3 - 12 [facility] eGFR Non >60 >60 mL/min [facility] Comment: [place] The eGFR is not validated f or use in drug dosing adjustments. Continue to use estimated creatinine clearance per dosing reference text. Please contact the Clinical Pharmacist for questions. eGFR >60 >60 mL/min [facility] [place] Comment: The eGFR is not validated for use in drug dosing adjustments. Continue to use estimated creatinine clearance per dosing reference text. Please contact the Clinical Pharmacist for questions. Specimen Performing Organization Address City/State/ZIP Code P varun Number [facility] [address] [place] [address] * MRI PELVIS WO/W CONTRAST (02/08/2021 4:03 AM [employer]) Modality Anatomical Region Laterality Magnetic Resonance Pelvis Specimen Impressions [facility] RESULTS - 02/08/2021 8:31 AM [employer] 1. No evidence of acute osteomyelitis. 2. Extensive postoperative changes as detailed in findings. Finalized by Naeem Harvey M.D. on 02/08/2021 8:31 AM. Dictated by Naeem Harvey M.D. on 02/08/2021 8:14 AM. Narrative [facility] RESULTS - 02/08/2021 8:31 AM [employer] Exam: MRI PELVIS WO/W CONTRAST CLINICAL INDICATION: 50 years. 50 yo female with paraplegia and history of ischial OM, on chronic antibiotics for suppression. Evaluate for current ischial or femoral stump OM. COMPARISON: MRI 11/09/2015. TECHNIQUE: Multiplanar, multisequence MRI acquisition of the pelvis.with and without IV contrast FINDINGS: Amputation of the right lower extremity with disc articulation of the right hip and presumed partial resection or resorption of the bilateral inferior pubic rami. No focal marrow edema or low T1 signal to suggest acute osteomyelitis. Scar tissue or sinus tract extends from the right proximal thigh anteriorly towards the right superior pubic ramus without a well-defined fluid collection (series 06/08-). Instrumented fixation of the left proximal femur results in metallic artifact limiting evaluation at this location. Diffuse muscular atrophy consistent with paraplegia. Presumed sacral decubitus ulcer without underlying fluid collection. Suprapubic catheter in place. Procedure Note Naeem Harvey MD - 02/08/2021 Exam: MRI PELVIS WO/W CONTRAST CLINICAL INDICATION: 50 years. 50 yo female with paraplegia and history of ischial OM, on chronic antibiotics for suppression. Evaluate for current ischial or femoral stump OM. COMPARISON: MRI 11/09/2015. TECHNIQUE: Multiplanar, multisequence MRI acquisition of the pelvis.with and without IV contrast FINDINGS: Amputation of the right lower extremity with disc articulation of the right hip and presumed partial resection or resorption of the bilateral inferior pubic rami. No focal marrow edema or low T1 signal to suggest acute osteomyelitis. Scar tissue or sinus tract extends from the right proximal thigh anteriorly towards the right superior pubic ramus without a well-defined fluid collection (series /-12). Instrumented fixation of the left proximal femur results in metallic artifact limiting evaluation at this location. Diffuse muscular atrophy consistent with paraplegia. Presumed sacral decubitus ulcer without underlying fluid collection. Suprapubic catheter in place. IMPRESSION 1. No evidence of acute osteomyelitis. 2. Extensive postoperative changes as d etailed in findings. Finalized by Naeem Harvey M.D. on 02/08/2021 8:31 AM. Dictated by Naeem Harvey M.D. on 02/08/2021 8:14 AM. Performing Organization Address City/State/ZIP Code P varun Number [facility] * [facility] [place] (02/06/2021 5:38 PM [employer]) Ref Lab Test [id number], Adenosine Deaminase REFERENC E LAB Code in Pleural Fluid REF LAB RESULT SEE NOTE REFERENCE LAB ([facility]) Test name Result Flag Units RefIntvl - Adenosine Deaminase, Pleural Fluid 6 U/L 0-30 INTERPRETIVE INFORMATION:Adenosine Deaminase, Pleural Fluid This test was developed and its performance characteristics determined by [facility]. It has not been cleared or approved by the US Food and Drug Administration. This test was performed in a CLIA certified laboratory and is intended for clinical purposes. Performed By: [facility] [address] [place] [id number] Flight Engineer Performance Qualified: Kimberly Sam MD Specimen Performing Organization Address City/State/ZIP Code P varun Number REFERENCE LAB REFERENCE LAB See results for address. * [facility] (02/06/2021 5:38 PM [employer]) Test Adenosine Deaminase in Pleural REFERE NCE LAB Fluid Reference Lab PERFORMED AT [facility] REFERENCE LAB LABORATORY-FOR REF RANGE SEE REPORT. Results Ref Lab SEE REF LAB RESULT REFERENCE LAB Specimen Mail PLEURAL FLUID REFERENCE LAB Specimen Performing Organization Address City/State/ZIP Code P varun Number REFERENCE LAB REFERENCE LAB See results for address. * CYTOLOGY FLUIDS (02/03/2021 3:42 PM CDT) Cytology [facility] [email or web address] Department of Pathology and Laboratory Medicine [address] [place] [address] Surgical Pathology Office: [phone] CYTOLOGY REPORT NAME: VIKI MESA CYTOLOGY #: [id number] MR #: [id number] ALT ID #: BILLING #: [id number] LOCATION: [facility] DATE OF PROCEDURE: 02/03/2021 AGE: 50 SEX: F DATE RECEIVED: 02/05/2021 : 1970 TIME RECEIVED: 12:29 PHYSICIAN: MARILYN SANTOS DATE OF REPORT: 02/06/2021 COPY TO: DATE OF PRINTIN02/06/2021 Material Received: A: Pleural Fluid-Left History: 50-year-old female with history of paraplegia and new pleural effusion. Gross Description: (1 ThinPrep, 1 DQ direct smear) Received 1.5mL of clear, bryant fluid. ############################## ############################## ############ Final Diagnosis: A. Pleural Fluid-Left: Negative for malignant cells. Please also see concurrent flow cytometry report ([id number]), which reports negative immunophenotypic study. Attestation: By this signature, I attest that I have personally formulated the final interpretation expressed in this report and that the above diagnosis is based upon my examination of the slides and/or other material indicated in this report. +++Electronically Signed Out By+++ af/02/06/2021 Interpreted by: MD Bette Ford, DO, Resident Specimen Pleural,Left Performing Organization Address City/[facility]/ZIP [facility] P varun Number [facility] [address] [place] [address] * PLEURAL FLUID TRIGLYCERIDES (02/03/2021 3:35 PM CDT) Pleural Fluid 78 mg/dL [facility] Triglycerides Comment: Triglycerides >110 mg/dL is suggestive of a chylothorax. Triglycerides <50 mg/dL is suggestive of pseudochylothorax. Specimen Pleural Fluid Performing Organization Address City/[facility] P varun Number [facility] [address] [place] [address] * CYTOLOGY SPECIMEN LABEL (02/03/2021 3:35 PM CDT) Specimen Other (Specify) Performing Organization Address City/[facility]/ZIP Code P varun Number [facility] RESULTS * FLOW CYTOMETRY (02/03/2021 3:30 PM CDT) PATHOLOGY [facility] [email or web address] Alphonse Conley MD, Director of Flow Cytometry Laboratory Department of Pathology and Laboratory Medicine [address] [place] [address] Surgical Pathology Office: [phone] FLOW CYTOMETRY REPORT NAME: VIKI MESA. SURG PATH #: [id number] MR #: [id number] SPECIMEN CLASS: LC BILLING #: [id number] ALT ID #: LOCATION: [id number] DATE OF PROCEDURE: 02/03/2021 AGE: 50 SEX: F DATE RECEIVED: 02/03/2021 : 1970 TIME RECEIVED: 16:14 PHYSICIAN: MARILYN SANTOS DATE OF REPORT: 02/05/2021 COPY TO: MD CHERIE SANDHU MD, MPH DATE OF PRINTIN02/05/2021 Material Received: A: Pleural fluid History: 50 year old female ############################## ############################## ############ Final Diagnosis: Pleural fluid, flow cytometry: Negative immunophenotypic study Interpretation: Lymphocytes comprise 98% of total events. The majority are T cells with a normal CD4:CD8 ratio and normal antigen expression. B cells are polyclonal with normal antigen expression. There is no immunophenotypic evidence of non-Hodgkin lymphoma. Attestation: By this signature, I attest that I have personally formulated the final interpretation expressed in this report and that the above diagnosis is based upon my examination of the slides and/or other material indicated in this report. +++Electronically Signed Out By+++ yuki/02/03/2021 Interpreted by: Lloyd Bang MD 02/05/2021 ############################## ############################## ############ Lab Data: Flow Cytometry - Lymphoma Screen B Cell Associated Markers (% Positive Cells): CD19 = 6; CD19+CD5+ = 1; CD20 = 6; Chapeno = 3; Lambda = 2; Chapeno:Lambda ratio = 1.5 T Cell Associated Markers (% Positive Cells): CD2 = 94; CD3 = 92; CD4 = 68; CD5 = 93; CD7 = 81; CD8 = 7; CD4:CD8 ratio = 2.6 Miscellaneous Markers (% Positive Cells): CD10 = 2; CD38 = 15; CD45 = 100; CD56 = 2; Cell Viability (%): 98 Number of Cells Analyzed: 3,220 Total Number of Markers: 14 Summary of Marker Combinations: Chapeno/Lambda/5/19/38/45/10/20; 2/7/5/3/4/45/56/8 This test was developed and its performance characteristics determined by the [facility] Flow Cytometry Laboratory. It has not been cleared or approved by the U.S. Food and Drug Administration (FDA). The FDA has determined that such clearance or approval is not necessary. Specimen Performing Organization Address City/State/ZIP Code P varun Number [facility] [address] [place] [address] * LEUKEMIA/LYMPHOMA PANEL FLUID/TISSUE (02/03/2021 3:30 PM CDT) Leuk/Lymph SEE PATHOLOGY REPORT MAIN LAB Interpretation Specimen/LLM OTHER (SPECIFY) [facility] Specimen Other (Specify) Performing Organization Address City/[facility]/ZIP Code P varun Number [facility] [address] [place] [address] * PLEURAL FLUID LIPASE (02/02/2021 4:55 PM CDT) Pleural Fluid 5 U/L [facility] Lipase Comment: Ascites due to pancreatitis is associated with lipase >3 times higher than plasma. Specimen Pleural Fluid Performing Organization Address City/[facility]/ZIP Code P varun Number [facility] [address] [place] [address] * PLEURAL FLUID TOTAL BILIRUBIN (02/02/2021 4:55 PM CDT) Pleural Fluid 2.0 mg/dL [facility] Total Bilirubin Comment: Pleural fluid to serum bilirubin ratio of 0.6 suggests the presence of an exudate Specimen Pleural Fluid Performing Organization Address City/State/ZIP Code P varun Number [facility] [address] [place] [address] * NM WBC SCAN LIMITED SINGLE DAY (02/02/2021 2:19 PM CDT) Modality Anatomical Region Laterality Nuclear Medicine Specimen Impressions [facility] RESULTS - 02/02/2021 2:12 PM CDT FINDINGS/IMPRESSION: No focal white blood cell accumulation. Examination is insensitive for diagnosis of vertebral body osteomyelitis. Finalized by Tarik Dukes M.D. on 02/02/2021 2:12 PM. Dictated by Tarik Dukes M.D. on 02/02/2021 12:48 PM. Narrative [facility] - 02/02/2021 2:12 PM CDT WBC SCAN Radiopharmaceutical: 21.2 mCi Technetium-99m exametazime Clinical Indication: Concern for spinal discitis/vertebral body osteomyelitis. Possible hardware infection. Technique: Labelling of autologous white blood cells was performed by outside nuclear pharmacy. Multiplanar images were acquired at 1 and 3 hours following re-infusion of white blood cells. Comparison: Multiple previous CT and MRI examinations. Procedure Note Tarik Dukes II, MD - 02/02/2021 WBC SCAN Radiopharmaceutical: 21.2 mCi Technetium-99m exametazime Clinical Indication: Concern for spinal discitis/vertebral body osteomyelitis. Possible hardware infection. Technique: Labelling of autologous white blood cells was performed by outside nuclear pharmacy. Multiplanar images were acquired at 1 and 3 hours following re-infusion of white blood cells. Comparison: Multiple previous CT and MRI examinations. IMPRESSION FINDINGS/IMPRESSION: No focal white blood cell accumulation. Examination is insensitive for diagnosis of vertebral body osteomyelitis. Finalized by Tarik Dukes M.D. on 02/02/2021 2:12 PM. Dictated by Tarik Dukes M.D. on 02/02/2021 12:48 PM. Performing Organization Address City/State/ZIP Code P varun Number [facility] RES[facility] * T SPOT TB (QUANTIFERON TB) (02/02/2021 1:26 PM CDT) T Spot TB Negative REFERENCE LAB Reference range: Normal Value: Negative A negative test result does not exclude the possibility of exposure to or infection with Mycobacterium tuberculosis (M. tuberculosis). Patients with recent exposure to TB infected individuals exhibiting a negative T-SPOT.TB result should be considered for retesting within 6 weeks or if other relevant clinical symptoms indicate. Results from T-SPOT.TB testing must be used in conjunction with each individual's epidemiological history, current medical status, and results of other diagnostic evaluations.[id number] T-SPOT.TB test is qualitative and results are reported as positive, borderline or negative, given that the test controls perform as expected. In line with the Centers for Disease Control and Prevention's 2010 recommendation to report quantitative measurements alongside the qualitative result, the laboratory provides spot counts for informational purposes only. The T-SPOT.TB test should not be interpreted as a quantitative test. Neg Control TB Passed REFERENCE LAB Spot Count Panel A TB Spot 0 REFERENCE LAB Count Panel B TB Spot 0 REFERENCE LAB Count Pos Control TB Passed REFERENCE LAB Spot Count Specimen Blood Performing Organization Address City/State/ZIP Code P varun Number REFERENCE LAB REFERENCE LAB See results for address. * CHEST 2 VIEWS (02/02/2021 11:14 AM CDT) Modality Anatomical Region Laterality Computed Radiography Chest Specimen Impressions [facility] - 02/02/2021 1:19 PM CDT 1. Stable to slightly decreased partiall y loculated left pleural effusion with chest tube in place. Tiny small residual left pneumothorax component inferiorly and apically. 2. Improving left perihilar and basal op acities. Finalized by Juan Hutchinson M.D. on 02/02/2021 1:19 PM. Dictated by Juan Hutchinson M.D. on 02/02/2021 1:16 PM. Narrative [facility] - 02/02/2021 1:19 PM CDT CHEST 2 VIEWS INDICATION: Follow up emypema. COMPARISON STUDY: February 01, 2021. FINDINGS: Stable support devices. Lungs/Pleura: Low left lung volume. Improving left perihilar and basal opacities. Stable to slightly decreased partially loculated left pleural effusion. Tiny small residual left pneumothorax component inferiorly, apically and laterally. Heart and Mediastinum: Stable heart and mediastinum. Skeletal Structures and Soft Tissues: Stable long segment thoracolumbar fusion hardware. Procedure Note Juan Hutchinson MD - 02/02/2021 CHEST 2 VIEWS INDICATION: Follow up emypema. COMPARISON STUDY: February 01, 2021. FINDINGS: Stable support devices. Lungs/Pleura: Low left lung volume. Improving left perihilar and basal opacities. Stable to slightly decreased partially loculated left pleural effusion. Tiny small residual left pneumothorax component inferiorly, apically and laterally. Heart and Mediastinum: Stable heart and mediastinum. Skeletal Structures and Soft Tissues: Stable long segment thoracolumbar fusion hardware. IMPRESSION 1. Stable to slightly decreased partiall y loculated left pleural effusion with chest tube in place. Tiny small residual left pneumothorax component inferiorly and apically. 2. Improving left perihilar and basal op acities. Finalized by Juan Hutchinson M.D. on 02/02/2021 1:19 PM. Dictated by Juan Hutchinson M.D. on 02/02/2021 1:16 PM. Performing Organization Address City/[facility]/ZIP Code P varun Number [facility] * (ABNORMAL) LDH-LACTATE DEHYDROGENASE (02/02/2021 6:00 AM CDT) Lactate 374 (H) 100 - 210 U/L [facility] Dehydrogenase Specimen Performing Organization Address City/[facility] P varun Number [facility] [address] [place] [address] * (ABNORMAL) PTT (APTT) (02/02/2021 4:42 AM CDT) Only the most recent of 5 results within the time period is included. APTT 85.2 (H) 24.0 - 36.5 SEC [facility] Specimen Blood Performing Organization Address [facility] P varun Number [facility] [address] [place] [address] * MRI C-SPINE WO/W CONTRAST (02/02/2021 2:20 AM CDT) Modality Anatomical Region Laterality Magnetic Resonance Spine, C-Spine Specimen Impressions [facility] - 02/02/2021 9:08 AM CDT 1. No evidence of discitis-osteomyelit is in the cervical spine. 2. Mild degenerative spinal canal narr owing at C5-C6. 3. Multilevel degenerative neural fora vane stenosis, greatest of severe degree on the left at C5-C6. Approved by Sunny Chester M.D. on 02/02/2021 8:48 AM By my electronic signature, I attest that I have personally reviewed the images for this examination and formulated the interpretations and opinions expressed in this report Finalized by Mary Uribe D.O. on 02/02/2021 9:08 AM. Dictated by Sunny Chester M.D. on 02/02/2021 7:58 AM. Narrative [facility] - 02/02/2021 9:08 AM CDT EXAM: MRI C-SPINE HISTORY: Concern for osteomyelitis. Technique: Multiple sagittal and axial MR sequences were obtained of the cervical spine with and without MultiHance contrast. Comparison: MRI T-spine 01/31/2021 FINDINGS: Susceptibility artifact from thoracolumbar fixation hardware is again noted. There is reversal of the normal cervical lordosis. Trace retrolisthesis at C5- C6. The vertebral body heights are maintained. There is mild discogenic marrow endplate changes along the inferior endplate at C5. There is otherwise normal marrow signal. No evidence of confluent T1 hypointense, enhancing marrow signal to suggest discitis/osteomyelitis within the cervical spine. The cervical cord is normal in size and signal. No abnormal epidural fluid collection. C2-C3: No significant central or foraminal stenosis. C3-C4: No significant spinal canal stenosis. Bilateral uncovertebral facet arthropathy result in mild bilateral neural foraminal narrowing. C4-C5: Posterior disc osteophyte complex and right uncovertebral/facet arthropathy result in mild right neural foraminal narrowing. No significant central or left foraminal stenosis. C5-C6: Posterior disc bulge and ligamentum flavum thickening resulting in mild central spinal stenosis. Uncovertebral and facet hypertrophy results in severe left and mild right foraminal stenosis. C6-C7: Posterior disc osteophyte complex and left greater than right uncovertebral and facet arthropathy results in at least moderate left and mild right foraminal stenosis. C7-T1: No significant central or foraminal stenosis. Other: The paraspinous soft tissues are unremarkable. Thoracic spine findings are described on MRI T-spine 01/31/2021. Procedure Note Mary Uribe DO - 02/02/2021 EXAM: MRI C-SPINE HISTORY: Concern for osteomyelitis. Technique: Multiple sagittal and axial MR sequences were obtained of the cervical spine with and without MultiHance contrast. Comparison: MRI T-spine 01/31/2021 FINDINGS: Susceptibility artifact from thoracolumbar fixation hardware is again noted. There is reversal of the normal cervical lordosis. Trace retrolisthesis at C5- C6. The vertebral body heights are maintained. There is mild discogenic marrow endplate changes along the inferior endplate at C5. There is otherwise normal marrow signal. No evidence of confluent T1 hypointense, enhancing marrow signal to suggest discitis/osteomyelitis within the cervical spine. The cervical cord is normal in size and signal. No abnormal epidural fluid collection. C2-C3: No significant central or foraminal stenosis. C3-C4: No significant spinal canal stenosis. Bilateral uncovertebral facet arthropathy result in mild bilateral neural foraminal narrowing. C4-C5: Posterior disc osteophyte complex and right uncovertebral/facet arthropathy result in mild right neural foraminal narrowing. No significant central or left foraminal stenosis. C5-C6: Posterior disc bulge and ligamentum flavum thickening resulting in mild central spinal stenosis. Uncovertebral and facet hypertrophy results in severe left and mild right foraminal stenosis. C6-C7: Posterior disc osteophyte complex and left greater than right uncovertebral and facet arthropathy results in at least moderate left and mild right foraminal stenosis. C7-T1: No significant central or foraminal stenosis. Other: The paraspinous soft tissues are unremarkable. Thoracic spine findings are described on MRI T-spine 01/31/2021. IMPRESSION 1. No evidence of discitis-osteomyeliti s in the cervical spine. 2. Mild degenerative spinal canal narro wing at C5-C6. 3. Multilevel degenerative neural sven inal stenosis, greatest of severe degree on the left at C5-C6. Approved by Sunny Chester M.D. on 02/02/2021 8:48 AM By my electronic signature, I attest that I have personally reviewed the images for this examination and formulated the interpretations and opinions expressed in this report Finalized by Mary Uribe D.O. on 02/02/2021 9:08 AM. Dictated by Sunny Chester M.D. on 02/02/2021 7:58 AM. Performing Organization Address City/State/ZIP Code P varun Number [facility] RES[facility] * CULTURE-BLOOD W/SENSITIVITY (02/02/2021 12:12 AM CDT) Only the most recent of 4 results within the time period is included. Battery Name BLOOD CULTURE MAIN LAB Report Status FINAL 02/08/2021 MAIN LAB Specimen BLOOD BLOOD LINE DRAW PORT TIGIST ANDREWS Description Special No special requests [facility] Requests Culture NO GROWTH 5 DAYS [facility] Specimen Blood Performing Organization Address City/State/ZIP Code P varun Number MAIN LAB [address] [place] [address] * US EXTRM-ANATOM SPEC RIGHT (02/01/2021 10:47 PM CDT) Modality Anatomical Region Laterality Ultrasound Lower Extremity, Upper Right Extremity Specimen Right Impressions [facility] - 02/02/2021 7:57 AM CDT Minimal edema adjacent to the port site. No discrete drainable fluid collection. Finalized by Makenna White M.D. on 02/02/2021 7:57 AM. Dictated by Makenna White M.D. on 02/02/2021 7:53 AM. Narrative [facility] - 02/02/2021 7:57 AM CDT FOCUSED ULTRASOUND OF THE RIGHT CHEST WALL CLINICAL INDICATION: Female, 50 years old. Evaluate right IJ chest port site for fluid collection. Infection, new onset pain at port site. TECHNIQUE: Focused grayscale and color Doppler imaging was performed of the soft tissues surrounding the right chest port catheter site. COMPARISON: None FINDINGS: Targeted examination of the soft tissues surrounding the right chest wall port catheter site demonstrates a trace amount of edema adjacent to the port. No discrete drainable fluid collections. There is no hypervascularity by color Doppler. The catheter is partially visualized within the right internal jugular vein. The right internal jugular and subclavian veins are patent by color and spectral Doppler. Procedure Note Makenna White MD - 02/02/2021 FOCUSED ULTRASOUND OF THE RIGHT CHEST WALL CLINICAL INDICATION: Female, 50 years old. Evaluate right IJ chest port site for fluid collection. Infection, new onset pain at port site. TECHNIQUE: Focused grayscale and color Doppler imaging was performed of the soft tissues surrounding the right chest port catheter site. COMPARISON: None FINDINGS: Targeted examination of the soft tissues surrounding the right chest wall port catheter site demonstrates a trace amount of edema adjacent to the port. No discrete drainable fluid collections. There is no hypervascularity by color Doppler. The catheter is partially visualized within the right internal jugular vein. The right internal jugular and subclavian veins are patent by color and spectral Doppler. IMPRESSION Minimal edema adjacent to the port site. No discrete drainable fluid collection. Finalized by Makenna White M.D. on 02/02/2021 7:57 AM. Dictated by Makenna White M.D. on 02/02/2021 7:53 AM. Performing Organization Address City/State/ZIP Code P varun Number [facility] RES[facility] * CHEST IMMEDIATE POST PROCEDURE INSP/EXP (02/01/2021 4:42 PM CDT) Modality Anatomical Region Laterality Computed Radiography Chest Specimen Impressions [facility] - 02/02/2021 7:37 AM CDT Interval placement of left pigtail pleural catheter with decreased pleural fluid component and new small pneumothorax. Similar left hilar and paramediastinal consolidation. Finalized by Katie Richey M.D. on 02/02/2021 7:37 AM. Dictated by Katie Richey M.D. on 02/02/2021 7:32 AM. Narrative [facility] RES[facility] - 02/02/2021 7:37 AM CDT CHEST IMMEDIATE POST PROCEDURE INSP/EXP INDICATION: s/p Left CT placement COMPARISON STUDY: Chest radiograph December 01, 2015 FINDINGS: New left pigtail pleural catheter overlies the left lung base and hemidiaphragm. Right IJ chest port with the tip overlying the upper right atrium. Thoracolumbar spinal fixation hardware. Surgical clips overlie the right upper quadrant the abdomen. Lungs/Pleura: Similar left hilar and paramediastinal consolidation. Decreased now small left pleural collection. New small left pneumothorax component. Heart and Mediastinum: Stable mediastinal contours and heart size. Procedure Note Katie Richey MD - 02/02/2021 CHEST IMMEDIATE POST PROCEDURE INSP/EXP INDICATION: s/p Left CT placement COMPARISON STUDY: Chest radiograph December 01, 2015 FINDINGS: New left pigtail pleural catheter overlies the left lung base and hemidiaphragm. Right IJ chest port with the tip overlying the upper right atrium. Thoracolumbar spinal fixation hardware. Surgical clips overlie the right upper quadrant the abdomen. Lungs/Pleura: Similar left hilar and paramediastinal consolidation. Decreased now small left pleural collection. New small left pneumothorax component. Heart and Mediastinum: Stable mediastinal contours and heart size. IMPRESSION Interval placement of left pigtail pleural catheter with decreased pleural fluid component and new small pneumothorax. Similar left hilar and paramediastinal consolidation. Finalized by Katie Richey M.D. on 02/02/2021 7:37 AM. Dictated by Katie Richey M.D. on 02/02/2021 7:32 AM. Performing Organization Address [facility] P varun Number [facility] RESULTS * (ABNORMAL) PLEURAL FLUID TOTAL PROTEIN (02/01/2021 3:35 PM CDT) Pleural Fluid 5.0 (H)Comment: Serum to <1.1 g/dL [facility] Total Protein pleural fluid protein gradi ent >3.1 g/dL is suggestive of an exudate Specimen Pleural Fluid Performing Organization Address [facility] P varun Number [facility] [address] [place] [address] * (ABNORMAL) PLEURAL FLUID PH (02/01/2021 3:35 PM CDT) Pleural Fluid 7.76 (H) 7.60 - 7.66 [facility] Ph Specimen Pleural Fluid Performing Organization Address [facility] P varun Number [facility] [address] [place] [address] * (ABNORMAL) PLEURAL FLUID LACTATE DEHYDROGENASE (02/01/2021 3:35 PM CDT) Pleural Fluid 373 (H)Comment: Higher levels 67 - 140 U/L [facility] Lactate suggestive of exudate Dehydrogenase Specimen Pleural Fluid Performing Organization Address [facility] P varun Number [facility] [address] [place] [address] * PLEURAL FLUID GLUCOSE (02/01/2021 3:35 PM CDT) Pleural Fluid 73 70 - 100 mg/dL [facility] Glucose Comment: Glucose <60 mg/dL associated with parapneumonic effusion, tuberculosis, malignancy, empyema, and rheumatoid disease Specimen Pleural Fluid Performing Organization Address [facility] P varun Number [facility] [address] [place] [address] * CULTURE-FUNGAL,OTHER (02/01/2021 3:35 PM CDT) Battery Name FUNGUS CULTURE [facility] Report Status FINAL 03/05/2021 [facility] Specimen FLUID PLEURAL [facility] Description Special No special requests [facility] Requests Culture NO GROWTH OF FUNGUS AT 4 WEEKS TIGIST ALANNA N LAB Specimen Fluid Performing Organization Address City/[facility]/ZIP Code P varun Number [facility] [address] [place] [address] * GRAM STAIN (02/01/2021 3:35 PM CDT) Battery Name GRAM STAIN [facility] Report Status FINAL 02/01/2021 [facility] Specimen FLUID PLEURAL [facility] Description Special No special requests [facility] Requests Gram Stain MANY [facility] RBC'S Gram Stain FEW [facility] NEUTROPHILS Gram Stain NO ORGANISMS SEEN [facility] Specimen Fluid sample (specimen) - Pleural Performing Organization Address City/[facility]/ZIP [facility] P varun Number [facility] [address] [place] [id number] * CULTURE-WOUND/TISSUE/FLUID(AEROBIC ONLY)W/SENSITIVITY (02/01/2021 3:35 PM CDT) Battery Name ROUTINE CULTURE [facility] Report Status FINAL 02/06/2021 [facility]IN [facility] Specimen FLUID PLEURAL [facility] Description Special No special requests [facility] Requests Direct Gram MANY [facility] Stain RBC'S Direct Gram FEW [facility] Stain NEUTROPHILS Direct Gram NO ORGANISMS SEEN [facility] Stain Culture NO GROWTH 5 DAYS [facility] Specimen Fluid sample (specimen) - Pleural Performing Organization Address City/[facility]/ZIP [facility] P varun Number [facility] [address] [place] [address] * CULTURE-ANAEROBIC (02/01/2021 3:35 PM CDT) Battery Name ANAEROBE CULTURE [facility] Report Status FINAL 02/06/2021 [facility] Specimen FLUID PLEURAL [facility] Description Special No special requests [facility] Requests Culture NO ANAEROBES ISOLATED [facility] Specimen Fluid sample (specimen) - Pleural Performing Organization Address City/[facility]/ZIP Code P varun Number [facility] [address] [place] [address] * CELL COUNT W/DIFF-FLUIDS (02/01/2021 3:35 PM CDT) White Blood 3,500 /UL [facility] Cells,Fluid Red Blood 9,900 /UL [facility] Cells,Fluid Lymphocytes,Flu 94 % [facility] id Monocyte/Histo, 6 % [facility] Fluid Fluid Source FLUID MAIN LAB PLEURAL FLUID Pathology CHRONIC INFLAMMATION [facility] Interpretation, Fluid Pathologist INTERPRETED BY LIZBETH BENTON M.D. [facility] Signature By the PATH SIGNATURE ABOVE , I attest that I have personally formulated the final interpretation expressed in this report and that the above diagnosis is based upon my examination of the slides and/or other material indicated in this report. Specimen Fluid sample (specimen) - Pleural Fluid Performing Organization Address City/State/ZIP Code P varun Number MAIN LAB [address] [place] [address] * IR THORACENTESIS WITH INTERVENTION (02/01/2021 2:44 PM CDT) Modality Anatomical Region Laterality Ultrasound Specimen Narrative [facility] - 02/01/2021 3:41 PM CDT This IR procedure does not require a dictated result. Performing Organization Address City/State/ZIP Code P varun Number [facility] * IR CHEST TUBE PLACEMENT (02/01/2021 2:44 PM CDT) Modality Anatomical Region Laterality Ultrasound Specimen Impressions [facility] RESULTS - 02/02/2021 8:23 AM CDT Ultrasound-guided drain placement into left pleural fluid. I, Rolando Dumont M.D, the attending radiologist, was present for the critical and grady portions of the procedure with a midlevel, resident, and/or fellow participating. Overlapping portions were non grady and I was immediately available. I interpret the critical and grady portion of this procedure to have been needle access. @TT Approved by Miguel Ángel Hill M.D. on 02/01/2021 4:43 PM By my electronic signature, I attest that I have personally reviewed the images for this examination and formulated the interpretations and opinions expressed in this report Finalized by Rolando Dumont M.D. on 02/02/2021 8:23 AM. Dictated by Miguel Ángel Hill M.D. on 02/01/2021 4:42 PM. Narrative [facility] RESULTS - 02/02/2021 8:23 AM CDT Ultrasound-guided drain placement: Clinical Indication: Left-sided empyema Sedation Medication: Fentanyl and Versed Technique and Findings: The nature of the procedure, risks, benefits, and expected outcomes were discussed with the patient who then provided informed written and verbal consent. The patient was placed in a right lateral decubitus position on the interventional table. Initial scans through the left chest demonstrated a left pleural fluid collection. The patient was prepped and draped in the usual sterile manner and the superficial tissues were anesthetized with 2% lidocaine solution. An 18 gauge Seldinger needle was advanced into the fluid collection under ultrasound guidance. Brown/Green thin fluid was aspirated. An Amplatz wire was advanced into the fluid collection and a 12 Armenian pigtail catheter was advanced into the fluid collection. Approximately 15 ml of fluid was aspirated. The pigtail catheter was sutured in place and connected to a Pleur-evac system. The patient tolerated the procedure well and left the department in unchanged condition. Procedure Note Rolando Dumont MD - 02/02/2021 Ultrasound-guided drain placement: Clinical Indication: Left-sided empyema Sedation Medication: Fentanyl and Versed Technique and Findings: The nature of the procedure, risks, benefits, and expected outcomes were discussed with the patient who then provided informed written and verbal consent. The patient was placed in a right lateral decubitus position on the interventional table. Initial scans through the left chest demonstrated a left pleural fluid collection. The patient was prepped and draped in the usual sterile manner and the superficial tissues were anesthetized with 2% lidocaine solution. An 18 gauge Seldinger needle was advanced into the fluid collection under ultrasound guidance. Brown/Green thin fluid was aspirated. An Amplatz wire was advanced into the fluid collection and a 12 Armenian pigtail catheter was advanced into the fluid collection. Approximately 15 ml of fluid was aspirated. The pigtail catheter was sutured in place and connected to a Pleur-evac system. The patient tolerated the procedure well and left the department in unchanged condition. IMPRESSION Ultrasound-guided drain placement into left pleural fluid. Rolando Menjivar M.D, the attending radiologist, was present for the critical and grady portions of the procedure with a midlevel, resident, and/or fellow participating. Overlapping portions were non grady and I was immediately available. I interpret the critical and grady portion of this procedure to have been needle access. @TT Approved by Miguel Ángel Hill M.D. on 02/01/2021 4:43 PM By my electronic signature, I attest that I have personally reviewed the images for this examination and formulated the interpretations and opinions expressed in this report Finalized by Rolando Dumont M.D. on 02/02/2021 8:23 AM. Dictated by Miguel Ángel Hill M.D. on 02/01/2021 4:42 PM. Performing Organization Address City/State/ZIP Code P varun Number [facility] RESULTS * CT CHEST W CONTRAST (02/01/2021 3:55 AM CDT) Modality Anatomical Region Laterality Computed Tomography Chest Specimen Impressions [facility] RESULTS - 02/01/2021 7:58 AM CDT 1. Large loculated left pleural effusion with associated pleural thickening and enhancement, concerning for empyema. Correlation with fluid sampling recommended. Adjacent consolidation within the left upper and lower lobes is likely atelectasis. 2. Posterior thoracolumbar spinal fixati on, better evaluated on MRI of the thoracic spine of one day earlier. Finalized by ALBERTINA SALAZAR M.D. on 02/01/2021 7:58 AM. Dictated by ALBERTINA SALAZAR M.D. on 02/01/2021 7:48 AM. Narrative [facility] - 02/01/2021 7:[address] Chest . Clinical Indication: Empyema on MRI Technique: Multiple contiguous axial CT images were obtained through the chest following the administration of IV contrast. Post processing coronal and sagittal reconstruction images were made from the axial images. IV contrast: Omnipaque Comparison: Thoracic spine MRI 01/31/[address] chest 11/07/2015 . Findings: Axilla, Mediastinum and Doreen: No adenopathy. Heart and Great Vessels: Heart size within normal limits without significant pericardial effusion. Right IJ chest port catheter in place. Airway, Lungs and Pleura: Large, loculated left pleural effusion with mild pleural thickening and enhancement. Moderate subpleural consolidation within the left lower lobe. Mild subpleural consolidation within the left upper lobe. Upper Abdomen: Surgical clips in the gallbladder fossa. Chest Wall and Osseous Structures: Bilateral posterior thoracolumbar spinal fixation appears similar to prior study, with corpectomy and strut graft placement at the T10 and T11 levels. . Procedure Note Albertina Salazar MD - 02/01/2021 CT Chest . Clinical Indication: Empyema on MRI Technique: Multiple contiguous axial CT images were obtained through the chest following the administration of IV contrast. Post processing coronal and sagittal reconstruction images were made from the axial images. IV contrast: Omnipaque Comparison: Thoracic spine MRI 01/31/[address] chest 11/07/2015 . Findings: Axilla, Mediastinum and Doreen: No adenopathy. Heart and Great Vessels: Heart size within normal limits without significant pericardial effusion. Right IJ chest port catheter in place. Airway, Lungs and Pleura: Large, loculated left pleural effusion with mild pleural thickening and enhancement. Moderate subpleural consolidation within the left lower lobe. Mild subpleural consolidation within the left upper lobe. Upper Abdomen: Surgical clips in the gallbladder fossa. Chest Wall and Osseous Structures: Bilateral posterior thoracolumbar spinal fixation appears similar to prior study, with corpectomy and strut graft placement at the T10 and T11 levels. . IMPRESSION 1. Large loculated left pleural effusion with associated pleural thickening and enhancement, concerning for empyema. Correlation with fluid sampling recommended. Adjacent consolidation within the left upper and lower lobes is likely atelectasis. 2. Posterior thoracolumbar spinal fixati on, better evaluated on MRI of the thoracic spine of one day earlier. Finalized by ALBERTINA SALAZAR M.D. on 02/01/2021 7:58 AM. Dictated by ALBERTINA SALAZAR M.D. on 02/01/2021 7:48 AM. Performing Organization Address City/State/ZIP Code P varun Number [facility] * MRI T-SPINE W CONTRAST (02/01/2021 12:05 AM CDT) Modality Anatomical Region Laterality Magnetic Resonance Spine, T-Spine Specimen Addenda Addendum by Sunny Yin MD on 02/01/2021 6:02 AM CDT Finalized by Sunny Yin M.D. on 02/01/2021 12:39 AM. Dictated by Sunny Yin M.D. on 02/01/2021 12:23 AM.Addendum: Dr. Wagner discussed these results over the phone with the overseeing [facility] physician at 1:35 AM on 02/01/2021. Approved by Alfa Wagner M.D. on 02/01/2021 1:37 AM By my electronic signature, I attest that I have personally reviewed the images for this examination and formulated the interpretations and opinions expressed in this report Finalized by Sunny Yin M.D. on 02/01/2021 5:59 AM. Dictated by Alfa Wagner M.D. on 02/01/2021 1:37 AM. Impressions [facility] - 02/01/2021 12:39 AM CDT 1. Evaluation is again limited due to wyatt sceptibility artifact from thoracolumbar spinal fixation hardware. Prior T10 and T11 corpectomies are again seen with strut graft at this level. There is some mild enhancement suggested to the right of this stricture graft corresponding to some increased STIR signal earlier noncontrast MRI that is nonspecific though could be related to early infection. However, the lack of adjacent significant paravertebral edema or fluid collection as well as lack of additional adjacent discitis or other vertebral body edema somewhat goes against acute infection. Further imaging by nuclear medicine examination may be helpful given the limitations due to susceptibility artifact on MRI. 2. Marked central canal narrowing at the T10 and upper T11 level with moderate diffuse cord narrowing/smaller caliber from T4 inferiorly, with more likely small caliber of the cord at the T10 and T11 levels. 3. Large loculated left pleural effusion . This could represent empyema and fluid sampling is recommended. Narrative [facility] - 02/01/2021 12:39 AM CDT Exam: MRI T-SPINE W CONTRAST, MRI L-SPINE W CONTRAST Clinical history: ABNORMAL LAB. Possible infection of thoracic spinal hardware on earlier outside radiograph. Technique: Axial T1 postcontrast and sagittal T1 postcontrast fat saturated images are obtained through the thoracic and lumbar spine. 12 mL of MultiHance IV contrast was given. Comparison: [Noncontrast MRI of the thoracic and lumbar spine from earlier same day] FINDINGS: Thoracic spine: There is once again a large loculated left pleural effusion with a thicker wall. Some mild thin septations on axial T2 imaging on prior noncontrast CT is not as well seen on current contrast enhanced exam. There is some adjacent compressive atelectasis in the left upper and left lower lobes, possibly moderate in degree at the left upper lobe and more marked at the left lower lobe. Additional mild linear atelectasis in the left upper lobe. Partial visualization of a right IJ chest port. Susceptibility artifact from thoracolumbar posterior spinal fixation hardware again significantly limits evaluation of the spine. Prior corpectomies at T10- T11 with strut graft at these levels is again noted. There is suggestion of some mild enhancement along the right aspect of the strut graft at the T10 and T11 levels, corresponding to an area of increased or signal on prior MRI. However, no other definite areas of abnormal enhancement are identified. There is some increased T1 and T2 signal present at the T9-T10 and T10-T11 disc spaces, not indicative of discitis. No definite paraspinous or epidural fluid collection is seen on limited evaluation. Marked central canal narrowing at the T10 upper T11 level is again seen with narrowing of the lower thoracic cord now better visualized, with the cord appearing overall mild to moderately narrowed from approximately the T4 level inferiorly, with more marked coronary appearing at the T10 level (series 7, image 8). Procedure Note Sunny Yin MD - 02/01/2021 Exam: MRI T-SPINE W CONTRAST, MRI L-SPINE W CONTRAST Clinical history: ABNORMAL LAB. Possible infection of thoracic spinal hardware on earlier outside radiograph. Technique: Axial T1 postcontrast and sagittal T1 postcontrast fat saturated images are obtained through the thoracic and lumbar spine. 12 mL of MultiHance IV contrast was given. Comparison: [Noncontrast MRI of the thoracic and lumbar spine from earlier same day] FINDINGS: Thoracic spine: There is once again a large loculated left pleural effusion with a thicker wall. Some mild thin septations on axial T2 imaging on prior noncontrast CT is not as well seen on current contrast enhanced exam. There is some adjacent compressive atelectasis in the left upper and left lower lobes, possibly moderate in degree at the left upper lobe and more marked at the left lower lobe. Additional mild linear atelectasis in the left upper lobe. Partial visualization of a right IJ chest port. Susceptibility artifact from thoracolumbar posterior spinal fixation hardware again significantly limits evaluation of the spine. Prior corpectomies at T10- T11 with strut graft at these levels is again noted. There is suggestion of some mild enhancement along the right aspect of the strut graft at the T10 and T11 levels, corresponding to an area of increased or signal on prior MRI. However, no other definite areas of abnormal enhancement are identified. There is some increased T1 and T2 signal present at the T9-T10 and T10-T11 disc spaces, not indicative of discitis. No definite paraspinous or epidural fluid collection is seen on limited evaluation. Marked central canal narrowing at the T10 upper T11 level is again seen with narrowing of the lower thoracic cord now better visualized, with the cord appearing overall mild to moderately narrowed from approximately the T4 level inferiorly, with more marked coronary appearing at the T10 level (series 7, image 8). IMPRESSION 1. Evaluation is again limited due to wyatt sceptibility artifact from thoracolumbar spinal fixation hardware. Prior T10 and T11 corpectomies are again seen with strut graft at this level. There is some mild enhancement suggested to the right of this stricture graft corresponding to some increased STIR signal earlier noncontrast MRI that is nonspecific though could be related to early infection. However, the lack of adjacent significant paravertebral edema or fluid collection as well as lack of additional adjacent discitis or other vertebral body edema somewhat goes against acute infection. Further imaging by nuclear medicine examination may be helpful given the limitations due to susceptibility artifact on MRI. 2. Marked central canal narrowing at the T10 and upper T11 level with moderate diffuse cord narrowing/smaller caliber from T4 inferiorly, with more likely small caliber of the cord at the T10 and T11 levels. 3. Large loculated left pleural effusion . This could represent empyema and fluid sampling is recommended. Performing Organization Address City/State/ZIP Code P varun Number [facility] * MRI L-SPINE W CONTRAST (02/01/2021 12:05 AM CDT) Modality Anatomical Region Laterality Magnetic Resonance Spine, L-Spine Specimen Addenda Addendum by Sunny Yin MD on 02/01/2021 6:02 AM CDT Finalized by Sunny Yin M.D. on 02/01/2021 12:39 AM. Dictated by Sunny Yin M.D. on 02/01/2021 12:23 AM.Addendum: Dr. Wagner discussed these results over the phone with the overseeing [facility] physician at 1:35 AM on 02/01/2021. Approved by Alfa Wagner M.D. on 02/01/2021 1:37 AM By my electronic signature, I attest that I have personally reviewed the images for this examination and formulated the interpretations and opinions expressed in this report Finalized by Sunny Yin M.D. on 02/01/2021 5:59 AM. Dictated by Alfa Wagner M.D. on 02/01/2021 1:37 AM. Impressions [facility] - 02/01/2021 12:39 AM CDT 1. Evaluation is again limited due to wyatt sceptibility artifact from thoracolumbar spinal fixation hardware. Prior T10 and T11 corpectomies are again seen with strut graft at this level. There is some mild enhancement suggested to the right of this stricture graft corresponding to some increased STIR signal earlier noncontrast MRI that is nonspecific though could be related to early infection. However, the lack of adjacent significant paravertebral edema or fluid collection as well as lack of additional adjacent discitis or other vertebral body edema somewhat goes against acute infection. Further imaging by nuclear medicine examination may be helpful given the limitations due to susceptibility artifact on MRI. 2. Marked central canal narrowing at the T10 and upper T11 level with moderate diffuse cord narrowing/smaller caliber from T4 inferiorly, with more likely small caliber of the cord at the T10 and T11 levels. 3. Large loculated left pleural effusion . This could represent empyema and fluid sampling is recommended. Narrative [facility] - 02/01/2021 12:39 AM CDT Exam: MRI T-SPINE W CONTRAST, MRI L-SPINE W CONTRAST Clinical history: ABNORMAL LAB. Possible infection of thoracic spinal hardware on earlier outside radiograph. Technique: Axial T1 postcontrast and sagittal T1 postcontrast fat saturated images are obtained through the thoracic and lumbar spine. 12 mL of MultiHance IV contrast was given. Comparison: [Noncontrast MRI of the thoracic and lumbar spine from earlier same day] FINDINGS: Thoracic spine: There is once again a large loculated left pleural effusion with a thicker wall. Some mild thin septations on axial T2 imaging on prior noncontrast CT is not as well seen on current contrast enhanced exam. There is some adjacent compressive atelectasis in the left upper and left lower lobes, possibly moderate in degree at the left upper lobe and more marked at the left lower lobe. Additional mild linear atelectasis in the left upper lobe. Partial visualization of a right IJ chest port. Susceptibility artifact from thoracolumbar posterior spinal fixation hardware again significantly limits evaluation of the spine. Prior corpectomies at T10- T11 with strut graft at these levels is again noted. There is suggestion of some mild enhancement along the right aspect of the strut graft at the T10 and T11 levels, corresponding to an area of increased or signal on prior MRI. However, no other definite areas of abnormal enhancement are identified. There is some increased T1 and T2 signal present at the T9-T10 and T10-T11 disc spaces, not indicative of discitis. No definite paraspinous or epidural fluid collection is seen on limited evaluation. Marked central canal narrowing at the T10 upper T11 level is again seen with narrowing of the lower thoracic cord now better visualized, with the cord appearing overall mild to moderately narrowed from approximately the T4 level inferiorly, with more marked coronary appearing at the T10 level (series 7, image 8). Procedure Note Sunny Yin MD - 02/01/2021 Exam: MRI T-SPINE W CONTRAST, MRI L-SPINE W CONTRAST Clinical history: ABNORMAL LAB. Possible infection of thoracic spinal hardware on earlier outside radiograph. Technique: Axial T1 postcontrast and sagittal T1 postcontrast fat saturated images are obtained through the thoracic and lumbar spine. 12 mL of MultiHance IV contrast was given. Comparison: [Noncontrast MRI of the thoracic and lumbar spine from earlier same day] FINDINGS: Thoracic spine: There is once again a large loculated left pleural effusion with a thicker wall. Some mild thin septations on axial T2 imaging on prior noncontrast CT is not as well seen on current contrast enhanced exam. There is some adjacent compressive atelectasis in the left upper and left lower lobes, possibly moderate in degree at the left upper lobe and more marked at the left lower lobe. Additional mild linear atelectasis in the left upper lobe. Partial visualization of a right IJ chest port. Susceptibility artifact from thoracolumbar posterior spinal fixation hardware again significantly limits evaluation of the spine. Prior corpectomies at T10- T11 with strut graft at these levels is again noted. There is suggestion of some mild enhancement along the right aspect of the strut graft at the T10 and T11 levels, corresponding to an area of increased or signal on prior MRI. However, no other definite areas of abnormal enhancement are identified. There is some increased T1 and T2 signal present at the T9-T10 and T10-T11 disc spaces, not indicative of discitis. No definite paraspinous or epidural fluid collection is seen on limited evaluation. Marked central canal narrowing at the T10 upper T11 level is again seen with narrowing of the lower thoracic cord now better visualized, with the cord appearing overall mild to moderately narrowed from approximately the T4 level inferiorly, with more marked coronary appearing at the T10 level (series 7, image 8). IMPRESSION 1. Evaluation is again limited due to wyatt sceptibility artifact from thoracolumbar spinal fixation hardware. Prior T10 and T11 corpectomies are again seen with strut graft at this level. There is some mild enhancement suggested to the right of this stricture graft corresponding to some increased STIR signal earlier noncontrast MRI that is nonspecific though could be related to early infection. However, the lack of adjacent significant paravertebral edema or fluid collection as well as lack of additional adjacent discitis or other vertebral body edema somewhat goes against acute infection. Further imaging by nuclear medicine examination may be helpful given the limitations due to susceptibility artifact on MRI. 2. Marked central canal narrowing at the T10 and upper T11 level with moderate diffuse cord narrowing/smaller caliber from T4 inferiorly, with more likely small caliber of the cord at the T10 and T11 levels. 3. Large loculated left pleural effusion . This could represent empyema and fluid sampling is recommended. Performing Organization Address City/State/ZIP Code P varun Number RAD RESULTS * COVID-19 (SARS-COV-2) PCR (01/31/2021 9:44 PM CDT) COVID-19 FLOCKED SWAB MAIN LAB (SARS-CoV-2) NASOPHARYNGEAL PCR Source COVID-19 NOT DETECTED DN-NOT DETECTED MAIN LAB (SARS-CoV-2) Comment: PCR This assay is designed [...] performance characteristics have been verified by the [facility]. Fact sheet for providers: https://www.fda.gov/media/9350 85/download Fact sheet for patients: https://www.fda.gov/media/5133 87/download Specimen Flocked Swab - Nasopharyngeal Performing Organization Address City/State/ZIP Code P varun Number [facility] [address] [place] [address] * MRI L-SPINE WO CONTRAST (01/31/2021 8:13 PM CDT) Modality Anatomical Region Laterality Magnetic Resonance Spine, L-Spine Specimen Addenda Addendum by Sunny Yin MD on 02/01/2021 12:28 AM CDT Finalized by Sunny Yin M.D. on 01/31/2021 10:43 PM. Dictated by Sunny Yin M.D. on 01/31/2021 10:19 PM.Addendum: Impressions [facility] - 01/31/2021 10:43 PM CDT 1. Significantly limited exam due to leny ceptibility artifact from thoracolumbar spinal fixation hardware. 2. Prior corpectomies at T10 and T11 red emonstrated with strut graft at this level. There is some mild increased STIR signal adjacent to the strut graft which is of indeterminate age and significance, though the lack of significant paravertebral or paraspinous edema or fluid collection goes against significant acute infection. There is also no significant increased STIR signal abnormality in the remaining T10 vertebral body or the T9 or T12 vertebral bodies to suggest acute osteomyelitis. 3. Retropulsion of the remaining portion of the T10 vertebral body is again present resulting in marked central canal narrowing at the T10 upper T11 levels. There is apparent smaller caliber cord at the T10 and T11 levels with increased T2 signal which likely represent some chronic myelomalacia rather than more acute cord edema. 4. Areas of up to marked neural foramina l narrowing from T9-10 through T10-11 are again present, though better visualized on prior CT from October 2015. 5. No acute fracture or subluxation. Additional findings and impression: There is a large loculated left pleural effusion and multiple septations. The presence of this was being called as part of the postcontrast MRI thoracic and lumbar spines from later same day. Finalized by Sunny Yin M.D. on 02/01/2021 12:24 AM. Dictated by Sunny Yin M.D. on 02/01/2021 12:24 AM. Narrative [facility] - 01/31/2021 10:43 PM CDT Exam: MRI T-SPINE WO CONTRAST, MRI L-SPINE WO CONTRAST Clinical history: osteomyelitis concern. Outside x ray showing erosive changes to t12 endplate with concern for infection. Technique: Multiplanar and multisequence MRI images are obtained through the thoracic spine without the administration of IV contrast. Comparison: [Prior CTA chest from November 07, 2015] Findings: Exam is significantly limited secondary to susceptibility artifact from spinal hardware. Normal thoracic kyphosis is maintained. Persistent mild right convex curvature of the thoracic spine. There is stable mild anterior wedging and superior loss of height at the T6 vertebral body. No acute fracture or subluxation identified on limited evaluation. There is susceptibility artifact from posterior spinal fixation hardware with bilateral posterior rods and multilevel pedicle screws and laminar hooks, extending from the T3 level through L2. There is also redemonstration of prior T10 and T11 corpectomies with a strut graft present at these levels. There is some increased T2 and STIR signal noted about the T10 and T11 corpectomy sites adjacent to the strut graft. Of note, there is no significant increased STIR signal appreciated within the T12 vertebral body. There is susceptibility artifact markedly limiting evaluation of the L1 upper L2 vertebral bodies, though the remaining thoracolumbar lumbar vertebral bodies show no significant varices signal abnormality. No definite epidural fluid collection. There is some persistent marked central canal narrowing at the T10 level due to apparent retropulsion of vertebral body fragments and some additional chronic expansion of the right pedicle, with a small focal area of increased T1 and T2 signal at the right T10 pedicle. At T10 and T11 the spinal cord is not well evaluated though it appears to be smaller in caliber with increased T2 and STIR signal (series 8, images 8 and 9). Some moderate right T9-10 and marked right T10-T11 and T11-12 neural foraminal narrowing on prior CT as well as [id number] left neural foraminal narrowing at these levels are much better visualized on prior CT. There is some mild right L5-S1 neural foraminal narrowing due to several throughout the small posterior disc osteophyte complex, with no additional levels showing definite significant neural foraminal stenosis in the visualized lower lumbar or remaining thoracic spine. No significant lumbar central canal narrowing. Procedure Note Sunny Yin MD - 02/01/2021 Exam: MRI T-SPINE WO CONTRAST, MRI L-SPINE WO CONTRAST Clinical history: osteomyelitis concern. Outside x ray showing erosive changes to t12 endplate with concern for infection. Technique: Multiplanar and multisequence MRI images are obtained through the thoracic spine without the administration of IV contrast. Comparison: [Prior CTA chest from November 07, 2015] Findings: Exam is significantly limited secondary to susceptibility artifact from spinal hardware. Normal thoracic kyphosis is maintained. Persistent mild right convex curvature of the thoracic spine. There is stable mild anterior wedging and superior loss of height at the T6 vertebral body. No acute fracture or subluxation identified on limited evaluation. There is susceptibility artifact from posterior spinal fixation hardware with bilateral posterior rods and multilevel pedicle screws and laminar hooks, extending from the T3 level through L2. There is also redemonstration of prior T10 and T11 corpectomies with a strut graft present at these levels. There is some increased T2 and STIR signal noted about the T10 and T11 corpectomy sites adjacent to the strut graft. Of note, there is no significant increased STIR signal appreciated within the T12 vertebral body. There is susceptibility artifact markedly limiting evaluation of the L1 upper L2 vertebral bodies, though the remaining thoracolumbar lumbar vertebral bodies show no significant varices signal abnormality. No definite epidural fluid collection. There is some persistent marked central canal narrowing at the T10 level due to apparent retropulsion of vertebral body fragments and some additional chronic expansion of the right pedicle, with a small focal area of increased T1 and T2 signal at the right T10 pedicle. At T10 and T11 the spinal cord is not well evaluated though it appears to be smaller in caliber with increased T2 and STIR signal (series 8, images 8 and 9). Some moderate right T9-10 and marked right T10-T11 and T11-12 neural foraminal narrowing on prior CT as well as [id number] left neural foraminal narrowing at these levels are much better visualized on prior CT. There is some mild right L5-S1 neural foraminal narrowing due to several throughout the small posterior disc osteophyte complex, with no additional levels showing definite significant neural foraminal stenosis in the visualized lower lumbar or remaining thoracic spine. No significant lumbar central canal narrowing. IMPRESSION 1. Significantly limited exam due to leny ceptibility artifact from thoracolumbar spinal fixation hardware. 2. Prior corpectomies at T10 and T11 red emonstrated with strut graft at this level. There is some mild increased STIR signal adjacent to the strut graft which is of indeterminate age and significance, though the lack of significant paravertebral or paraspinous edema or fluid collection goes against significant acute infection. There is also no significant increased STIR signal abnormality in the remaining T10 vertebral body or the T9 or T12 vertebral bodies to suggest acute osteomyelitis. 3. Retropulsion of the remaining portion of the T10 vertebral body is again present resulting in marked central canal narrowing at the T10 upper T11 levels. There is apparent smaller caliber cord at the T10 and T11 levels with increased T2 signal which likely represent some chronic myelomalacia rather than more acute cord edema. 4. Areas of up to marked neural foramina l narrowing from T9-10 through T10-11 are again present, though better visualized on prior CT from October 2015. 5. No acute fracture or subluxation. Additional findings and impression: There is a large loculated left pleural effusion and multiple septations. The presence of this was being called as part of the postcontrast MRI thoracic and lumbar spines from later same day. Finalized by Sunny Yin M.D. on 02/01/2021 12:24 AM. Dictated by Sunny Yin M.D. on 02/01/2021 12:24 AM. Performing Organization Address City/State/ZIP Code P varun Number [facility] * MRI T-SPINE WO CONTRAST (01/31/2021 8:13 PM CDT) Modality Anatomical Region Laterality Magnetic Resonance Spine, T-Spine Specimen Addenda Addendum by Sunny Yin MD on 02/01/2021 12:28 AM CDT Finalized by Sunny Yin M.D. on 01/31/2021 10:43 PM. Dictated by Sunny Yin M.D. on 01/31/2021 10:19 PM.Addendum: Impressions [facility] - 01/31/2021 10:43 PM CDT 1. Significantly limited exam due to leny ceptibility artifact from thoracolumbar spinal fixation hardware. 2. Prior corpectomies at T10 and T11 red emonstrated with strut graft at this level. There is some mild increased STIR signal adjacent to the strut graft which is of indeterminate age and significance, though the lack of significant paravertebral or paraspinous edema or fluid collection goes against significant acute infection. There is also no significant increased STIR signal abnormality in the remaining T10 vertebral body or the T9 or T12 vertebral bodies to suggest acute osteomyelitis. 3. Retropulsion of the remaining portion of the T10 vertebral body is again present resulting in marked central canal narrowing at the T10 upper T11 levels. There is apparent smaller caliber cord at the T10 and T11 levels with increased T2 signal which likely represent some chronic myelomalacia rather than more acute cord edema. 4. Areas of up to marked neural foramina l narrowing from T9-10 through T10-11 are again present, though better visualized on prior CT from October 2015. 5. No acute fracture or subluxation. Additional findings and impression: There is a large loculated left pleural effusion and multiple septations. The presence of this was being called as part of the postcontrast MRI thoracic and lumbar spines from later same day. Finalized by Sunny Yin M.D. on 02/01/2021 12:24 AM. Dictated by Sunny Yin M.D. on 02/01/2021 12:24 AM. Narrative [facility] - 01/31/2021 10:43 PM CDT Exam: MRI T-SPINE WO CONTRAST, MRI L-SPINE WO CONTRAST Clinical history: osteomyelitis concern. Outside x ray showing erosive changes to t12 endplate with concern for infection. Technique: Multiplanar and multisequence MRI images are obtained through the thoracic spine without the administration of IV contrast. Comparison: [Prior CTA chest from November 07, 2015] Findings: Exam is significantly limited secondary to susceptibility artifact from spinal hardware. Normal thoracic kyphosis is maintained. Persistent mild right convex curvature of the thoracic spine. There is stable mild anterior wedging and superior loss of height at the T6 vertebral body. No acute fracture or subluxation identified on limited evaluation. There is susceptibility artifact from posterior spinal fixation hardware with bilateral posterior rods and multilevel pedicle screws and laminar hooks, extending from the T3 level through L2. There is also redemonstration of prior T10 and T11 corpectomies with a strut graft present at these levels. There is some increased T2 and STIR signal noted about the T10 and T11 corpectomy sites adjacent to the strut graft. Of note, there is no significant increased STIR signal appreciated within the T12 vertebral body. There is susceptibility artifact markedly limiting evaluation of the L1 upper L2 vertebral bodies, though the remaining thoracolumbar lumbar vertebral bodies show no significant varices signal abnormality. No definite epidural fluid collection. There is some persistent marked central canal narrowing at the T10 level due to apparent retropulsion of vertebral body fragments and some additional chronic expansion of the right pedicle, with a small focal area of increased T1 and T2 signal at the right T10 pedicle. At T10 and T11 the spinal cord is not well evaluated though it appears to be smaller in caliber with increased T2 and STIR signal (series 8, images 8 and 9). Some moderate right T9-10 and marked right T10-T11 and T11-12 neural foraminal narrowing on prior CT as well as [id number] left neural foraminal narrowing at these levels are much better visualized on prior CT. There is some mild right L5-S1 neural foraminal narrowing due to several throughout the small posterior disc osteophyte complex, with no additional levels showing definite significant neural foraminal stenosis in the visualized lower lumbar or remaining thoracic spine. No significant lumbar central canal narrowing. Procedure Note Sunny Yin MD - 02/01/2021 Exam: MRI T-SPINE WO CONTRAST, MRI L-SPINE WO CONTRAST Clinical history: osteomyelitis concern. Outside x ray showing erosive changes to t12 endplate with concern for infection. Technique: Multiplanar and multisequence MRI images are obtained through the thoracic spine without the administration of IV contrast. Comparison: [Prior CTA chest from November 07, 2015] Findings: Exam is significantly limited secondary to susceptibility artifact from spinal hardware. Normal thoracic kyphosis is maintained. Persistent mild right convex curvature of the thoracic spine. There is stable mild anterior wedging and superior loss of height at the T6 vertebral body. No acute fracture or subluxation identified on limited evaluation. There is susceptibility artifact from posterior spinal fixation hardware with bilateral posterior rods and multilevel pedicle screws and laminar hooks, extending from the T3 level through L2. There is also redemonstration of prior T10 and T11 corpectomies with a strut graft present at these levels. There is some increased T2 and STIR signal noted about the T10 and T11 corpectomy sites adjacent to the strut graft. Of note, there is no significant increased STIR signal appreciated within the T12 vertebral body. There is susceptibility artifact markedly limiting evaluation of the L1 upper L2 vertebral bodies, though the remaining thoracolumbar lumbar vertebral bodies show no significant varices signal abnormality. No definite epidural fluid collection. There is some persistent marked central canal narrowing at the T10 level due to apparent retropulsion of vertebral body fragments and some additional chronic expansion of the right pedicle, with a small focal area of increased T1 and T2 signal at the right T10 pedicle. At T10 and T11 the spinal cord is not well evaluated though it appears to be smaller in caliber with increased T2 and STIR signal (series 8, images 8 and 9). Some moderate right T9-10 and marked right T10-T11 and T11-12 neural foraminal narrowing on prior CT as well as [id number] left neural foraminal narrowing at these levels are much better visualized on prior CT. There is some mild right L5-S1 neural foraminal narrowing due to several throughout the small posterior disc osteophyte complex, with no additional levels showing definite significant neural foraminal stenosis in the visualized lower lumbar or remaining thoracic spine. No significant lumbar central canal narrowing. IMPRESSION 1. Significantly limited exam due to leny ceptibility artifact from thoracolumbar spinal fixation hardware. 2. Prior corpectomies at T10 and T11 red emonstrated with strut graft at this level. There is some mild increased STIR signal adjacent to the strut graft which is of indeterminate age and significance, though the lack of significant paravertebral or paraspinous edema or fluid collection goes against significant acute infection. There is also no significant increased STIR signal abnormality in the remaining T10 vertebral body or the T9 or T12 vertebral bodies to suggest acute osteomyelitis. 3. Retropulsion of the remaining portion of the T10 vertebral body is again present resulting in marked central canal narrowing at the T10 upper T11 levels. There is apparent smaller caliber cord at the T10 and T11 levels with increased T2 signal which likely represent some chronic myelomalacia rather than more acute cord edema. 4. Areas of up to marked neural foramina l narrowing from T9-10 through T10-11 are again present, though better visualized on prior CT from October 2015. 5. No acute fracture or subluxation. Additional findings and impression: There is a large loculated left pleural effusion and multiple septations. The presence of this was being called as part of the postcontrast MRI thoracic and lumbar spines from later same day. Finalized by Sunny Yin M.D. on 02/01/2021 12:24 AM. Dictated by Sunny Yin M.D. on 02/01/2021 12:24 AM. Performing Organization Address [facility] P varun Number [facility] RES[facility] * UA REFLEX LABEL (01/31/2021 5:41 PM CDT) UA Reflex Criteria for reflex to culture [facility] Culture are WBC>10, Positive Nitrit e, and/or >=+1 leukocytes. If quantity is not sufficient, an addendum will follow. Specimen Urine Performing Organization Address [facility] P varun Number [facility] [address] [place] [address] * URINALYSIS MICROSCOPIC REFLEX TO CULTURE (01/31/2021 5:41 PM CDT) WBCs,UA PACKED 0 - 2 /HPF [facility] RBCs,UA PACKED 0 - 3 /HPF [facility] Comment,UA Criteria for reflex to culture [facility] are WBC>10, Positive Nitrite, and/or >=+1 leukocytes. If quantity is not sufficient, an addendum will follow. MucousUA 4+ [facility] Squamous PACKED 0 - 5 [facility] Epithelial Cells Calcium Oxalate MODERATE [facility] Crystals Hyphae Yeast FEW [facility] Specimen Urine Performing Organization Address [facility] P varun Number [facility] [address] [place] [address] * (ABNORMAL) URINALYSIS DIPSTICK REFLEX TO CULTURE (01/31/2021 5:41 PM CDT) Pathologist [facility] Color,UA YELLOW MAIN LAB Turbidity,UA 2+ (A) CLEAR-CLEAR MAIN LAB Specific 1.026Comment: NOTE NEW 1.005 - 1.030 MAIN LAB [place]-Urine REFERENCE RANGES pH,UA 6.0 5.0 - 8.0 [facility] Protein,UA 3+ (A) NEG-NEG MAIN LAB Glucose,UA NEG NEG-NEG [facility] Ketones,UA TRACE (A) NEG-NEG MAIN LAB Bilirubin,UA NEG NEG-NEG [facility] Blood,UA 1+ (A) NEG-NEG MAIN LAB Urobilinogen,UA NORMAL NORM-NORMAL MAIN LAB Nitrite,UA NEG NEG-NEG MAIN LAB Leukocytes,UA 2+ (A) NEG-NEG MAIN LAB Urine Ascorbic POS (A) NEG-NEG MAIN LAB Acid, UA Comment: Ascorbic acid is found in various food supplies and dietary supplements, and is reported to cause strong interference with Macroscopic Urinalysis testing for glucose, blood and nitrite, and can result in a false negative result. Specimen Urine Performing Organization Address [facility] Code P varun Number MAIN LAB [address] [place] [address] * POC TROPONIN (01/31/2021 3:36 PM CDT) Pathologist [facility] [id number] 0.00 0.00 - 0.05 NG/ML MAIN LAB Specimen Performing Organization Address [facility] P varun Number MAIN LAB [address] [place] [address] * POC LACTATE (01/31/2021 3:35 PM CDT) Pathologist [facility] LACTIC ACID POC 0.8 0.5 - 2.0 MMOL/L MAIN LAB Specimen Performing Organization Address [facility] P varun Number MAIN LAB [address] [place] [address] * (ABNORMAL) SED RATE (01/31/2021 3:35 PM CDT) Pathologist [facility] Sed Rate -ESR 53 (H) 0 - 20 MM/HR MAIN LAB Specimen Blood Performing Organization Address City/State/ZIP Code P varun Number [facility] [address] [place] [address] * (ABNORMAL) CBC AND DIFF (01/31/2021 3:35 PM CDT) Pathologist [facility] White Blood 10.7 4.5 - 11.0 K/UL [facility] Cells RBC 5.17 (H) 4.0 - 5.0 M/UL [facility] Hemoglobin 14.1 12.0 - 15.0 GM/DL [facility] Hematocrit 44.9 36 - 45 % [facility] MCV 86.8 80 - 100 FL [facility] MCH 27.2 26 - 34 PG [facility] MCHC 31.4 (L) 32.0 - 36.0 G/DL [facility] RDW 14.5 11 - 15 % [facility] Platelet Count 396 150 - 400 K/UL [facility] MPV 8.8 7 - 11 FL [facility] Neutrophils 48 41 - 77 % [facility] Lymphocytes 40 24 - 44 % [facility] Monocytes 9 4 - 12 % [facility] Eosinophils 2 0 - 5 % [facility] Basophils 1 0 - 2 % [facility] Absolute 5.20 1.8 - 7.0 K/UL [facility] Neutrophil Count Absolute Lymph 4.23 1.0 - 4.8 K/UL [facility] Count Absolute 0.94 (H) 0 - 0.80 K/UL [facility] Monocyte Count Absolute 0.23 0 - 0.45 K/UL [facility] Eosinophil Count Absolute 0.11 0 - 0.20 K/UL [facility] Basophil Count MDW (Monocyte 20.2 <20.7 [facility] Distribution Comment: Width) MDW greater than 20.0, together with other laboratory and clinical information, aids in the diagnosis of sepsis or increased risk of sepsis within the first 12 hours of presenting to the emergency department. MDW should not be used as a sole test to determine the absence of sepsis. Clinical performance of the MDW has not been determined in patients receiving immune stimulants, patients with alcoholism, or patients with hematologic abnormalities such as blast cells. Specimen Blood Performing Organization Address City/State/ZIP Code P varun Number [facility] [address] [place] [address] * (ABNORMAL) C REACTIVE PROTEIN (CRP) (01/31/2021 3:35 PM CDT) C-Reactive 1.32 (H) <1.0 MG/DL [facility] Protein Specimen Blood Performing Organization Address City/[facility]/ZIP Code P varun Number MAIN LAB [address] [place] [address] * POC CREATININE, RAD (01/31/2021 3:34 PM CDT) Creatinine, POC 0.4 0.4 - 1.00 MG/DL [facility] Specimen Performing Organization Address City/[facility] P varun Number MAIN LAB [address] [place] [address] * POC GLUCOSE (01/31/2021 3:33 PM CDT) Glucose, POC 91 70 - 100 MG/DL [facility] Specimen Performing Organization Address [facility] P varun Number MAIN LAB [address] [place] [address] from Last 3 Months Insurance Type Payer Benefit Subscriber ID Effective Phone Address Plan / Dates Group [facility] [facility] [id number] 2020-P [phone] [address] [place] [address] Medicaid [place] [employer] [facility] [id number] 2015-P [address] [facility] resent [address] [place] [address] [facility]/HO [id number] 03/31/2014-P [address] [facility]/SNF [facility], [place] HOME [phone] Advance Directives Patient Retail Support Manager Explanation Type Date Recorded Advance Directives and Living Will Advance 01/31/2021 12:00 AM Directive/DPOA Advance 11/07/2015 6:24 PM Directive/DPOA Advance 07/27/2012 12:00 AM Directive/DPOA Date Inactivated Comments Code Status Date Activated 02/09/2021 2:46 PM Full Code 02/01/2021 12:39 AM Provider has discussed Code Status No, discussion no t w/Patient or Family? necessary based on Dx 09/22/2020 11:15 AM Full Code 09/18/2020 11:31 [...] more discussi on w/Patient or Family? needed Care Teams Start Date End Date Webmaster Relationship Specialty 09/28/20 Kenneth Nelson MD PCP - General [place] [address] [place] [address] 05/31/11 Iban Arboleda PA-C Surgery, [address] [facility] [place] [address] 06/04/11 Agapito Garcia MD Surgery, [address] [place] [address] [place] [address] 09/06/11 Matthias Rutherford MD Trauma [address] [place] [address] 09/26/11 Karime De La Cruz MD Plastic [address] [place] [address] 11/04/11 Steffany Fair, RN 03/09/12 Suri Borrero MD Infectious [address] Disease [facility] Lvl [address] [place] [address] 03/10/12 Anni Gordon, RN 05/04/12 Sunny Krishna MD Surgery, [address] Orthopedic [facility] [address] [place] [address] 09/04/12 Trevon Brand MD Plastic [address] [facility] [place] [address] 09/11/12 Rochelle Yen, SHOWER SCREEN INSTALLER 10/28/13 Brianne Warren MD Urology Forwarding Address Unknown Left [facility] 10/28/18 11/25/13 Delaney Rascon, RN 02/01/15 Esteban Britt, [facility] on [address] [place] [address] 11/29/15 Surinder Ruiz MD Anesthesiolo [address] [facility] [address] [id number] [place] [address] 12/08/15 Henry Moeller MD Infectious [address] Disease [facility] [address] [place] [address]
--- OUTSIDE RECORDS SUMMARY | 2021-03-21 17:14 | XMS REPORT | Encounter Summary ---
Author Author [facility] Organization [facility] Address Unknown Phone Unavailable Care Team Providers Care It Infrastructure Project Manager Name Role Phone Iban Arboleda PA-C Unavailable Agapito Garcia MD Unavailable Matthias Rutherford MD Unavailable Karime De La Cruz MD Unavailable Steffany Fair RN Unavailable Unavailable Suri Borrero MD Unavailable Anni Gordon RN Unavailable Unavailable Sunny Krishna MD Unavailable Trevon Brand MD Unavailable Rochelle Yen LPN Unavailable Unavailable Brianne Warren MD Unavailable Unavailable Delaney Rascon RN Unavailable Unavailable Esteban Britt MD Unavailable [phone] Surinder Ruiz MD Unavailable Henry Moeller MD Unavailable Kenneth Nelson MD PCP Encounter Details Care Team Description Date Type Department 01/31/2021 Travel Social History Date Tobacco Use Types Packs/Day [...] impairment: No documented as of this encounter Plan of Treatment Not on [...] encounter Additional Health Concerns Noted Time Assessment 09/21/2020 10:02 AM CDT A fall risk assessment has been complet ed for the patient documented as of this encounter Care Teams Start Date End Date It Infrastructure Project Manager Relationship Specialty 09/28/20 Kenneth Nelson MD PCP - [place] [address] [place] [address] 05/31/11 Iban Arboleda PA-C Surgery, [address] [place] [address] [place] [address] 06/04/11 Agapito Garcia MD Surgery, [address] [place] [address] [place] [address] 09/06/11 Matthias Rutherford MD Trauma [address] [place] [address] 09/26/11 Karime De La Cruz MD Plastic [address] [place] [address] 11/04/11 Steffany Fair, GILMAR 03/09/12 Suri Borrero MD Infectious [address] Disease [facility] Lvl [address] [place] [address] 03/10/12 Anni Gordon, RN 05/04/12 Sunny Krishna MD Surgery, [address] Orthopedic [facility] [address] [place] [address] 09/04/12 Trevon Brand MD Plastic [address] [facility] [place] [address] 09/11/12 Rochelle Yen, SOFTWARE DEVELOPER MID LEVEL 10/28/13 Brianne Warren MD Urology Forwarding Address Unknown Left [facility] 10/28/18 11/25/13 Delaney Rascon, RN 02/01/15 [facility]eban [facility], [facility] on [address] [place] [address] 11/29/15 Surinder Ruiz MD Anesthesiolo [address] [id number] [place] [address] 12/08/15 Henry Moeller MD Infectious [address] Disease [facility] [address] [place] [address] documented as of this encounter
--- OUTSIDE RECORDS SUMMARY | 2021-03-21 17:14 | XMS REPORT | Encounter Summary ---
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 HYSTERECTOMY OOPHORECTOMY THORACOTOMY anterior; with corpectomy and strut grafting Pertinent medical/surgical history reviewed Social History: Social History Tobacco Use Smoking status: Never Smoker Smokeless tobacco: Never Used Substance Use Topics Alcohol use: No Drug use: No Social History Substance and Sexual Activity Drug Use No Family History: Family History Problem Relation Age of Onset Stroke Mother Heart Disease Mother Arthritis-rheumatoid Mother Cancer Father Heart Failure Maternal Grandmother Arthritis Other Lung Disease Other Vitals: ED Vitals Date and Time T BP P RR SPO2P SPO2 User 01/31/21 2130 -- 111/80 110 20 PER MINUTE 110 95 % HEB 01/31/21 2100 -- 120/79 108 18 PER MINUTE 108 92 % HEB 01/31/21 2037 -- 130/83 104 15 PER MINUTE 104 94 % HEB 01/31/21 1730 -- -- 106 15 PER MINUTE 106 96 % ES 01/31/21 1600 -- 119/84 114 -- 114 96 % ES 01/31/21 1542 -- 122/81 118 23 PER MINUTE 118 95 % ES 01/31/21 1500 -- 122/87 113 16 PER MINUTE 113 96 % WC 01/31/21 1451 36.9 C (98.4 F) 126/81 117 20 PER MINUTE 117 96 % WC Physical Exam: Physical Exam Vitals and nursing note reviewed. Constitutional: Appearance: Normal appearance. She is normal weight. HENT: Head: Normocephalic and atraumatic. Mouth/Throat: Mouth: Mucous membranes are moist. Eyes: Extraocular Movements: Extraocular movements intact. Conjunctiva/sclera: Conjunctivae normal. Cardiovascular: Rate and Rhythm: Normal rate and regular rhythm. Pulses: Normal pulses. Heart sounds: Normal heart sounds. No murmur heard. Pulmonary: Effort: Pulmonary effort is normal. No respiratory distress. Breath sounds: Normal breath sounds. Abdominal: General: Abdomen is flat. Bowel sounds are normal. There is no distension. Palpations: Abdomen is soft. Tenderness: There is no abdominal tenderness. Musculoskeletal: General: Normal range of motion. Cervical back: Normal range of motion and neck supple. Comments: R aka Skin: General: Skin is warm and dry. Findings: Lesion (sacral skin breakdown, stage 2 pressure ulcer present) pres ent. Neurological: Mental Status: She is alert and oriented to person, place, and time. Mental s tatus is at baseline. Cranial Nerves: No cranial nerve deficit. Sensory: Sensory deficit (Chronic T5 sensory level) present. Psychiatric: Mood and Affect: Mood normal. Behavior: Behavior normal. Laboratory Results: Labs Reviewed COMPREHENSIVE METABOLIC PANEL - Abnormal Result Value Ref Range Status Sodium 143 137 - 147 MMOL/L Final Potassium 4.0 3.5 - 5.1 MMOL/L Final Chloride 104 98 - 110 MMOL/L Final Glucose 82 70 - 100 MG/DL Final Blood Urea Nitrogen 11 7 - 25 MG/DL Final Creatinine 0.40 0.4 - 1.00 MG/DL Final Calcium 10.3 8.5 - 10.6 MG/DL Final Total Protein 7.5 6.0 - 8.0 G/DL Final Total Bilirubin 0.4 0.3 - 1.2 MG/DL Final Albumin 4.2 3.5 - 5.0 G/DL Final Alk Phosphatase 87 25 - 110 U/L Final AST (SGOT) 19 7 - 40 U/L Final CO2 25 21 - 30 MMOL/L Final ALT (SGPT) 22 7 - 56 U/L Final Anion Gap 14 (*) 3 - 12 Final eGFR Non >60 >60 mL/min Final eGFR >60 >60 mL/min Final CBC AND DIFF - Abnormal White Blood Cells 10.7 4.5 - 11.0 K/UL Final RBC 5.17 (*) 4.0 - 5.0 M/UL Final Hemoglobin 14.1 12.0 - 15.0 GM/DL Final Hematocrit 44.9 36 - 45 % Final MCV 86.8 80 - 100 FL Final MCH 27.2 26 - 34 PG Final MCHC 31.4 (*) 32.0 - 36.0 G/DL Final RDW 14.5 11 - 15 % Final Platelet Count 396 150 - 400 K/UL Final MPV 8.8 7 - 11 FL Final Neutrophils 48 41 - 77 % Final Lymphocytes 40 24 - 44 % Final Monocytes 9 4 - 12 % Final Eosinophils 2 0 - 5 % Final Basophils 1 0 - 2 % Final Absolute Neutrophil Count 5.20 1.8 - 7.0 K/UL Final Absolute Lymph Count 4.23 1.0 - 4.8 K/UL Final Absolute Monocyte Count 0.94 (*) 0 - 0.80 K/UL Final Absolute Eosinophil Count 0.23 0 - 0.45 K/UL Final Absolute Basophil Count 0.11 0 - 0.20 K/UL Final MDW (Monocyte Distribution Width) 20.2 <20.7 Final MAGNESIUM - Abnormal Magnesium 1.5 (*) 1.6 - 2.6 mg/dL Final URINALYSIS DIPSTICK REFLEX TO CULTURE - Abnormal Color,UA YELLOW Final Turbidity,UA 2+ (*) CLEAR-CLEAR Final Specific Hartley-Urine 1.026 1.005 - 1.030 Final pH,UA 6.0 5.0 - 8.0 Final Protein,UA 3+ (*) NEG-NEG Final Glucose,UA NEG NEG-NEG Final Ketones,UA TRACE (*) NEG-NEG Final Bilirubin,UA NEG NEG-NEG Final Blood,UA 1+ (*) NEG-NEG Final Urobilinogen,UA NORMAL NORM-NORMAL Final Nitrite,UA NEG NEG-NEG Final Leukocytes,UA 2+ (*) NEG-NEG Final Urine Ascorbic Acid, UA POS (*) NEG-NEG Final SED RATE - Abnormal Sed Rate -ESR 53 (*) 0 - 20 MM/HR Final C REACTIVE PROTEIN (CRP) - Abnormal C-Reactive Protein 1.32 (*) <1.0 MG/DL Final CULTURE-BLOOD W/SENSITIVITY CULTURE-BLOOD W/SENSITIVITY COVID-19 (SARS-COV-2) PCR CULTURE-URINE W/SENSITIVITY URINALYSIS MICROSCOPIC REFLEX TO CULTURE WBCs,UA PACKED 0 - 2 /HPF Final RBCs,UA PACKED 0 - 3 /HPF Final Comment,UA Final Value: Criteria for reflex to culture are WBC>10, Positive Nitrite, and/or >=+1 leukocytes. If quantity is not sufficient, an addendum will follow. MucousUA 4+ Final Squamous Epithelial Cells PACKED 0 - 5 Final Calcium Oxalate Crystals MODERATE Final Hyphae Yeast FEW Final POC GLUCOSE Glucose, POC 91 70 - 100 MG/DL Final POC CREATININE, RAD Creatinine, POC 0.4 0.4 - 1.00 MG/DL Final POC LACTATE LACTIC ACID POC 0.8 0.5 - 2.0 MMOL/L Final POC TROPONIN Sbnpxags-C-XPS 0.00 0.00 - 0.05 NG/ML Final UA REFLEX LABEL PTT (APTT) POC TROPONIN POC GLUCOSE POC LACTATE POC LACTATE POC CREATININE POC Glucose (Download): 91 Radiology Interpretation: MRI T-SPINE WO CONTRAST Final Result 1. Significantly limited exam due to susceptibility artifact from thoracolumbar spinal fixation hardware. 2. Prior corpectomies at T10 and T11 redemonstrated with strut graft at this lev el. There is some mild increased STIR signal adjacent to the strut graft which i s of indeterminate age and significance, though the lack of significant paravert ebral or paraspinous edema or fluid collection goes against significant acute in fection. There is also no significant increased STIR signal abnormality in the r emaining T10 vertebral body or the T9 or T12 vertebral bodies to suggest acute o steomyelitis. 3. Retropulsion of the remaining portion of the T10 vertebral body is again pres ent resulting in marked central canal narrowing at the T10 upper T11 levels. The re is apparent smaller caliber cord at the T10 and T11 levels with increased T2 signal which likely represent some chronic myelomalacia rather than more acute c ord edema. 4. Areas of up to marked neural foraminal narrowing from T9-10 through T10-11 ar e again present, though better visualized on prior CT from October 2015. 5. No acute fracture or subluxation. Finalized by Sunny Yin M.D. on 01/31/2021 10:43 PM. Dictated by Sunny snell M.D. on 01/31/2021 10:19 PM. MRI L-SPINE WO CONTRAST Final Result 1. Significantly limited exam due to susceptibility artifact from thoracolumbar spinal fixation hardware. 2. Prior corpectomies at T10 and T11 redemonstrated with strut graft at this lev el. There is some mild increased STIR signal adjacent to the strut graft which i s of indeterminate age and significance, though the lack of significant paravert ebral or paraspinous edema or fluid collection goes against significant acute in fection. There is also no significant increased STIR signal abnormality in the r emaining T10 vertebral body or the T9 or T12 vertebral bodies to suggest acute o steomyelitis. 3. Retropulsion of the remaining portion of the T10 vertebral body is again pres ent resulting in marked central canal narrowing at the T10 upper T11 levels. The re is apparent smaller caliber cord at the T10 and T11 levels with increased T2 signal which likely represent some chronic myelomalacia rather than more acute c ord edema. 4. Areas of up to marked neural foraminal narrowing from T9-10 through T10-11 ar e again present, though better visualized on prior CT from October 2015. 5. No acute fracture or subluxation. Finalized by Sunny Yin M.D. on 01/31/2021 10:43 PM. Dictated by Sunny snell M.D. on 01/31/2021 10:19 PM. MRI L-SPINE W CONTRAST (Results Pending) MRI T-SPINE W CONTRAST (Results Pending) ED Course: Patient seen today for a chief complaint of spine infection Patient evaluated by resident and attending Available records reviewed. Patient's vitals were reviewed. Patient with outside t spine plain film with erosive changes to T12 endplate Will get labs and MRI to eval for osteomyelitis, hardware failure, epidural absc ess. Will also r/o UTI from indwelling gonsalves. Lab workup showed no leukocytosis, elevated ESR to 53 T and L spine MRI pending Anticipate admission for osteomyelitis treatment MDM Reviewed: previous chart, nursing note and vitals Reviewed previous: labs, x-ray, CT scan and MRI Interpretation: labs, x-ray and MRI Consults: Admitting Provider and Neurosurgery Facility Administered Meds: Medications piperacillin/tazobactam (ZOSYN) 3.375 g in sodium chloride 0.9% (NS) 100 mL IVPB (MB+) (3.375 g Intravenous Given - New Bag 01/31/212257) linezolid (ZYVOX) 600 mg/D5W 300 mL IVPB (has no administration in time range) heparin (porcine) 20,000 units/D5W 500 mL infusion (std conc)(premade) (0 Units/ hr Intravenous Med Not Given 01/31/212317) heparin (porcine) BOLUS for continuous inf (bag) 20-40 Units/kg (has no administ ration in time range) baclofen (LIORESAL) tablet 20 mg (20 mg Oral Given 01/31/212137) Clinical Impression: Clinical Impression Urinary tract infection associated with indwelling urethral catheter, initial en counter (HCC) Disposition/Follow up ED Disposition ED Disposition Admit No follow-up provider specified. Medications: New Prescriptions No medications on file Procedure Notes: Procedures Attestation / Supervision: Justin Desouza MD ED ATTENDING ATTESTATION Attestation / Supervision Note concerning Viki Mcgregor: I personally performed t he grady portions of the E/M visit, discussed case with resident and concur with r kaident documentation of history, physical exam, assessment, and treatment plan unless otherwise noted. Tita Abdi DO * Kyle Marie, GILMAR - 01/31/2021 2:59 PM CDT Pt arrived via EMS from PCP at [facility] in [facility] with c/c of abnormal X-ray. Per paperwork sent with pt, noted were "extensive postsurgical c hanges of thoracic spine..., new erosion of superior endplate of T12, concerning for underlying infectious process." Pt was sent for further CT or MRI work up. Pt with Hx of T7, T11 fracture, scoliosis, and spinal injury. Pt presents with s uprapubic catheter and right AKA. Pt has Port-a-cath, but states that it does no t work. Pt denies any pain "other than what I normally have". Pt placed on monit or waiting MD evaluation. documented in this encounter Miscellaneous Notes * Care Plan - Yuly Mitchell RN - 02/09/2021 12:41 PM STUDIO TECHNICIAN Problem: Skin Integrity Goal: Skin integrity intact Outcome: Goal Achieved Goal: Healing of skin (Wound & Incision) Outcome: Goal Achieved Goal: Healing of skin (Pressure Injury) Outcome: Goal Achieved Problem: Infection, Risk of, Central Venous Catheter-Associated Bloodstream Infe ction Goal: Absence of CVC Associated Bloodstream infection Outcome: Goal Achieved Problem: High Fall Risk Goal: High Fall Risk Outcome: Goal Achieved Problem: Self-Care Deficit Goal: Maximize ADL functioning Outcome: Goal Achieved IO TECHNICIAN * Rehab Care Plan - Rimma Cruz, PT - 02/05/2021 11:30 AM STUDIO TECHNICIAN Based on discussion with OT, patient's current level of function suggests that p atient will progress with one discipline. PT will sign off at this time. Please re-consult if change in functional status occurs. Rimma Cruz PT, DPT [id number] IO TECHNICIAN * Care Plan - Yuly Mitchell RN - 02/04/2021 6:06 PM STUDIO TECHNICIAN Problem: Skin Integrity Goal: Skin integrity intact Outcome: Goal Ongoing Goal: Healing of skin (Wound & Incision) Outcome: Goal Ongoing Goal: Healing of skin (Pressure Injury) Outcome: Goal Ongoing Problem: Infection, Risk of, Central Venous Catheter-Associated Bloodstream Infe ction Goal: Absence of CVC Associated Bloodstream infection Outcome: Goal Ongoing Problem: High Fall Risk Goal: High Fall Risk Outcome: Goal Ongoing IO TECHNICIAN * Care Plan - Yuly Mitchell RN - 02/03/2021 5:34 PM CDT Problem: Skin Integrity Goal: Skin integrity intact Outcome: Goal Ongoing Goal: Healing of skin (Wound & Incision) Outcome: Goal Ongoing Goal: Healing of skin (Pressure Injury) Outcome: Goal Ongoing Problem: Infection, Risk of, Central Venous Catheter-Associated Bloodstream Infe ction Goal: Absence of CVC Associated Bloodstream infection Outcome: Goal Ongoing Problem: High Fall Risk Goal: High Fall Risk Outcome: Goal Ongoing * Patient Instructions - Timothy Muñoz RN - 02/01/2021 3:10 PM CDT Images from the original note were not included. INTERVENTIONAL RADIOLOGY DISCHARGE INSTRUCTIONS THORACENTESIS A thoracentesis is a procedure to remove excess fluid from the space between the chest wall and the lining of the outside of the lungs. A buildup of too much fluid in this space is called a pleural effusion. This procedure may be done t o help with shortness of breath or pain associated with this fluid buildup. Yo ur doctor may order lab tests on the fluid removed if medically indicated. Thi s procedure may also be referred to as a chest tap, pleural tap or pleural fluid aspiration. A thoracentesis is usually done using ultrasoun d guidance. It is uncommon but possible for the lung to collapse during or aft er this procedure. A post-procedure chest x-ray is necessary to confirm that t his has not happened. POST-PROCEDURE ACTIVITY: A responsible adult must drive you home. If you received sedation, you shou ld not drive or operate heavy machinery or do anything that requires concentrati on for at least 24 hours after the procedure. It is recommended that a responsible adult be with you until morning. Avoid strenuous activity and do not lift more than 10 lbs. for one week after the procedure. POST-PROCEDURE SITE CARE: Keep the bandage dry. You may remove it after 24 hours. You may shower in 24 hours, after the bandage is removed. Do not submerge the site underwater for 1 week (no swimming/hot tub, etc.) Be sure your hands are clean when touching near the site. Do not use ointments, creams or powders on the puncture site. DIET/MEDICATIONS: You may resume your previous diet after the radiologist has determined that y ou do not have a pneumothorax (collapsed lung) and you are ready to be discharge d. If you received sedation or narcotic pain medications, avoid any foods or brennan erages containing alcohol for at least 24 hours after the procedure. Please see the Medication Reconciliation sheet for instructions regarding res uming you home medications. WHEN TO CALL THE DOCTOR: Call 911 if you develop severe shortness of breath or chest pain. This may indicate a collapsed lung has occurred. Otherwise, call the numbers below if you have the following: Bright red blood has soaked the bandage over your puncture site. You have signs of infection: ? Chills, fever greater than 101?F ? Redness, swelling or warmth at the puncture site ? Pus draining from the puncture site. For any of the above symptoms or for problems or concerns related to the procedu re, call for Friday-Friday 7-5. After-hours and weekends, ple [facility] call [phone] and ask for the Interventional Manager Content on-kitty l. INTERVENTIONAL RADIOLOGY DISCHARGE INSTRUCTIONS THORACENTESIS A thoracentesis is a procedure to remove excess fluid from the space between the chest wall and the lining of the outside of the lungs. A buildup of too much fluid in this space is called a pleural effusion. This procedure may be done t o help with shortness of breath or pain associated with this fluid buildup. Yo ur doctor may order lab tests on the fluid removed if medically indicated. Thi s procedure may also be referred to as a chest tap, pleural tap or pleural fluid aspiration. A thoracentesis is usually done using ultrasoun d guidance. It is uncommon but possible for the lung to collapse during or aft er this procedure. A post-procedure chest x-ray is necessary to confirm that t his has not happened. POST-PROCEDURE ACTIVITY: A responsible adult must drive you home. If you received sedation, you shou ld not drive or operate heavy machinery or do anything that requires concentrati on for at least 24 hours after the procedure. It is recommended that a responsible adult be with you until morning. Avoid strenuous activity and do not lift more than 10 lbs. for one week after the procedure. POST-PROCEDURE SITE CARE: Keep the bandage dry. You may remove it after 24 hours. You may shower in 24 hours, after the bandage is removed. Do not submerge the site underwater for 1 week (no swimming/hot tub, etc.) Be sure your hands are clean when touching near the site. Do not use ointments, creams or powders on the puncture site. DIET/MEDICATIONS: You may resume your previous diet after the radiologist has determined that y ou do not have a pneumothorax (collapsed lung) and you are ready to be discharge d. If you received sedation or narcotic pain medications, avoid any foods or brennan erages containing alcohol for at least 24 hours after the procedure. Please see the Medication Reconciliation sheet for instructions regarding res uming you home medications. WHEN TO CALL THE DOCTOR: Call 911 if you develop severe shortness of breath or chest pain. This may indicate a collapsed lung has occurred. Otherwise, call the numbers below if you have the following: Bright red blood has soaked the bandage over your puncture site. You have signs of infection: ? Chills, fever greater than 101?F ? Redness, swelling or warmth at the puncture site ? Pus draining from the puncture site. For any of the above symptoms or for problems or concerns related to the procedu re, call for Friday-Friday 7-5. After-hours and weekends, ple ase call [phone] and ask for the Interventional Manager Content on-kitty l. Chest Tubes Your lungs are each surrounded by 2 layers of membrane (pleura). The space betwe en these layers is called the pleural space. Normally the pleural space has a ti ny amount of fluid in it. But extra fluid, blood, pus, or air in the pleural spa ce makes it hard for the lung to expand and makes breathing hard. A chest tube i s a soft, flexible tube put into the pleural space that surrounds the lung. The tube doesn't go into the lung itself.The tube drains blood, air, or extra flui d. The tube is inserted through a small cut (incision) in the skin. Reasons for a chest tube You may need a chest tube: After chest surgery or injury to the chest To treat a lung infection or abscess To remove extra fluid from around the lung from other causes. This might be f rom cancer or congestive heart failure. To treat collapsed lung To treat bleeding into the chest (hemothorax) Chest tube placement A chest tube is often placed during chest surgery while youre in the operatin g room and still asleep (sedated). If you have a lung infection or other problem , you may have a chest tube placed while youre awake in the emergency [facility] room. The procedure takes less than 30 minutes. Heres h ow it's done: Medical staff takes your blood pressure, pulse, and temperature. You lie on your side or sit in a semi-upright position. You will be asked to put one arm up over your head. The healthcare provider injects pain medicine (anesthetic) to numb the area w here the chest tube is placed. You may be given medicine to make you relax (georgiana tion) or pain medicine. Sedation is given in an IV (intravenous) line in your palma nd or arm. The provider makes a small incision is made in your side, chest, or back. He or she puts a soft, flexible tubeinto the incision site. The tube is guided be tween your ribs until it reaches the pleural space. The provider may use ultraso und imagingto help place the tube correctly. The provider may stitch) the tubeto your skin to keep it in place. It will also be covered with an airtight bandage. The tubing will be taped to your body. This is to keep it from being pulled out by accident. The tube is then connected to a drainage device. ? A chest drainage unit pulls the extra fluid, blood, pus, or air from your ches t. The device should be lower than your chest level and may be put on the floor. Some chest tubescontain water and may make a bubbling sound while they are wo rking. Other chest tubes will not make any sound at all. ? A flutter valve is a small one-way valve. It's used if you have a collapsed rico ng( pneumothorax). The lung collapsedbecause of the collection of air in the pleural space. The valve is attached directly to the end of your chest tube. The valve opens to let air escape from the chest tube. It then closes to prevent air from going back in the tube. You may go home from the hospital with your chest tube attached to a flutter valve. Care for it as you are told . You will have an X-ray after the procedure to help confirm that the tube is i n the right place, and that the air and fluid have been drained. While the tube is in place The tube stays in place for as long as your healthcare provider thinks it's n eeded.Youmay be in the hospital until after the tube is removed. Sometimes y ou may be sent home with the chest tube still in place. If you are sent home wit h the chest tube in place, you will need home healthcare or a caregiver until it is removed. You will be given pain medicine by mouth or by IV. You may have a patient-con trolled analgesia (PACKING SUPERVISOR) pump attached to the IV line. This lets you give yoursel f pain medicine, but it's programmed so you can't overdose.You are usually sen t home when you can take oral pain medicine and no longer need IV pain medicine. You may need extra oxygen. This is given through a mouth mask or a flexible t ube under your nose. You may also be connected to a small device called a pulse oximeter. It measures the amount of oxygen in your blood. It is placed on your f jitendra, toe, or ear. After the tube is placed, you can help with drainage by: ? Breathing deeply ? Coughing ? Sitting upright ? Moving and walking around if told to do so by your healthcare provider You can reduce discomfort by holding a pillow tightly to your chest when you cough. Your breathing and heart rate will be monitored. The tubing will be checked r egularly. If blood is draining from your chest, the tubing will be checked for c lots. If a clot appears, the tubing may be squeezed to move the clot out of the tube. If fluid is draining from your chest, it may be tested for signs of infect ion or other problems. You may need antibiotics to prevent or treat infection. Tell a nurse right away if you have trouble breathing or chest, shoulder, or neck pain. Risks and possible complications of chest tubes A chest tube can have some risks. But the benefits of having the tube usually ou tweigh the risks. Risks of a chest tube include: Air leak Infection Bleeding Reaction to anesthesia used during placement Lung damage, and damage to other surrounding structures Caution! Don't pull on the tube or tip over the drainage container. This can cause seriou s breathing problems. If you pull on the tube or tip over the container, tell a nurse right away. You may be asked to exhale fully or take deep breaths while th e tubing is checked. Removing the chest tube When the air, blood, pus, or extra fluid is gone from the pleural space, your [facility] provider will removethe tube. This may be done in your hospital bed. You may get more pain medicine before the tube is removed. As the tube is remove d, you may be asked to inhale or exhale deeply and then hold your breath. After the tube is removed, the healthcare provider may close the incisionwith stitch es. Or the incision may be left to close by itself. The provider will put aban dageover the incision. You may have an X-ray after the tube is removed. This i s to make sure your lung is still inflated. Follow-up care After the tube is removed: Follow up with the doctor within 48 hours. You may have another X-ray. This i s to check for fluid or air in your lung. The incision will be checked to make s ure it's healing. The bandage may be replaced with a smaller adhesive bandage. Y ou may change the bandage as often as needed. Care for the insertion site(s) as directed. Keep the bandage in place for 48 hours. Keep it dry. Until a scab has formed on the incision site, you may shower but not take a b ath. When a scab has formed you no longer need an adhesive bandage. After the in cision has healed you may have a small scar. When to call the doctor While the tube is in place and after it has been removed, call the doctor (or al ert your nurse) right away if you have any of the following: [id number] (38F)or higher, or as directed by your healthcare pro vider Trouble breathing Sharp chest pain that may spread to your shoulder or back Bluish color of the skin Weakness, dizziness, or fainting A feeling of anxiety or restlessness Fast pulse Mono last reviewed this educational content on 09/28/201819993136-4873 [employer]. All rights reserved. This information is not intended as a substitute for professional medical care. Always follow your healthcare professional's instructions. documented in this encounter Plan of Treatment Date/Time Name Type Priority Associated Diag noses 02/01/2021 3:35 PM CDT CULTURE-TB (AFB) Microbiology Specimen in Lab documented as of this encounter Goals Goal Patient Associated Recent Progress Patient-Stat Aut hor Goal Type Problems ed? GOAL General On track (02/01/2021 No Mathe w, 9:39 AM CDT) GILMAR Steele Note: Get better and be able to sit up documented as of this encounter Procedures Comments Procedure Name Priority Date/Time Associated Diag nosis CHEST SINGLE VIEW Routine 02/09/2021 9:50 AM STUDIO TECHNICIAN HC CBC,AUTOMATED Routine 02/08/2021 9:14 AM STUDIO TECHNICIAN HC MAGNESIUM Routine 02/08/2021 9:14 AM STUDIO TECHNICIAN HC COMPREHENSIVE Routine 02/08/2021 METABOLIC PANEL 9:14 AM STUDIO TECHNICIAN CHEST SINGLE VIEW Routine 02/08/2021 8:25 AM STUDIO TECHNICIAN MRI PELVIS WO/W CONTRAST Routine 02/08/2021 4:03 AM STUDIO TECHNICIAN HC CBC,AUTOMATED Routine 02/07/2021 10:18 AM STUDIO TECHNICIAN HC MAGNESIUM Routine 02/07/2021 10:18 AM STUDIO TECHNICIAN HC COMPREHENSIVE Routine 02/07/2021 METABOLIC PANEL 10:18 AM STUDIO TECHNICIAN CHEST SINGLE VIEW Routine 02/07/2021 6:20 AM STUDIO TECHNICIAN [facility] TEST Routine 02/06/2021 5:38 PM STUDIO TECHNICIAN [facility] REFERENCE TEST Routine 02/06/2021 5:38 PM STUDIO TECHNICIAN CHEST SINGLE VIEW Routine 02/06/2021 6:26 AM STUDIO TECHNICIAN HC CBC,AUTOMATED Routine 02/06/2021 5:59 AM STUDIO TECHNICIAN HC MAGNESIUM Routine 02/06/2021 5:59 AM STUDIO TECHNICIAN HC COMPREHENSIVE Routine 02/06/2021 METABOLIC PANEL 5:59 AM STUDIO TECHNICIAN CHEST SINGLE VIEW Routine 02/05/2021 6:17 AM STUDIO TECHNICIAN HC CBC,AUTOMATED Routine 02/05/2021 5:33 AM STUDIO TECHNICIAN HC MAGNESIUM Routine 02/05/2021 5:33 AM STUDIO TECHNICIAN HC COMPREHENSIVE Routine 02/05/2021 METABOLIC PANEL 5:33 AM STUDIO TECHNICIAN CHEST SINGLE VIEW Routine 02/04/2021 11:32 AM STUDIO TECHNICIAN HC CBC,AUTOMATED Routine 02/04/2021 9:23 AM STUDIO TECHNICIAN HC MAGNESIUM Routine 02/04/2021 9:23 AM STUDIO TECHNICIAN HC COMPREHENSIVE Routine 02/04/2021 METABOLIC PANEL 9:23 AM STUDIO TECHNICIAN HC NON-MANAGER SPECIALTY/THIN PREP Routine 02/03/2021 3:42 PM CDT HC TRIGLYCERIDE-FLUID Specimen 02/03/2021 in Lab 3:35 PM CDT CYTOLOGY SPECIMEN LABEL Routine 02/03/2021 3:35 PM CDT NC FLOW CYTOMETRY INTERPJ 02/03/2021 9-15 MARKERS 3:30 PM CDT LEUKEMIA/LYMPHOMA PANEL Routine 02/03/2021 FLUID/TISSUE 3:30 PM CDT HC CBC,AUTOMATED Routine 02/03/2021 5:48 AM CDT HC MAGNESIUM Routine 02/03/2021 5:48 AM CDT HC COMPREHENSIVE Routine 02/03/2021 METABOLIC PANEL 5:48 AM CDT HC LIPASE-FLUID Routine 02/02/2021 4:55 PM CDT HC BILIRUBIN;TOTAL,FLUID Routine 02/02/2021 4:55 PM CDT NM WBC SCAN LIMITED Routine 02/02/2021 SINGLE DAY 2:19 PM CDT HC T-SPOT TB TEST Routine 02/02/2021 1:26 PM CDT CHEST 2 VIEWS Routine 02/02/2021 11:14 AM CDT HC CBC,AUTOMATED Routine 02/02/2021 6:00 AM CDT HC MAGNESIUM Routine 02/02/2021 6:00 AM CDT HC LD(LDH;LACTIC Add on 02/02/2021 DEHYDROGENASE) 6:00 AM CDT HC COMPREHENSIVE Routine 02/02/2021 METABOLIC PANEL 6:00 AM CDT HC PTT(APTT) Routine 02/02/2021 [...] 02/01/2021 PROCEDURE INSP/EXP 4:42 PM CDT HC TOTAL PROTEIN-FLUID Routine 02/01/2021 3:35 PM CDT HC PH-FLUID Routine 02/01/2021 3:35 PM CDT HC LDH-FLUID Routine 02/01/2021 3:35 PM CDT HC GLUCOSE-FLUID Routine 02/01/2021 3:35 PM CDT CULTURE-FUNGAL,OTHER Routine 02/01/2021 3:35 PM CDT GRAM STAIN Routine 02/01/2021 3:35 PM CDT CULTURE-TB (AFB) Specimen 02/01/2021 in Lab 3:35 PM CDT CULTURE-WOUND/TISSUE/FLUI Routine 02/01/2021 D(AEROBIC 3:35 PM CDT ONLY)W/SENSITIVITY CULTURE-ANAEROBIC Routine 02/01/2021 3:35 PM CDT HC CELL COUNT Routine 02/01/2021 W/DIFF-FLUIDS 3:35 PM CDT IR THORACENTESIS WITH Routine 02/01/2021 INTERVENTION 2:44 PM CDT IR CHEST TUBE PLACEMENT Routine 02/01/2021 2:44 PM CDT HC PTT(APTT) 02/01/2021 2:40 PM CDT HC PTT(APTT) Routine 02/01/2021 8:[address] CHEST W CONTRAST Routine 02/01/2021 3:55 AM CDT HC PTT(APTT) Routine 02/01/2021 2:16 AM CDT HC CBC,AUTOMATED Routine 02/01/2021 1:50 AM CDT HC MAGNESIUM Routine 02/01/2021 1:50 AM CDT HC COMPREHENSIVE Routine 02/01/2021 METABOLIC PANEL 1:50 AM CDT CONSULT VASCULAR ACCESS Routine [...] POC LACTIC ACID 01/31/2021 3:35 PM CDT CULTURE-BLOOD STAT 01/31/2021 W/SENSITIVITY 3:35 PM CDT HC SED RATE; MANUAL STAT 01/31/2021 3:35 PM CDT HC CBC W/ AUTOMATED DIFF STAT 01/31/2021 3:35 PM CDT HC C-REACTIVE PROTEIN STAT 01/31/2021 (CRP) 3:35 PM CDT HC MAGNESIUM STAT 01/31/2021 3:35 PM CDT HC COMPREHENSIVE STAT 01/31/2021 METABOLIC PANEL 3:35 PM CDT POC CREATININE, RAD 01/31/2021 3:34 PM CDT POC GLUCOSE 01/31/2021 3:33 PM CDT documented in this encounter Results * CHEST SINGLE VIEW (02/09/2021 9:50 AM STUDIO TECHNICIAN) Modality Anatomical Region Laterality Computed Radiography Chest Specimen Impressions [facility] RESULTS - 02/09/2021 10:08 AM STUDIO TECHNICIAN Stable small left hydropneumothorax after left pleural drain removal. Left basilar atelectasis. Finalized by Pacheco Weems M.D. on 02/09/2021 10:08 AM. Dictated by Pacheco Weems M.D. on 02/09/2021 10:08 AM. Narrative [facility] RESULTS - 02/09/2021 10:08 AM STUDIO TECHNICIAN Single view INDICATION: Chest tube removal COMPARISON [...] on 02/09/2021 10:08 AM. Performing Organization Address City/[facility]/ZIP Code P varun Number [facility] RESULTS * MAGNESIUM (02/08/2021 9:14 AM STUDIO TECHNICIAN) Magnesium 1.6 1.6 - 2.6 mg/dL [facility] Specimen Performing Organization Address [facility] P varun Number [facility] [address] [place] [address] * COMPREHENSIVE METABOLIC PANEL (02/08/2021 9:14 AM STUDIO TECHNICIAN) Sodium 140 137 - 147 MMOL/L [facility] [...] >60 >60 mL/min [facility] Comment: [place] The eGFR is not validated f or use in drug dosing adjustments. Continue to use estimated creatinine clearance per dosing reference text. Please contact the Clinical Pharmacist for questions. eGFR >60 >60 mL/min [facility] [place] Comment: The eGFR is not validated for use in drug dosing adjustments. Continue to use estimated creatinine clearance per dosing reference text. Please contact the Clinical Pharmacist for questions. Specimen Performing Organization Address City/[facility]/ZIP Code P varun Number [facility] [address] [place] [address] * CBC (02/08/2021 9:14 AM STUDIO TECHNICIAN) White Blood 8.4 4.5 - 11.0 K/UL [...] varun Number [facility] [address] [place] [address] * CHEST SINGLE VIEW (02/08/2021 8:25 AM STUDIO TECHNICIAN) Modality Anatomical Region Laterality Computed Radiography Chest Specimen Impressions [facility] RESULTS - 02/08/2021 10:08 AM STUDIO TECHNICIAN Unchanged left basilar opacities, likely atelectasis associated with the persistent loculated left hydropneumothorax. By my electronic signature, I attest that I have personally reviewed the images for this examination and formulated the interpretations and opinions expressed in this report Finalized by Chavez Mcdonald M.D. on 02/08/2021 10:08 AM. Dictated by Jaskaran Torres M.D. on 02/08/2021 9:33 AM. Narrative [facility] RESULTS - 02/08/2021 10:08 AM STUDIO TECHNICIAN CHEST SINGLE VIEW INDICATION: Pleural effusion with chest tube on water seal. COMPARISON STUDY: Chest radiograph February 07, 2021. FINDINGS: Support Devices: The right internal jugular chest port in left pigtail thoracostomy tube remain in similar position. Lungs/Pleura: The lung volume is normal. Unchanged left basilar opacities. Persistent left greater than right pleural thickening/fluid in the apices. Heart and Mediastinum: The cardiomediastinal silhouette is stable. Skeletal structures: Redemonstrated thoracolumbar spinal fusion hardware. Procedure Note Chavez Mcdonald MD - 02/08/2021 CHEST SINGLE VIEW INDICATION: Pleural effusion with chest tube on water seal. COMPARISON STUDY: Chest radiograph February 07, 2021. FINDINGS: Support Devices: The right internal jugular chest port in left pigtail thoracostomy tube remain in similar position. Lungs/Pleura: The lung volume is normal. Unchanged left basilar opacities. Persistent left greater than right pleural thickening/fluid in the apices. Heart and Mediastinum: The cardiomediastinal silhouette is stable. Skeletal structures: Redemonstrated thoracolumbar spinal fusion hardware. IMPRESSION Unchanged left basilar opacities, likely atelectasis associated with the persistent loculated left hydropneumothorax. By my electronic signature, I attest that I have personally reviewed the images for this examination and formulated the interpretations and opinions expressed in this report Finalized by Chavez Mcdonald M.D. on 02/08/2021 10:08 AM. Dictated by Jaskaran Torres M.D. on 02/08/2021 9:33 AM. Performing Organization Address City/State/ZIP Code P varun Number [facility] RESULTS * MRI PELVIS WO/W CONTRAST (02/08/2021 4:03 AM STUDIO TECHNICIAN) Modality Anatomical Region Laterality Magnetic Resonance Pelvis Specimen Impressions [facility] RESULTS - 02/08/2021 8:31 AM STUDIO TECHNICIAN 1. No evidence of acute osteomyelitis. 2. Extensive postoperative changes as detailed in findings. Finalized by Naeem Harvey M.D. on 02/08/2021 8:31 AM. Dictated by Naeem Harvey M.D. on 02/08/2021 8:14 AM. Narrative [facility] RESULTS - 02/08/2021 8:31 AM STUDIO TECHNICIAN Exam: MRI PELVIS WO/W CONTRAST CLINICAL INDICATION: [...] P varun Number [facility] RESULTS * MAGNESIUM (02/07/2021 10:18 AM STUDIO TECHNICIAN) Magnesium 1.7 1.6 - 2.6 mg/dL [facility] Specimen Performing Organization Address City/State/ZIP Code P varun Number [facility] [address] [place] [address] * (ABNORMAL) COMPREHENSIVE METABOLIC PANEL (02/07/2021 10:18 AM STUDIO TECHNICIAN) Sodium 141 137 - 147 MMOL/L [facility] Potassium 3.8 3.5 - 5.1 MMOL/L [facility] Chloride 108 98 - 110 MMOL/L [facility] Glucose 86 70 - 100 MG/DL [facility] Blood Urea 5 (L) 7 - 25 MG/DL [facility] Nitrogen Creatinine 0.30 (L) 0.4 - 1.00 MG/DL [facility] Calcium 9.0 8.5 - 10.6 MG/DL [facility] Total Protein 6.2 6.0 - 8.0 G/DL [facility] Total Bilirubin 0.3 0.3 - 1.2 MG/DL [facility] Albumin 3.5 3.5 - 5.0 G/DL [facility] Alk Phosphatase 69 25 - 110 U/L [facility] AST (SGOT) 24 7 - 40 U/L [facility] CO2 23 21 - 30 MMOL/L [facility] ALT (SGPT) 22 7 - 56 U/L [facility] Anion Gap 10 3 - 12 [facility] eGFR Non >60 >60 mL/min [facility] Comment: [place] The eGFR is not validated f or use in drug dosing adjustments. Continue to use estimated creatinine clearance per dosing reference text. Please contact the Clinical Pharmacist for questions. eGFR >60 >60 mL/min [facility] [place] Comment: The eGFR is not validated for use in drug dosing adjustments. Continue to use estimated creatinine clearance per dosing reference text. Please contact the Clinical Pharmacist for questions. Specimen Performing Organization Address City/[facility]/ZIP Code P varun Number [facility] [address] [place] [address] * (ABNORMAL) CBC (02/07/2021 10:18 AM STUDIO TECHNICIAN) White Blood 5.7 4.5 - 11.0 K/UL [facility] Cells RBC 4.66 4.0 - 5.0 M/UL [facility] Hemoglobin 12.8 12.0 - 15.0 GM/DL [facility] Hematocrit 40.6 36 - 45 % [facility] MCV 87.3 80 - 100 FL [facility] MCH 27.5 26 - 34 PG [facility] MCHC 31.5 (L) 32.0 - 36.0 G/DL [facility] RDW 15.2 (H) 11 - 15 % [facility] Platelet Count 298 150 - 400 K/UL [facility] MPV 8.1 7 - 11 FL [facility] Specimen Performing Organization Address City/[facility]/ZIP Code P varun Number [facility] [address] [place] [address] * CHEST SINGLE VIEW (02/07/2021 6:20 AM STUDIO TECHNICIAN) Modality Anatomical Region Laterality Computed Radiography Chest Specimen Impressions [facility] RESULTS - 02/07/2021 10:46 AM STUDIO TECHNICIAN No significant change to slight interval increase in left basilar opacities, likely progressing atelectasis associated with the previous hydropneumothorax. Approved by Jaskaran Torres M.D. on 02/07/2021 10:42 AM By my electronic signature, I attest that I have personally reviewed the images for this examination and formulated the interpretations and opinions expressed in this report Finalized by Chavez Mcdonald M.D. on 02/07/2021 10:46 AM. Dictated by Jaskaran Torres M.D. on 02/07/2021 9:03 AM. Narrative [facility] RESULTS - 02/07/2021 10:46 AM STUDIO TECHNICIAN CHEST SINGLE VIEW INDICATION: Chest tube COMPARISON STUDY: Chest radiograph February 16, 2021. FINDINGS: Support Devices: Stable positioning of the right internal jugular chest port with the tip terminating in the right atrium. Stable positioning of the left pigtail chest tube. Lungs/Pleura: Slight decrease in lung volume. No significant change to slight interval increase in left basilar opacities. Persistent left greater than right pleural thickening/fluid at the apices. Heart and Mediastinum: The cardiomediastinal silhouette is stable. Skeletal structures: Redemonstrated spinal fusion hardware. Procedure Note Chavez Mcdonald MD - 02/07/2021 CHEST SINGLE VIEW INDICATION: Chest tube COMPARISON STUDY: Chest radiograph February 16, 2021. FINDINGS: Support Devices: Stable positioning of the right internal jugular chest port with the tip terminating in the right atrium. Stable positioning of the left pigtail chest tube. Lungs/Pleura: Slight decrease in lung volume. No significant change to slight interval increase in left basilar opacities. Persistent left greater than right pleural thickening/fluid at the apices. Heart and Mediastinum: The cardiomediastinal silhouette is stable. Skeletal structures: Redemonstrated spinal fusion hardware. IMPRESSION No significant change to slight interval increase in left basilar opacities, likely progressing atelectasis associated with the previous hydropneumothorax. Approved by Jaskaran Torres M.D. on 02/07/2021 10:42 AM By my electronic signature, I attest that I have personally reviewed the images for this examination and formulated the interpretations and opinions expressed in this report Finalized by Chavez Mcdonald M.D. on 02/07/2021 10:46 AM. Dictated by Jaskaran Torres M.D. on 02/07/2021 9:03 AM. Performing Organization Address City/[facility]/ZIP Code P varun Number [facility] RESULTS * [facility] TEST (02/06/2021 5:38 PM STUDIO TECHNICIAN) Ref Lab Test [id number], Adenosine Deaminase REFERENC E LAB Code in Pleural Fluid REF LAB RESULT SEE NOTE REFERENCE LAB ([facility]) Test name Result Flag Units RefIntvl - Adenosine Deaminase, Pleural Fluid 6 U/L 0-30 INTERPRETIVE INFORMATION:Adenosine Deaminase, Pleural Fluid This test was developed and its performance characteristics determined by [employer]. It has not been cleared or approved by the [place] Food and Drug Administration. This test was performed in a CLIA certified laboratory and is intended for clinical purposes. Performed By: [employer] [address] [place] [id number] Labor Relations Teacher: Kimberly Sam MD Specimen Performing Organization Address City/[facility]/ZIP Code P varun Number REFERENCE LAB REFERENCE LAB See results for address. * [facility] REFERENCE TEST (02/06/2021 5:38 PM STUDIO TECHNICIAN) Test Adenosine Deaminase in Pleural REFERE NCE LAB Fluid Reference Lab PERFORMED AT [facility] REFERENCE LAB LABORATORY-FOR REF RANGE SEE REPORT. Results Ref Lab SEE REF LAB RESULT REFERENCE LAB Specimen Mail PLEURAL FLUID REFERENCE LAB Specimen Performing Organization Address City/[facility]/ZIP Code P varun Number REFERENCE LAB REFERENCE LAB See results for address. * CHEST SINGLE VIEW (02/06/2021 6:26 AM STUDIO TECHNICIAN) Modality Anatomical Region Laterality Computed Radiography Chest Specimen Impressions [facility] RESULTS - 02/06/2021 1:45 PM STUDIO TECHNICIAN Improved left basal hydropneumothorax with pigtail pleural drainage catheter in place. Finalized by Juan Hutchinson M.D. on 02/06/2021 1:45 PM. Dictated by Juan Hutchinson M.D. on 02/06/2021 1:44 PM. Narrative [facility] RESULTS - 02/06/2021 1:45 PM STUDIO TECHNICIAN CHEST SINGLE VIEW INDICATION: chest tube COMPARISON STUDY: February 05, 2021. FINDINGS: Support Devices: The support devices are stable. Lungs/Pleura: Low left lung volume. Improvement in left basal opacities. Improved left basal hydropneumothorax. Heart and Mediastinum: The cardiomediastinal silhouette is stable. Procedure Note Juan Hutchinson MD - 02/06/2021 CHEST SINGLE VIEW INDICATION: chest tube COMPARISON STUDY: February 05, 2021. FINDINGS: Support Devices: The support devices are stable. Lungs/Pleura: Low left lung volume. Improvement in left basal opacities. Improved left basal hydropneumothorax. Heart and Mediastinum: The cardiomediastinal silhouette is stable. IMPRESSION Improved left basal hydropneumothorax with pigtail pleural drainage catheter in place. Finalized by Juan Hutchinson M.D. on 02/06/2021 1:45 PM. Dictated by Juan Hutchinson M.D. on 02/06/2021 1:44 PM. Performing Organization Address City/State/ZIP Code P varun Number [facility] RESULTS * MAGNESIUM (02/06/2021 5:59 AM STUDIO TECHNICIAN) Magnesium 1.8 1.6 - 2.6 mg/dL [facility] Specimen Performing Organization Address City/State/ZIP Code P varun Number [facility] [address] [place] [address] * (ABNORMAL) COMPREHENSIVE METABOLIC PANEL (02/06/2021 5:59 AM STUDIO TECHNICIAN) Sodium 143 137 - 147 MMOL/L [facility] Potassium 4.0 3.5 - 5.1 MMOL/L [facility] Chloride 108 98 - 110 MMOL/L [facility] Glucose 98 70 - 100 MG/DL [facility] Blood Urea 5 (L) 7 - 25 MG/DL [facility] Nitrogen Creatinine 0.50 0.4 - 1.00 MG/DL [facility] Calcium 9.0 8.5 - 10.6 MG/DL [facility] Total Protein 6.1 6.0 - 8.0 G/DL [facility] Total Bilirubin 0.3 0.3 - 1.2 MG/DL [facility] Albumin 3.4 (L) 3.5 - 5.0 G/DL [facility] Alk Phosphatase 66 25 - 110 U/L [facility] AST (SGOT) 20 7 - 40 U/L [facility] CO2 26 21 - 30 MMOL/L [facility] ALT (SGPT) 18 7 - 56 U/L [facility] Anion Gap 9 3 - 12 [facility] eGFR Non >60 >60 mL/min [facility] Comment: [place] The eGFR is not validated f or use in drug dosing adjustments. Continue to use estimated creatinine clearance per dosing reference text. Please contact the Clinical Pharmacist for questions. eGFR >60 >60 mL/min [facility] [place] Comment: The eGFR is not validated for use in drug dosing adjustments. Continue to use estimated creatinine clearance per dosing reference text. Please contact the Clinical Pharmacist for questions. Specimen Performing Organization Address City/State/ZIP Code P varun Number [facility] [address] [place] [address] * (ABNORMAL) CBC (02/06/2021 5:59 AM STUDIO TECHNICIAN) White Blood 6.4 4.5 - 11.0 K/UL [facility] Cells RBC 4.43 4.0 - 5.0 M/UL [facility] Hemoglobin 12.4 12.0 - 15.0 GM/DL [facility] Hematocrit 38.5 36 - 45 % [facility] MCV 86.8 80 - 100 FL [facility] MCH 28.0 26 - 34 PG [facility] MCHC 32.3 32.0 - 36.0 G/DL [facility] RDW 15.2 (H) 11 - 15 % [facility] Platelet Count 286 150 - 400 K/UL [facility] MPV 8.4 7 - 11 FL [facility] Specimen Performing Organization Address City/State/ZIP [facility] P varun Number [facility] [address] [place] [address] * CHEST SINGLE VIEW (02/05/2021 6:17 AM STUDIO TECHNICIAN) Modality Anatomical Region Laterality Computed Radiography Chest Specimen Impressions [facility] RESULTS - 02/05/2021 12:51 PM STUDIO TECHNICIAN Interval increase in volume of the loculated pneumothorax component of the left hydropneumothorax with a pigtail thoracostomy tube in place that is partially kinked at the skin entry. Dr. Mcdonald discussed the findings with the patient's charge nurse, Milena, by phone at 1246 hours 02/05/2021 Finalized by Chavez Mcdonald M.D. on 02/05/2021 12:51 PM. Dictated by Chavez Mcdonald M.D. on 02/05/2021 12:41 PM. Narrative [facility] RESULTS - 02/05/2021 12:51 PM STUDIO TECHNICIAN CHEST SINGLE VIEW INDICATION: pleural effusion with chest tube. TECHNIQUE: Portable AP upright view of the chest was obtained at 0550 hours 02/05/2021 COMPARISON STUDY: Comparison is made to an examination of 0755 hours 02/04/2021 FINDINGS: Tubes, Lines and Devices: The pigtail left thoracostomy tube remains in place. The thoracostomy tube is kinked near the skin entry. Right jugular [id number] catheter is unchanged in position. Posterior spinal fixation hardware extending from the upper thoracic region to the lumbar spine is again noted. Heart and Vasculature: Cardiac size and configuration are stable. Lungs: There has been progression of zones of atelectasis in the left lower lobe. Mediastinum and Doreen: Mediastinal and hilar configurations are stable. Pleura: There has been an interval increase in size of the pneumothorax component of the residual left hydropneumothorax. This now extends along the anterolateral aspect of the left upper lobe and lingula. Chest Wall and Soft Tissues: No acute bony or soft tissue abnormalities are identified. Procedure Note Chavez Mcdonald MD - 02/05/2021 CHEST SINGLE VIEW INDICATION: pleural effusion with chest tube. TECHNIQUE: Portable AP upright view of the chest was obtained at 0550 hours 02/05/2021 COMPARISON STUDY: Comparison is made to an examination of 0755 hours 02/04/2021 FINDINGS: Tubes, Lines and Devices: The pigtail left thoracostomy tube remains in place. The thoracostomy tube is kinked near the skin entry. Right jugular Vwvyeb-z-Iowi catheter is unchanged in position. Posterior spinal fixation hardware extending from the upper thoracic region to the lumbar spine is again noted. Heart and Vasculature: Cardiac size and configuration are stable. Lungs: There has been progression of zones of atelectasis in the left lower lobe. Mediastinum and Doreen: Mediastinal and hilar configurations are stable. Pleura: There has been an interval increase in size of the pneumothorax component of the residual left hydropneumothorax. This now extends along the anterolateral aspect of the left upper lobe and lingula. Chest Wall and Soft Tissues: No acute bony or soft tissue abnormalities are identified. IMPRESSION Interval increase in volume of the loculated pneumothorax component of the left hydropneumothorax with a pigtail thoracostomy tube in place that is partially kinked at the skin entry. Dr. Mcdonald discussed the findings with the patient's charge nurse, Milena, by phone at 1246 hours 02/05/2021 Finalized by Chavez Mcdonald M.D. on 02/05/2021 12:51 PM. Dictated by Chavez Mcdonald M.D. on 02/05/2021 12:41 PM. Performing Organization Address City/State/ZIP Code P varun Number [facility] RESULTS * MAGNESIUM (02/05/2021 5:33 AM STUDIO TECHNICIAN) Magnesium 1.7 1.6 - 2.6 mg/dL [facility] Specimen Performing Organization Address City/State/ZIP Code P varun Number [facility] [address] [place] [address] * (ABNORMAL) COMPREHENSIVE METABOLIC PANEL (02/05/2021 5:33 AM STUDIO TECHNICIAN) Sodium 143 137 - 147 MMOL/L [facility] Potassium 3.4 (L) 3.5 - 5.1 MMOL/L [facility] Chloride 107 98 - 110 MMOL/L [facility] Glucose 96 70 - 100 MG/DL [facility] Blood Urea 4 (L) 7 - 25 MG/DL [facility] Nitrogen Creatinine 0.38 (L) 0.4 - 1.00 MG/DL [facility] Calcium 8.9 8.5 - 10.6 MG/DL [facility] Total Protein 6.4 6.0 - 8.0 G/DL [facility] Total Bilirubin 0.4 0.3 - 1.2 MG/DL [facility] Albumin 3.6 3.5 - 5.0 G/DL [facility] Alk Phosphatase 76 25 - 110 U/L [facility] AST (SGOT) 16 7 - 40 U/L [facility] CO2 25 21 - 30 MMOL/L [facility] ALT (SGPT) 15 7 - 56 U/L [facility] Anion Gap 11 3 - 12 [facility] eGFR Non >60 >60 mL/min [facility] Comment: [place] The eGFR is not validated f or use in drug dosing adjustments. Continue to use estimated creatinine clearance per dosing reference text. Please contact the Clinical Pharmacist for questions. eGFR >60 >60 mL/min [facility] [place] Comment: The eGFR is not validated for use in drug dosing adjustments. Continue to use estimated creatinine clearance per dosing reference text. Please contact the Clinical Pharmacist for questions. Specimen Performing Organization Address City/State/ZIP Code P varun Number [facility] [address] [place] [address] * CBC (02/05/2021 5:33 AM STUDIO TECHNICIAN) White Blood 6.0 4.5 - 11.0 K/UL [facility] Cells RBC 4.41 4.0 - 5.0 M/UL [facility] Hemoglobin 12.5 12.0 - 15.0 GM/DL [facility] Hematocrit 38.5 36 - 45 % [facility] MCV 87.1 80 - 100 FL [facility] MCH 28.2 26 - 34 PG [facility] MCHC 32.4 32.0 - 36.0 G/DL [facility] RDW 14.8 11 - 15 % [facility] Platelet Count 295 150 - 400 K/UL [facility] MPV 9.0 7 - 11 FL [facility] Specimen Performing Organization Address City/[facility] P varun Number [facility] [address] [place] [address] * CHEST SINGLE VIEW (02/04/2021 11:32 AM STUDIO TECHNICIAN) Modality Anatomical Region Laterality Computed Radiography Chest Specimen Impressions [facility] RESULTS - 02/05/2021 9:00 AM STUDIO TECHNICIAN Stable chest radiograph demonstrating persistent loculated left pleural effusion and small left apical hydropneumothorax with pigtail thoracostomy tube in place. Minor zones of atelectasis in the left lower lobe. Finalized by Chavez Mcdonald M.D. on 02/05/2021 9:00 AM. Dictated by Chavez Mcdonald M.D. on 02/05/2021 8:58 AM. Narrative [facility] RESULTS - 02/05/2021 9:00 AM STUDIO TECHNICIAN CHEST SINGLE VIEW INDICATION: pleural effusion with chest tube. TECHNIQUE: Oral AP upright view of the chest was obtained COMPARISON STUDY: Comparison is made to an examination of 02/02/2021 FINDINGS: Tubes, Lines and Devices: Right Xkqkfw-f-Kklx venous catheter is unchanged in position. Pigtail left thoracostomy tube is similarly unchanged. Heart and Vasculature: Cardiac size and pulmonary vasculature are within normal limits. There is no evidence of acute pulmonary edema. Lungs: There are persistent zones of atelectasis in the left lower lobe. The right lung is free of acute abnormalities. Mediastinum and Doreen: There is persistent left pleural thickening and a partially loculated left pleural effusion. Minute loculated left apical hydropneumothorax is again seen. Pleura: A silo hilar configurations are stable. Chest Wall and Soft Tissues: No acute bony or soft tissue abnormalities are detected. Posterior spinal fixation hardware extending from the upper thoracic region through the visualized level of the lower thoracic spine is again seen. Changes of prior corpectomy and grafting at the lower thoracic levels are again noted. Procedure Note Chavez Mcdonald MD - 02/05/2021 CHEST SINGLE VIEW INDICATION: pleural effusion with chest tube. TECHNIQUE: Oral AP upright view of the chest was obtained COMPARISON STUDY: Comparison is made to an examination of 02/02/2021 FINDINGS: Tubes, Lines and Devices: Right Aoipjm-v-Frqs venous catheter is unchanged in position. Pigtail left thoracostomy tube is similarly unchanged. Heart and Vasculature: Cardiac size and pulmonary vasculature are within normal limits. There is no evidence of acute pulmonary edema. Lungs: There are persistent zones of atelectasis in the left lower lobe. The right lung is free of acute abnormalities. Mediastinum and Doreen: There is persistent left pleural thickening and a partially loculated left pleural effusion. Minute loculated left apical hydropneumothorax is again seen. Pleura: A silo hilar configurations are stable. Chest Wall and Soft Tissues: No acute bony or soft tissue abnormalities are detected. Posterior spinal fixation hardware extending from the upper thoracic region through the visualized level of the lower thoracic spine is again seen. Changes of prior corpectomy and grafting at the lower thoracic levels are again noted. IMPRESSION Stable chest radiograph demonstrating persistent loculated left pleural effusion and small left apical hydropneumothorax with pigtail thoracostomy tube in place. Minor zones of atelectasis in the left lower lobe. Finalized by Chavez Mcdonald M.D. on 02/05/2021 9:00 AM. Dictated by Chavez Mcdonald M.D. on 02/05/2021 8:58 AM. Performing Organization Address City/State/ZIP Code P varun Number [facility] RESULTS * MAGNESIUM (02/04/2021 9:23 AM STUDIO TECHNICIAN) Pathologist [facility] [place] Magnesium 1.8 1.6 - 2.6 mg/dL [facility] Specimen Performing Organization Address City/State/ZIP Code P varun Number [facility] [address] [place] [address] * (ABNORMAL) COMPREHENSIVE METABOLIC PANEL (02/04/2021 9:23 AM STUDIO TECHNICIAN) Pathologist [facility] [place] Sodium 141 137 - 147 MMOL/L [facility] Potassium 3.6 3.5 - 5.1 MMOL/L [facility] Chloride 109 98 - 110 MMOL/L [facility] Glucose 101 (H) 70 - 100 MG/DL [facility] Blood Urea 4 (L) 7 - 25 MG/DL [facility] Nitrogen Creatinine 0.39 (L) 0.4 - 1.00 MG/DL [facility] Calcium 8.4 (L) 8.5 - 10.6 MG/DL [facility] Total Protein 5.8 (L) 6.0 - 8.0 G/DL [facility] Total Bilirubin 0.3 0.3 - 1.2 MG/DL [facility] Albumin 3.3 (L) 3.5 - 5.0 G/DL [facility] Alk Phosphatase 69 25 - 110 U/L [facility] AST (SGOT) 13 7 - 40 U/L [facility] CO2 24 21 - 30 MMOL/L [facility] ALT (SGPT) 14 7 - 56 U/L [facility] Anion Gap 8 3 - 12 [facility] eGFR Non >60 >60 mL/min [facility] Comment: [place] The eGFR is not validated f or use in drug dosing adjustments. Continue to use estimated creatinine clearance per dosing reference text. Please contact the Clinical Pharmacist for questions. eGFR >60 >60 mL/min [facility] [place] Comment: The eGFR is not validated for use in drug dosing adjustments. Continue to use estimated creatinine clearance per dosing reference text. Please contact the Clinical Pharmacist for questions. Specimen Performing Organization Address City/State/ZIP Code P varun Number [facility] [address] [place] [address] * CBC (02/04/2021 9:23 AM STUDIO TECHNICIAN) Pathologist [facility] [place] White Blood 6.4 4.5 - 11.0 K/UL [facility] Cells RBC 4.25 4.0 - 5.0 M/UL [facility] Hemoglobin 12.2 12.0 - 15.0 GM/DL [facility] Hematocrit 36.4 36 - 45 % [facility] MCV 85.7 80 - 100 FL [facility] MCH 28.8 26 - 34 PG [facility] MCHC 33.5 32.0 - 36.0 G/DL [facility] RDW 15.0 11 - 15 % [facility] Platelet Count 298 150 - 400 K/UL [facility] MPV 9.1 7 - 11 FL [facility] Specimen Performing Organization Address City/State/ZIP Code P varun Number [facility] [address] [place] [address] * CYTOLOGY FLUIDS (02/03/2021 3:42 PM CDT) Cytology [facility] [email or web address] Department of Pathology and Laboratory Medicine [address] [place] [address] Surgical Pathology Office: [phone] CYTOLOGY REPORT NAME: VIKI MCGREGOR Charley CYTOLOGY #: [id number] MR #: [id number] ALT ID #: BILLING #: [id number] LOCATION: [facility] DATE OF PROCEDURE: 02/03/2021 AGE: 50 [...] Please also see concurrent flow cytometry report ([id number]), which reports negative immunophenotypic study. Attestation: By this signature, I attest that I have personally formulated the final interpretation expressed in this report and that the above diagnosis is based upon my examination of the slides and/or other material indicated in this report. +++Electronically Signed Out By+++ af/02/06/2021 Interpreted by: MD Bette Ford DO, Resident Specimen Pleural,Left Performing Organization Address City/[facility]/ZIP Code P varun Number MAIN LAB [address] [place] [address] * PLEURAL FLUID TRIGLYCERIDES (02/03/2021 3:35 PM CDT) Pathologist [facility] [place] Pleural Fluid 78 mg/dL MAIN LAB Triglycerides Comment: Triglycerides >110 mg/dL is suggestive of a chylothorax. Triglycerides <50 mg/dL is suggestive of pseudochylothorax. Specimen Pleural Fluid Performing Organization Address [facility] P varun Number MAIN LAB [address] [place] [phone] * CYTOLOGY SPECIMEN LABEL (02/03/2021 3:35 PM CDT) Specimen Other (Specify) Performing Organization Address City/[facility]/ZIP Code P varun Number LAB RESULTS * FLOW CYTOMETRY (02/03/2021 3:30 PM CDT) PATHOLOGY [facility] [email or web address] Alphonse Conley MD, Director of Flow Cytometry Laboratory Department of Pathology and Laboratory Medicine [address] [place] [address] Surgical Pathology Office: [phone] FLOW CYTOMETRY REPORT NAME: VIKI MCGREGOR J. SURG PATH #: [id number] MR #: [id number] SPECIMEN CLASS: LC BILLING #: [id number] ALT ID #: LOCATION: [id number] DATE OF [...] 6; CD19+CD5+ = 1; CD20 = 6; [place] = 3; Lambda = 2; [place]:Lambda ratio = 1.5 T Cell Associated Markers [...] of Markers: 14 Summary of Marker Combinations: [place]/Lambda/5/19/38/45/10/20; 2/7/5/3/4/45/56/8 This test was developed and its performance characteristics determined by the [facility] Flow Cytometry Laboratory. It has not been cleared or approved by the U.S. Food and Drug Administration (FDA). The FDA has determined that such clearance or approval is not necessary. Specimen Performing Organization Address City/[facility]/ZIP Code P varun Number [facility] [address] [place] [phone] * LEUKEMIA/LYMPHOMA PANEL FLUID/TISSUE (02/03/2021 3:30 PM CDT) Leuk/Lymph SEE PATHOLOGY REPORT [facility] Interpretation Specimen/LLM OTHER (SPECIFY) [facility] Specimen Other (Specify) Performing Organization Address City/[facility]/ZIP Code P varun Number [facility] [address] [place] [phone] * MAGNESIUM (02/03/2021 5:48 AM CDT) Magnesium 2.0 1.6 - 2.6 mg/dL [facility] Specimen Performing Organization Address [facility] P varun Number [facility] [address] [place] [address] * (ABNORMAL) COMPREHENSIVE METABOLIC PANEL (02/03/2021 5:48 AM CDT) Sodium 143 137 - 147 MMOL/L [facility] Potassium 3.9 3.5 - 5.1 MMOL/L [facility] Chloride 105 98 - 110 MMOL/L [facility] Glucose 90 70 - 100 MG/DL [facility] Blood Urea 2 (L) 7 - 25 MG/DL [facility] Nitrogen Creatinine 0.51 0.4 - 1.00 MG/DL [facility] Calcium 8.9 8.5 - 10.6 MG/DL [facility] Total Protein 6.0 6.0 - 8.0 G/DL [facility] Total Bilirubin 0.4 0.3 - 1.2 MG/DL [facility] Albumin 3.4 (L) 3.5 - 5.0 G/DL [facility] Alk Phosphatase 72 25 - 110 U/L [facility] AST (SGOT) 14 7 - 40 U/L [facility] CO2 29 21 - 30 MMOL/L [facility] ALT (SGPT) 16 7 - 56 U/L [facility] Anion Gap 9 3 - 12 [facility] eGFR Non >60 >60 mL/min [facility] Comment: [place] The eGFR is not validated f or use in drug dosing adjustments. Continue to use estimated creatinine clearance per dosing reference text. Please contact the Clinical Pharmacist for questions. eGFR >60 >60 mL/min [facility] [place] Comment: The eGFR is not validated for use in drug dosing adjustments. Continue to use estimated creatinine clearance per dosing reference text. Please contact the Clinical Pharmacist for questions. Specimen Performing Organization Address City/[facility]/ZIP Code P varun Number [facility] [address] [place] [address] * CBC (02/03/2021 5:48 AM CDT) White Blood 7.1 4.5 - 11.0 K/UL [facility] Cells RBC 4.34 4.0 - 5.0 M/UL [facility] Hemoglobin 12.1 12.0 - 15.0 GM/DL [facility] Hematocrit 37.6 36 - 45 % [facility] MCV 86.7 80 - 100 FL [facility] MCH 28.0 26 - 34 PG [facility] MCHC 32.3 32.0 - 36.0 G/DL [facility] RDW 14.8 11 - 15 % [facility] Platelet Count 309 150 - 400 K/UL [facility] MPV 9.2 7 - 11 FL [facility] Specimen Performing Organization Address [facility] P varun Number [facility] [address] [place] [address] * PLEURAL FLUID LIPASE (02/02/2021 4:55 PM CDT) Pleural Fluid 5 U/L [facility] Lipase Comment: Ascites due to pancreatitis is associated with lipase >3 times higher than plasma. Specimen Pleural Fluid Performing Organization Address City/[facility] P varun Number [facility] [address] [place] [address] * PLEURAL FLUID TOTAL BILIRUBIN (02/02/2021 4:55 PM CDT) Pleural Fluid 2.0 mg/dL [facility] Total Bilirubin Comment: Pleural fluid to serum bilirubin ratio of 0.6 suggests the presence of an exudate Specimen Pleural Fluid Performing Organization Address City/[facility]/ZIP [facility] P varun Number [facility] [address] [place] [address] * NM WBC SCAN LIMITED SINGLE DAY [...] medical status, and results of other diagnostic evaluations.[id number].TB test is qualitative and results are [...] on 02/02/2021 1:16 PM. Performing Organization Address City/[facility]/ZIP Code P varun Number [facility] RESULTS * (ABNORMAL) LDH-LACTATE DEHYDROGENASE (02/02/2021 6:00 AM CDT) Lactate 374 (H) 100 - 210 U/L [facility] Dehydrogenase Specimen Performing Organization Address [facility] P varun Number [facility] [address] [place] [address] * (ABNORMAL) MAGNESIUM (02/02/2021 6:00 AM CDT) Magnesium 1.5 (L) 1.6 - 2.6 mg/dL [facility] Specimen Performing Organization Address [facility] P varun Number [facility] [address] [place] [address] * (ABNORMAL) COMPREHENSIVE METABOLIC PANEL (02/02/2021 6:00 AM CDT) Sodium 140 137 - 147 MMOL/L [facility] Potassium 4.0 3.5 - 5.1 MMOL/L [facility] Chloride 104 98 - 110 MMOL/L [facility] Glucose 105 (H) 70 - 100 MG/DL [facility] Blood Urea 5 (L) 7 - 25 MG/DL [facility] Nitrogen Creatinine 0.34 (L) 0.4 - 1.00 MG/DL [facility] Calcium 8.7 8.5 - 10.6 MG/DL [facility] Total Protein 6.4 6.0 - 8.0 G/DL [facility] Total Bilirubin 0.4 0.3 - 1.2 MG/DL [facility] Albumin 3.5 3.5 - 5.0 G/DL [facility] Alk Phosphatase 64 25 - 110 U/L [facility] AST (SGOT) 20 7 - 40 U/L [facility] CO2 21 21 - 30 MMOL/L [facility] ALT (SGPT) 18 7 - 56 U/L [facility] Anion Gap 15 (H) 3 - 12 MAIN LAB eGFR Non >60 >60 mL/min [facility] Comment: [place] The eGFR is not validated f or use in drug dosing adjustments. Continue to use estimated creatinine clearance per dosing reference text. Please contact the Clinical Pharmacist for questions. eGFR >60 >60 mL/min [facility] [place] Comment: The eGFR is not validated for use in drug dosing adjustments. Continue to use estimated creatinine clearance per dosing reference text. Please contact the Clinical Pharmacist for questions. Specimen Performing Organization Address City/State/ZIP Code P varun Number MAIN LAB [address] [place] [address] * CBC (02/02/2021 6:00 AM CDT) White Blood 8.1 4.5 - 11.0 K/UL [facility] Cells RBC 4.44 4.0 - 5.0 M/UL [facility] Hemoglobin 12.5 12.0 - 15.0 GM/DL [facility] Hematocrit 38.5 36 - 45 % [facility] MCV 86.6 80 - 100 FL [facility] MCH 28.2 26 - 34 PG [facility]IN LAB MCHC 32.5 32.0 - 36.0 G/DL [facility] RDW 14.8 11 - 15 % [facility] Platelet Count 272 150 - 400 K/UL [facility] MPV 9.2 7 - 11 FL [facility] Specimen Performing Organization Address City/[facility]/ZIP Code P varun Number [facility] [address] [place] [address] * (ABNORMAL) PTT (APTT) (02/02/2021 4:42 AM CDT) APTT 85.2 (H) 24.0 - 36.5 SEC MAIN LAB Specimen Blood Performing Organization Address City/[facility]/ZIP Code P varun Number MAIN LAB [address] [place] [address] * MRI C-SPINE WO/W CONTRAST (02/02/2021 2:20 [...] * CULTURE-BLOOD W/SENSITIVITY (02/02/2021 12:12 AM CDT) Battery Name BLOOD CULTURE MAIN LAB Report Status FINAL 02/08/2021 [facility] Specimen BLOOD BLOOD LINE DRAW [facility] Description Special No special requests [facility] Requests Culture NO GROWTH 5 DAYS [facility] Specimen Blood Performing Organization Address City/[facility] Code P varun Number MAIN LAB [address] [place] [address] * CULTURE-BLOOD W/SENSITIVITY (02/02/2021 12:05 AM CDT) Battery Name BLOOD CULTURE MAIN LAB Report Status FINAL 02/08/2021 [facility] Specimen BLOOD BLOOD LINE DRAW [facility] Description Special No special requests [facility] Requests Culture NO GROWTH 5 DAYS [facility] Specimen Blood Performing Organization Address [facility] Code P varun Number [facility] [address] [place] [address] * US EXTRM-ANATOM SPEC RIGHT (02/01/2021 10:47 [...] varun Number [facility] RESULTS * (ABNORMAL) PTT (APTT) (02/01/2021 9:46 PM CDT) APTT 47.6 (H) 24.0 - 36.5 SEC [facility] Specimen Blood Performing Organization Address City/State/ZIP Code P varun Number [facility] [address] [place] [address] * CHEST IMMEDIATE POST PROCEDURE INSP/EXP (02/01/2021 [...] on 02/02/2021 7:32 AM. Performing Organization Address City/[facility] P varun Number [facility] RESULTS * (ABNORMAL) PLEURAL FLUID LACTATE DEHYDROGENASE (02/01/2021 3:35 PM CDT) Pleural Fluid 373 (H)Comment: Higher levels 67 - 140 U/L [facility] Lactate suggestive of exudate Dehydrogenase Specimen Pleural Fluid Performing Organization Address City/[facility] Code P varun Number [facility] [address] [place] [address] * (ABNORMAL) PLEURAL FLUID PH (02/01/2021 3:35 PM CDT) Pleural Fluid 7.76 (H) 7.60 - 7.66 [facility] Ph Specimen Pleural Fluid Performing Organization Address [facility] P varun Number [facility] [address] [place] [address] * (ABNORMAL) PLEURAL FLUID TOTAL PROTEIN (02/01/2021 3:35 PM CDT) Pleural Fluid 5.0 (H)Comment: Serum to <1.1 g/dL [facility] MA IN LAB Total Protein pleural fluid protein gradi ent >3.1 g/dL is suggestive of an exudate Specimen Pleural Fluid Performing Organization Address City/[facility]/ZIP [facility] P varun Number [facility] [address] [place] [phone] * PLEURAL FLUID GLUCOSE (02/01/2021 3:35 PM CDT) Pleural Fluid 73 70 - 100 mg/dL [facility] Glucose Comment: Glucose <60 mg/dL associated with parapneumonic effusion, tuberculosis, malignancy, empyema, and rheumatoid disease Specimen Pleural Fluid Performing Organization Address [facility] P varun Number [facility] [address] [place] [address] * CULTURE-FUNGAL,OTHER (02/01/2021 3:35 PM CDT) Battery Name FUNGUS CULTURE [facility] Report Status FINAL 03/05/2021 [facility] MAIN [facility] Specimen FLUID PLEURAL [facility] Description Special No special requests [facility]IN [facility] Requests Culture NO GROWTH OF FUNGUS AT 4 WEEKS TIGIST ALANNA N LAB Specimen Fluid Performing Organization Address [facility] P varun Number [facility] [address] [place] [phone] * GRAM STAIN (02/01/2021 3:35 PM CDT) Battery Name GRAM STAIN [facility] Report Status FINAL 02/01/2021 [facility] MAIN [facility] Specimen FLUID PLEURAL [facility] Description Special No special requests [facility] Requests Gram Stain MANY MAIN LAB RBC'S Gram Stain FEW [facility] NEUTROPHILS Gram Stain NO ORGANISMS SEEN [facility] Specimen Fluid sample (specimen) - Pleural Performing Organization Address [facility] Code P varun Number [facility] [address] [place] [phone] * CULTURE-ANAEROBIC (02/01/2021 3:35 PM CDT) Battery Name ANAEROBE CULTURE [facility] Report Status FINAL 02/06/2021 [facility]IN [facility] Specimen FLUID PLEURAL [facility] Description Special No special requests [facility]IN [facility] Requests Culture NO ANAEROBES ISOLATED [facility] Specimen Fluid sample (specimen) - Pleural Performing Organization Address City/[facility]/ZIP Code P varun Number [facility]IN [facility] [address] [place] [address] * CULTURE-WOUND/TISSUE/FLUID(AEROBIC ONLY)W/SENSITIVITY (02/01/2021 3:35 PM CDT) [...] sample (specimen) - Pleural Performing Organization Address City/[facility]/ZIP Code P varun Number [facility] MAIN [facility] [address] [place] [address] * CELL COUNT W/DIFF-FLUIDS (02/01/2021 3:35 PM CDT) White Blood 3,500 /UL [facility]IN [facility] Cells,Fluid Red Blood 9,900 /UL [facility]IN [facility] Cells,Fluid Lymphocytes,Flu 94 % [facility]IN [facility] id Monocyte/Histo, 6 % [facility] Fluid Fluid Source FLUID [facility] PLEURAL FLUID Pathology CHRONIC INFLAMMATION [...] (specimen) - Pleural Fluid Performing Organization Address City/[facility]/ZIP Code P varun Number MAIN LAB [address] [place] [address] * IR CHEST TUBE PLACEMENT (02/01/2021 2:44 [...] into the fluid collection and a 12 Argentine pigtail catheter was advanced into the fluid [...] into the fluid collection and a 12 [place] pigtail catheter was advanced into the fluid [...] on 02/01/2021 4:42 PM. Performing Organization Address City/[facility]/ZIP Code P varun Number [facility] RAD RESULTS * IR THORACENTESIS WITH INTERVENTION (02/01/2021 2:44 PM CDT) Modality Anatomical Region Laterality Ultrasound Specimen Narrative [facility] RAD - 02/01/2021 3:41 PM CDT This IR procedure does not require a dictated result. Performing Organization Address [facility]/ZIP Code P varun Number MIR RAD * (ABNORMAL) PTT (APTT) (02/01/2021 2:40 PM CDT) APTT 43.4 (H) 24.0 - 36.5 SEC [facility] Specimen Performing Organization Address [facility] P varun Number KU MAIN LAB [address] [place] [address] * (ABNORMAL) PTT (APTT) (02/01/2021 8:11 AM CDT) APTT 39.1 (H) 24.0 - 36.5 SEC [facility] Specimen Blood Performing Organization Address [facility] P varun Number [facility] MAIN [facility] [address] [place] [address] * CT CHEST W CONTRAST (02/01/2021 3:55 [...] of one day earlier. Finalized by ALBERTINA HENRY M.D. on 02/01/2021 7:58 AM. Dictated by ALBERTINA HENRY M.D. on 02/01/2021 7:48 AM. Narrative K[facility] [...] and T11 levels. . Procedure Note Albertina Henry MD - 02/01/2021 CT Chest . Clinical [...] of one day earlier. Finalized by ALBERTINA HENRY M.D. on 02/01/2021 7:58 AM. Dictated by ALBERTINA HENRY M.D. on 02/01/2021 7:48 AM. Performing Organization Address [facility] Code P varun Number RAD RESULTS * (ABNORMAL) PTT (APTT) (02/01/2021 2:16 AM CDT) APTT 37.8 (H) 24.0 - 36.5 SEC [facility] Specimen Blood Performing Organization Address [facility] P varun Number [facility] [address] [place] [address] * MAGNESIUM (02/01/2021 1:50 AM CDT) Magnesium 1.6Comment: MODERATE HEMOLYSIS 1.6 - 2.6 mg/dL [facility] Specimen Performing Organization Address [facility] P varun Number [facility] [address] [place] [id number] * (ABNORMAL) COMPREHENSIVE METABOLIC PANEL (02/01/2021 1:50 AM CDT) Sodium 142 137 - 147 MMOL/L [facility] Potassium 4.8Comment: MODERATE HEMOLYSIS 3.5 - 5.1 MMOL/ L [facility] Chloride 104 98 - 110 MMOL/L [facility] Glucose 84 70 - 100 MG/DL [facility] Blood Urea 11 7 - 25 MG/DL [facility] Nitrogen Creatinine 0.39 (L) 0.4 - 1.00 MG/DL [facility] Calcium 9.7 8.5 - 10.6 MG/DL [facility] Total Protein 7.3 6.0 - 8.0 G/DL [facility] Total Bilirubin 0.6 0.3 - 1.2 MG/DL [facility] Albumin 3.7 3.5 - 5.0 G/DL [facility] Alk Phosphatase 73 25 - 110 U/L [facility] AST (SGOT) 37 7 - 40 U/L [facility] CO2 24 21 - 30 MMOL/L [facility] ALT (SGPT) 23 7 - 56 U/L [facility] Anion Gap 14 (H) 3 - 12 [facility] eGFR Non >60 >60 mL/min [facility] Comment: [place] The eGFR is not validated f or use in drug dosing adjustments. Continue to use estimated creatinine clearance per dosing reference text. Please contact the Clinical Pharmacist for questions. eGFR >60 >60 mL/min [facility] [place] Comment: The eGFR is not validated for use in drug dosing adjustments. Continue to use estimated creatinine clearance per dosing reference text. Please contact the Clinical Pharmacist for questions. Specimen Performing Organization Address City/State/ZIP Code P varun Number [facility] [address] [place] [address] * (ABNORMAL) CBC (02/01/2021 1:50 AM CDT) White Blood 11.1 (H) 4.5 - 11.0 K/UL [facility] Cells RBC 4.94 4.0 - 5.0 M/UL [facility] Hemoglobin 13.8 12.0 - 15.0 GM/DL [facility] Hematocrit 42.3 36 - 45 % [facility] MCV 85.7 80 - 100 FL [facility] MCH 27.9 26 - 34 PG [facility] MCHC 32.5 32.0 - 36.0 G/DL [facility] RDW 14.8 11 - 15 % [facility] Platelet Count 358 150 - 400 K/UL [facility] MPV 9.5 7 - 11 FL [facility] Specimen Performing Organization Address City/State/ZIP Code P varun Number [facility] [address] [place] [address] * MRI T-SPINE W CONTRAST (02/01/2021 12:05 AM CDT) Modality Anatomical Region Laterality Magnetic Resonance Spine, T-Spine Specimen Addenda Addendum by Sunny Yin MD on 02/01/2021 6:02 AM CDT Finalized by Sunny Yin M.D. on 02/01/2021 12:39 AM. Dictated by Sunny Yin M.D. on 02/01/2021 12:23 AM.Addendum: Dr. Wagner discussed these results over the phone with the overseeing [facility] physician at 1:35 AM on 02/01/2021. [...] results over the phone with the overseeing [facility] physician at 1:35 AM on 02/01/2021. [...] P varun Number KU RAD RESULTS * COVID-19 (SARS-COV-2) PCR (01/31/2021 [...] performance characteristics have been verified by the [facility]. Fact sheet for providers: https://www.fda.gov/media/1140 85/download Fact sheet for patients: https://www.fda.gov/media/6130 87/download Specimen Flocked Swab - Nasopharyngeal Performing Organization Address City/State/ZIP Code P varun Number MAIN LAB [address] [place] [address] * MRI L-SPINE WO CONTRAST (01/31/2021 8:13 [...] narrowing on prior CT as well as [id number] left neural foraminal narrowing at these levels [...] narrowing on prior CT as well as gtnj-xw-tvigview left neural foraminal narrowing at these levels [...] Spine, T-Spine Specimen Addenda Addendum by Sunny Yni MD on 02/01/2021 12:28 AM CDT Finalized [...] narrowing on prior CT as well as tfat-sg-[id number] left neural foraminal narrowing at these levels [...] narrowing on prior CT as well as aabg-uv-bundyidv left neural foraminal narrowing at these levels [...] P varun Number KU RAD RESULTS * CULTURE-URINE W/SENSITIVITY (01/31/2021 5:41 PM CDT) Battery Name URINE CULTURE [facility] Report Status FINAL 02/01/2021 [facility] Specimen URINE MIDSTREAM [facility] Description Special No special requests [facility] Requests Culture <100,000 CFU/ml [facility] SHANNON TROPICALIS Susceptibility testing not routinely performed on this isolate. Specimen Urine specimen (specimen) - Midstream Performing Organization Address City/State/ZIP Code P varun Number [facility] MAIN [facility] [address] [place] [address] * UA REFLEX LABEL (01/31/2021 5:41 PM CDT) UA Reflex Criteria for reflex to culture [facility] Culture are WBC>10, Positive Nitrit e, and/or >=+1 leukocytes. If quantity is not sufficient, an addendum will follow. Specimen Urine Performing Organization Address City/State/ZIP Code P varun Number [facility] MAIN [facility] [address] [place] [address] * URINALYSIS MICROSCOPIC REFLEX TO CULTURE (01/31/2021 [...] MAIN LAB Specimen Urine Performing Organization Address City/[facility] Code P varun Number [facility] MAIN [facility] [address] [place] [address] * (ABNORMAL) URINALYSIS DIPSTICK REFLEX TO CULTURE (01/31/2021 5:41 PM CDT) Color,UA YELLOW [facility] Turbidity,UA 2+ (A) CLEAR-CLEAR [facility] Specific 1.026Comment: NOTE NEW 1.005 - 1.030 [facility] Hartley-Urine REFERENCE RANGES pH,UA 6.0 5.0 - 8.0 [facility] Protein,UA 3+ (A) NEG-NEG [facility] Glucose,UA NEG NEG-NEG [facility] Ketones,UA TRACE (A) NEG-NEG [facility] Bilirubin,UA NEG NEG-NEG [facility] Blood,UA 1+ (A) NEG-NEG [facility] Urobilinogen,UA NORMAL NORM-NORMAL [facility] Nitrite,UA NEG NEG-NEG [facility] Leukocytes,UA 2+ (A) NEG-NEG [facility] Urine Ascorbic POS (A) NEG-NEG MAIN LAB Acid, UA Comment: Ascorbic acid is found in various food supplies and dietary supplements, and is reported to cause strong interference with Macroscopic Urinalysis testing for glucose, blood and nitrite, and can result in a false negative result. Specimen Urine Performing Organization Address City/[facility]/ZIP Code P varun Number MAIN LAB [address] [place] [address] * CULTURE-BLOOD W/SENSITIVITY (01/31/2021 3:40 PM CDT) Battery Name BLOOD CULTURE MAIN LAB Report Status FINAL 02/06/2021 MAIN LAB Specimen BLOOD BLOOD, PERIPHERAL RFA [facility] MAIN L AB Description Special No special requests [facility] Requests Culture NO GROWTH 5 DAYS [facility] Specimen Blood specimen (specimen) - Blood,Peripheral Performing Organization Address [facility] Code P varun Number MAIN LAB [address] [place] [address] * POC TROPONIN (01/31/2021 3:36 PM CDT) [id number]-[id number]-RYT 0.00 0.00 - 0.05 NG/ML MAIN LAB Specimen Performing Organization Address [facility] P varun Number MAIN LAB [address] [place] [address] * POC LACTATE (01/31/2021 3:35 PM CDT) LACTIC ACID POC 0.8 0.5 - 2.0 MMOL/L MAIN LAB Specimen Performing Organization Address [facility] P varun Number MAIN LAB [address] [place] [address] * (ABNORMAL) C REACTIVE PROTEIN (CRP) (01/31/2021 3:35 PM CDT) C-Reactive 1.32 (H) <1.0 MG/DL MAIN LAB Protein Specimen Blood Performing Organization Address [facility] P varun Number MAIN LAB [address] [place] [address] * (ABNORMAL) SED RATE (01/31/2021 3:35 PM CDT) Sed Rate -ESR 53 (H) 0 - 20 MM/HR MAIN LAB Specimen Blood Performing Organization Address City/[facility] Code P varun Number MAIN LAB [address] [place] [address] * CULTURE-BLOOD W/SENSITIVITY (01/31/2021 3:35 PM CDT) Battery Name BLOOD CULTURE MAIN LAB Report Status FINAL 02/06/2021 [facility] Specimen BLOOD BLOOD, PERIPHERAL [facility] Description Special No special requests [facility] Requests Culture NO GROWTH 5 DAYS [facility] Specimen Blood specimen (specimen) - Blood,Peripheral Performing Organization Address City/State/ZIP Code P varun Number [facility] [address] [place] [address] * (ABNORMAL) MAGNESIUM (01/31/2021 3:35 PM CDT) Magnesium 1.5 (L) 1.6 - 2.6 mg/dL [facility] Specimen Blood Performing Organization Address [facility] Code P varun Number [facility] MAIN [facility] [address] [place] [phone] * (ABNORMAL) CBC AND DIFF (01/31/2021 3:35 PM CDT) White Blood 10.7 4.5 - 11.0 K/UL [...] blast cells. Specimen Blood Performing Organization Address City/[facility]/ZIP Code P varun Number [facility] MA[facility] [address] [place] [address] * (ABNORMAL) COMPREHENSIVE METABOLIC PANEL (01/31/2021 3:35 PM CDT) Sodium 143 137 - 147 MMOL/L [facility] Potassium 4.0 3.5 - 5.1 MMOL/L [facility] Chloride 104 98 - 110 MMOL/L [facility] Glucose 82 70 - 100 MG/DL [facility] Blood Urea 11 7 - 25 MG/DL [facility] Nitrogen Creatinine 0.40 0.4 - 1.00 MG/DL [facility] Calcium 10.3 8.5 - 10.6 MG/DL [facility] Total Protein 7.5 6.0 - 8.0 G/DL [facility] Total Bilirubin 0.4 0.3 - 1.2 MG/DL [facility] Albumin 4.2 3.5 - 5.0 G/DL [facility] Alk Phosphatase 87 25 - 110 U/L [facility] AST (SGOT) 19 7 - 40 U/L [facility] CO2 25 21 - 30 MMOL/L [facility] ALT (SGPT) 22 7 - 56 U/L [facility] Anion Gap 14 (H) 3 - 12 [facility] eGFR Non >60 >60 mL/min [facility] Comment: [place] The eGFR is not validated f or use in drug dosing adjustments. Continue to use estimated creatinine clearance per dosing reference text. Please contact the Clinical Pharmacist for questions. eGFR >60 >60 mL/min [facility] [place] Comment: The eGFR is not validated for use in drug dosing adjustments. Continue to use estimated creatinine clearance per dosing reference text. Please contact the Clinical Pharmacist for questions. Specimen Blood Performing Organization Address [facility]/ZIP Code P varun Number [facility] [address] [place] [address] * POC CREATININE, RAD (01/31/2021 3:34 PM CDT) Creatinine, POC 0.4 0.4 - 1.00 MG/DL [facility] Specimen Performing Organization Address City/State/ZIP Code P varun Number [facility] [address] [place] [address] * POC GLUCOSE (01/31/2021 3:33 PM CDT) Glucose, POC 91 70 - 100 MG/DL [facility] Specimen Performing Organization Address City/[facility]/ZIP Code P varun Number [facility] [address] [place] [address] documented in this encounter Visit Diagnoses Diagnosis Urinary tract infection associated with indwelling urethral catheter, initial encounter (HCC) Paraplegia (HCC) Paraplegia Neurogenic bladder Neurogenic bladder, NOS Pleural effusion exudative Unspecified pleural effusion Lower back pain Lumbago documented in this encounter Admitting Diagnoses Diagnosis Lower back pain Lumbago documented in this encounter Administered Medications Action Date Dose Rate Site Medication Order MAR Action 02/07/2021 8:45 PM STUDIO TECHNICIAN 875 mg amoxicillin-potassium clavulanate Given (AUGMENTIN) tablet 875 mg 875 mg, Oral, TWICE DAILY WITH MEALS, First dose on Fri02/06/21 at 2100, Unti l Discontinued, NURSING: Please educate patient and document: Give with food. 875 mg Given 02/07/2021 10:09 AM STUDIO TECHNICIAN 875 mg Given 02/06/2021 9:47 PM STUDIO TECHNICIAN 01/31/2021 9:38 PM CDT 20 mg baclofen (LIORESAL) tablet 20 mg Given 20 mg, Oral, ONCE, 1 dose, On Fri01/31/21 at 2000, Home medication, takes q6 at 2a/pm and 8a/pm 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 20 mg baclofen (LIORESAL) tablet 20 mg Given 20 mg, Oral, FOUR TIMES DAILY, First dose on Fri02/01/21 at 0900, Until Discontinued 20 mg Given 02/08/2021 8:52 PM STUDIO TECHNICIAN 20 mg Given 02/08/2021 5:25 PM STUDIO TECHNICIAN 20 mg Given 02/08/2021 1:59 PM STUDIO TECHNICIAN 20 mg Given 02/08/2021 10:06 AM STUDIO TECHNICIAN 20 mg Given 02/07/2021 8:45 PM STUDIO TECHNICIAN 20 mg Given 02/07/2021 5:21 PM STUDIO TECHNICIAN 20 mg Given 02/07/2021 1:05 PM STUDIO TECHNICIAN 20 mg Given 02/07/2021 10:09 AM STUDIO TECHNICIAN 20 mg Given 02/06/2021 9:48 PM STUDIO TECHNICIAN 20 mg Given 02/06/2021 5:14 PM STUDIO TECHNICIAN 20 mg Given 02/06/2021 1:21 PM STUDIO TECHNICIAN 20 mg Given 02/06/2021 8:46 AM STUDIO TECHNICIAN 20 mg Given 02/05/2021 9:34 PM STUDIO TECHNICIAN 20 mg Given 02/05/2021 5:06 PM STUDIO TECHNICIAN 20 mg Given 02/05/2021 1:04 PM STUDIO TECHNICIAN 20 mg Given 02/05/2021 8:20 AM STUDIO TECHNICIAN 20 mg Given 02/04/2021 10:20 PM STUDIO TECHNICIAN 20 mg Given 02/04/2021 4:37 PM STUDIO TECHNICIAN 20 mg Given 02/04/2021 12:33 PM STUDIO TECHNICIAN 20 mg Given 02/04/2021 8:55 AM STUDIO TECHNICIAN 20 mg Given 02/03/2021 8:57 PM CDT 20 mg Given 02/03/2021 5:46 PM CDT 20 mg Given 02/03/2021 12:57 PM CDT 20 mg Given 02/03/2021 10:53 AM CDT 20 mg Given 02/02/2021 8:36 PM CDT 20 mg Given 02/02/2021 5:57 PM CDT 20 mg Given 02/02/2021 2:38 PM CDT 20 mg Given 02/02/2021 10:17 AM CDT 20 mg Given 02/01/2021 8:09 PM CDT 20 mg Given 02/01/2021 2:06 PM CDT 20 mg Given 02/01/2021 9:48 AM CDT 02/05/2021 3:26 PM STUDIO TECHNICIAN 1,000 mg calcium carbonate (TUMS) chew tablet Given 1,000 mg 1,000 mg, Oral, EVERY 4 HOURS PRN, Starting on 02/04/21 at 1025, Until Fri02/06/21 at 0933, Indigestion/Heartburn, Each 500 mg tab delivers 200 mg elemental calcium 1,000 mg Given 02/05/2021 11:10 AM STUDIO TECHNICIAN 02/08/2021 8:48 PM STUDIO TECHNICIAN 1,000 mg calcium carbonate (TUMS) chew tablet Given 1,000 mg 1,000 mg, Oral, EVERY 3 HOURS PRN, Starting on Fri02/06/21 at 0945, Until Fri02/09/21 at 1441, Indigestion/Heartburn, Each 500 mg tab delivers 200 mg elemental calcium 1,000 mg Given 02/08/2021 4:56 AM STUDIO TECHNICIAN 1,000 mg Given 02/07/2021 4:25 PM STUDIO TECHNICIAN 1,000 mg Given 02/07/2021 11:48 AM STUDIO TECHNICIAN 1,000 mg Given 02/06/2021 10:02 AM STUDIO TECHNICIAN 02/04/2021 8:56 AM STUDIO TECHNICIAN 500 mg calcium carbonate (TUMS) chew tablet 500 Given mg 500 mg, Oral, EVERY 4 HOURS PRN, Starting on Makayla 02/01/21 at 2334, Until 02/04/21 at 1025, Indigestion/Heartburn, Each 500 mg tab delivers 200 mg elemental calcium 500 mg Given 02/04/2021 1:19 AM CDT 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 10 mg cetirizine (ZyrTEC) tablet 10 mg Given 10 mg, Oral, DAILY, First dose on Fri02/08/21 at 2030, Until Discontinued 10 mg Given 02/08/2021 8:46 PM STUDIO TECHNICIAN 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 10 mg diazePAM (VALIUM) tablet 10 mg Given 10 mg, Oral, FOUR TIMES DAILY, First dose on Fri02/01/21 at 0115, Until Discontinued 10 mg Given 02/08/2021 8:46 PM STUDIO TECHNICIAN 10 mg Given 02/08/2021 5:25 PM STUDIO TECHNICIAN 10 mg Given 02/08/2021 1:59 PM STUDIO TECHNICIAN 10 mg Given 02/08/2021 10:07 AM STUDIO TECHNICIAN 10 mg Given 02/07/2021 8:45 PM STUDIO TECHNICIAN 10 mg Given 02/07/2021 5:21 PM STUDIO TECHNICIAN 10 mg Given 02/07/2021 1:05 PM STUDIO TECHNICIAN 10 mg Given 02/07/2021 10:09 AM STUDIO TECHNICIAN 10 mg Given 02/06/2021 9:48 PM STUDIO TECHNICIAN 10 mg Given 02/06/2021 5:14 PM STUDIO TECHNICIAN 10 mg Given 02/06/2021 1:21 PM STUDIO TECHNICIAN 10 mg Given 02/06/2021 8:46 AM STUDIO TECHNICIAN 10 mg Given 02/05/2021 9:34 PM STUDIO TECHNICIAN 10 mg Given 02/05/2021 5:06 PM STUDIO TECHNICIAN 10 mg Given 02/05/2021 1:04 PM STUDIO TECHNICIAN 10 mg Given 02/05/2021 8:20 AM STUDIO TECHNICIAN 10 mg Given 02/04/2021 10:19 PM STUDIO TECHNICIAN 10 mg Given 02/04/2021 4:37 PM STUDIO TECHNICIAN 10 mg Given 02/04/2021 12:33 PM STUDIO TECHNICIAN 10 mg Given 02/04/2021 8:55 AM STUDIO TECHNICIAN 10 mg Given 02/03/2021 8:57 PM CDT 10 mg Given 02/03/2021 5:46 PM CDT 10 mg Given 02/03/2021 12:57 PM CDT 10 mg Given 02/03/2021 10:53 AM CDT 10 mg Given 02/02/2021 8:36 PM CDT 10 mg Given 02/02/2021 5:57 PM CDT 10 mg Given 02/02/2021 2:38 PM CDT 10 mg Given 02/02/2021 10:16 AM CDT 10 mg Given 02/01/2021 8:09 PM CDT 10 mg Given 02/01/2021 2:06 PM CDT 10 mg Given 02/01/2021 9:48 AM CDT 10 mg Given 02/01/2021 2:05 AM CDT 02/07/2021 8:45 PM STUDIO TECHNICIAN 100 mg doxycycline hyclate (VIBRACIN) tablet Given 100 mg 100 mg, Oral, TWICE DAILY, First dose o n 02/06/21 at 2100, Until Discontinued , NURSING: Please educate patient and document: Do not give within 2 hours of antacids, magnesium, calcium, iron, zinc, or vitamins containing these minerals. 100 mg Given 02/07/2021 10:09 AM STUDIO TECHNICIAN 100 mg Given 02/06/2021 9:48 PM STUDIO TECHNICIAN 02/08/2021 8:45 PM STUDIO TECHNICIAN 40 mg Abdomina l Tissue enoxaparin (LOVENOX) syringe 40 mg Given 40 mg, Subcutaneous, DAILY, First dose on Fri02/02/21 at 2100, Until Discontinued, For patients undergoing surgery: Consult physician in advance - - enoxaparin is an anticoagulant and may need to be held for 12hr prior to surgery or invasive procedures. NOTE: This is a HIGH ALERT Medication. 40 mg Abdominal Tissue Given 02/07/2021 8:45 PM STUDIO TECHNICIAN 40 mg Abdominal Tissue Given 02/06/2021 9:47 PM STUDIO TECHNICIAN 40 mg Abdominal Tissue Given 02/05/2021 9:34 PM STUDIO TECHNICIAN 40 mg Abdomen:LLQ Given 02/04/2021 10:21 PM STUDIO TECHNICIAN 40 mg Abdomen:LLQ Given 02/03/2021 8:57 PM CDT 40 mg Abdomen:LLQ Given 02/02/2021 8:37 PM CDT 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 20 mg famotidine (PEPCID) tablet 20 mg Given 20 mg, Oral, TWICE DAILY, First dose on Fri02/06/21 at 1045, Until Discontinued 20 mg Given 02/08/2021 8:46 PM STUDIO TECHNICIAN 20 mg Given 02/08/2021 1:59 PM STUDIO TECHNICIAN 20 mg Given 02/07/2021 8:45 PM STUDIO TECHNICIAN 20 mg Given 02/07/2021 10:08 AM STUDIO TECHNICIAN 20 mg Given 02/06/2021 9:48 PM STUDIO TECHNICIAN 20 mg Given 02/06/2021 10:02 AM STUDIO TECHNICIAN 02/02/2021 2:20 AM CDT 10 mL gadobenate dimeglumine (MULTIHANCE) Given injection 10 mL 10 mL, Intravenous, ONCE, 1 dose, On Fr i 02/02/21 at 0145, NOTE: This is a HIGH ALERT Medication. 02/08/2021 4:04 AM STUDIO TECHNICIAN 10 mL gadobenate dimeglumine (MULTIHANCE) Given injection 10 mL 10 mL, Intravenous, ONCE, 1 dose, On 02/08/21 at 0415, NOTE: This is a HIGH ALERT Medication. 01/31/2021 11:39 PM CDT 12 mL gadobenate dimeglumine (MULTIHANCE) Given injection 12 mL 12 mL, Intravenous, ONCE, 1 dose, On 01/31/21 at 2345, NOTE: This is a HIGH ALERT Medication. 02/02/2021 7:21 AM CDT 1,140 Units/hr 28.5 mL/hr heparin (porcine) 20,000 units/D5W 500 Dose/Rate mL infusion (std conc)(premade) Verify 0-2,000 Units/hr (0-50 mL/hr) 500 mL, at 0-50 mL/hr, Intravenous, TITRATE DIRECTED , Starting on Fri01/31/21 at 2215, Until Fri02/02/21 at 1401, Weight-Based Heparin Algorithm - Venous Thromboembolism (VTE) (non-fluid restricted patients) - See separate order for initial IV bolus (from bag) - Initial IV infusion 18 units/kg/hr. Not to exceed 2,000 units/hr - Follow Heparin Infusion Scale - WITH ADJUSTMEN T BOLUS for subsequent bolus and rate changes NOTE: This is a HIGH ALERT Medication. 1,140 Units/hr 28.5 mL/hr Dose/Rate Verify 02/02/2021 6:53 AM CDT 1,140 Units/hr 28.5 mL/hr Dose/Rate Verify 02/01/2021 10:35 PM CDT 1,140 Units/hr 28.5 mL/hr Given - New Bag 02/01/2021 10:00 PM CDT 1,140 Units/hr 28.5 mL/hr Dose/Rate Verify 02/01/2021 7:29 PM CDT 1,140 Units/hr 28.5 mL/hr Infusion Restarted 02/01/2021 4:01 PM CDT 1,040 Units/hr 26 mL/hr Dose/Rate Change 02/01/2021 10:13 AM CDT 939.6 Units/hr 23.5 mL/hr Dose/Rate Verify 02/01/2021 7:05 AM CDT 939.6 Units/hr 23.5 mL/hr Given - New Bag 02/01/2021 2:06 AM CDT 02/01/2021 10:15 AM CDT 1,044 Units heparin (porcine) BOLUS for continuous Bolus from inf (bag) 1,044-2,088 Units Bag 1,044-2,088 Units (20-40 Units/kg 52.2 kg) 52.2 mL, Intravenous, SEE ADMIN INSTRUCTIONS, Starting on Fri01/31/21 a t 2307, Until Fri02/02/21 at 1401, ADJUSTMENT BOLUS for heparin drip -- VT E Treatment Weight-Based Heparin Algorith m - Follow heparin infusion scale - WITH ADJUSTMENT BOLUS for subsequent bolus and rate changes. - Administer bolus dose via pump from infusion bag. NOTE: This is a HIGH ALERT Medication. HYDROcodone/acetaminophen (NORCO) 5/325 mg tablet 1-2 tablet 1-2 tablet, Oral, EVERY 4 HOURS PRN, Starting on Fri02/02/21 at 0804, Until Fri02/09/21 at 1441, Pain PO, TOTAL ACETAMINOPHEN DOSE NOT TO EXCEED 4GM DAILY 02/01/2021 3:53 AM CDT 70 mL iohexoL (OMNIPAQUE-350) 350 mg/mL Given injection 70 mL 70 mL, Intravenous, ONCE, 1 dose, On Th u 02/01/21 at 0400, NOTE: This is a HIGH ALERT Medication. lidocaine (LIDODERM) 5 % topical patch 1 patch 1 patch, Topical, Administer over 12 Hours, DAILY, First dose on Fri02/02/21 at 0915, Until Discontinued, NURSING PLEASE NOTE: Apply patch ONCE DAILY to pain and REMOVE after designated duration. Apply only to intact skin. Patch may be cut to fit affected area. 02/05/2021 1:04 PM STUDIO TECHNICIAN 600 mg linezolid (ZYVOX) 600 mg/D5W 300 mL Given - New IVPB Bag 600 mg, Intravenous, 300 mL, Administer over 60 Minutes, EVERY 12 HOURS, First dose on Makayla 02/01/21 at 0100, Until Discontinued, PROTECT FROM LIGHT -- Mixed in non-PVC (Intra-Via) bag. 600 mg Given - New Bag 02/05/2021 1:27 AM STUDIO TECHNICIAN 600 mg Given - New Bag 02/04/2021 12:30 PM STUDIO TECHNICIAN 600 mg Given - New Bag 02/04/2021 1:23 AM CDT 600 mg Given - New Bag 02/03/2021 12:57 PM CDT 600 mg Given - New Bag 02/03/2021 12:47 AM CDT 600 mg Given - New Bag 02/02/2021 2:39 PM CDT 600 mg Given - New Bag 02/02/2021 12:46 AM CDT Infusion Restarted 02/01/2021 4:05 PM CDT 600 mg Given - New Bag 02/01/2021 2:06 PM CDT 600 mg Given - New Bag 02/01/2021 2:11 AM CDT 02/06/2021 8:46 AM STUDIO TECHNICIAN 600 mg linezolid (ZYVOX) tablet 600 mg Given 600 mg, Oral, TWICE DAILY, First dose o n 02/05/21 at 2100, Until Discontinued 600 mg Given 02/05/2021 9:34 PM STUDIO TECHNICIAN 02/02/2021 4:32 PM CDT 1 g 25 mL/hr magnesium sulfate 1 g/D5W 100 mL IVPB Given - New 1 g, Intravenous, 100 mL, Administer Bag over 4 Hours, EVERY 4 HOURS, 1 dose, First dose on Fri02/02/21 at 1600, Each 1gm delivers 8.1 mEq Magnesium. 02/08/2021 8:46 PM STUDIO TECHNICIAN 3 mg melatonin (MELATIN) tablet 3 mg Given 3 mg, Oral, AT BEDTIME PRN, Starting on Makayla 02/01/21 at 0039, Until Fri02/09/21 at 1441, Insomnia ondansetron (ZOFRAN ODT) rapid dissolve tablet 4 mg 4 mg, Oral, EVERY 6 HOURS PRN, Startin g on Makayla 02/01/21 at 0039, Until Fri02/09/21 at 1441, Nausea/Vomiting PO, Place on tongue and allow to dissolve. ondansetron (ZOFRAN) injection 4 mg 4 mg, Intravenous, EVERY 6 HOURS PRN, Starting on Makayla 02/01/21 at 0039, Until Fri02/09/21 at 1441, Nausea/Vomiting Injectable 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 15 mg oxybutynin XL (DITROPAN XL) tablet 15 mg Given 15 mg, Oral, DAILY, First dose on Makayla 02/01/21 at 0900, Until Discontinued, Do not crush or chew 15 mg Given 02/08/2021 10:06 AM STUDIO TECHNICIAN 15 mg Given 02/07/2021 10:10 AM STUDIO TECHNICIAN 15 mg Given 02/06/2021 8:46 AM STUDIO TECHNICIAN 15 mg Given 02/05/2021 8:20 AM STUDIO TECHNICIAN 15 mg Given 02/04/2021 8:56 AM STUDIO TECHNICIAN 15 mg Given 02/03/2021 10:52 AM CDT 15 mg Given 02/02/2021 10:16 AM CDT 15 mg Given 02/01/2021 9:48 AM CDT 02/06/2021 8:46 AM STUDIO TECHNICIAN 40 mg pantoprazole DR (PROTONIX) tablet 40 mg Given 40 mg, Oral, DAILY BEFORE BREAKFAST, First dose on Makayla 02/01/21 at 0700, Unti l Discontinued, Do not crush or chew tablet. 40 mg Given 02/05/2021 6:28 AM STUDIO TECHNICIAN 40 mg Given 02/04/2021 8:55 AM STUDIO TECHNICIAN 40 mg Given 02/03/2021 7:50 AM CDT 40 mg Given 02/02/2021 10:24 AM CDT 40 mg Given 02/01/2021 7:32 AM CDT 02/01/2021 2:29 PM CDT 3.375 g 200 mL/hr piperacillin/tazobactam (ZOSYN) 3.375 g Given - New in sodium chloride 0.9% (NS) 100 mL IVPB Bag (MB+) 3.375 g, Intravenous, 100 mL, Administe r over 30 Minutes, EVERY 6 HOURS, First dose on Fri01/31/21 at 2300, Until Discontinued 3.375 g 200 mL/hr Given - New Bag 02/01/2021 5:28 AM CDT 3.375 g 200 mL/hr Given - New Bag 01/31/2021 10:58 PM CDT 02/06/2021 2:51 PM STUDIO TECHNICIAN 4.5 g 200 mL/hr piperacillin/tazobactam (ZOSYN) 4.5 g in Given - New sodium chloride 0.9% (NS) 100 mL IVPB Bag (MB+) 4.5 g, Intravenous, 100 mL, Administer over 30 Minutes, EVERY 6 HOURS, First dose (after last modification) on Fri02/01/21 at 2100, Until Discontinued 4.5 g 200 mL/hr Given - New Bag 02/06/2021 8:46 AM STUDIO TECHNICIAN 4.5 g 200 mL/hr Given - New Bag 02/06/2021 3:02 AM STUDIO TECHNICIAN 4.5 g 200 mL/hr Given - New Bag 02/05/2021 9:32 PM STUDIO TECHNICIAN 4.5 g 200 mL/hr Given - New Bag 02/05/2021 3:26 PM STUDIO TECHNICIAN 4.5 g 200 mL/hr Given - New Bag 02/05/2021 8:20 AM STUDIO TECHNICIAN 4.5 g 200 mL/hr Given - New Bag 02/05/2021 3:25 AM STUDIO TECHNICIAN 4.5 g 200 mL/hr Given - New Bag 02/04/2021 10:20 PM STUDIO TECHNICIAN 4.5 g 200 mL/hr Given - New Bag 02/04/2021 2:56 PM STUDIO TECHNICIAN 4.5 g 200 mL/hr Given - New Bag 02/04/2021 8:56 AM STUDIO TECHNICIAN 4.5 g 200 mL/hr Given - New Bag 02/04/2021 2:35 AM STUDIO TECHNICIAN 4.5 g 200 mL/hr Given - New Bag 02/03/2021 8:57 PM CDT 4.5 g 200 mL/hr Given - New Bag 02/03/2021 3:11 PM CDT 4.5 g 200 mL/hr Given - New Bag 02/03/2021 10:53 AM CDT 4.5 g 200 mL/hr Given - New Bag 02/03/2021 3:56 AM CDT 4.5 g 200 mL/hr Given - New Bag 02/02/2021 8:37 PM CDT 4.5 g 200 mL/hr Given - New Bag 02/02/2021 4:32 PM CDT 4.5 g 200 mL/hr Given - New Bag 02/02/2021 10:17 AM CDT 4.5 g 200 mL/hr Given - New Bag 02/02/2021 3:09 AM CDT 4.5 g 200 mL/hr Given - New Bag 02/01/2021 9:01 PM CDT 02/02/2021 11:40 AM CDT 21.2 millicuries RP DX Tc-99m exametazime WBC (CERETEC Given WBC) injection 20 millicurie 20 millicurie, Intravenous, ONCE, 1 dose, On Fri02/02/21 at 0900 02/06/2021 3:01 AM STUDIO TECHNICIAN 10 mL/hr sodium chloride 0.9 % TKO infusion Given - New Intravenous, at 10 mL/hr, CONTINUOUS, Bag Starting on Fri02/01/21 at 0215, Until Fri02/09/21 at 1441 10 mL/hr Given - New Bag 02/04/2021 10:23 PM STUDIO TECHNICIAN 10 mL/hr Given - New Bag 02/02/2021 4:32 PM CDT 10 mL/hr Given - New Bag 02/01/2021 9:06 PM CDT 10 mL/hr Given - New Bag 02/01/2021 2:18 AM CDT 02/01/2021 3:54 AM CDT 50 mL sodium chloride PF 0.9% injection 50 mL Given 50 mL, Intravenous, ONCE, 1 dose, On 02/01/21 at 0400, DO NOT SEND this medication unless it is requested. This med is usually available in floor stock., Intra-procedure (IR) documented in this encounter Discontinued Medications Start Date End Date Medication Sig Discontinue Reason 12/06/2015 02/09/2021 ibuprofen (MOTRIN) 600 mg Take 1 Tab tablet by mouth every 6 hours as needed for Pain. Take with food. 07/16/2016 02/09/2021 amoxicillin/K clavulanate TAKE 1 (AUGMENTIN) 875/125 mg TABLET BY tablet MOUTH EVERY 12 HOURS 11/11/2016 02/09/2021 doxycycline(+) TAKE 1 (VIBRAMYCIN) 100 mg CAPSULE BY capsule MOUTH TWICE DAILY 02/09/[address] (PRILOSEC) Take 20 mg 20 mg capsule by mouth daily before breakfast. documented as of this encounter Historical Medications * This list may reflect changes made after this encounter. Start Date End Date Medication Sig Dispensed Refills HYDROcodone/acetaminophen Take 1 tablet 0 (NORCO) 7.5/325 mg tablet by mouth every 4 hours as needed for Pain traMADoL (ULTRAM) 50 mg Take 50 mg by 0 tablet mouth four times daily as needed for Pain. added in this encounter Active and Recently Administered Medications Times are shown in STUDIO TECHNICIAN. 02/08/2021 02/09/2021 Medication Order 02/07/2021 1003 (Canceled Entry - Provider: Malick Castorena RN) amoxicillin-potassium clavulanate 1009 (Given - (AUGMENTIN) tablet 875 mg (CANCELED) Provider: Daniel nogueira 875 mg, Oral, TWICE DAILY WITH MEALS, Reji Frost)204 First dose on Fri02/06/21 at 2100, Until (Given - Pr ovider: Discontinued, NURSING: Please educate Holli Medina RN) patient and document: Give with food. 1006 (Given - Provider: Malick pappas RN)1359 (Given - Provider: Malick Mauricio RN)1725 (Given - Provider: Malick Mauricio RN)2052 (Given - Provider: Deann Pitt RN) 0953 (Given - Provider: Yuly Mitchell RN) baclofen (LIORESAL) tablet 20 mg 1009 (Given - 20 mg, Oral, FOUR TIMES DAILY, First Provider: Daniel nogueira dose on Fri02/01/21 at 0900, Until GILMAR Frost)1 305 Discontinued (Given - Provider: Joana Frost RN)1721 (Given - Provider: Joana Frost RN)2044 (Given - Provider: Holli Medina RN) 204 (Given - Provider: Deann Pitt, GILMAR) 0953 (Given - Provider: Yuly Mitchell , GILMAR) cetirizine (ZyrTEC) tablet 10 mg 10 mg, Oral, DAILY, First dose on Fri02/08/21 at 2030, Until Discontinued 1007 (Given - Provider: Malick pappas, GILMAR)1359 (Given - Provider: Malick Mauricio, GILMAR)172 (Given - Provider: Malick Mauricio RN)2045 (Given - Provider: Deann Pitt, GILMAR) 0953 (Given - Provider: Yuly Mitchell , GILMAR) diazePAM (VALIUM) tablet 10 mg 1009 (Given - 10 mg, Oral, FOUR TIMES DAILY, First Provider: Daniel a dose on Fri02/01/21 at 0115, Until GILMAR Frost)1 305 Discontinued (Given - Provider: Joana Frost RN)172 (Given - Provider: Joana Frost RN)2044 (Given - Provider: Holli Medina RN) 1003 (Canceled Entry - Provider: Malick Castorena RN) doxycycline hyclate (VIBRACIN) tablet 1009 (Given - 100 mg (CANCELED) Provider: Joana 100 mg, Oral, TWICE DAILY, First dose on GILMAR Frost)204402/06/21 at 2100, Until Discontinued, (Given - Pr ovider: NURSING: Please educate patient and Reji Wallace) document: Do not give within 2 hours of antacids, magnesium, calcium, iron, zinc, or vitamins containing these minerals. 2044 (Given - Provider: Deann Pitt RN) enoxaparin (LOVENOX) syringe 40 mg 2044 (Given - 40 mg, Subcutaneous, DAILY, First dose Provider: Raven lby on Fri02/02/21 at 2100, Until GILMAR Medina) Discontinued, For patients undergoing surgery: Consult physician in advance - - enoxaparin is an anticoagulant and may need to be held for 12hr prior to surgery or invasive procedures. NOTE: This is a HIGH ALERT Medication. 1359 (Given - Provider: Malick pappas RN)204 (Given - Provider: Deann Pitt, GILMAR) 0953 (Given - Provider: Yuly Mitchell RN) famotidine (PEPCID) tablet 20 mg 1008 (Given - 20 mg, Oral, TWICE DAILY, First dose on Provider: Eyal Elise 02/06/21 at 1045, Until Discontinued GILMAR Frost)2044 (Given - Provider: Holli Medina, GILMAR) 040 (Given - Provider: William Fuller) gadobenate dimeglumine (MULTIHANCE) injection 10 mL (COMPLETED) 10 mL, Intravenous, ONCE, 1 dose, On Th u 02/08/21 at 0415, NOTE: This is a HIGH ALERT Medication. 1008 (Med Not Given - Provider: Malick Aguilar RN - Reason: Patient Refused) 0953 (Med Not Given - Provider: Yuly Gil RN - Reason: Patient Refused) lidocaine (LIDODERM) 5 % topical patch 1 1008 (Med N ot Given patch - Provider: Joana 1 patch, Topical, Administer over 12 GILMAR Frost - Hours, DAILY, First dose on Fri02/02/21 Reason: Palma ent at 0915, Until Discontinued, NURSING Refused) PLEASE NOTE: Apply patch ONCE DAILY to pain and REMOVE after designated duration. Apply only to intact skin. Patch may be cut to fit affected area. 1006 (Given - Provider: Malick pappas RN) 0953 (Given - Provider: Yuly Mitchell RN) oxybutynin XL (DITROPAN XL) tablet 15 mg 1010 (Given - 15 mg, Oral, DAILY, First dose on Makayla Provider: Rhonda andrade 02/01/21 at 0900, Until Discontinued, Do GILMAR Frost) not crush or chew 02/08/2021 02/09/2021 Medication Order 02/07/2021 sodium chloride 0.9 % TKO infusion Intravenous, at 10 mL/hr, CONTINUOUS, Starting on Makayla 02/01/21 at 0215, Until Fri02/09/21 at 1441 02/08/2021 02/09/2021 Medication Order 02/07/2021 bisacodyL (DULCOLAX) rectal suppository 10 mg 10 mg, Rectal, DAILY PRN, Starting on Fri02/01/21 at 0039, Until Fri02/09/21 at 1441, Constipation NC, Hold for loos e stools 0456 (Given - Provider: Reji Wallace)2047 (Given - Provider: Deann Pitt RN) calcium carbonate (TUMS) chew tablet 1148 (Given - 1,000 mg Provider: Joana 1,000 mg, Oral, EVERY 3 HOURS PRN, GILMAR Frost) 1625 Starting on Fri02/06/21 at 0945, Until (Given - Prov ider: Fri02/09/21 at 1441, Joana Frost, Indigestion/Heartburn, Each 500 mg tab RN) delivers 200 mg elemental calcium 2040 (Canceled Entry - Provider: Deann soares RN)2049 (Med Not Given - Provider: Deann Pitt RN - Reason: Patient Refused) HYDROcodone/acetaminophen (NORCO) 5/325 mg tablet 1-2 tablet 1-2 tablet, Oral, EVERY 4 HOURS PRN, Starting on Fri02/02/21 at 0804, Until Fri02/09/21 at 1441, Pain PO, TOTAL ACETAMINOPHEN DOSE NOT TO EXCEED 4GM DAILY 2045 (Given - Provider: Deann Pitt RN) melatonin (MELATIN) tablet 3 mg 3 mg, Oral, AT BEDTIME PRN, Starting on Fri02/01/21 at 0039, Until Fri02/09/21 at 1441, Insomnia ondansetron (ZOFRAN ODT) rapid dissolve tablet 4 mg(Linked Group 1) 4 mg, Oral, EVERY 6 HOURS PRN, Startin g on Fri02/01/21 at 0039, Until Fri02/09/21 at 1441, Nausea/Vomiting PO, Place on tongue and allow to dissolve. ondansetron (ZOFRAN) injection 4 mg(Linked Group 1) 4 mg, Intravenous, EVERY 6 HOURS PRN, Starting on Fri02/01/21 at 0039, Until Fri02/09/21 at 1441, Nausea/Vomiting Injectable polyethylene glycol 3350 (MIRALAX) packet 17 g 17 g (1 packet), Oral, DAILY PRN, Starting on Makayla 02/01/21 at 0039, Until Fri02/09/21 at 1441, Constipation PO, 8.5 GRAMS = 0.5 PACKET 17 GRAMS = 1 PACKET 34 GRAMS = 2 PACKETS Order Group 1: ondansetron (ZOFRAN ODT) rapid dissolve tablet 4 mgJump to med 4 mg, Oral, EVERY 6 HOURS PRN, Startin g on Makayla 02/01/21 at 0039, Until Fri02/09/21 at 1441, Nausea/Vomiting PO
Place on tongue a nd allow to dissolve.
Or ondansetron (ZOFRAN) injection 4 mgJump to med 4 mg, Intravenous, EVERY 6 HOURS PRN, Starting on Makayla 02/01/21 at 0039, Until Fri02/09/21 at 1441, Nausea/Vomiting Injectable documented in this encounter Orders First Ordered Date Medications Ordered That Might Not Have Count Last Ordered Date Been Administered HYDROcodone/acetaminophen (NORCO) 5/325 1 02/02/2021 mg tablet 1-2 tablet lidocaine (LIDODERM) 5 % topical patch 1 1 02/02/2021 patch acetaminophen (TYLENOL) tablet 650 mg 1 02/01/2021 bisacodyL (DULCOLAX) rectal suppository 1 02/01/2021 10 mg HYDROcodone/acetaminophen (NORCO) 5/325 1 02/01/2021 mg tablet 1 tablet ondansetron (ZOFRAN ODT) rapid dissolve 1 02/01/2021 tablet 4 mg ondansetron (ZOFRAN) injection 4 mg 1 polyethylene glycol 3350 (MIRALAX) 1 06/2020 packet 17 g First Ordered Date Procedures Count Last Ordered Date CONSULT IV THERAPY TEAM 2 02/01/2021 First Ordered Date Diet Count Last Ordered Date DISCHARGE DIET REGULAR 1 02/09/2021 First Ordered Date Nursing Count Last Ordered Date DISCHARGE ACTIVITY NORMAL 1 02/09/2021 DISCHARGE CONTACT 1 02/09/2021 DISCHARGE RETURN APPOINTMENT 1 DISCHARGE SIGNS/SYMPTOMS 1 02/09/2021 DISCHARGE WOUND CARE 1 02/09/2021 WEIGH PATIENT 1 02/01/2021 First Ordered Date Consult Count Last Ordered Date CONSULT PULMONARY/CRITICAL CARE 1 2020 PHYSICIAN CONSULT INFECTIOUS DISEASES PHYSICIAN 1 02/01/2021 CONSULT INTERVENTIONAL RADIOLOGY 1 02/01 PHYSICIAN KU CONSULT SPINE 1 01/31/2021 First Ordered Date OT Count Last Ordered Date OT CONSULT OCCUPATIONAL THERAPY 1 2020 First Ordered Date PT Count Last Ordered Date PT CONSULT PHYSICAL THERAPY 1 02/01/2021 First Ordered Date Admission Count Last Ordered Date ADMIT TO INPATIENT 1 01/31/2021 First Ordered Date Discharge Count Last Ordered Date DISCHARGE PATIENT NOW 1 02/09/2021 First Ordered Date Equipment Count Last Ordered Date PUMP IV CONTROL UNIT W/MODULES 1 021 SUCTION, PORTABLE 1 02/01/2021 First Ordered Date Vital Signs Count Last Ordered Date VITAL SIGNS 1 02/01/2021 First Ordered Date Activity Count Last Ordered Date MOBILITY 1 02/01/2021 First Ordered Date Order Set Communication Count Last Ordered D ate VTE DRUG PROPHYLAXIS CONTRAINDICATED 1 1 04/03/2020 First Ordered Date Intake & Output Count Last Ordered Date INTAKE AND OUTPUT 1 02/01/[address] & Maintain Count Last Ordered Date PLACE AND MAINTAIN SCD 1 02/01/2021 First Ordered Date DME/Home Health Count Last Ordered Date HOME HEALTH/DME 1 02/09/2021 First Ordered Date ADT Patient Update Count Last Ordered Date CHANGE SERVICE / LEVEL OF CARE (NO BED 1 02/01/2021 REQUEST) documented in this encounter Additional Health Concerns Noted Time Assessment 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 A fall risk assessment has been complet ed for the patient documented as of this encounter Care Teams Start Date End Date Door Assembler Relationship Specialty 09/28/20 Kenneth Nelson MD PCP - General [facility] [address] [place] [address] 05/31/11 Iban Arboleda PA-C Surgery, [address] [place] [address] 06/04/11 Agapito Garcia MD Surgery, [address] [place] [address] 09/06/11 Matthias Rutherford MD Trauma [address] [place] [address] 09/26/11 Karime De La Cruz MD Plastic [address] [place] [address] 11/04/11 Steffany Fair, RN 03/09/12 Suri Borrero MD Infectious [address] [facility] Lvl [address] [place] [id number] 03/10/12 Anni Gordon, RN 05/04/12 Sunny Krishna MD Surgery, [address] [facility] [address] [place] [id number] 09/04/12 Trevon Brand MD Plastic [address] [place] [address] 09/11/12 Rochelle Yen, DRIVER HELPER 10/28/13 Brianne Warren MD Urology Forwarding Address Unknown Left [facility] 10/28/18 11/25/13 Delaney Rascon, RN 02/01/15 Esteban Britt Rehabilitati MD on [address] [place] [address] 11/29/15 Surinder Ruiz MD Anesthesiolo [address] [facility] [address] [place] [address] 12/08/15 Henry Moeller MD Infectious [address] [facility] [address] [id number] documented as of this encounter
[2021-03-21] MEDS ORDERED: NS IV 1000 ML 1,000 ML IV STA ×3 (17:32→20:08)
--- NOTE | 2021-03-21 17:34 | ED General ---
General Chief Complaint: General Problems/Pain Stated Complaint: REACTION TO ANTIBIOTIC Source of Information: Patient, EMS, Old Records History of Present Illness Date Seen by Provider: Mar 21, 2021 Time Seen by Provider: 17:08 Initial Comments 50-year-old female presenting with complaints of feeling like she was septic. She just started on tobramycin and ceftazidime yesterday. She felt that the medicine and infection was going outside of her vein. She has redness around her neck with itching. She states that she does not feel like she is having an allergic reaction but that she was septic and having issues with the antibiotics. She reports being in [facility] recently and had to have fluid and infection drained off of her lung with chest tube. She states she spoke with someone in infectious disease at [facility] today and they advised her to come to the ER at to be evaluated and admitted. Since she had no transport to get her to [facility] she came here to the local emergency department. She had been having tachycardia with a fast heart rate and concerned that her temperature was lower than normal. She states that these are some of the signs she gets when she becomes septic. Associated Systoms: No Chest Pain, No Cough, No Diaphoresis; Fever/Chills (Chills with lower than normal temperature), Loss of Appetite, Malaise, Rash (Erythema around her neck); No Seizure, No Shortness of Air Allergies and Home Medications Allergies Coded Allergies: Sulfa (Sulfonamide Antibiotics) (Verified Allergy, Unknown, 10/23/18) vancomycin (Verified Allergy, Unknown, 10/23/18) Patient Home Medication List Home Medication List Reviewed: Yes Amoxicillin/Potassium Clav (Amox Tr-K Clv 875-125 mg Tab) 1 Each Tablet, 1 TAB PO Q12H, (Reported) Entered as Reported by: CONNOR SANTORO on 12/08/20 0943 Ascorbic Acid (Vitamin C) 1,000 Mg Tablet, 1,000 MG PO BID, (Reported) Entered as Reported by: CARLEY VERNON on 04/10/19 1607 Baclofen (Baclofen) 20 Mg Tablet, 20 MG PO QID, (Reported) Entered as Reported by: CARLEY VERNON on 04/10/19 1607 Cetirizine HCl (Cetirizine HCl) 10 Mg Tablet, 10 MG PO DAILY, (Reported) Entered as Reported by: JAELYN MADRID on 04/12/19 0914 Diazepam (Diazepam) 10 Mg Tablet, 10 MG PO QID, (Reported) Entered as Reported by: CARLEY VERNON on 04/10/19 1607 Doxycycline Hyclate (Doxycycline Hyclate) 100 Mg Capsule, 100 MG PO BID, (Reported) Entered as Reported by: JAELYN MADRID on 10/26/19 1342 Hydrocodone/Acetaminophen (Hydrocodone-Acetamin 7.5-325) 1 Each Tablet, 1 EACH PO Q4H Prescribed by: AIDA GOMEZ on 12/14/20 1356 Ibuprofen (Ibuprofen) 200 Mg Tablet, 600 MG PO Q8H PRN for PAIN-MILD (1-4), (Reported) Entered as Reported by: JAELYN MADRID on 04/12/19 0921 Magnesium Oxide (Magnesium Oxide) 250 Mg Tablet, 250 MG PO BID Prescribed by: OZZY LEMUS on 01/08/21 1042 Metformin HCl (Metformin HCl) 500 Mg Tablet, 500 MG PO DAILY, (Reported) Entered as Reported by: CONNOR SANTORO on 12/08/20 0943 Omeprazole (Omeprazole) 20 Mg Tablet.dr, 20 MG PO 1400, (Reported) Entered as Reported by: CARLEY VERNON on 04/10/19 1607 Oxybutynin Chloride (Oxybutynin Chloride ER) 15 Mg Tab.er.24, 15 MG PO DAILY, (Reported) Entered as Reported by: JAELYN MADRID on 10/26/19 1342 Rivaroxaban (Xarelto) 20 Mg Tablet, 20 MG PO HS, (Reported) Entered as Reported by: JAELYN MADRID on 04/12/19 0912 Sucralfate (Carafate) 1 Gm/10 Ml Oral.susp, 1 GM PO TID PRN for GERD with Esophagitis Prescribed by: OZZY LEMUS on 01/08/21 1042 Review of Systems Review of Systems Constitutional: chills, dizziness, malaise EENTM: no symptoms reported Respiratory: no symptoms reported Cardiovascular: no symptoms reported Gastrointestinal: nausea; No vomiting Genitourinary: other (Cloudy urine from her indwelling catheter) Musculoskeletal: no symptoms reported Skin: change in color (Erythema to area around her neck) Psychiatric/Neurological: Anxiety Past Lqjrlyr-Pkudkx-Eonwti Hx Patient Social History Tobacco Use?: No Immunizations Up To Date First/Initial COVID19 Vaccinat: yes Second COVID19 Vaccination [place]: unknown Third COVID19 Vaccination Date: yes Seasonal Allergies Seasonal Allergies: No Past Medical History Surgery/Hospitalization HX: 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 Surgeries: Yes (right AKA, sp tube, port x2, ORIF Left leg) Amputation, Cystectomy, Gallbladder, 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, Orthopedic, Urinary Diversion Respiratory: No Cardiac: No Neurological: Yes Paralysis, Spinal Cord Injury Female Reproductive Disorders: Endometriosis, Ovarian Cyst [employer] History: 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 Genitourinary: Yes (SP cath) Kidney Stones, Neurogenic Bladder, UTI-Chronic Gastrointestinal: Yes Gastroesophageal Reflux Musculoskeletal: Yes (OSTEOMYELITIS) Amputee, Back Injury Endocrine: Yes Diabetes, Non-Insulin dep HEENT: No Cancer: No Psychosocial: Yes Anxiety Integumentary: Yes (hx of DECUB STAGE 4, PRESSURE ULCER, CELLULITIS, MRSA) Blood Disorders: Yes (IRON DEFICIENCY ANEMIA) Family Medical History Heart Disease, Cancer, Stroke Physical Exam Vital Signs Vital Signs - First Documented 03/21/21 17:33 Temp 36.6 Pulse 106 Resp 15 B/P (MAP) 114/63 (80) Pulse Ox 96 O2 Delivery Room Air Capillary Refill : Height, Weight, BMI Height: 5'5.00" Weight: 175lbs. oz. 79.521018jb; 24.00 BMI Method:Estimated General Appearance: No Apparent Distress, Chronically ill HEENT: PERRL/EOMI, Pharynx Normal, Moist Mucous Membranes Neck: Full Range of Motion, Normal Inspection, Non Tender, Supple Respiratory: Chest Non Tender, Lungs Clear, Normal Breath Sounds, No Accessory Muscle Use, No Respiratory Distress Cardiovascular: Normal Peripheral Pulses, Tachycardia Gastrointestinal: No Pulsatile Mass, Non Tender, Soft Rectal: Deferred Extremity: Normal Capillary Refill, No Pedal Edema Neurologic/Psychiatric: Alert, Oriented x3 Skin: Warm/Dry, Erythema (circumferential around her neck) Focused Exam Sepsis Stage: Sepsis Possible Source: Genitouriary Lactate Level 03/21/21 17:10: Lactic Acid Level 2.99*H 03/21/21 20:10: Lactic Acid Level 1.22 Time of Focused Exam: 19:10 Respiratory: Chest Non Tender, Lungs Clear, Normal Breath Sounds, No Accessory Muscle Use, No Respiratory Distress Cardiovascular: Regular Rate, Rhythm, Normal Peripheral Pulses Capillary Refill: Less Than 3 Seconds Peripheral Pulses: 2+ Radial Pulses (R), 2+ Radial Pulses (L) Skin: normal color, warm/dry Lactic Acid Level Laboratory Tests Test 03/21/21 17:10 03/21/21 20:10 Lactic Acid Level 2.99 MMOL/L (0.50-2.00) *H 1.22 MMOL/L (0.50-2.00) Within 3hrs of presentation: Admin fluids, Blood cultures prior to ABX's, Focus exam, Lactate level, Other (Abx held since cultures at and took Tobramycin and Fortaz at home) Progress/Results/Core Measures Suspected Sepsis SIRS Temperature: Pulse: Respiratory Rate: Laboratory Tests 03/21/21 17:10: White Blood Count 6.7 Blood Pressure / Mean: 03/21/21 17:10: Lactic Acid Level 2.99*H 03/21/21 20:10: Lactic Acid Level 1.22 Laboratory Tests 03/21/21 17:10: Creatinine 0.31L, Platelet Count 307, Total Bilirubin 0.4 Results/Orders Lab Results Laboratory Tests Test 03/21/21 17:10 03/21/21 17:40 03/21/21 20:10 Range/Units White Blood Count 6.7 4.3-11.0 10^3/uL Red Blood Count 4.17 3.80-5.11 10^6/uL Hemoglobin 11.5 11.5-16.0 g/dL Hematocrit 36 35-52 % Mean Corpuscular Volume 87 80-99 fL Mean Corpuscular Hemoglobin 28 25-34 pg Mean Corpuscular Hemoglobin Concent 32 32-36 g/dL Red Cell Distribution Width 15.7 H 10.0-14.5 % Platelet Count 307 130-400 10^3/uL Mean Platelet Volume 10.9 9.0-12.2 fL Immature Granulocyte % (Auto) % Neutrophils (%) (Auto) 61 42-75 % Lymphocytes (%) (Auto) 21 12-44 % Monocytes (%) (Auto) 11 0-12 % Eosinophils (%) (Auto) 6 0-10 % Basophils (%) (Auto) 1 0-10 % Neutrophils # (Auto) 4.0 1.8-7.8 X 10^3 Lymphocytes # (Auto) 1.4 1.0-4.0 X 10^3 Monocytes # (Auto) 0.8 0.0-1.0 X 10^3 Eosinophils # (Auto) 0.4 H 0.0-0.3 10^3/uL Basophils # (Auto) 0.1 0.0-0.1 10^3/uL Sodium Level 138 135-145 MMOL/L Potassium Level 4.1 3.6-5.0 MMOL/L Chloride Level 102 98-107 MMOL/L Carbon Dioxide Level 23 21-32 MMOL/L Anion Gap 13 5-14 MMOL/L Blood Urea Nitrogen 8 7-18 MG/DL Creatinine 0.31 L 0.60-1.30 MG/DL Estimat Glomerular Filtration Rate 228 BUN/Creatinine Ratio 26 Glucose Level 137 H 70-105 MG/DL Lactic Acid Level 2.99 *H 1.22 0.50-2.00 MMOL/L Calcium Level 9.0 8.5-10.1 MG/DL Corrected Calcium 9.2 8.5-10.1 MG/DL Total Bilirubin 0.4 0.1-1.0 MG/DL Aspartate Amino Transf (AST/SGOT) 28 5-34 U/L Alanine Aminotransferase (ALT/SGPT) 33 0-55 U/L Alkaline Phosphatase 79 40-136 U/L C-Reactive Protein 5.58 H <0.50 MG/DL Total Protein 6.8 6.4-8.2 GM/DL Albumin 3.7 3.2-4.5 GM/DL Urine Color YELLOW Urine Clarity SL CLOUDY Urine pH 7.5 5-9 Urine Specific [place] 1.010 L 1.016-1.022 Urine Protein NEGATIVE NEGATIVE Urine Glucose (UA) NEGATIVE NEGATIVE Urine Ketones NEGATIVE NEGATIVE Urine Nitrite POSITIVE H NEGATIVE Urine Bilirubin NEGATIVE NEGATIVE Urine Urobilinogen 0.2 < = 1.0 MG/DL Urine Leukocyte Esterase 2+ H NEGATIVE Urine RBC (Auto) TRACE-I H NEGATIVE Urine RBC 0-2 /HPF Urine WBC 10-25 H /HPF Urine Squamous Epithelial Cells 0-2 /HPF Urine Crystals NONE /LPF Urine Bacteria MODERATE H /HPF Urine Casts NONE /LPF Urine Mucus MODERATE H /LPF Urine Yeast LARGE H /HPF Urine Culture Indicated YES My Orders Orders - OZZY LEMUS MD Cbc With Automated Diff (03/21/21 17:32) Comprehensive Metabolic Panel (03/21/21 17:32) Blood Culture (03/21/21 17:32) Ua Culture If Indicated (03/21/21 17:32) Ed Iv/Invasive Line Start (03/21/21 17:32) Crp Fs (03/21/21 17:32) Lactic Acid Analyzer (03/21/21 17:32) Ns Iv 1000 Ml (Sodium Chloride 0.9%) (03/21/21 17:32) Urine Culture (03/21/21 17:40) Ns Iv 1000 Ml (Sodium Chloride 0.9%) (03/21/21 19:07) Ns Iv 1000 Ml (Sodium Chloride 0.9%) (03/21/21 20:08) Ns Iv 1000 Ml (Sodium Chloride 0.9%) (03/21/21 20:35) Vital Signs/I&O 03/21/21 03/21/21 03/21/21 17:33 19:15 22:30 Temp 36.6 Pulse 106 98 100 Resp 15 18 16 B/P (MAP) 114/63 (80) 122/73 109/63 Pulse Ox 96 97 97 O2 Delivery Room Air Room Air Room Air 03/22/21 00:00 Intake Total 1000 ml Balance 1000 ml Capillary Refill : Progress Note #1: Progress Note Discussed with patient that we would order blood and blood cultures in addition to lactic acid and urine. Usually we would also get a chest x-ray to evaluate for infection and fluids. Patient refused the chest x-ray saying that she just had one yesterday to evaluate report. Will give IV fluids for hydration while waiting on test to come back. Once the test results are back then I can contact infectious disease and the transfer center at [facility] and see if they have any beds or availability for transfer Progress Note #2: Time: 18:30 Progress Note Lactic acid is elevated to 2.99. Her CBC is a stable without acute significant abnormality. Chemistry does not show any acute significant abnormality. She does have elevated CRP 5.56. Her urine does show signs of possible infection with nitrites, LE, WBC and bacteria. HR improved with IVF. Since she was just started on the Ceftazidime and Tobramycin will defer antibiotic until can check with [facility]. 1843 call placed to [facility] Transfer center and spoke with Chintan SCHAFER. He took the basic information on the patient and will check with physician advisor to see if they have a bed available or capability to accept pt in transfer. 1910 heartrate improved with IVF. Will continue with fluids and recheck lactic acid. Sine I do not have access to cultures from and she has had Tobramycin and Fortaz for today will defer additional antibiotic for now. 1919 GILMAR Harvey, from Transfer Center called back and took some additional information on patient. 1941 GILMAR Harvey, called back and reported Dr. Swan was the accepting physician for transfer. Will call back with bed assignment Departure Impression Primary Impression: Sepsis Qualified Codes: A41.9 - Sepsis, unspecified organism Additional Impression: UTI (urinary tract infection) due to urinary indwelling Gonsalves catheter Qualified Codes: T83.511A - Infection and inflammatory reaction due to indwelling urethral catheter, initial encounter; N39.0 - Urinary tract infection, site not specified Disposition: XFER SHT-TRM HOSP Condition: Stable Transfer Transfer Reason: Patient preference Time Spoke to Accepting Phy: 19:42 Transfer Progress Notes 1842 I spoke with GILMAR Woodson, from Transfer center about pt. 1919 GILMAR Harvey, from Transfer center called back about pt and took some additional information. 1941 GILMAR Harvey, called with Dr. Swan as the accepting physician for transfer. Will call back with bed assignment. Transfer Facility: [facility] Method of Transfer: EMS Departure-Patient Inst. Referrals: MELY BEDOYA MD (PCP/Family) Primary Care Physician OZZY LEMUS MD Mar 21, 2021 17:34
[2021-03-21 17:48] LABS: BILIRUBIN,URINE NEGATIVE (NEGATIVE); COLOR,URINE YELLOW; GLUCOSE, URINE (UA) NEGATIVE (NEGATIVE); KETONES,URINE NEGATIVE (NEGATIVE); LEUKOCYTE ESTERASE ,URINE 2+ (NEGATIVE); NITRITE,URINE POSITIVE (NEGATIVE); PH,URINE 7.5 (5-9); PROTEIN,URINE NEGATIVE (NEGATIVE)
[2021-03-21 17:49] LABS: EOSINOPHILS % (AUTO) 6 % (0-10); HEMATOCRIT 36 % (35-52); HEMOGLOBIN 11.5 g/dL (11.5-16.0); LYMPHOCYTES % (AUTO) 21 % (12-44); MEAN CORPUSCULAR HEMOGLOBIN 28 pg (25-34); MEAN CORPUSCULAR HGB CONC 32 g/dL (32-36); MEAN CORPUSCULAR VOLUME 87 fL (80-99); MEAN PLATELET VOLUME 10.9 fL (9.0-12.2); MONOCYTES % (AUTO) 11 % (0-12); PLATELET COUNT 307 10^3/uL (130-400); WHITE BLOOD COUNT 6.7 10^3/uL (4.3-11.0)
[2021-03-21 17:50] LABS: BASOPHILS # (AUTO) 0.1 10^3/uL (0.0-0.1); BASOPHILS % (AUTO) 1 % (0-10); EOSINOPHILS # (AUTO) 0.4 10^3/uL (0.0-0.3); LYMPHOCYTES # (AUTO) 1.4 X 10^3 (1.0-4.0); MONOCYTES # (AUTO) 0.8 X 10^3 (0.0-1.0); NEUTROPHILS % (AUTO) 61 % (42-75)
[2021-03-21 17:59] LABS: CREATININE SERUM 0.31 MG/DL (0.60-1.30); POTASSIUM 4.1 MMOL/L (3.6-5.0)
[2021-03-21 18:00] LABS: ALBUMIN 3.7 GM/DL (3.2-4.5); BILIRUBIN,TOTAL 0.4 MG/DL (0.1-1.0); TOTAL PROTEIN 6.8 GM/DL (6.4-8.2)
[2021-03-21 18:02] LABS: BACTERIA,URINE MODERATE /HPF; CLARITY,URINE SL CLOUDY; RBC,URINE 0-2 /HPF; SQUAMOUS EPITHELIAL CELL,UR 0-2 /HPF
[2021-03-21 18:03] LABS: YEAST,URINE LARGE /HPF
[2021-03-21] MEDS ORDERED: NS IV 1000 ML 1,000 ML ONE (20:35)
[2021-03-21 22:30] VITALS: BP 109/63
== END 2021-03-21 22:30 | disposition short-term general hospital (02) ==
LOC: EDUNIT# 17:08 → ER FS 17:09
DX: A41.9 Sepsis, unspecified organism (principal); T83.511A Infection and inflammatory reaction due to indwelling urethral catheter, initial encounter; N39.0 Urinary tract infection, site not specified; K21.9 Gastro-esophageal reflux disease without esophagitis; E11.9 Type 2 diabetes mellitus without complications; F41.9 Anxiety disorder, unspecified; Z86.711 Personal history of pulmonary embolism; Z86.718 Personal history of other venous thrombosis and embolism; Z79.01 Long term (current) use of anticoagulants; Z79.84 Long term (current) use of oral hypoglycemic drugs; Z79.899 Other long term (current) drug therapy
CPT/HCPCS: 36415; 80053; 81000; 83605; 85025; 86141; 87040; 87077; 87088

== ENCOUNTER → 2021-03-21 | Outpatient (CLI) | payer MEDICARE, MEDICAID ==
[~2021-03-21] MED LIST changes: -IOHEXOL 300 MG/ML 50 ML (OMNIPAQUE 300) VIAL IV ONE
[2021-03-21 10:52] LABS: HEMATOCRIT 37 % (35-52); HEMOGLOBIN 12.1 g/dL (11.5-16.0); MEAN CORPUSCULAR HEMOGLOBIN 28 pg (25-34); MEAN CORPUSCULAR HGB CONC 33 g/dL (32-36); MEAN CORPUSCULAR VOLUME 86 fL (80-99); MEAN PLATELET VOLUME 11.1 fL (9.0-12.2); PLATELET COUNT 324 10^3/uL (130-400)
[2021-03-21 10:53] LABS: BASOPHILS # (AUTO) 0.1 10^3/uL (0.0-0.1); BASOPHILS % (AUTO) 1 % (0-10); EOSINOPHILS # (AUTO) 0.3 10^3/uL (0.0-0.3); EOSINOPHILS % (AUTO) 4 % (0-10); LYMPHOCYTES # (AUTO) 0.7 X 10^3 (1.0-4.0); LYMPHOCYTES % (AUTO) 9 % (12-44); MONOCYTES # (AUTO) 0.9 X 10^3 (0.0-1.0); MONOCYTES % (AUTO) 12 % (0-12); NEUTROPHILS # (AUTO) 5.9 X 10^3 (1.8-7.8); NEUTROPHILS % (AUTO) 74 % (42-75)
[2021-03-21 11:47] LABS: CREATININE SERUM 0.44 MG/DL (0.60-1.30); POTASSIUM 3.8 MMOL/L (3.6-5.0)
[2021-03-21 11:48] LABS: ALBUMIN 3.9 GM/DL (3.2-4.5); BILIRUBIN,TOTAL 0.5 MG/DL (0.1-1.0); CALCIUM 9.3 MG/DL (8.5-10.1)
== END ==
LOC: IHC 10:20
PROVIDERS: ATTEND Family Medicine
DX: I10 Essential (primary) hypertension (principal); Z87.440 Personal history of urinary (tract) infections
CPT/HCPCS: 80053; 80200; 85025

== ENCOUNTER → 2021-03-26 | Outpatient (CLI) | payer MEDICARE, MEDICAID ==
[2021-03-26 18:11] LABS: HEMATOCRIT 37 % (35-52); HEMOGLOBIN 11.5 g/dL (11.5-16.0); MEAN CORPUSCULAR HEMOGLOBIN 27 pg (25-34); MEAN CORPUSCULAR VOLUME 87 fL (80-99); WHITE BLOOD COUNT 10.1 10^3/uL (4.3-11.0)
[2021-03-26 18:12] LABS: BASOPHILS % (AUTO) 1 % (0-10); EOSINOPHILS % (AUTO) 5 % (0-10); LYMPHOCYTES % (AUTO) 25 % (12-44); MEAN CORPUSCULAR HGB CONC 31 g/dL (32-36); MEAN PLATELET VOLUME 10.5 fL (9.0-12.2); MONOCYTES % (AUTO) 9 % (0-12); NEUTROPHILS % (AUTO) 60 % (42-75); PLATELET COUNT 383 10^3/uL (130-400)
[2021-03-26 18:21] LABS: BASOPHILS # (AUTO) 0.1 10^3/uL (0.0-0.1); EOSINOPHILS # (AUTO) 0.5 10^3/uL (0.0-0.3); LYMPHOCYTES # (AUTO) 2.5 X 10^3 (1.0-4.0); MONOCYTES # (AUTO) 0.9 X 10^3 (0.0-1.0)
[2021-03-26 18:35] LABS: ALBUMIN 3.8 GM/DL (3.2-4.5); BILIRUBIN,TOTAL 0.2 MG/DL (0.1-1.0); CALCIUM 9.1 MG/DL (8.5-10.1); CREATININE SERUM 0.35 MG/DL (0.60-1.30); POTASSIUM 3.8 MMOL/L (3.6-5.0); TOTAL PROTEIN 7.1 GM/DL (6.4-8.2)
== END ==
LOC: IHC 17:40
PROVIDERS: ATTEND Internal Medicine
DX: Z79.2 Long term (current) use of antibiotics (principal)
CPT/HCPCS: 80053; 85025

== ENCOUNTER → 2021-04-16 | Outpatient (CLI) | payer MEDICARE, MEDICAID | LOC: IHC 13:27 | PROVIDERS: ATTEND Family Medicine | DX: N39.0 Urinary tract infection, site not specified (principal); A41.52 Sepsis due to Pseudomonas | CPT/HCPCS: 87077; 87088 ==

== ENCOUNTER 2021-04-24 15:08 | Emergency (ER) | payer MEDICARE, MEDICAID ==
[2021-04-24 16:45] LABS: ALBUMIN 4.2 GM/DL (3.2-4.5); BILIRUBIN,TOTAL 0.3 MG/DL (0.1-1.0); CALCIUM 9.9 MG/DL (8.5-10.1); CREATININE SERUM 0.36 MG/DL (0.60-1.30); POTASSIUM 3.9 MMOL/L (3.6-5.0)
[2021-04-24 16:48] LABS: HEMATOCRIT 40 % (35-52); HEMOGLOBIN 12.4 g/dL (11.5-16.0); MEAN CORPUSCULAR HEMOGLOBIN 27 pg (25-34); MEAN CORPUSCULAR HGB CONC 31 g/dL (32-36); MEAN CORPUSCULAR VOLUME 87 fL (80-99); MEAN PLATELET VOLUME 10.3 fL (9.0-12.2); PLATELET COUNT 468 10^3/uL (130-400); WHITE BLOOD COUNT 13.5 10^3/uL (4.3-11.0)
[2021-04-24 16:49] LABS: BASOPHILS # (AUTO) 0.1 10^3/uL (0.0-0.1); BASOPHILS % (AUTO) 0 % (0-10); EOSINOPHILS # (AUTO) 1.3 10^3/uL (0.0-0.3); EOSINOPHILS % (AUTO) 10 % (0-10); LYMPHOCYTES # (AUTO) 4.2 X 10^3 (1.0-4.0); LYMPHOCYTES % (AUTO) 31 % (12-44); MONOCYTES % (AUTO) 7 % (0-12); NEUTROPHILS # (AUTO) 6.9 X 10^3 (1.8-7.8); NEUTROPHILS % (AUTO) 51 % (42-75)
[2021-04-24 16:57] LABS: BILIRUBIN,URINE NEGATIVE (NEGATIVE); CLARITY,URINE CLOUDY; COLOR,URINE YELLOW; GLUCOSE, URINE (UA) NEGATIVE (NEGATIVE); KETONES,URINE NEGATIVE (NEGATIVE); LEUKOCYTE ESTERASE ,URINE 3+ (NEGATIVE); NITRITE,URINE NEGATIVE (NEGATIVE); PH,URINE 6.5 (5-9); PROTEIN,URINE 1+ (NEGATIVE)
[2021-04-24 17:04] LABS: BACTERIA,URINE MODERATE /HPF; WBC,URINE >100 /HPF
[2021-04-24 17:07] VITALS: BP 132/76
== END 2021-04-24 17:33 | disposition home or self-care (01) ==
LOC: EDUNIT# 15:08 → ER FS 15:24
DX: R39.9 Unspecified symptoms and signs involving the genitourinary system (principal)
CPT/HCPCS: 36415; 51702; 80053; 81000; 85025; 86141; 87040; 87077; 87088

== ENCOUNTER → 2021-05-11 | Outpatient (CLI) | payer MEDICARE, MEDICAID | LOC: IHC 14:34 | PROVIDERS: ATTEND Family Medicine | DX: A41.52 Sepsis due to Pseudomonas (principal) | CPT/HCPCS: 87040 ==

== ENCOUNTER → 2021-07-04 | Outpatient (CLI) | payer MEDICARE, MEDICAID ==
[~2021-07-04] MED LIST changes: +FLUC100T10 PO; -FLUC100T6 PO
== END ==
LOC: IHC 17:00
PROVIDERS: ATTEND Family Medicine
DX: N39.0 Urinary tract infection, site not specified (principal)
CPT/HCPCS: 87077; 87088

== ENCOUNTER → 2021-07-09 | Outpatient (CLI) | payer MEDICARE, MEDICAID ==
--- NOTE | 2021-07-09 14:02 | Diagnostic Imaging Report ---
INDICATION: Right shoulder pain. FINDINGS: 5 views. The glenohumeral joint shows good alignment. Articulating surfaces are smooth. AC joint shows good alignment. There are no hypertrophic changes. No fracture. No soft tissue calcifications are noted. IMPRESSION: Normal right shoulder. Dictated by: Dictated on workstation # [id number]
--- NOTE | 2021-07-09 14:03 | Diagnostic Imaging Report ---
INDICATION: Right elbow pain. FINDINGS: 4 views. No fractures or dislocation. Articulating surfaces are smooth. Joint spaces are well maintained. IMPRESSION: Normal right elbow. Dictated by: Dictated on workstation # [id number]
== END ==
LOC: RAD FS 10:17
PROVIDERS: ATTEND Nurse Practitioner
DX: M25.511 Pain in right shoulder (principal); M25.521 Pain in right elbow
CPT/HCPCS: 73030; 73080

== ENCOUNTER → 2021-07-25 | Outpatient (CLI) | payer MEDICARE, MEDICAID ==
[~2021-07-25] MED LIST changes: +OMEP20TA56 PO; -OMEP20TA7 PO
== END ==
LOC: IHC 13:49
PROVIDERS: ATTEND Family Medicine
DX: Z43.5 Encounter for attention to cystostomy (principal); N39.0 Urinary tract infection, site not specified
CPT/HCPCS: 87077; 87088; 87186

== ENCOUNTER → 2021-08-10 | Outpatient (CLI) | payer MEDICARE, MEDICAID ==
--- NOTE | 2021-08-10 17:52 | Diagnostic Imaging Report ---
PROCEDURE: MRI right joint upper extremity without contrast. TECHNIQUE: Multiplanar, multisequence non contrast-enhanced MRI of the right upper extremity was accomplished. INDICATION: Right elbow pain and swelling COMPARISON: Radiographs from 07/09/2021 FINDINGS: Examination is markedly suboptimal with poor signal and increased noise due to poor patient positioning secondary to patient immobility. No acute fracture is seen in the right elbow. Alignment is normal. There is no elbow joint effusion. No definite tear is seen in the ulnar collateral ligament or radial collateral ligaments, although evaluation is suboptimal. The origins of the common flexor and extensor tendons are unremarkable. The brachialis and biceps tendon insertions appear normal. The triceps tendon insertion appears normal. No focal muscular atrophy is seen. No soft tissue masses or fluid collections are seen. The ulnar nerve appears normal in course and signal within the cubital tunnel. The median nerve is unremarkable. IMPRESSION: 1. Suboptimal examination, but no acute abnormality is seen in the right elbow. Dictated by: Dictated on workstation # [id number]
== END ==
LOC: RAD 13:30
PROVIDERS: ATTEND Family Medicine
DX: M25.521 Pain in right elbow (principal); M25.471 Effusion, right ankle
CPT/HCPCS: 73221

== ENCOUNTER → 2021-10-23 | Outpatient (CLI) | payer MEDICARE, MEDICAID ==
[2021-10-23 16:30] LABS: BILIRUBIN,URINE NEGATIVE (NEGATIVE); CLARITY,URINE CLOUDY; COLOR,URINE YELLOW; GLUCOSE, URINE (UA) NEGATIVE (NEGATIVE); KETONES,URINE NEGATIVE (NEGATIVE); LEUKOCYTE ESTERASE ,URINE TRACE (NEGATIVE); NITRITE,URINE POSITIVE (NEGATIVE); PROTEIN,URINE TRACE (NEGATIVE)
[2021-10-23 16:38] LABS: BACTERIA,URINE LARGE /HPF; WBC,URINE >100 /HPF
[2021-10-23 16:39] LABS: AMORPHOUS SEDIMENT,UR FEW AMOR PHOSPHATE /LPF
== END ==
LOC: IHC 16:16
PROVIDERS: ATTEND Family Medicine
DX: Z87.440 Personal history of urinary (tract) infections (principal)
CPT/HCPCS: 81000; 87077; 87088; 87186

== ENCOUNTER → 2021-12-05 | Outpatient (CLI) | payer OTHER, MEDICAID ==
[2021-12-05 14:36] LABS: BILIRUBIN,URINE NEGATIVE (NEGATIVE); CLARITY,URINE CLOUDY; COLOR,URINE RED; GLUCOSE, URINE (UA) NEGATIVE (NEGATIVE); KETONES,URINE NEGATIVE (NEGATIVE); LEUKOCYTE ESTERASE ,URINE 1+ (NEGATIVE); NITRITE,URINE NEGATIVE (NEGATIVE); PH,URINE 7.5 (5-9); PROTEIN,URINE 2+ (NEGATIVE)
[2021-12-05 14:44] LABS: BACTERIA,URINE MODERATE /HPF; RBC,URINE >100 /HPF; WBC,URINE >100 /HPF
== END ==
LOC: LAB FS 14:15
PROVIDERS: ATTEND Nurse Practitioner
DX: R31.9 Hematuria, unspecified (principal)
CPT/HCPCS: 81000; 87088

== ENCOUNTER → 2021-12-20 | Outpatient (CLI) | payer OTHER, MEDICAID ==
[2021-12-20 12:34] LABS: BILIRUBIN,URINE NEGATIVE (NEGATIVE); CLARITY,URINE CLOUDY; COLOR,URINE YELLOW; GLUCOSE, URINE (UA) NEGATIVE (NEGATIVE); KETONES,URINE NEGATIVE (NEGATIVE); LEUKOCYTE ESTERASE ,URINE NEGATIVE (NEGATIVE); NITRITE,URINE POSITIVE (NEGATIVE); PH,URINE 6.5 (5-9); PROTEIN,URINE TRACE (NEGATIVE)
[2021-12-20 12:40] LABS: BACTERIA,URINE TRACE /HPF; SQUAMOUS EPITHELIAL CELL,UR 0-2 /HPF
== END ==
LOC: LAB FS 12:19
PROVIDERS: ATTEND Nurse Practitioner
DX: R30.0 Dysuria (principal)
CPT/HCPCS: 81000; 87077; 87088; 87186

== ENCOUNTER 2021-12-26 12:10 | Inpatient (IN) | payer MEDICARE, MEDICAID ==
[~2021-12-26] VITALS: Ht 165.1 cm; Wt 79.4 kg
[2021-12-26 12:12] VITALS: BP 160/77
[2021-12-26] MEDS ORDERED: CEFEPIME INJECTION 1,000 MG in NS (IVPB) 50 ML IV ONE (12:45)
[2021-12-26 12:49] LABS: BASOPHILS # (AUTO) 0.1 10^3/uL (0.0-0.1); BASOPHILS % (AUTO) 1 % (0-10); EOSINOPHILS # (AUTO) 0.2 10^3/uL (0.0-0.3); EOSINOPHILS % (AUTO) 1 % (0-10); HEMATOCRIT 41 % (35-52); HEMOGLOBIN 13.4 g/dL (11.5-16.0); LYMPHOCYTES # (AUTO) 1.2 10^3/uL (1.0-4.0); LYMPHOCYTES % (AUTO) 8 % (12-44); MEAN CORPUSCULAR HEMOGLOBIN 28 pg (25-34); MEAN CORPUSCULAR HGB CONC 33 g/dL (32-36); MEAN CORPUSCULAR VOLUME 85 fL (80-99); MONOCYTES # (AUTO) 1.5 10^3/uL (0.0-1.0); MONOCYTES % (AUTO) 10 % (0-12); NEUTROPHILS # (AUTO) 12.6 10^3/uL (1.8-7.8); NEUTROPHILS % (AUTO) 80 % (42-75); PLATELET COUNT 292 10^3/uL (130-400); WHITE BLOOD COUNT 15.7 10^3/uL (4.3-11.0)
[2021-12-26 12:50] LABS: BILIRUBIN,URINE NEGATIVE (NEGATIVE); CLARITY,URINE TURBID; COLOR,URINE YELLOW; GLUCOSE, URINE (UA) NEGATIVE (NEGATIVE); KETONES,URINE 1+ (NEGATIVE); LEUKOCYTE ESTERASE ,URINE 2+ (NEGATIVE); NITRITE,URINE POSITIVE (NEGATIVE); PH,URINE 5.5 (5-9); PROTEIN,URINE 2+ (NEGATIVE)
[2021-12-26] MEDS: NS IV 1000 ML 1,000 ML IV SCH ×2 (12:51→14:26)
--- NOTE | 2021-12-26 12:51 | Diagnostic Imaging Report ---
EXAMINATION: Chest, one view. HISTORY: SOA. COMPARISON: 01/08/2021. FINDINGS: Heart size and pulmonary vasculature are normal. The lungs are clear without consolidation, pleural effusion, or pneumothorax. Surgical changes from spinal fusion. Right-sided port catheter is unchanged. IMPRESSION: 1. No acute radiographic abnormality in the chest. Dictated by: Dictated on workstation # [id number]
[2021-12-26 13:04] LABS: BACTERIA,URINE LARGE /HPF; RBC,URINE >100 /HPF; WBC,URINE 50-100 /HPF
[2021-12-26 13:06] LABS: INR 1.2 (0.8-1.4)
[2021-12-26 13:17] LABS: ALBUMIN 4.5 GM/DL (3.2-4.5); BILIRUBIN,TOTAL 0.4 MG/DL (0.1-1.0); CALCIUM 9.9 MG/DL (8.5-10.1); CREATININE SERUM 0.46 MG/DL (0.60-1.30); TOTAL PROTEIN 7.8 GM/DL (6.4-8.2)
[2021-12-26 13:24] LABS: BAND NEUTROPHILS 18 %; BASOPHILS % (MANUAL) 1 %; EOSINOPHILS % (MANUAL) 1 %; LYMPHOCYTES % (MANUAL) 8 %; MICROCYTOSIS 1+; MONOCYTES % (MANUAL) 8 %; NEUTROPHILS % (MANUAL) 64 %; PLATELET ESTIMATE NORMAL
[2021-12-26 13:25] LABS: HYPOCHROMASIA SLIGHT; STOMATOCYTES SLIGHT
[2021-12-26] MEDS ORDERED: cefTRIAXone 1 GM PRE-MIX 50 ML IV ONE (14:30)
--- NOTE | 2021-12-26 14:58 | ED General ---
General Chief Complaint: Fever-Adult/Adol Stated Complaint: FEVER Nursing Triage Note: Fever since this AM of 103, foul urine smell. She states that her catheter was changed very recently but is unsure of the date. She has a 4000 ml bag and refuses a smaller bag as she has to drain it too frequently. Source of Information: Patient Exam Limitations: No Limitations History of Present Illness Date Seen by Provider: Dec 26, 2021 Time Seen by Provider: 12:20 Initial Comments Patient is a 51-year-old female with history of paraplegia, right lower extremity amputation, suprapubic catheter and recurrent urinary tract infections who presents with fever of 103, chills sweats generalized weakness and malaise. Symptoms began today upon waking. She reports fatigue and weakness for the past week. No nausea or vomiting. No chest pain, shortness of breath or cough. No rash or skin breakdown. No other acute symptoms or complaints. Timing/Duration: 1 Week Severity: Moderate Modifying Factors: improves with Other Associated Systoms: Other Allergies and Home Medications Allergies Coded Allergies: Sulfa (Sulfonamide Antibiotics) (Verified Allergy, Unknown, 10/23/18) vancomycin (Verified Allergy, Unknown, 10/23/18) Patient Home Medication List Home Medication List Reviewed: Yes Amoxicillin/Potassium Clav (Amox Tr-K Clv 875-125 mg Tab) 1 Each Tablet, 1 TAB PO Q12H, (Reported) Entered as Reported by: CONNOR SANTORO on 12/08/20 0943 Ascorbic Acid (Vitamin C) 1,000 Mg Tablet, 1,000 MG PO BID, (Reported) Entered as Reported by: CARLEY VERNON on 04/10/19 1607 Baclofen (Baclofen) 20 Mg Tablet, 20 MG PO QID, (Reported) Entered as Reported by: CARLEY VERNON on 04/10/19 1607 Cetirizine HCl (Cetirizine HCl) 10 Mg Tablet, 10 MG PO DAILY, (Reported) Entered as Reported by: JAELYN MADRID on 04/12/19 0914 Diazepam (Diazepam) 10 Mg Tablet, 10 MG PO QID, (Reported) Entered as Reported by: CARLEY VERNON on 04/10/19 1607 Doxycycline Hyclate (Doxycycline Hyclate) 100 Mg Capsule, 100 MG PO BID, (Reported) Entered as Reported by: JAELYN MADRID on 10/26/19 1342 Hydrocodone/Acetaminophen (Hydrocodone-Acetamin 7.5-325) 1 Each Tablet, 1 EACH PO Q4H Prescribed by: AIDA GOMEZ on 12/14/20 1356 Ibuprofen (Ibuprofen) 200 Mg Tablet, 600 MG PO Q8H PRN for PAIN-MILD (1-4), (Reported) Entered as Reported by: JAELYN MADRID on 04/12/19 0921 Magnesium Oxide (Magnesium Oxide) 250 Mg Tablet, 250 MG PO BID Prescribed by: OZZY LEMUS on 01/08/21 1042 Metformin HCl (Metformin HCl) 500 Mg Tablet, 500 MG PO DAILY, (Reported) Entered as Reported by: CONNOR SANTORO on 12/08/20 0943 Omeprazole (Omeprazole) 20 Mg Tablet.dr, 20 MG PO 1400, (Reported) Entered as Reported by: CARLEY VERNON on 04/10/19 1607 Oxybutynin Chloride (Oxybutynin Chloride ER) 15 Mg Tab.er.24, 15 MG PO DAILY, (Reported) Entered as Reported by: JAELYN MADRID on 10/26/19 1342 Rivaroxaban (Xarelto) 20 Mg Tablet, 20 MG PO HS, (Reported) Entered as Reported by: JAELYN MADRID on 04/12/19 0912 Sucralfate (Carafate) 1 Gm/10 Ml Oral.susp, 1 GM PO TID PRN for GERD with Esophagitis Prescribed by: OZZY LEMUS on 01/08/21 1042 Review of Systems Review of Systems Constitutional: see HPI EENTM: see HPI Respiratory: see HPI Cardiovascular: see HPI Gastrointestinal: see HPI Genitourinary: see HPI Musculoskeletal: see HPI Skin: see HPI Psychiatric/Neurological: See HPI Hematologic/Lymphatic: See HPI Immunological/Allergic: see HPI All Other Systems Reviewed Negative Unless Noted: No Past Qqcgilx-Qrafbd-Qenpkm Hx Patient Social History Tobacco Use?: No Use of E-Cig and/or Vaping dev: No Substance use?: No Alcohol Use?: No Pt feels they are or have been: No Immunizations Up To Date First/Initial COVID19 Vaccinat: unknown Second COVID19 Vaccination [place]: unknown Third COVID19 Vaccination Date: unknown Seasonal Allergies Seasonal Allergies: No Past Medical History Surgery/Hospitalization HX: 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; parapalegic; suprapubic catheter; Surgeries: Yes (right AKA, sp tube, port x2, ORIF Left leg) Amputation, Cystectomy, Gallbladder, 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, Orthopedic, Urinary Diversion Respiratory: No Cardiac: No Neurological: Yes Paralysis, Spinal Cord Injury Female Reproductive Disorders: Endometriosis, Ovarian Cyst 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 oz. 79.781077vw; 21.00 BMI Method:Estimated General Appearance: No Apparent Distress, WD/WN, Other Eyes: Bilateral Eye Normal Inspection, Bilateral Eye PERRL, Bilateral Eye EOMI HEENT: PERRL/EOMI, Moist Mucous Membranes Neck: Full Range of Motion Respiratory: Lungs Clear, Normal Breath Sounds Cardiovascular: No Edema, No Gallop, Tachycardia Gastrointestinal: Soft Genital/Rectal: Other (Suprapubic catheter) Back: Normal Inspection Extremity: Non Tender, Other (Right above-knee amputation) Neurologic/Psychiatric: Alert, Oriented x3, Other (Right lower extremity amputation) Focused Exam Sepsis Stage: Sepsis Possible Source: Genitouriary Lactate Level 12/26/21 12:19: Lactic Acid Level 5.17*H Time of Focused Exam: 12:30 Cardiovascular: Tachycardia Capillary Refill: Less Than 3 Seconds Skin: other Lactic Acid Level Laboratory Tests Test 12/26/21 12:19 Lactic Acid Level 5.17 MMOL/L (0.50-2.00) *H Within 3hrs of presentation: Admin fluids, Admin 30ml/kg IBW due to BMI>30, Admin ABX, Blood cultures prior to ABX's, Lactate level Progress/Results/Core Measures Suspected Sepsis Recent Fever Within 48 Hours: Yes Infection Criteria Present: Suspected New Infection New/Unexplained Altered Menta: No SIRS Temperature: Pulse: 148 Respiratory Rate: 22 Laboratory Tests 12/26/21 12:19: White Blood Count 15.7H Blood Pressure 160 /77 Mean: 104 12/26/21 12:19: Lactic Acid Level 5.17*H Laboratory Tests 12/26/21 12:19: INR Comment 1.2, Platelet Count 292 12/26/21 12:35: Creatinine 0.46L, Total Bilirubin 0.4 Results/Orders Lab Results Laboratory Tests Test 12/26/21 12:19 12/26/21 12:23 12/26/21 12:35 Range/Units White Blood Count 15.7 H 4.3-11.0 10^3/uL Red Blood Count 4.81 3.80-5.11 10^6/uL Hemoglobin 13.4 11.5-16.0 g/dL Hematocrit 41 35-52 % Mean Corpuscular Volume 85 80-99 fL Mean Corpuscular Hemoglobin 28 25-34 pg Mean Corpuscular Hemoglobin Concent 33 32-36 g/dL Red Cell Distribution Width 15.9 H 10.0-14.5 % Platelet Count 292 130-400 10^3/uL Mean Platelet Volume 11.0 9.0-12.2 fL Immature Granulocyte % (Auto) 1 % Neutrophils (%) (Auto) 80 H 42-75 % Lymphocytes (%) (Auto) 8 L 12-44 % Monocytes (%) (Auto) 10 0-12 % Eosinophils (%) (Auto) 1 0-10 % Basophils (%) (Auto) 1 0-10 % Neutrophils # (Auto) 12.6 H 1.8-7.8 10^3/uL Lymphocytes # (Auto) 1.2 1.0-4.0 10^3/uL Monocytes # (Auto) 1.5 H 0.0-1.0 10^3/uL Eosinophils # (Auto) 0.2 0.0-0.3 10^3/uL Basophils # (Auto) 0.1 0.0-0.1 10^3/uL Immature Granulocyte # (Auto) 0.1 0.0-0.1 10^3/uL Neutrophils % (Manual) 64 % Lymphocytes % (Manual) 8 % Monocytes % (Manual) 8 % Eosinophils % (Manual) 1 % Basophils % (Manual) 1 % Band Neutrophils 18 % Platelet Estimate NORMAL Hypochromasia SLIGHT Microcytosis 1+ Stomatocytes SLIGHT Prothrombin Time 16.0 H 12.2-14.7 SEC INR Comment 1.2 0.8-1.4 Activated Partial Thromboplast Time 33 24-35 SEC Lactic Acid Level 5.17 *H 0.50-2.00 MMOL/L Urine Color YELLOW Urine Clarity TURBID Urine pH 5.5 5-9 Urine Specific [place] 1.025 H 1.016-1.022 Urine Protein 2+ H NEGATIVE Urine Glucose (UA) NEGATIVE NEGATIVE Urine Ketones 1+ H NEGATIVE Urine Nitrite POSITIVE H NEGATIVE Urine Bilirubin NEGATIVE NEGATIVE Urine Urobilinogen 0.2 < = 1.0 MG/DL Urine Leukocyte Esterase 2+ H NEGATIVE Urine RBC (Auto) 3+ H NEGATIVE Urine RBC >100 H /HPF Urine WBC 50-100 H /HPF Urine Squamous Epithelial Cells 5-10 /HPF Urine Crystals NONE /LPF Urine Bacteria LARGE H /HPF Urine Casts NONE /LPF Urine Mucus SMALL H /LPF Urine Culture Indicated CULTURE PENDING Influenza Type A (RT-PCR) Not Detected Not Detecte Influenza Type B (RT-PCR) Not Detected Not Detecte SARS-CoV-2 RNA (RT-PCR) Not Detected Not Detecte Sodium Level 138 135-145 MMOL/L Potassium Level 4.0 3.6-5.0 MMOL/L Chloride Level 99 98-107 MMOL/L Carbon Dioxide Level 21 21-32 MMOL/L Anion Gap 18 H 5-14 MMOL/L Blood Urea Nitrogen 12 7-18 MG/DL Creatinine 0.46 L 0.60-1.30 MG/DL Estimat Glomerular Filtration Rate 117 BUN/Creatinine Ratio 26 Glucose Level 190 H 70-105 MG/DL Calcium Level 9.9 8.5-10.1 MG/DL Corrected Calcium 9.5 8.5-10.1 MG/DL Total Bilirubin 0.4 0.1-1.0 MG/DL Aspartate Amino Transf (AST/SGOT) 57 H 5-34 U/L Alanine Aminotransferase (ALT/SGPT) 69 H 0-55 U/L Alkaline Phosphatase 110 40-136 U/L Total Protein 7.8 6.4-8.2 GM/DL Albumin 4.5 3.2-4.5 GM/DL My Orders Orders - BELGICA ART DO Cbc With Automated Diff (12/26/21 12:31) Comprehensive Metabolic Panel (12/26/21 12:31) Blood Culture (12/26/21 12:31) Sputum Culture (12/26/21 12:31) Urinalysis (12/26/21 12:31) Urine Culture (12/26/21 12:31) Protime With Inr (12/26/21 12:31) Partial Thromboplastin Time (12/26/21 12:31) Chest 1 View Ap/Pa Only (12/26/21 12:31) Ed Iv/Invasive Line Start (12/26/21 12:31) Ed Iv/Invasive Line Start (12/26/21 12:31) Vital Signs Adult Sepsis Patie Q15M (12/26/21 12:31) O2 (12/26/21 12:31) Remove Rings In Anticipation O (12/26/21 12:31) Lactic Acid Analyzer (12/26/21 12:31) Ns Iv 1000 Ml (Sodium Chloride 0.9%) (12/26/21 12:45) Cefepime Injection (Maxipime Injection) (12/26/21 12:45) Covid 19 Inhouse Test (12/26/21 12:31) Influenza A And B By Pcr (12/26/21 12:31) Isolation Central Supply Req (12/26/21 12:31) Manual Differential (12/26/21 12:19) Ceftriaxone 1 Gm Pre-Mix (Rocephin 1 Gm (12/26/21 14:30) Ed Admission (Communication) (12/26/21 14:20) Medications Given in ED Current Medications Medications Dose Ordered Sig/Kaylan Route Start Time Stop Time Status Last Admin Dose Admin Cefepime HCl 1000 mg/Sodium Chloride 50 ml @ 100 mls/hr ONCE ONCE IV 12/26/21 12:45 12/26/21 13:14 DC 12/26/21 12:51 100 MLS/HR Ceftriaxone Sodium/Dextrose 50 ml @ 100 mls/hr ONCE ONCE IV 12/26/21 14:30 12/26/21 14:59 12/26/21 14:25 100 MLS/HR Vital Signs/I&O 12/26/21 12/26/21 12:12 12:12 Temp 38.7 38.7 Pulse 148 148 Resp 22 22 B/P (MAP) 160/77 160/77 (104) Pulse Ox 96 96 O2 Delivery Room Air Room Air Capillary Refill : Less Than 3 Seconds Blood Pressure Mean: 104 Departure Communication (Admissions) Chest x-ray: No acute cardiopulmonary disease. Sinus tachycardia Patient with severe sepsis with urinary tract infection. I feel he fluid broad- spectrum antibiotics given. Patient is tachycardic, blood pressure stable throughout ED stay. Dr. Vasquez to admit to [facility] the ICU. Impression Primary Impression: Severe sepsis Additional Impressions: Urinary tract infection Paraparesis Disposition: ADMITTED INPATIENT Condition: Critical Departure-Patient Inst. Referrals: MELY BEDOYA MD (PCP) Primary Care Physician BELGICA ART DO Dec 26, 2021 14:58
[2021-12-26] MEDS ORDERED: polyethylene glycoL POWDER 17 GM (MIRALAX) PACK PO PRN (16:15)
[2021-12-26] MEDS ORDERED: ENOXAPARIN 40 MG/0.4 ML (LOVENOX) SYR SC SCH (16:15)
[2021-12-26] MEDS ORDERED: diphenhydrAMINE 50 MG/ML INJ (BENADRYL) IVP PRN (16:15)
[2021-12-26] MEDS ORDERED: NS IV 500 ML 500 ML IV PRN (16:15)
[2021-12-26] MEDS ORDERED: ONDANSETRON 4 MG/2 ML (SDV) Z0FRAN IV PRN (16:15)
[2021-12-26] MEDS ORDERED: ACETAMINOPHEN 325 MG TABLET PO PRN (16:15)
[2021-12-26] MEDS ORDERED: MELATONIN 3 MG TABLET PO PRN (16:15)
[2021-12-26] MEDS ORDERED: ANTACID SUSP 30 ML UDC (MYLANTA) PO PRN (16:15)
[2021-12-26] MEDS ORDERED: BISACODYL 10 MG SUPP (DULCOLAX) PR PRN (16:15)
[2021-12-26] MEDS ORDERED: ONDANSETRON 4 MG (ZOFRAN) ORAL DISSOLVE TAB PO PRN (16:15)
[2021-12-26] MEDS ORDERED: diphenhydrAMINE 25 MG TAB (BENADRYL) PO PRN (16:15)
[2021-12-26] MEDS ORDERED: CEFEPIME INJECTION 1,000 MG in NS (IVPB) 50 ML IV SCH (16:30)
--- NOTE | 2021-12-26 16:31 | Tele-ICU Progress Note ---
Subjective Date Seen by a Provider: Dec 26, 2021 Subjective/Events-last exam This virtual visit was conducted using real time audio/video. Thank you for asking us to see this patient for recurrent UTI with severe sepsis. Recent events:temp 103. PMH: paraplegia, suprapubic cath., recurrent UTIs, R AKA, DM2, kidney stones, DVT/PE, anx. SH: smoking history:N FH: Non-contributory ROS: las in HPI. PE: Pale, thin. VSS. O2 sat 97% on RA. HEENT: No obvious masses, adenopathy or JVD. Chest: clear to auscultation. CV: RRR S1 S2 No murmur or added sounds. Abd: Non-tender. Bowel sounds Y. : Unremarkable.Suprapubic cath. 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 No obvious focal findings. Extremities: 1+ edema. Capillary refill < 3 seconds. Skin: unremarkable. Results: Elevated WCC 15.7, Lact 5.17. CXR: Clear. Available chart/ vitals / labs / images reviewed. Video assessment done using teleICU camera, rest of exam as per RN. A/P: Critical Care: critically ill patient. Cont. IVF, abx, Franck. Monitor for hypotension Discussed with GILMAR Vázquez. Asked RN to reach out to eICU if any questions or concerns later. Time spent with patient/coordination of care with other health professionals (mins): 25 Sepsis Event Evaluation Height, Weight, BMI Height: 5'5.00" Weight: 175lbs. oz. 79.215003kl; 21.00 BMI Method:Estimated Focused Exam Lactate Level 12/26/21 12:19: Lactic Acid Level 5.17*H Time of Focused Exam: 12:30 Exam Exam Patient acknowledged, consented, and participated in this virtual visit which was conducted using real time audio/video Vital Signs Date Time Temp Pulse Resp B/P (MAP) Pulse Ox O2 Delivery O2 Flow Rate FiO2 12/26/21 16:09 125 12/26/21 16:00 124 22 143/68 (93) 98 Room Air 12/26/21 12:12 38.7 148 22 160/77 (104) 96 Room Air 12/26/21 12:12 38.7 148 22 160/77 96 Room Air Height & Weight Height: 5'5.00" Weight: 175lbs. oz. 79.954374si; 21.00 BMI Method:Estimated General Appearance: No Apparent Distress, WD/WN, Other HEENT: PERRL/EOMI, Moist Mucous Membranes Neck: Full Range of Motion Respiratory: Lungs Clear, Normal Breath Sounds Cardiovascular: Tachycardia Capillary Refill: Less Than 3 Seconds Extremity: Non Tender, Other (Right above-knee amputation) Neurologic/Psychiatric: Alert, Oriented x3, Other (Right lower extremity amputation) Results Lab Laboratory Tests 12/26/21 12:19 12/26/21 12:35 Assessment/Plan Assessment/Plan See free text. Critical Care: Critically Ill Patient SHARON RIOS MD Dec 26, 2021 16:31
[2021-12-26] MEDS: CEFEPIME INJECTION 1,000 MG in NS (IVPB) 50 ML IV SCH (17:46)
[2021-12-26] MEDS: LACTATED RINGERS 1,000 ML IV SCH (17:46)
[2021-12-26] MEDS ORDERED: SIMETHICONE 80 MG (MYLICON) CHEW PO PRN (19:00)
[2021-12-26] MEDS: BACLOFEN 10 MG (LIORESAL) TAB PO SCH (21:58)
[2021-12-26] MEDS: FLUTICASONE NASAL SPRAY (FLONASE) 16 GM BTL NS SCH (22:35)
[2021-12-26] MEDS: DOCUSATE SODIUM 100 MG (COLACE) CAP PO SCH (22:35)
[2021-12-26] MEDS: GABAPENTIN 300 MG (NEURONTIN) CAP PO SCH (22:36)
[2021-12-26] MEDS: OXYBUTYNIN (DITROPAN) 5 MG TAB PO SCH (22:36)
[2021-12-27] MEDS: CEFEPIME INJECTION 1,000 MG in NS (IVPB) 50 ML IV SCH ×3 (01:35→13:12)
[2021-12-27] MEDS: LACTATED RINGERS 1,000 ML IV SCH ×3 (02:13→13:21)
[2021-12-27 05:17] LABS: HEMATOCRIT 35 % (35-52); HEMOGLOBIN 11.1 g/dL (11.5-16.0); MEAN CORPUSCULAR HEMOGLOBIN 28 pg (25-34); MEAN CORPUSCULAR HGB CONC 32 g/dL (32-36); MEAN CORPUSCULAR VOLUME 88 fL (80-99); MEAN PLATELET VOLUME 10.1 fL (9.0-12.2); PLATELET COUNT 247 10^3/uL (130-400); WHITE BLOOD COUNT 11.8 10^3/uL (4.3-11.0)
[2021-12-27 05:35] LABS: POTASSIUM 3.7 MMOL/L (3.6-5.0)
[2021-12-27 05:36] LABS: CALCIUM 9.2 MG/DL (8.5-10.1)
[2021-12-27 05:40] LABS: CREATININE SERUM 0.66 MG/DL (0.60-1.30)
[2021-12-27 05:42] LABS: MAGNESIUM 1.6 MG/DL (1.6-2.4)
[2021-12-27] MEDS ORDERED: MAGNESIUM 1 GM/100 ML IVPB 200 ML IV ONE (06:13)
[2021-12-27] MEDS: MAGNESIUM 1 GM/100 ML IVPB 100 ML IV SCH ×3 (06:19→08:44)
[2021-12-27] MEDS: POTASSIUM CL 10MEQ/50ML IVPB 50 ML IV SCH (07:32)
[2021-12-27] MEDS: KCL 20 MEQ TAB (K-DUR) PO SCH (07:32)
--- NOTE | 2021-12-27 08:17 | Tele-ICU Progress Note ---
Subjective Date Seen by a Provider: Dec 27, 2021 Time Seen by a Provider: 08:11 Subjective/Events-last exam eICU progress note 51 yo F with paraplegia, suprapubic cath, right AKA, DM2, renal stones, Hx of DVT/PE being treated for severe sepsis, currently on IV Cefepime, urine culture is growing E Coli, not MDRO, LA has come down from 5.17 to 2.72 On RA, HR still high at 125, BP ok 130/70 Not on pressors with good BP Sepsis Event Evaluation Height, Weight, BMI Height: 5'5.00" Weight: 175lbs. oz. 79.721652vz; 21.85 BMI Method:Estimated Focused Exam Lactate Level 12/26/21 16:55: Lactic Acid Level 2.87*H 12/26/21 19:09: Lactic Acid Level 2.94*H 12/26/21 21:08: Lactic Acid Level 2.72*H Time of Focused Exam: 12:30 Exam Exam Patient acknowledged, consented, and participated in this virtual visit which was conducted using real time audio/video Vital Signs Date Time Temp Pulse Resp B/P (MAP) Pulse Ox O2 Delivery O2 Flow Rate FiO2 12/27/21 07:40 36.7 12/27/21 07:00 121 12/27/21 06:00 124 139/76 (97) 96 Room Air 12/27/21 05:59 36.8 12/27/21 05:00 125 134/75 (94) 93 Room Air 12/27/21 04:02 36.4 12/27/21 04:00 128 136/75 (95) 98 Room Air 12/27/21 03:53 92 Room Air 12/27/21 03:00 133 119/58 (78) 94 Room Air 12/27/21 02:26 37.3 12/27/21 02:00 134 126/72 (90) 93 Room Air 12/27/21 01:00 137 134/72 (92) 93 Room Air 12/27/21 00:49 137 12/27/21 00:06 37.6 12/27/21 00:00 137 140/78 (98) 92 Room Air 12/26/21 23:59 93 Room Air 12/26/21 23:00 135 148/83 (104) 96 Room Air 12/26/21 22:00 141 152/73 (99) 94 Room Air 12/26/21 21:00 123 25 148/80 (102) 99 Room Air 12/26/21 20:00 118 22 143/78 (99) 97 Room Air 12/26/21 20:00 98 Room Air 12/26/21 19:50 37.3 12/26/21 18:57 122 12/26/21 18:00 114 24 132/66 (88) 100 Room Air 12/26/21 17:00 120 24 129/70 (89) 99 Room Air 12/26/21 16:45 115 17 130/81 (97) 99 Room Air 12/26/21 16:30 117 15 118/72 (87) 98 Room Air 12/26/21 16:15 123 19 98 Room Air 12/26/21 16:09 125 12/26/21 16:00 98 Room Air 12/26/21 16:00 124 22 143/68 (93) 98 Room Air 12/26/21 12:12 38.7 148 22 160/77 (104) 96 Room Air 12/26/21 12:12 38.7 148 22 160/77 96 Room Air I & O 12/27/21 07:00 Intake Total 2680 ml Output Total 1000 ml Balance 1680 ml Height & Weight Height: 5'5.00" Weight: 175lbs. oz. 79.197762vb; 21.85 BMI Method:Estimated General Appearance: No Apparent Distress, WD/WN, Mild Distress, Other (mild abd distension, appears constipated, Hx of constipation) HEENT: PERRL/EOMI, Moist Mucous Membranes Neck: Full Range of Motion Respiratory: Lungs Clear, Normal Breath Sounds, No Respiratory Distress Cardiovascular: Tachycardia, Other (sinus tach) Capillary Refill: Less Than 3 Seconds Gastrointestinal: normal bowel sounds, distended, other (bowel sounds are hypoactive) Extremity: Non Tender, No Pedal Edema, Pedal Edema (+1 leg edema-chronic), Other (Right above-knee amputation) Neurologic/Psychiatric: Alert, Oriented x3, Other (Right lower extremity amputation) Results Lab Laboratory Tests 12/26/21 12:19 12/26/21 12:35 12/27/21 05:10 Assessment/Plan Assessment/Plan Urosepsis, will continue on IV Cefepime appears to be responding paraplegia, suprapubic cath-has a leak, right AKA-stump is ok, DM2, renal stones, Hx of DVT/PE-on daily Xarelto 10 mg If urine leak continues would call urologist Critical Care: Critically Ill Patient Time spent with patient (mins): 30 DEBORAH ALBERTO MD Dec 27, 2021 08:16
[2021-12-27] MEDS: BACLOFEN 10 MG (LIORESAL) TAB PO SCH ×4 (08:44→20:58)
[2021-12-27] MEDS: OXYBUTYNIN (DITROPAN) 5 MG TAB PO SCH ×2 (08:45→20:58)
[2021-12-27] MEDS: PANTOPRAZOLE 20 MG TABLET (PROTONIX) PO SCH (08:45)
[2021-12-27] MEDS: DOCUSATE SODIUM 100 MG (COLACE) CAP PO SCH ×2 (08:45→20:58)
[2021-12-27] MEDS: FLUTICASONE NASAL SPRAY (FLONASE) 16 GM BTL NS SCH (08:45)
--- NOTE | 2021-12-27 10:12 | Diagnostic Imaging Report ---
INDICATION: Constipation. COMPARISON: 10/25/2019 FINDINGS: 2 frontal radiographic views of the abdomen were obtained. Small bowel loops are nondistended. Large amount of air and stool is present scattered throughout the colon. There is no large collection of free intraperitoneal air. No unexpected extraosseous calcifications or radiopaque foreign bodies are seen. IMPRESSION: 1. Nonobstructed small bowel gas pattern. 2. Large amount of colonic air and stool. Please correlate for constipation. Dictated by: Dictated on workstation # [id number]
[2021-12-27] MEDS: GABAPENTIN 300 MG (NEURONTIN) CAP PO SCH ×3 (10:13→20:58)
[2021-12-27] MEDS ORDERED: ROSU5TAB13 PO (11:27)
[2021-12-27] MEDS ORDERED: OMEP20CA18 PO (11:27)
[2021-12-27] MEDS ORDERED: RIVA10TA PO (11:27)
[2021-12-27] MEDS ORDERED: DIAZ10TA3 PO (11:27)
[2021-12-27] MEDS ORDERED: FAMO20TA5 PO (11:27)
[2021-12-27] MEDS ORDERED: METH1TAB21 PO (11:27)
[2021-12-27] MEDS ORDERED: IBUP-1773 PO (11:27)
[2021-12-27] MEDS ORDERED: FLEET ENEMA ADULT 1 EA BTL PR PRN (11:45)
[2021-12-27] MEDS ORDERED: RIVAROXABAN 10 MG TABLET (XARELTO) PO SCH (18:00)
--- NOTE | 2021-12-27 18:51 | History & Physical-Hospitalist ---
History of Present Illness Source: patient Exam Limitations: no limitations Date Seen 12/27/21 Time Seen by a Provider: 09:00 Attending Physician Kenneth Nelson MD PCP Admitting Physician: Jonn Lira MD Attending Physician: Jonn Lira MD Referring Physician Date of Admission Dec 26, 2021 at 15:55 Home Medications & Allergies Home Medications Reviewed patient Home Medication Reconciliation performed by pharmacy medication reconciliations helpdesk technician and/or nursing. Patients Allergies have been reviewed. Allergies Allergies Coded Allergies Sulfa (Sulfonamide Antibiotics) (Verified Allergy, Unknown, 10/23/18) vancomycin (Verified Allergy, Unknown, 10/23/18) Past Wndvrra-[id number]-Qpputl Hx Patient Social History Tobacco Use?: No Smoking Status: Never a Smoker Smokeless Tobacco Frequency: Never a User Use of E-Cig and/or Vaping dev: No Substance use?: No Alcohol Use?: Yes Alcohol type: Wine Additional alcohol type: VERY RARELY; ABOUT ONCE A YEAR Alcohol Frequency: Rarely Pt feels they are or have been: No Immunizations Up To Date Date of Influenza Vaccine: Feb 09, 2020 First/Initial COVID19 Vaccinat: unknown Second COVID19 Vaccination [place]: unknown Seasonal Allergies Seasonal Allergies: No Current Status status: No status: No Advance Directives: No Communicates: Verbally Primary Language: Turkmen Preferred Spoken Language: Turkmen Is interpretation needed?: No Implanted or Applied Medical D: Port-a-cath Past Medical History Surgeries: Amputation, Cystectomy, Gallbladder, 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, Orthopedic, Urinary Diversion Paralysis, Spinal Cord Injury 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 oz. 79.886647no; 21.85 BMI Method:Estimated General Appearance: No Apparent Distress, Anxious, Obese Respiratory: Lungs Clear, No Respiratory Distress Cardiovascular: No Murmur, Tachycardia Gastrointestinal: Normal Bowel Sounds, Soft, Tenderness Extremity: Normal Inspection, Pedal Edema Neurologic/Psychiatric: Alert, Motor Weakness Skin: Normal Color, Warm/Dry Results Results/Procedures Labs Laboratory Tests 12/26/21 12:19 12/26/21 12:35 12/27/21 05:10 Patient resulted labs reviewed. Imaging: Reviewed Imaging Report Assessment/Plan Admission Diagnosis Severe sepsis due to UTI Admission Status: Inpatient Order (span 2 midnights) Reason for Inpatient Admission: IV antibiotics Assessment and Plan Severe sepsis UTI Suprapubic catheter MIGUEL Lactic acidosis Urine culture with E coli Started on Cefepime Transition to Rocephin IV fluids Paraplegia Decubitus ulcer Clinically significant, no acute management needs Continue home meds: Baclofen, Diazepam, Gabapentin Constipation Bowel regimen Enema History of DVT/PE Continue Xarelto Diagnosis/Problems Diagnosis/Problems (1) Severe sepsis Status: Acute (2) Urinary tract infection Status: Acute (3) Suprapubic catheter Status: Acute (4) MIGUEL (acute kidney injury) Status: Acute (5) Lactic acidosis Status: Acute (6) Constipation Status: Acute Qualifiers: Constipation type: slow transit constipation Qualified Codes: K59.01 - Slow transit constipation JONN LIRA MD Dec 27, 2021 18:51
[2021-12-27] MEDS ORDERED: cefTRIAXone 1 GM PRE-MIX 50 ML IV NR (19:00)
[2021-12-28] MEDS: LACTATED RINGERS 1,000 ML IV SCH ×2 (01:30→06:05)
[2021-12-28 05:06] LABS: HEMATOCRIT 33 % (35-52); HEMOGLOBIN 10.6 g/dL (11.5-16.0); MEAN CORPUSCULAR HEMOGLOBIN 28 pg (25-34); MEAN CORPUSCULAR HGB CONC 33 g/dL (32-36); MEAN CORPUSCULAR VOLUME 87 fL (80-99); MEAN PLATELET VOLUME 10.3 fL (9.0-12.2); PLATELET COUNT 243 10^3/uL (130-400); WHITE BLOOD COUNT 8.8 10^3/uL (4.3-11.0)
[2021-12-28 05:24] LABS: CALCIUM 8.8 MG/DL (8.5-10.1); CREATININE SERUM 0.55 MG/DL (0.60-1.30); MAGNESIUM 1.8 MG/DL (1.6-2.4); POTASSIUM 3.5 MMOL/L (3.6-5.0)
[2021-12-28] MEDS: KCL 20 MEQ TAB (K-DUR) PO SCH (05:27)
[2021-12-28] MEDS: MAGNESIUM 1 GM/100 ML IVPB 100 ML IV SCH (05:27)
[2021-12-28] MEDS: POTASSIUM CL 10MEQ/50ML IVPB 50 ML IV SCH ×3 (05:27→10:50)
[2021-12-28] MEDS: PANTOPRAZOLE 20 MG TABLET (PROTONIX) PO SCH (06:04)
[2021-12-28] MEDS ORDERED: KCL 20 MEQ TAB (K-DUR) PO SCH (09:00)
[2021-12-28] MEDS: OXYBUTYNIN (DITROPAN) 5 MG TAB PO SCH (09:33)
[2021-12-28] MEDS: BACLOFEN 10 MG (LIORESAL) TAB PO SCH ×2 (09:33→12:51)
[2021-12-28] MEDS: GABAPENTIN 300 MG (NEURONTIN) CAP PO SCH ×2 (09:33→13:00)
[2021-12-28] MEDS: DOCUSATE SODIUM 100 MG (COLACE) CAP PO SCH (09:34)
[2021-12-28] MEDS: FLUTICASONE NASAL SPRAY (FLONASE) 16 GM BTL NS SCH (09:34)
[2021-12-28] MEDS ORDERED: LEVO750T PO (12:18)
[2021-12-28] MEDS ORDERED: cefTRIAXone 2,000 MG in NS (IVPB) 50 ML IV SCH (15:00)
--- NOTE | 2021-12-28 15:09 | Physician Query Clarification ---
Physician Query-General Query to Physician: The medical record reflects the following clinical scenario: The patient, in the setting of History/Risk factors, paraplegia, with suprapubic catheter Clinical Findings urine culture is growing E Coli, "suprapubic cath-has a leak," Treatment ER: Normal saline 1 L, cefepime IV, ceftriaxone IV, Supra pubic cath changed on admission Question: Can you specify if the UTI is likely due to/associated with Suprapubic catheter? Yes -UTI likely due to/associated with suprapubic catheter No - UTI is not due to/associated with suprapubic catheter Other, with explanation of the clinical findings Clinically undetermined, no explanation for the clinical findings Please clarify and document your clinical opinion in the Progress Notes and Discharge Summary including the definitive and/or presumptive diagnosis, (suspected or probable), related to the above clinical findings. Please include clinical findings supporting your diagnosis. In responding to this query, please exercise your independent professional judgment. The purpose of this communication is to more accurately reflect the complexity of your patients condition. The fact that a question is asked does not imply that any particular answer is desired or expected. Thank you for timely response to this clarification. Mima Ames RN, MSN Clinical Sleeping Car Service Attendant [phone] [email or web address] PHYSICIAN RESPONSE: Based on the clinical findings in the record, please respond to the query above on this document as an addendum. Physician Response: Physician Response Yes If you have questions please contact: Condenser Cleaner: Ext: Thank you for your time and cooperation. Clinical Sleeping Car Service Attendant/Condenser Cleaner This is a permanent part of the medical record MIMA AMES Dec 28, 2021 15:08 JONN LIRA MD Dec 28, 2021 18:51
--- NOTE | 2021-12-28 17:23 | Discharge Summary ---
Discharge Summary Reconcile Patient Problems Problems Reviewed?: Yes Instructions for Patient [facility], Assessment/Instructions See instructions Physician to follow Patient: Omar Discharge Diet for Home: No Restrictions Hospital Course Date of Admission: Dec 26, 2021 at 15:55 Admission Diagnosis : Severe sepsis due to UTI Family Physician/Provider: Kenneth Nelson MD Date of Discharge: 12/28/21 Discharge Diagnosis: Severe sepsis due to UTI Hospital Course: Yancy Mesa is a 51 year old female with H paraplegia, suprapubic catheter, recurrent UTIs, right AKA, decubitus ulcer, who was admitted with severe sepsis due to UTI. She had a lactic acidosis. She was started on IV fluids and antibiotics. She improved quickly. She had issues with constipation and was offered a bowel regimen but she was reluctant. She was discharged home in stable condition. Her home health care was resumed. She will complete a course of Levaquin and follow up with her PCP, Kenneth Nelson, in a week or two. Labs and Pending Lab Test: Laboratory Tests 12/28/21 04:55: White Blood Count 8.8, Red Blood Count 3.74L, Hemoglobin 10.6L, Hematocrit 33L, Mean Corpuscular Volume 87, Mean Corpuscular Hemoglobin 28, Mean Corpuscular Hemoglobin Concent 33, Red Cell Distribution Width 15.9H, Platelet Count 243, Mean Platelet Volume 10.3, Sodium Level 139, Potassium Level 3.5L, Chloride Level 105, Carbon Dioxide Level 20L, Anion Gap 14, Blood Urea Nitrogen 8, Creatinine 0.55L, Estimat Glomerular Filtration Rate 112, BUN/Creatinine Ratio 15, Glucose Level 157H, Calcium Level 8.8, Magnesium Level 1.8 Microbiology 12/26/21 MRSA Screen - Final, Complete 12/26/21 Blood Culture - Preliminary, Resulted No growth 12/26/21 Urine Culture - Preliminary, Resulted Escherichia coli Home Meds Active Levofloxacin 750 Mg Tablet 750 Mg PO DAILY 5 Days Reported Famotidine 20 Mg Tablet 20 Mg PO BID Omeprazole 20 Mg Capsule.dr 20 Mg PO DAILY Diazepam 10 Mg Tablet 5 Mg PO 1400 TAKES OF A 10MG Xarelto (Rivaroxaban) 10 Mg Tablet 10 Mg PO 2000 Ibuprofen 600 Mg Tablet 600 Mg PO TID PRN Methenamine Hippurate 1 Gram Tablet 1 Gm PO BID Rosuvastatin Calcium 5 Mg Tablet 5 Mg PO HS Metformin HCl 500 Mg Tablet 500 Mg PO DAILY Oxybutynin Chloride ER (Oxybutynin Chloride) 15 Mg Tab.er.24 15 Mg PO DAILY Cetirizine HCl 10 Mg Tablet 10 Mg PO DAILY Baclofen 20 Mg Tablet 20 Mg PO QID Diazepam 10 Mg Tablet 10 Mg PO 0200,0800,2000 Vitamin C (Ascorbic Acid) 1,000 Mg Tablet 1,000 Mg PO BID Patient Allergies: Coded Allergies: Sulfa (Sulfonamide Antibiotics) (Verified Allergy, Unknown, 10/23/18) vancomycin (Verified Allergy, Unknown, 10/23/18) Height (Feet): 5 Height (Inches): 5.00 Weight (Pounds): 175 Home Health Need/Face to Face Date of Face to Face: Dec 28, 2021 Clinical Findings: Generalized weakness and fatigue, Muscle weakness, Non- healing wound I have seen Pt [id number]: Yes Discharged To: Home Diagnosis/Conditions: Paraplegia Suprapubic catheter Recurrent UTIs Decubitus ulcer Right above the knee amputation Problems/Diagnosis/Condition: (1) Paraplegia at T4 level (2) Suprapubic catheter (3) Urinary tract infection (4) Unilateral complete AKA Patient is Homebound due to: Muscle weakness, Non-weight bearing Homebound Status Due to the above stated illness, injury or surgical procedure (medical condition or diagnosis) and associated clinical findings, the patient is homebound because of his/her inability to leave home except with aid of a supportive device and/or person AND leaving the home requires a considerable and taxing effort or is medically contraindicated. Pt req the following assistanc: Aid of another person Home Health Nursing Orders Home Health Services Order: Nursing Services, 911 Dispatcher-Evaluate & Treat, Physical Therapy-Evaluate & Treat, Wound Care-Eval/Treat Home Health Infusion Therapy Line Start Date: Dec 26, 2021 Therapy Orders Therapy Orders: OT (must have SN or PT order), Physical Therapy Therapy Specific Orders: Eval assistive deivces, Teach enviro modifications/safety Certify Stmt I certify that this patient is under my care and that I, a nurse practitioner or a physician; a assistant attorney general working with me, had a face to face encounter that - meets the physician face to face encounter requirements with this patient as dated. Discharge Physical Exam General: Alert, No Acute Distress Lungs: Clear to Auscultation, Normal Air Movement Heart: Regular Rate, No Murmurs Abdomen: Normal Bowel Sounds, Soft Extremities: No Edema, No Tenderness/Swelling Skin: No Rashes, Other (decubitus ulcer) Psych/Mental Status: Mental Status NL, Other (irritable, agitated) JONN LIRA MD Dec 28, 2021 17:21
== END 2021-12-28 14:30 | disposition home health service (06) | DRG 698 ==
LOC: EDUNIT# 12:10 → ER FS 12:11 → ICU 15:55
PROVIDERS: ADMIT Internal Medicine; ATTEND Internal Medicine
DX: T83.518A Infection and inflammatory reaction due to other urinary catheter, initial encounter (principal); A41.9 Sepsis, unspecified organism; R65.20 Severe sepsis without septic shock; N39.0 Urinary tract infection, site not specified; G82.20 Paraplegia, unspecified; E87.2 Acidosis; Z89.611 Acquired absence of right leg above knee; K59.00 Constipation, unspecified; N31.9 Neuromuscular dysfunction of bladder, unspecified; K21.9 Gastro-esophageal reflux disease without esophagitis; E11.9 Type 2 diabetes mellitus without complications; F41.9 Anxiety disorder, unspecified; L89.90 Pressure ulcer of unspecified site, unspecified stage; Z86.718 Personal history of other venous thrombosis and embolism; Z86.711 Personal history of pulmonary embolism; B96.20 Unspecified Escherichia coli [E. coli] as the cause of diseases classified elsewhere; Z79.01 Long term (current) use of anticoagulants; Z79.84 Long term (current) use of oral hypoglycemic drugs; Z79.899 Other long term (current) drug therapy; Z20.822 Contact with and (suspected) exposure to COVID-19
CPT/HCPCS: 36415; 71045; 74018; 80048; 80053; 81000; 83605; 83735; 84145; 85007; 85027; 85610; 85730; 87040; 87077; 87081; 87088; 87186; 87636

== ENCOUNTER 2022-01-10 16:34 | Emergency (ER) | payer MEDICARE, MEDICAID ==
[~2022-01-10 16:34] MED LIST changes: +FAMO20TA5 PO; +IBUP-1773 PO; +LEVO750T PO; +METH1TAB21 PO; +OMEP20CA18 PO; +ROSU5TAB13 PO
[2022-01-10] MEDS ORDERED: IBUPROFEN 800 MG (MOTRIN) TAB PO STA (16:56)
[2022-01-10] MEDS ORDERED: NS IV 1000 ML 1,000 ML IV STA (16:56)
[2022-01-10 17:07] LABS: BASOPHILS # (AUTO) 0.1 10^3/uL (0.0-0.1); BASOPHILS % (AUTO) 1 % (0-10); EOSINOPHILS # (AUTO) 0.3 10^3/uL (0.0-0.3); EOSINOPHILS % (AUTO) 2 % (0-10); HEMATOCRIT 40 % (35-52); HEMOGLOBIN 12.7 g/dL (11.5-16.0); LYMPHOCYTES # (AUTO) 3.3 10^3/uL (1.0-4.0); LYMPHOCYTES % (AUTO) 16 % (12-44); MEAN CORPUSCULAR HEMOGLOBIN 28 pg (25-34); MEAN CORPUSCULAR HGB CONC 32 g/dL (32-36); MEAN CORPUSCULAR VOLUME 87 fL (80-99); MEAN PLATELET VOLUME 10.2 fL (9.0-12.2); MONOCYTES # (AUTO) 2.2 10^3/uL (0.0-1.0); MONOCYTES % (AUTO) 10 % (0-12); NEUTROPHILS # (AUTO) 14.8 10^3/uL (1.8-7.8); NEUTROPHILS % (AUTO) 71 % (42-75); PLATELET COUNT 338 10^3/uL (130-400); WHITE BLOOD COUNT 20.7 10^3/uL (4.3-11.0)
[2022-01-10 17:10] LABS: BILIRUBIN,URINE NEGATIVE (NEGATIVE); CLARITY,URINE CLOUDY; COLOR,URINE YELLOW; GLUCOSE, URINE (UA) NEGATIVE (NEGATIVE); KETONES,URINE NEGATIVE (NEGATIVE); LEUKOCYTE ESTERASE ,URINE 1+ (NEGATIVE); NITRITE,URINE POSITIVE (NEGATIVE); PROTEIN,URINE TRACE (NEGATIVE)
--- NOTE | 2022-01-10 17:19 | Diagnostic Imaging Report ---
EXAMINATION: Chest 1 view HISTORY: fever COMPARISON: None available. FINDINGS: Heart size and pulmonary vasculature are normal. The lungs are clear without consolidation, pleural effusion, or pneumothorax. The osseous structures are intact. Surgical changes from spinal fusion. IMPRESSION: 1. No acute radiographic abnormality in the chest. Dictated by: Dictated on workstation # [id number]
[2022-01-10 17:21] LABS: BACTERIA,URINE MODERATE /HPF; RBC,URINE 0-2 /HPF; SQUAMOUS EPITHELIAL CELL,UR 0-2 /HPF
[2022-01-10 17:30] LABS: POTASSIUM 4.1 MMOL/L (3.6-5.0)
[2022-01-10 17:31] LABS: ALBUMIN 4.2 GM/DL (3.2-4.5); BILIRUBIN,TOTAL 0.4 MG/DL (0.1-1.0); CALCIUM 9.4 MG/DL (8.5-10.1); CREATININE SERUM 0.72 MG/DL (0.60-1.30); TOTAL PROTEIN 7.8 GM/DL (6.4-8.2)
--- NOTE | 2022-01-10 17:33 | ED General ---
General Chief Complaint: Fever-Adult/Adol Stated Complaint: UTI SYMPTOMS Nursing Triage Note: PT REPORTS A FEVER THAT STARTED TODAY. SHE THINKS SHE STILL HAS A UTI. Source of Information: Patient, EMS, Old Records History of Present Illness Date Seen by Provider: Jan 10, 2022 Time Seen by Provider: 16:37 Initial Comments 51-year-old female reporting fever up to 102.9 at home. She feels like she has a UTI with her indwelling catheter there is a suprapubic catheter. She had been admitted 2 weeks ago to [facility] for sepsis related to UTI and she did not feel like her treatment was adequate there and is requesting to be sent to [facility]. She has been admitted to [facility] multiple times for sepsis in the past. She denies having a cough, chest pain, headache, change in vision, change in bowels. She did not take any temperature reducing medicine when her temperature was 102.9, but did drink extra fluids and removed extra bedding. On arrival to the emergency department her temperature is 100 even. Timing/Duration: 1-2 Days Severity: Moderate Associated Systoms: No Chest Pain, No Cough, No Diaphoresis; Fever/Chills; No Headaches, No Loss of Appetite; Malaise; No Nausea/Vomiting, No Rash, No Seizure, No Shortness of Air, No Syncope, No Weakness Allergies and Home Medications Allergies Coded Allergies: Sulfa (Sulfonamide Antibiotics) (Verified Allergy, Unknown, 10/23/18) vancomycin (Verified Allergy, Unknown, 10/23/18) Patient Home Medication List Home Medication List Reviewed: Yes Ascorbic Acid (Vitamin C) 1,000 Mg Tablet, 1,000 MG PO BID, (Reported) Entered as Reported by: CARLEY VERNON on 04/10/191606 Baclofen (Baclofen) 20 Mg Tablet, 20 MG PO QID, (Reported) Entered as Reported by: CARLEY VERNON on 04/10/19 160 Cetirizine HCl (Cetirizine HCl) 10 Mg Tablet, 10 MG PO DAILY, (Reported) Entered as Reported by: JAELYN MADRID on 04/12/19 0914 Diazepam (Diazepam) 10 Mg Tablet, 10 MG PO 0200,0800,2000, (Reported) Entered as Reported by: CARLEY VERNON on 04/10/19 160 Diazepam (Diazepam) 10 Mg Tablet, 5 MG PO 1400, (Reported) Entered as Reported by: JAELYN MADRID on 12/27/21 112 Famotidine (Famotidine) 20 Mg Tablet, 20 MG PO BID, (Reported) Entered as Reported by: JAELYN MADRID on 12/27/211126 Ibuprofen (Ibuprofen) 600 Mg Tablet, 600 MG PO TID PRN for PAIN-MILD (1-4), (Reported) Entered as Reported by: JAELYN MADRID on 12/27/211126 Levofloxacin (Levofloxacin) 750 Mg Tablet, 750 MG PO DAILY Prescribed by: JONN LIRA on 12/28/21 1218 Metformin HCl (Metformin HCl) 500 Mg Tablet, 500 MG PO DAILY, (Reported) Entered as Reported by: CONNOR SANTORO on 12/08/20 0943 Methenamine Hippurate (Methenamine Hippurate) 1 Gram Tablet, 1 GM PO BID, (Reported) Entered as Reported by: JAELYN MADRID on 12/27/211126 Omeprazole (Omeprazole) 20 Mg Capsule.dr, 20 MG PO DAILY, (Reported) Entered as Reported by: JAELYN MADRID on 12/27/211126 Oxybutynin Chloride (Oxybutynin Chloride ER) 15 Mg Tab.er.24, 15 MG PO DAILY, (Reported) Entered as Reported by: JAELYN MADRID on 10/26/19 1342 Rivaroxaban (Xarelto) 10 Mg Tablet, 10 MG PO 2000, (Reported) Entered as Reported by: JAELYN MADRID on 12/27/211126 Rosuvastatin Calcium (Rosuvastatin Calcium) 5 Mg Tablet, 5 MG PO HS, (Reported) Entered as Reported by: JAELYN MADRID on 12/27/211126 Review of Systems Review of Systems Constitutional: see HPI EENTM: no symptoms reported Respiratory: no symptoms reported Cardiovascular: palpitations (Chronic palpitations and tachycardia) Gastrointestinal: no symptoms reported Genitourinary: see HPI Musculoskeletal: no symptoms reported Skin: no symptoms reported Psychiatric/Neurological: Anxiety Past Wxqypus-Pldexe-Fsxswh Hx Patient Social History Tobacco Use?: No Use of E-Cig and/or Vaping dev: No Substance use?: No Alcohol Use?: No Pt feels they are or have been: No Immunizations Up To Date First/Initial COVID19 Vaccinat: 2020 Second COVID19 Vaccination [place]: 2020 Third COVID19 Vaccination Date: 2020 Seasonal Allergies Seasonal Allergies: No Past Medical History Surgery/Hospitalization HX: 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; parapalegic; suprapubic catheter; Surgeries: Yes (right AKA, sp tube, port x2, ORIF Left leg) Amputation, Cystectomy, Gallbladder, 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, Orthopedic, Urinary Diversion Respiratory: No Cardiac: No Neurological: Yes Paralysis, Spinal Cord Injury Female Reproductive Disorders: Endometriosis, 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 Genitourinary: Yes (SP cath) Kidney Stones, Neurogenic Bladder, UTI-Chronic Gastrointestinal: Yes Gastroesophageal Reflux Musculoskeletal: Yes (OSTEOMYELITIS) Amputee, Back Injury Endocrine: Yes Diabetes, Non-Insulin dep HEENT: No Cancer: No Psychosocial: Yes Anxiety Integumentary: Yes (hx of DECUB STAGE 4, PRESSURE ULCER, CELLULITIS, MRSA) Blood Disorders: Yes (IRON DEFICIENCY ANEMIA) Family Medical History Heart Disease, Cancer, Stroke Physical Exam Vital Signs Vital Signs - First Documented 01/10/22 16:35 Temp 37.8 Pulse 144 Resp 16 B/P (MAP) 158/80 (106) Pulse Ox 98 O2 Delivery Room Air Capillary Refill : Less Than 3 Seconds Height, Weight, BMI Height: 5'5.00" Weight: 175lbs. oz. [id number]; 21.85 BMI Method:Estimated General Appearance: No Apparent Distress, WD/WN HEENT: PERRL/EOMI, Pharynx Normal Neck: Full Range of Motion, Normal Inspection, Non Tender, Supple Respiratory: Chest Non Tender, Lungs Clear, Normal Breath Sounds, No Accessory Muscle Use Cardiovascular: Normal Peripheral Pulses, Tachycardia Gastrointestinal: Normal Bowel Sounds, No Pulsatile Mass, Non Tender, Soft Extremity: Normal Capillary Refill, No Pedal Edema Neurologic/Psychiatric: Alert, Oriented x3, bowling ball molder II-XII Norm as Tested Skin: Normal Color, Warm/Dry Focused Exam Sepsis Stage: Sepsis Possible Source: Genitouriary Lactate Level 01/10/22 16:45: Lactic Acid Level 2.66*H 01/10/22 18:50: Lactic Acid Level 2.06*H Time of Focused Exam: 17:30 Respiratory: Chest Non Tender, Lungs Clear, Normal Breath Sounds Cardiovascular: Normal Peripheral Pulses, Tachycardia Capillary Refill: Less Than 3 Seconds Peripheral Pulses: 2+ Carotid (R), 2+ Carotid (L), 2+ Radial Pulses (R), 2+ Radial Pulses (L) Skin: normal color, warm/dry Lactic Acid Level Laboratory Tests Test 01/10/22 16:45 01/10/22 18:50 Lactic Acid Level 2.66 MMOL/L (0.50-2.00) *H 2.06 MMOL/L (0.50-2.00) *H Within 3hrs of presentation: Admin fluids, Admin ABX, Blood cultures prior to ABX's, Focus exam, Lactate level Progress/Results/Core Measures Suspected Sepsis SIRS Temperature: Pulse: 144 Respiratory Rate: 16 Laboratory Tests 01/10/22 16:45: White Blood Count 20.7H Blood Pressure 158 /80 Mean: 106 01/10/22 16:45: Lactic Acid Level 2.66*H 01/10/22 18:50: Lactic Acid Level 2.06*H Laboratory Tests 01/10/22 16:45: Creatinine 0.72, Platelet Count 338, Total Bilirubin 0.4 Results/Orders Lab Results Laboratory Tests Test 01/10/22 16:45 01/10/22 16:50 01/10/22 17:19 01/10/22 18:50 Range/Units White Blood Count 20.7 H 4.3-11.0 10^3/uL Red Blood Count 4.57 3.80-5.11 10^6/uL Hemoglobin 12.7 11.5-16.0 g/dL Hematocrit 40 35-52 % Mean Corpuscular Volume 87 80-99 fL Mean Corpuscular Hemoglobin 28 25-34 pg Mean Corpuscular Hemoglobin Concent 32 32-36 g/dL Red Cell Distribution Width 15.2 H 10.0-14.5 % Platelet Count 338 130-400 10^3/uL Mean Platelet Volume 10.2 9.0-12.2 fL Immature Granulocyte % (Auto) 1 % Neutrophils (%) (Auto) 71 42-75 % Lymphocytes (%) (Auto) 16 12-44 % Monocytes (%) (Auto) 10 0-12 % Eosinophils (%) (Auto) 2 0-10 % Basophils (%) (Auto) 1 0-10 % Neutrophils # (Auto) 14.8 H 1.8-7.8 10^3/uL Lymphocytes # (Auto) 3.3 1.0-4.0 10^3/uL Monocytes # (Auto) 2.2 H 0.0-1.0 10^3/uL Eosinophils # (Auto) 0.3 0.0-0.3 10^3/uL Basophils # (Auto) 0.1 0.0-0.1 10^3/uL Immature Granulocyte # (Auto) 0.1 0.0-0.1 10^3/uL Neutrophils % (Manual) 68 % Lymphocytes % (Manual) 20 % Monocytes % (Manual) 7 % Eosinophils % (Manual) 1 % Basophils % (Manual) 0 % Metamyelocytes % 1 % Band Neutrophils 3 % Sodium Level 135 135-145 MMOL/L Potassium Level 4.1 3.6-5.0 MMOL/L Chloride Level 96 L 98-107 MMOL/L Carbon Dioxide Level 22 21-32 MMOL/L Anion Gap 17 H 5-14 MMOL/L Blood Urea Nitrogen 16 7-18 MG/DL Creatinine 0.72 0.60-1.30 MG/DL Estimat Glomerular Filtration Rate 102 BUN/Creatinine Ratio 22 Glucose Level 158 H 70-105 MG/DL Lactic Acid Level 2.66 *H 2.06 *H 0.50-2.00 MMOL/L Calcium Level 9.4 8.5-10.1 MG/DL Corrected Calcium 9.2 8.5-10.1 MG/DL Total Bilirubin 0.4 0.1-1.0 MG/DL Aspartate Amino Transf (AST/SGOT) 31 5-34 U/L Alanine Aminotransferase (ALT/SGPT) 43 0-55 U/L Alkaline Phosphatase 98 40-136 U/L C-Reactive Protein 9.21 H <0.50 MG/DL Total Protein 7.8 6.4-8.2 GM/DL Albumin 4.2 3.2-4.5 GM/DL Urine Color YELLOW Urine Clarity CLOUDY Urine pH 6.0 5-9 Urine Specific [place] 1.015 L 1.016-1.022 Urine Protein TRACE H NEGATIVE Urine Glucose (UA) NEGATIVE NEGATIVE Urine Ketones NEGATIVE NEGATIVE Urine Nitrite POSITIVE H NEGATIVE Urine Bilirubin NEGATIVE NEGATIVE Urine Urobilinogen 0.2 < = 1.0 MG/DL Urine Leukocyte Esterase 1+ H NEGATIVE Urine RBC (Auto) 2+ H NEGATIVE Urine RBC 0-2 /HPF Urine WBC 10-25 H /HPF Urine Squamous Epithelial Cells 0-2 /HPF Urine Crystals NONE /LPF Urine Bacteria MODERATE H /HPF Urine Casts NONE /LPF Urine Mucus SMALL H /LPF Urine Culture Indicated YES Influenza Type A (RT-PCR) Not Detected Not Detecte Influenza Type B (RT-PCR) Not Detected Not Detecte SARS-CoV-2 RNA (RT-PCR) Not Detected Not Detecte My Orders Orders - OZZY LEMUS MD Ibuprofen Tablet (Motrin Tablet) (01/10/22 16:56) Cbc With Automated Diff (01/10/22 16:56) Comprehensive Metabolic Panel (01/10/22 16:56) Blood Culture (01/10/22 16:56) Ua Culture If Indicated (01/10/22 16:56) Chest 1 View Ap/Pa Only (01/10/22 16:56) Ed Iv/Invasive Line Start (01/10/22 16:56) Crp Fs (01/10/22 16:56) Lactic Acid Analyzer (01/10/22 16:56) Ns Iv 1000 Ml (Sodium Chloride 0.9%) (01/10/22 16:56) Covid 19 Inhouse Test (01/10/22 16:56) Influenza A And B By Pcr (01/10/22 16:56) Manual Differential (01/10/22 16:45) Urine Culture (01/10/22 16:50) Ceftriaxone 1 Gm Pre-Mix (Rocephin 1 Gm (01/10/22 17:40) Levofloxacin 750 Mg/150 Ml Iv (Levaquin (01/10/22 17:40) Ed Iv/Invasive Line Start (01/10/22 19:21) Ns Iv 1000 Ml (Sodium Chloride 0.9%) (01/10/22 19:30) Ns Iv 1000 Ml (Sodium Chloride 0.9%) (01/10/22 19:24) Vital Signs/I&O 01/10/22 16:35 Temp 37.8 Pulse 144 Resp 16 B/P (MAP) 158/80 (106) Pulse Ox 98 O2 Delivery Room Air Capillary Refill : Less Than 3 Seconds Blood Pressure Mean: 106 Progress Note #1: Progress Note Obtain basic labs and urinalysis from catheter. Ordered blood cultures and lactic acid. Give normal saline IV fluid bolus for hydration and her tachycard ia. Her baseline tachycardia has heart rate in the 120s. Order ibuprofen to help with her temperature of 100 F. Differential diagnosis includes sepsis, catheter associated UTI, pneumonia, cellulitis Progress Note #2: Progress Note Labs show elevated white blood cell count of 20.7 with a left shift. Her lactic acid came back at 2.66. Urinalysis did appear to show signs of infection with nitrites, white blood cells, bacteria. Based on reviewing her chart and looking at prior cultures will administer a dose of ceftriaxone. As patient is requesting to go to [facility] we will call about possible transfer. At 1738 I spoke with GILMAR Schaffer at the transfer center. 1812 patient was excepted to [facility] with Dr. Hernandez. Taking antibiotics and IVF and have patient be transferred to [facility]. Diagnostic Imaging Diagonstic Imaging: Xray Plain Films/CT/US/NM/MRI: chest [facility] [place], [place] NAME: VIKI MCGREGOR [facility] REC#: [id number] PT STATUS: REG ER : 1970 PHYSICIAN: OZZY LEMUS MD ADMIT DATE: 01/10/22/ER FS Signed Date of Exam:01/10/22 CHEST 1 VIEW AP/PA ONLY EXAMINATION: Chest 1 view HISTORY: fever COMPARISON: None available. FINDINGS: Heart size and pulmonary vasculature are normal. The lungs are clear without consolidation, pleural effusion, or pneumothorax. The osseous structures are intact. Surgical changes from spinal fusion. IMPRESSION: 1. No acute radiographic abnormality in the chest. Dictated by: Dictated on workstation # [id number] Dict: 01/10/221714 Trans: 01/10/221815 [id number] [id number] Interpreted by: OLIVIA BRAVO DO Electronically signed by: OLIVIA BRAVO DO 01/10/221815 Reviewed: Reviewed by Ma Critical Care Note Critical Care Total Time (minutes) 45 minutes Progress 45 minutes of critical care time was spent with the patient. Time excludes separately billable procedures. Time was spent obtaining history from patient and medical record, ordering tests and reviewing results, ordering interventions and reviewing response, discussion with consultants, documentation in the chart. Patient was at risk of cardiovascular compromise from sepsis Departure Impression Primary Impression: Sepsis Qualified Codes: A41.9 - Sepsis, unspecified organism Additional Impression: UTI (urinary tract infection) due to urinary indwelling Gonsalves catheter Qualified Codes: T83.510A - Infection and inflammatory reaction due to cystostomy catheter, initial encounter; N39.0 - Urinary tract infection, site not specified Disposition: XFER SHT-TRM HOSP Condition: Stable Transfer Transfer Reason: Patient preference Time Spoke to Accepting Phy: 18:13 Transfer Progress Notes discussed with GILMAR Schaffer, from the transfer center. She called back at 1813 and stated that accepted pt for transfer. Will continue with antibiotics and IVF. Call back with room assignment when available. Transfer Facility: [facility] Method of Transfer: EMS Departure-Patient Inst. Referrals: MELY BEDOYA MD (PCP/Family) Primary Care Physician OZZY LEMUS MD Jan 10, 2022 17:33
[2022-01-10] MEDS ORDERED: cefTRIAXone 1 GM PRE-MIX 50 ML IV STA (17:40)
[2022-01-10 17:53] LABS: BAND NEUTROPHILS 3 %; BASOPHILS % (MANUAL) 0 %; EOSINOPHILS % (MANUAL) 1 %; LYMPHOCYTES % (MANUAL) 20 %; METAMYELOCYTES % 1 %; MONOCYTES % (MANUAL) 7 %; NEUTROPHILS % (MANUAL) 68 %
[2022-01-10] MEDS ORDERED: NS IV 1000 ML 1,000 ML ONE (19:24)
[2022-01-10] MEDS ORDERED: NS IV 1000 ML 1,000 ML IV SCH (19:30)
[2022-01-10 19:50] VITALS: BP 126/106
== END 2022-01-10 19:50 | disposition short-term general hospital (02) ==
LOC: EDUNIT# 16:34 → ER FS 16:35
DX: A41.9 Sepsis, unspecified organism (principal); T83.511A Infection and inflammatory reaction due to indwelling urethral catheter, initial encounter; Z87.442 Personal history of urinary calculi; Z20.822 Contact with and (suspected) exposure to COVID-19
CPT/HCPCS: 36415; 71045; 80053; 81000; 83605; 85007; 85027; 86141; 87040; 87077; 87088; 87186; 87636

== ENCOUNTER 2022-06-16 10:41 | Emergency (ER) | payer MEDICARE, MEDICAID ==
[~2022-06-16 10:41] MED LIST changes: -DOXY-311 PO; +DOXY-444 PO
[2022-06-16 10:45] VITALS: BP 178/102
--- NOTE | 2022-06-16 11:21 | ED GU-Female ---
General Chief Complaint: Catheter/Drain/Tube Problems Stated Complaint: CATH ISSUES Source: patient, EMS History of Present Illness Date Seen by Provider: Jun 16, 2022 Time Seen by Provider: 10:41 Initial Comments 52-year-old female presenting by EMS from home with concern for obstructed indwelling suprapubic catheter. She was due to have the catheter changed this last week but she states that home health would not come to her house until she had it treated for "carpet beetles". EMS reported that she had bedbugs at home. Patient denies having bedbugs but home health will not return to her home until she has had the house treated by an garage door service technician. Patient was having increased pressure sensation in her pelvis and the catheter had leakage around it from her suprapubic site. She is not having signs of infection such as fever, chills, nausea, vomiting. She called EMS this morning to have transport to the emergency department to get the catheter change since she was overdue and it was starting to leak around the suprapubic insertion site. Timing/Duration: week, getting worse (Worsening leaking over the last week since she has not had the catheter changed when it was supposed to be done) Severity/Quality: other (Pressure sensation in her pelvis and lower abdomen) Sexual Sholes History: not active Associated Symptoms: abdominal pain (Pressure sensation in the lower abdomen and pelvis); No diaphoresis, No dysuria, No fever/chills, No mass, No nausea/vomiting, No syncope Allergies and Home Medications Allergies Coded Allergies: Sulfa (Sulfonamide Antibiotics) (Verified Allergy, Unknown, 10/23/18) vancomycin (Verified Allergy, Unknown, 10/23/18) Patient Home Medication List Home Medication List Reviewed: Yes Ascorbic Acid (Vitamin C) 1,000 Mg Tablet, 1,000 MG PO BID, (Reported) Entered as Reported by: CARLEY VERNON on 04/10/19 160 Baclofen (Baclofen) 20 Mg Tablet, 20 MG PO QID, (Reported) Entered as Reported by: CARLEY VERNON on 04/10/19 1607 Cetirizine HCl (Cetirizine HCl) 10 Mg Tablet, 10 MG PO DAILY, (Reported) Entered as Reported by: JAELYN MADRID on 04/12/19 0914 Diazepam (Diazepam) 10 Mg Tablet, 10 MG PO 0200,0800,1999, (Reported) Entered as Reported by: CARLEY VERNON on 04/10/19 1607 Diazepam (Diazepam) 10 Mg Tablet, 5 MG PO 1400, (Reported) Entered as Reported by: JAELYN MADRID on 12/27/21 112 Famotidine (Famotidine) 20 Mg Tablet, 20 MG PO BID, (Reported) Entered as Reported by: JAELYN MADRID on 12/27/21 112 Ibuprofen (Ibuprofen) 600 Mg Tablet, 600 MG PO TID PRN for PAIN-MILD (1-4), (Reported) Entered as Reported by: JAELYN MADRID on 12/27/21 112 Levofloxacin (Levofloxacin) 750 Mg Tablet, 750 MG PO DAILY Prescribed by: JONN LIRA on 12/28/21 1218 Metformin HCl (Metformin HCl) 500 Mg Tablet, 500 MG PO DAILY, (Reported) Entered as Reported by: CONNOR SANTORO on 12/08/20 0943 Methenamine Hippurate (Methenamine Hippurate) 1 Gram Tablet, 1 GM PO BID, (Reported) Entered as Reported by: JAELYN MADRID on 12/27/211126 Omeprazole (Omeprazole) 20 Mg Capsule.dr, 20 MG PO DAILY, (Reported) Entered as Reported by: JAELYN MADRID on 12/27/21 112 Oxybutynin Chloride (Oxybutynin Chloride ER) 15 Mg Tab.er.24, 15 MG PO DAILY, (Reported) Entered as Reported by: JAELYN MADRID on 10/26/19 1342 Rivaroxaban (Xarelto) 10 Mg Tablet, 10 MG PO 2000, (Reported) Entered as Reported by: JAELYN MADRID on 12/27/21 112 Rosuvastatin Calcium (Rosuvastatin Calcium) 5 Mg Tablet, 5 MG PO HS, (Reported) Entered as Reported by: JAELYN MADRID on 12/27/211126 Review of Systems Review of Systems Constitutional: No chills, No fever, No malaise EENTM: no symptoms reported Respiratory: no symptoms reported Cardiovascular: no symptoms reported Gastrointestinal: see HPI Genitourinary: see HPI (Blocked suprapubic catheter that was not draining well and had some leakage around the suprapubic insertion site) Musculoskeletal: no symptoms reported Skin: no symptoms reported Past Uqlwttc-Whgbno-Qaovot Hx Immunizations Up To Date First/Initial COVID19 Vaccinat: 2020 Second COVID19 Vaccination [place]: 2020 Third COVID19 Vaccination Date: 2020 Seasonal Allergies Seasonal Allergies: No Past Medical History Surgery/Hospitalization HX: 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; parapalegic; suprapubic catheter; Surgeries: Yes (right AKA, sp tube, port x2, ORIF Left leg) Amputation, Cystectomy, Gallbladder, 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, Orthopedic, Urinary Diversion Respiratory: No Cardiac: No Neurological: Yes Paralysis, Spinal Cord Injury Female Reproductive Disorders: Endometriosis, 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 Genitourinary: Yes (SP cath) Kidney Stones, Neurogenic Bladder, UTI-Chronic Gastrointestinal: Yes Gastroesophageal Reflux Musculoskeletal: Yes (OSTEOMYELITIS) Amputee, Back Injury Endocrine: Yes Diabetes, Non-Insulin dep HEENT: No Cancer: No Psychosocial: Yes Anxiety Integumentary: Yes (hx of DECUB STAGE 4, PRESSURE ULCER, CELLULITIS, MRSA) Blood Disorders: Yes (IRON DEFICIENCY ANEMIA) Family Medical History Heart Disease, Cancer, Stroke Physical Exam Vital Signs Vital Signs - First Documented 06/16/22 10:45 Temp 35.8 Pulse 110 Resp 16 B/P (MAP) 178/102 (127) Pulse Ox 100 O2 Delivery Room Air Capillary Refill : Height, Weight, BMI Height: 5'5.00" Weight: 175lbs. oz. 79.453969ox; 21.85 BMI Method:Estimated General Appearance: no apparent distress Cardiovascular: normal peripheral pulses Gastrointestinal: normal bowel sounds, soft, no pulsatile mass; No distended, No guarding, No rebound; tenderness (Increased pressure sensation with palpation over the suprapubic area) Neurologic/Psychiatric: alert, oriented x 3 Skin: normal color, warm/dry Progress/Results/Core Measures Suspected Sepsis SIRS Temperature: Pulse: Respiratory Rate: Blood Pressure / Mean: Results/Orders Lab Results Laboratory Tests Test 06/16/22 11:19 Range/Units Urine Color YELLOW Urine Clarity CLEAR Urine pH 6.5 5-9 Urine Specific [place] 1.020 1.016-1.022 Urine Protein 2+ H NEGATIVE Urine Glucose (UA) NEGATIVE NEGATIVE Urine Ketones NEGATIVE NEGATIVE Urine Nitrite POSITIVE H NEGATIVE Urine Bilirubin NEGATIVE NEGATIVE Urine Urobilinogen 0.2 < = 1.0 MG/DL Urine Leukocyte Esterase 3+ H NEGATIVE Urine RBC (Auto) 3+ H NEGATIVE Urine RBC 50-100 H /HPF Urine WBC 50-100 H /HPF Urine Squamous Epithelial Cells 0-2 /HPF Urine Crystals NONE /LPF Urine Bacteria LARGE H /HPF Urine Casts NONE /LPF Urine Mucus NEGATIVE /LPF Urine Culture Indicated YES My Orders Orders - OZZY LEMUS MD Gonsalves Cath (06/16/22 11:10) Ua Culture If Indicated (06/16/22 11:10) Urine Culture (06/16/22 11:19) Vital Signs/I&O 06/16/22 10:45 Temp 35.8 Pulse 110 Resp 16 B/P (MAP) 178/102 (127) Pulse Ox 100 O2 Delivery Room Air Capillary Refill : Progress Note : Progress Note As patient does not have any concerns for infection and just needed her catheter changed the suprapubic catheter was changed out by the nursing staff. A new catheter was placed here today. A urinalysis was sent since the catheter was placed through the emergency department however with patient having no current symptoms of UTI will defer antibiotics as she will undoubtedly have signs of infection from the chronic indwelling suprapubic catheter. This is likely more colonization than true infection and will wait on culture results and checking with patient if she was having worsening symptoms. Encourage fluids and hydration. Follow-up through primary care for continued concerns Departure Impression Primary Impression: Obstructed Gonsalves catheter Qualified Codes: T83.091A - Other mechanical complication of indwelling urethral catheter, initial encounter Additional Impressions: Gonsalves catheter in place prior to arrival Urinary catheter (Gonsalves) change required Chronic indwelling Gonsalves catheter Disposition: 01 HOME, SELF-CARE Condition: Stable Departure-Patient Inst. Decision time for Depature: 11:20 Referrals: MELY BEDOYA MD (PCP) Primary Care Physician Patient Instructions: How to Care for Your Gonsalves Catheter Add. Discharge Instructions: Continue to work with home health and your primary care provider for continued care of your chronic catheter. All discharge instructions reviewed with patient and/or family. Voiced understanding. OZZY LEMUS MD Jun 16, 2022 11:21
[2022-06-16 11:22] LABS: BILIRUBIN,URINE NEGATIVE (NEGATIVE); CLARITY,URINE CLEAR; COLOR,URINE YELLOW; GLUCOSE, URINE (UA) NEGATIVE (NEGATIVE); KETONES,URINE NEGATIVE (NEGATIVE); LEUKOCYTE ESTERASE ,URINE 3+ (NEGATIVE); NITRITE,URINE POSITIVE (NEGATIVE); PH,URINE 6.5 (5-9); PROTEIN,URINE 2+ (NEGATIVE)
[2022-06-16 11:24] LABS: BACTERIA,URINE LARGE /HPF; RBC,URINE 50-100 /HPF; WBC,URINE 50-100 /HPF
[2022-06-16 11:25] LABS: SQUAMOUS EPITHELIAL CELL,UR 0-2 /HPF
== END 2022-06-16 11:25 | disposition home or self-care (01) ==
LOC: EDUNIT# 10:41 → ER FS 10:42
DX: T83.091A Other mechanical complication of indwelling urethral catheter, initial encounter (principal)
CPT/HCPCS: 51702; 81000; 87088

== ENCOUNTER 2022-07-19 19:11 | Emergency (ER) | payer MEDICARE, MEDICAID ==
[2022-07-19] MEDS ORDERED: NS IV 1000 ML 1,000 ML IV STA (19:28)
[2022-07-19 19:33] LABS: BASOPHILS # (AUTO) 0.1 10^3/uL (0.0-0.1); BASOPHILS % (AUTO) 1 % (0-10); EOSINOPHILS # (AUTO) 0.5 10^3/uL (0.0-0.3); EOSINOPHILS % (AUTO) 6 % (0-10); HEMATOCRIT 36 % (35-52); HEMOGLOBIN 11.1 g/dL (11.5-16.0); LYMPHOCYTES # (AUTO) 3.2 10^3/uL (1.0-4.0); LYMPHOCYTES % (AUTO) 33 % (12-44); MEAN CORPUSCULAR HEMOGLOBIN 27 pg (25-34); MEAN CORPUSCULAR HGB CONC 31 g/dL (32-36); MEAN CORPUSCULAR VOLUME 88 fL (80-99); MEAN PLATELET VOLUME 10.1 fL (9.0-12.2); MONOCYTES % (AUTO) 10 % (0-12); NEUTROPHILS % (AUTO) 51 % (42-75); PLATELET COUNT 356 10^3/uL (130-400); WHITE BLOOD COUNT 9.8 10^3/uL (4.3-11.0)
[2022-07-19 19:47] LABS: ALBUMIN 3.9 GM/DL (3.2-4.5); BILIRUBIN,TOTAL 0.2 MG/DL (0.1-1.0); CALCIUM 9.3 MG/DL (8.5-10.1); CREATININE SERUM 0.58 MG/DL (0.60-1.30); POTASSIUM 4.1 MMOL/L (3.6-5.0); TOTAL PROTEIN 7.3 GM/DL (6.4-8.2)
--- NOTE | 2022-07-19 19:48 | ED EENT ---
History of Present Illness General Chief Complaint: General Problems/Pain Stated Complaint: FEVER Nursing Triage Note: Pt complaining of sinus pressure Source: patient, EMS History of Present Illness Date Seen by Provider: Jul 19, 2022 Time Seen by Provider: 19:12 Initial Comments 52-year-old female presenting with complaints of sinus pressure and facial swelling with pain to the left side of her face. She states this has been going on for the last week or more. She had been to the clinic and saw nurse practitioner on Friday. She reports that after she got home from that appointment she had a fever up to 102.5 and was feeling bad. She did use warm compresses to the side of her face and states that she was able to get some drainage from her ear. She had been told that the ear canal was plugged with wax. She states that the pain has not improved since she got the drainage from her ear. She has not had a fever since Friday. She overall just felt bad today and called EMS to have them bring her to the emergency department to be evaluated. 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 Timing/Duration: this afternoon (felt worse this afternoon), last week Severity: moderate Location: facial Prearrival Treatment: no prearrival treatment Modifying Factors: Worse With Other (palpation of the preauricular area) Associated Symptoms: No cough; facial pain/swelling, fever (102.5 on Monday 07/17), malaise, nasal congestion/drainage, sinus infection; No tooth pain, No voice change Allergies and Home Medications Allergies Coded Allergies: Sulfa (Sulfonamide Antibiotics) (Verified Allergy, Unknown, 10/23/18) vancomycin (Verified Allergy, Unknown, 10/23/18) Patient Home Medication List Home Medication List Reviewed: Yes Ascorbic Acid (Vitamin C) 1,000 Mg Tablet, 1,000 MG PO BID, (Reported) Entered as Reported by: CARLEY VERNON on 04/10/191606 Baclofen (Baclofen) 20 Mg Tablet, 20 MG PO QID, (Reported) Entered as Reported by: CARLEY VERNON on 04/10/191606 Cefuroxime Axetil (Cefuroxime) 500 Mg Tablet, 500 MG PO BID Prescribed by: OZZY LEMUS on 07/19/222144 Cetirizine HCl (Cetirizine HCl) 10 Mg Tablet, 10 MG PO DAILY, (Reported) Entered as Reported by: JAELYN MADRID on 04/12/19 0914 Diazepam (Diazepam) 10 Mg Tablet, 10 MG PO 0200,0800,1999, (Reported) Entered as Reported by: CARLEY VERNON on 04/10/19 1607 Diazepam (Diazepam) 10 Mg Tablet, 5 MG PO 1400, (Reported) Entered as Reported by: JAELYN MADRID on 12/27/21 112 Famotidine (Famotidine) 20 Mg Tablet, 20 MG PO BID, (Reported) Entered as Reported by: JAELYN MADRID on 12/27/211126 Ibuprofen (Ibuprofen) 600 Mg Tablet, 600 MG PO TID PRN for PAIN-MILD (1-4), (Reported) Entered as Reported by: JAELYN MADRID on 12/27/211126 Levofloxacin (Levofloxacin) 750 Mg Tablet, 750 MG PO DAILY Prescribed by: JONN LIRA on 12/28/21 1218 Metformin HCl (Metformin HCl) 500 Mg Tablet, 500 MG PO DAILY, (Reported) Entered as Reported by: CONNOR SANTORO on 12/08/20 0943 Methenamine Hippurate (Methenamine Hippurate) 1 Gram Tablet, 1 GM PO BID, (Reported) Entered as Reported by: JEALYN MADRID on 12/27/211126 Omeprazole (Omeprazole) 20 Mg Capsule.dr, 20 MG PO DAILY, (Reported) Entered as Reported by: JAELYN MADRID on 12/27/21 112 Oxybutynin Chloride (Oxybutynin Chloride ER) 15 Mg Tab.er.24, 15 MG PO DAILY, (Reported) Entered as Reported by: JAELYN MADRID on 10/26/19 1342 Rivaroxaban (Xarelto) 10 Mg Tablet, 10 MG PO 1999, (Reported) Entered as Reported by: JAELYN MADRID on 12/27/21 112 Rosuvastatin Calcium (Rosuvastatin Calcium) 5 Mg Tablet, 5 MG PO HS, (Reported) Entered as Reported by: JAELYN MADRID on 12/27/211126 Review of Systems Review of Systems Constitutional: see HPI Eyes: No Symptoms Reported Ears: See HPI Nose: congestion Mouth: no symptoms reported Throat: no symptoms reported Respiratory: no symptoms reported Cardiovascular: no symptoms reported Gastrointestinal: no symptoms reported Musculoskeletal: see HPI (generalized body aches) Skin: No rash Neurological: Headache (left sided preauricular area onto face and forehead) Past Tzcixkg-Qcfjaw-Cuijuw Hx Patient Social History Tobacco Use?: No Substance use?: No Alcohol Use?: No Immunizations Up To Date First/Initial COVID19 Vaccinat: 2020 Second COVID19 Vaccination [place]: 2020 Third COVID19 Vaccination Date: 2020 Seasonal Allergies Seasonal Allergies: No Past Medical History Surgery/Hospitalization HX: 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; parapalegic; suprapubic catheter; Chronic sinusitis Surgeries: Yes (right AKA, sp tube, port x2, ORIF Left leg) Amputation, Cystectomy, Gallbladder, 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, Orthopedic, Urinary Diversion Respiratory: No Cardiac: No Neurological: Yes Paralysis, Spinal Cord Injury Female Reproductive Disorders: Endometriosis, Ovarian Cyst [employer]REET [employer] INS[employer]OR History: 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 Genitourinary: Yes (SP cath) Kidney Stones, Neurogenic Bladder, UTI-Chronic Gastrointestinal: Yes Gastroesophageal Reflux Musculoskeletal: Yes (OSTEOMYELITIS) Amputee, Back Injury Endocrine: Yes Diabetes, Non-Insulin dep HEENT: No Cancer: No Psychosocial: Yes Anxiety Integumentary: Yes (hx of DECUB STAGE 4, PRESSURE ULCER, CELLULITIS, MRSA) Blood Disorders: Yes (IRON DEFICIENCY ANEMIA) Family Medical History Heart Disease, Cancer, Stroke Physical Exam Vital Signs Vital Signs - First Documented 07/19/22 19:13 Temp 37.0 Pulse 92 Resp 18 B/P (MAP) 134/84 (101) Pulse Ox 97 O2 Delivery Room Air Height, Weight, BMI Height: 5'5.00" Weight: 175lbs. oz. 79.380008vv; 21.85 BMI Method:Estimated General Appearance: no apparent distress Eyes: bilateral eye PERRL, bilateral eye EOMI Ears: bilateral ear auricle normal, bilateral ear canal normal, bilateral ear TM normal Mouth/Throat: normal mouth inspection Neck: full range of motion, supple, normal inspection Cardiovascular: normal peripheral pulses, regular rate, rhythm Respiratory: chest non-tender, lungs clear, normal breath sounds Gastrointestinal: normal bowel sounds, non tender, soft, no pulsatile mass Neurologic/Psychiatric: alert, oriented x 3 Skin: warm/dry Progress/Results/Core Measures Results/Orders Lab Results Laboratory Tests Test 07/19/22 19:25 Range/Units White Blood Count 9.8 4.3-11.0 10^3/uL Red Blood Count 4.05 3.80-5.11 10^6/uL Hemoglobin 11.1 L 11.5-16.0 g/dL Hematocrit 36 35-52 % Mean Corpuscular Volume 88 80-99 fL Mean Corpuscular Hemoglobin 27 25-34 pg Mean Corpuscular Hemoglobin Concent 31 L 32-36 g/dL Red Cell Distribution Width 14.6 H 10.0-14.5 % Platelet Count 356 130-400 10^3/uL Mean Platelet Volume 10.1 9.0-12.2 fL Immature Granulocyte % (Auto) 0 % Neutrophils (%) (Auto) 51 42-75 % Lymphocytes (%) (Auto) 33 12-44 % Monocytes (%) (Auto) 10 0-12 % Eosinophils (%) (Auto) 6 0-10 % Basophils (%) (Auto) 1 0-10 % Neutrophils # (Auto) 5.0 1.8-7.8 10^3/uL Lymphocytes # (Auto) 3.2 1.0-4.0 10^3/uL Monocytes # (Auto) 1.0 0.0-1.0 10^3/uL Eosinophils # (Auto) 0.5 H 0.0-0.3 10^3/uL Basophils # (Auto) 0.1 0.0-0.1 10^3/uL Immature Granulocyte # (Auto) 0.0 0.0-0.1 10^3/uL Sodium Level 140 135-145 MMOL/L Potassium Level 4.1 3.6-5.0 MMOL/L Chloride Level 103 98-107 MMOL/L Carbon Dioxide Level 23 21-32 MMOL/L Anion Gap 14 5-14 MMOL/L Blood Urea Nitrogen 14 7-18 MG/DL Creatinine 0.58 L 0.60-1.30 MG/DL Estimat Glomerular Filtration Rate 109 BUN/Creatinine Ratio 24 Glucose Level 254 H 70-105 MG/DL Lactic Acid Level 2.14 *H 0.50-2.00 MMOL/L Calcium Level 9.3 8.5-10.1 MG/DL Corrected Calcium 9.4 8.5-10.1 MG/DL Total Bilirubin 0.2 0.1-1.0 MG/DL Aspartate Amino Transf (AST/SGOT) 23 5-34 U/L Alanine Aminotransferase (ALT/SGPT) 20 0-55 U/L Alkaline Phosphatase 87 40-136 U/L C-Reactive Protein 4.70 H <0.50 MG/DL Total Protein 7.3 6.4-8.2 GM/DL Albumin 3.9 3.2-4.5 GM/DL My Orders Orders - OZZY LEMUS MD Cbc With Automated Diff (07/19/22 19:28) Comprehensive Metabolic Panel (07/19/22 19:28) Blood Culture (07/19/22 19:28) Ed Iv/Invasive Line Start (07/19/22 19:28) Crp Fs (07/19/22 19:28) Lactic Acid Analyzer (07/19/22 19:) Ct Sinus Complete Wo (07/19/22 19:28) Ns Iv 1000 Ml (Sodium Chloride 0.9%) (07/19/22 19:28) Ceftriaxone Iv/Im (Rocephin Iv/Im) (07/19/22 21:37) Ceftriaxone Pre-Mix (Rocephin Pre-Mix) (07/19/22 21:41) Ceftriaxone Pre-Mix (Rocephin Pre-Mix) (07/19/22 21:45) Medications Given in ED Current Medications Medications Dose Ordered Sig/Kaylan Route Start Time Stop Time Status Last Admin Dose Admin Ceftriaxone Sodium/Dextrose 50 ml @ ud STK-MED ONCE IV 07/19/22 21:41 07/19/22 21:45 DC 07/19/22 21:42 100 MLS/HR Vital Signs/I&O 07/19/22 07/19/22 19:13 22:02 Temp 37.0 Pulse 92 93 Resp 18 18 B/P (MAP) 134/84 (101) 146/72 Pulse Ox 97 97 O2 Delivery Room Air Room Air 07/20/22 00:00 Intake Total 1050 ml Balance 1050 ml Blood Pressure Mean: 101 Progress Progress Note #1: Progress Note Potential diagnosis of sinusitis, sepsis, lymphangitis, facial abscess, sepsis. Obtain peripheral IV access and send labs for complete blood count, comprehensive metabolic profile, blood cultures, lactic acid. Order CT scan of the sinuses to look for signs of sinusitis or lymphadenopathy or abscess. Patient refused IV pain medicine. Progress Note #2: Progress Note Complete blood count does not show elevation of her white blood cells at cellular at 9.8. Hemoglobin with mild anemia at 11.1. Comprehensive metabolic profile did not show acute significant abnormality to account for her symptoms. Her lactic acid was 2.1 so at upper limit of normal and could go along with infection but may also indicate some dehydration. CRP was elevated to 4.[address] scan of soft tissue neck did not show abscess but she had mucus retention cyst to the left maxillary sinus with some miild mucosal thickening but no fluid build up to indicate acute sinusitis. Will review with patient the findings and check to see if she had been on any antibiotics recently and what antibiotic she thought she could tolerate. She did mention that she was on Augmentin for over 5 years so she does not feel that that medicine helps her anymore. I advised her from a sinus standpoint that is one of our first-line agents. We will try Ceftin instead to see how she responds to that. Encourage fluids and hydration. Since she has findings for some chronic sinusitis will prescribe Ceftin 500 mg p.o. twice daily x10 days and encouraged to try using a nasal steroid spray. Patient was refusing and saying that she did not want to use 1 of those. Encouraged follow-up with ENT if she has continued problems. Give first dose of antibiotic here in ED with Ceftriaxone 1 gm IV and [facility] 10 day course of Ceftin 500 mg po BID. Diagnostic Imaging Diagonstic Imaging: CT Plain Films/CT/US/NM/MRI: facial bones (sinuses) Comments [facility]. [place], [place] NAME: VIKI MCGREGOR [facility] REC#: [id number] PT STATUS: REG ER : 1970 PHYSICIAN: OZZY LEMUS MD ADMIT DATE: 07/19/22/ER FS Signed Date of Exam:07/19/22 CT SINUS COMPLETE WO PROCEDURE: CT Sinus w/o Contrast. TECHNIQUE: Multiple contiguous axial images were obtained through the sinuses without the use of intravenous contrast. Coronal reformations were performed. All CT scans use one or more of the following dose optimizing techniques: automated exposure control, MA and/or KvP adjustment based on a patient size and exam type, or iterative reconstruction. INDICATION: Sinus pain. COMPARISON: None FINDINGS: A mucous retention cyst is seen in the left sphenoid sinus. Mild mucosal thickening is seen in the left maxillary sinus. No fluid levels in the paranasal sinuses. The ostiomeatal complexes are patent. The sphenoethmoid and frontoethmoid recesses are patent and unremarkable. The mastoid air cells are well pneumatized. The bony nasal septum is midline. A nasal spur is seen contacting the right inferior turbinate. No acute facial fractures. The globes and orbits are symmetric and unremarkable. Included intracranial contents show no acute abnormalities. The included soft tissues of the head are normal in appearance. IMPRESSION: 1. Mild mucosal thickening in the left maxillary sinus with mucous retention cyst in the left sphenoid sinus. No fluid levels to suggest acute sinusitis. 2. Nasal spur contacting the right inferior turbinate. Dictated by: Dictated on workstation # [id number] Dict: 07/19/222022 Trans: 07/19/222036 MARINA [id number] Interpreted by: KRIS EPSTEIN DO Electronically signed by: KRIS EPSTEIN DO 07/19/222036 Reviewed: Reviewed by Me Departure Impression Primary Impression: Retention cyst of nasal sinus Additional Impression: Sinus pressure Disposition: 01 HOME, SELF-CARE Condition: Stable Departure-Patient Inst. Decision time for Depature: 21:45 Referrals: MELY BEDOYA MD (PCP) Primary Care Physician NEEL GRIFFIN MD Patient Instructions: Nasal Polyps, Chronic Sinusitis Add. Discharge Instructions: You have a mucus containing cyst in the left maxillary sinus in your cheek. This can be causing increased pressure. There is no fluid collection with it to indicate an acute sinusitis. You could have chronic sinusitis and the cyst is causing more pressure and pain now. Check with ENT for continued concerns. Dr. Griffin may have to drain the cyst in your sinus or scrape out the sinuses to help clear them of the cyst and chronic sinusitis May try nasal steroid spray to help with the cyst and pressure. Take the antibiotic course to help with the chronic sinusitis. Your acid reducing medicine can decrease your absorption of the antibiotic so try to separate the time you take the omeprazole and famotidine from the time you take the Ceftin (Cefuroxime). Take the antibiotic with food will also help it absorb better. All discharge instructions reviewed with patient and/or family. Voiced understanding. Scripts Cefuroxime Axetil (Cefuroxime) 500 Mg Tablet 500 MG PO BID for Chronic sinusitis for 10 Days, #20 TAB 0 Refills Prov: OZZY LEMUS MD 07/19/22 OZZY LEMUS MD Jul 19, 2022 19:48
--- NOTE | 2022-07-19 20:34 | Diagnostic Imaging Report ---
PROCEDURE: CT Sinus w/o Contrast. TECHNIQUE: Multiple contiguous axial images were obtained through the sinuses without the use of intravenous contrast. Coronal reformations were performed. All CT scans use one or more of the following dose optimizing techniques: automated exposure control, MA and/or KvP adjustment based on a patient size and exam type, or iterative reconstruction. INDICATION: Sinus pain. COMPARISON: None FINDINGS: A mucous retention cyst is seen in the left sphenoid sinus. Mild mucosal thickening is seen in the left maxillary sinus. No fluid levels in the paranasal sinuses. The ostiomeatal complexes are patent. The sphenoethmoid and frontoethmoid recesses are patent and unremarkable. The mastoid air cells are well pneumatized. The bony nasal septum is midline. A nasal spur is seen contacting the right inferior turbinate. No acute facial fractures. The globes and orbits are symmetric and unremarkable. Included intracranial contents show no acute abnormalities. The included soft tissues of the head are normal in appearance. IMPRESSION: 1. Mild mucosal thickening in the left maxillary sinus with mucous retention cyst in the left sphenoid sinus. No fluid levels to suggest acute sinusitis. 2. Nasal spur contacting the right inferior turbinate. Dictated by: Dictated on workstation # [id number]
[2022-07-19] MEDS ORDERED: cefTRIAXone IV/IM 1,000 MG in NS (IVPB) 50 ML IV STA (21:37)
[2022-07-19] MEDS ORDERED: cefTRIAXone PRE-MIX 50 ML IV ONE (21:41)
[2022-07-19] MEDS ORDERED: cefTRIAXone 1 GM PRE-MIX 1 GM/50 ML BAG IV STA (21:45)
[2022-07-19] MEDS ORDERED: CEFU500T63 PO (21:45)
[2022-07-19 22:02] VITALS: BP 146/72
== END 2022-07-19 22:10 | disposition home or self-care (01) ==
LOC: EDUNIT# 19:11 → ER FS 19:12
DX: J34.1 Cyst and mucocele of nose and nasal sinus (principal); D64.9 Anemia, unspecified; J32.9 Chronic sinusitis, unspecified; R79.82 Elevated C-reactive protein (CRP); Z88.2 Allergy status to sulfonamides; Z88.1 Allergy status to other antibiotic agents
CPT/HCPCS: 36415; 70486; 80053; 83605; 85025; 86141; 87040

== ENCOUNTER 2022-10-03 21:54 | Inpatient (IN) | payer MEDICARE, MEDICAID ==
[~2022-10-03] VITALS: Ht 63 cm; Wt 60.1 kg
[~2022-10-03 21:54] MED LIST changes: +CALC200T22 PO; -CALC200T50 PO; +CEFU500T63 PO
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
[2022-10-03] MEDS ORDERED: ACETAMINOPHEN 500 MG TAB (TYLENOL) PO PRN (22:15)
[2022-10-03] MEDS ORDERED: NS IV ONE (22:15)
[2022-10-03] MEDS ORDERED: MEROPENEM IV ONE (22:15)
[2022-10-03] MEDS ORDERED: NS IV 1000 ML 1,000 ML IV SCH (22:15)
[2022-10-03 22:21] LABS: BASOPHILS # (AUTO) 0.1 10^3/uL (0.0-0.1); BASOPHILS % (AUTO) 1 % (0-10); EOSINOPHILS # (AUTO) 0.4 10^3/uL (0.0-0.3); EOSINOPHILS % (AUTO) 2 % (0-10); HEMATOCRIT 38 % (35-52); HEMOGLOBIN 12.1 g/dL (11.5-16.0); LYMPHOCYTES % (AUTO) 11 % (12-44); MEAN CORPUSCULAR HEMOGLOBIN 27 pg (25-34); MEAN CORPUSCULAR HGB CONC 32 g/dL (32-36); MEAN CORPUSCULAR VOLUME 85 fL (80-99); MEAN PLATELET VOLUME 10.5 fL (9.0-12.2); MONOCYTES % (AUTO) 11 % (0-12); NEUTROPHILS % (AUTO) 75 % (42-75); PLATELET COUNT 365 10^3/uL (130-400); WHITE BLOOD COUNT 18.6 10^3/uL (4.3-11.0)
[2022-10-03 22:36] LABS: BILIRUBIN,URINE NEGATIVE (NEGATIVE); CLARITY,URINE TURBID; COLOR,URINE YELLOW; GLUCOSE, URINE (UA) NEGATIVE (NEGATIVE); KETONES,URINE 2+ (NEGATIVE); LEUKOCYTE ESTERASE ,URINE 3+ (NEGATIVE); NITRITE,URINE POSITIVE (NEGATIVE); PROTEIN,URINE 1+ (NEGATIVE)
[2022-10-03 22:50] LABS: BAND NEUTROPHILS 16 %; BASOPHILS % (MANUAL) 1 %; EOSINOPHILS % (MANUAL) 5 %; LYMPHOCYTES % (MANUAL) 9 %; METAMYELOCYTES % 2 %; MONOCYTES % (MANUAL) 9 %; NEUTROPHILS % (MANUAL) 57 %; PLATELET ESTIMATE NORMAL; REACTIVE LYMPHOCYTES 1 %
[2022-10-03 22:51] LABS: BACTERIA,URINE LARGE /HPF; WBC,URINE >100 /HPF
[2022-10-03 22:51] LABS: RBC MORPH NORMAL
[2022-10-03 22:52] LABS: CALCIUM OXALATE CRYSTALS,UR FEW /LPF; YEAST,URINE LARGE /HPF
[2022-10-03 23:06] LABS: INR 1.1 (0.8-1.4); PROTHROMBIN TIME PATIENT 15.1 SEC (12.2-14.7)
[2022-10-03 23:09] LABS: ALBUMIN 3.9 GM/DL (3.2-4.5); BILIRUBIN,TOTAL 0.3 MG/DL (0.1-1.0); CALCIUM 9.6 MG/DL (8.5-10.1); CREATININE SERUM 0.49 MG/DL (0.60-1.30); TOTAL PROTEIN 7.1 GM/DL (6.4-8.2)
[2022-10-04] MEDS ORDERED: IBUPROFEN 600 MG (MOTRIN) TAB PO PRN ×2 (03:15→22:15)
[2022-10-04] MEDS ORDERED: ACETAMINOPHEN 500 MG TAB (TYLENOL) PO PRN (03:15)
[2022-10-04] MEDS ORDERED: CATHETER FLUSH 10 ML SYR IVP PRN (03:15)
[2022-10-04 04:04] VITALS: BP 114/50
[2022-10-04] MEDS ORDERED: RT-ALBUTEROL/IPRATROPIUM 3 ML (DUONEB) VIAL INH PRN (04:15)
[2022-10-04] MEDS ORDERED: MEROPENEM 500 MG VIAL (MERREM) IV ONE (05:57)
[2022-10-04] MEDS: inSUlin ASPART (NovoLOG) 1 UNIT/0.01 ML (CHARGE PER UNIT) SC SCH ×2 (06:20→11:29)
[2022-10-04] MEDS: CATHETER FLUSH 10 ML SYR IVP SCH ×3 (06:20→20:11)
[2022-10-04] MEDS: MEROPENEM 500 MG/NS 100 ML IVPB IV SCH ×6 (06:21→18:34)
[2022-10-04] MEDS: BACLOFEN 10 MG (LIORESAL) TAB PO SCH ×4 (08:30→20:10)
[2022-10-04] MEDS: OXYBUTYNIN (DITROPAN) 5 MG TAB PO SCH ×3 (08:45→20:10)
--- NOTE | 2022-10-04 08:49 | Diagnostic Imaging Report ---
INDICATION: Sepsis and fever. AP upright view of the chest is obtained with comparison made to study of 01/10/2022. FINDINGS: Heart size and pulmonary vascularity are within normal limits, and the lungs are clear, bilaterally. Surgical findings in the thoracic spine are again noted. IMPRESSION: Unremarkable chest. Dictated by: Dictated on workstation # [id number]
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
[2022-10-04 09:54] LABS: BASOPHILS # (AUTO) 0.1 10^3/uL (0.0-0.1); BASOPHILS % (AUTO) 1 % (0-10); EOSINOPHILS # (AUTO) 0.3 10^3/uL (0.0-0.3); EOSINOPHILS % (AUTO) 2 % (0-10); HEMATOCRIT 37 % (35-52); HEMOGLOBIN 11.6 g/dL (11.5-16.0); LYMPHOCYTES % (AUTO) 18 % (12-44); MEAN CORPUSCULAR HEMOGLOBIN 27 pg (25-34); MEAN CORPUSCULAR HGB CONC 32 g/dL (32-36); MEAN CORPUSCULAR VOLUME 84 fL (80-99); MEAN PLATELET VOLUME 10.3 fL (9.0-12.2); MONOCYTES # (AUTO) 1.7 10^3/uL (0.0-1.0); MONOCYTES % (AUTO) 14 % (0-12); NEUTROPHILS # (AUTO) 7.5 10^3/uL (1.8-7.8); NEUTROPHILS % (AUTO) 65 % (42-75); PLATELET COUNT 270 10^3/uL (130-400); WHITE BLOOD COUNT 11.6 10^3/uL (4.3-11.0)
[2022-10-04 10:10] LABS: ALBUMIN 3.7 GM/DL (3.2-4.5); POTASSIUM 3.7 MMOL/L (3.6-5.0)
[2022-10-04 10:11] LABS: CALCIUM 8.8 MG/DL (8.5-10.1)
[2022-10-04 10:12] LABS: TOTAL PROTEIN 6.8 GM/DL (6.4-8.2)
[2022-10-04 10:14] LABS: BILIRUBIN,TOTAL 0.4 MG/DL (0.1-1.0)
[2022-10-04 10:15] LABS: PHOSPHORUS 2.9 MG/DL (2.3-4.7)
[2022-10-04 10:16] LABS: CREATININE SERUM 0.6 MG/DL (0.60-1.30)
[2022-10-04 10:19] LABS: MAGNESIUM 1.6 MG/DL (1.6-2.4)
--- NOTE | 2022-10-04 10:22 | History & Physical ---
NALINI BEAVERS 10/04/22 1022: History of Present Illness History of Present Illness Reason for visit/HPI Yancy Mesa is a 52yo F with past medical hx of paraplegia, suprapubic catheter with recurrent UTIs, R AKA, PEs, and NIDDM who presented to the ED on 10/03 with complaints of fever. In the ED she was found to have fever, elevated lactic acid, UA suspicious for UTI which are consistent with urosepsis. She was given meropenem due to past sensitivities. Urine cx is pending. She first noticed the fever yesterday. Has multiple UTIs in the past, has grown psuedomonas on culture. She is reluctant to speak with me because she wishes to sleep. She reports she is tired and is not in any pain currently. Denies suprapubic pain. Has not noticed any changes in her suprapubic catheter output. No cloudiness or hematuria. No shortness of breath or chest pain. Feels like her fever has improved. Date of Admission Oct 04, 2022 at 02:55 Time Seen by a Provider: 08:45 I consulted on this patient on 10/04/22 10:17 Attending Physician Kenneth Nelson MD Admitting Physician Admitting Physician: Nela Shaikh DO Attending Physician: Nela Shaikh DO Consult Allergies and Home Medications Allergies Coded Allergies: Sulfa (Sulfonamide Antibiotics) (Verified Allergy, Unknown, 10/23/18) vancomycin (Verified Allergy, Unknown, 10/23/18) Patient Home Medication List Home Medication List Reviewed: Yes Ascorbic Acid (Vitamin C) 1,000 Mg Tablet, 1,000 MG PO BID, (Reported) Entered as Reported by: CARLEY VERNON on 04/10/19 1607 Last Action: Converted Baclofen (Baclofen) 20 Mg Tablet, 20 MG PO QID, (Reported) Entered as Reported by: CARLEY VERNON on 04/10/19 1607 Last Action: Converted Cetirizine HCl (Cetirizine HCl) 10 Mg Tablet, 10 MG PO 0200,0800, (Reported) Entered as Reported by: JAELYN MADRID on 04/12/19 0914 Last Action: Converted Diazepam (Diazepam) 10 Mg Tablet, 5 MG PO 0200,0800,1400,2000, (Reported) Entered as Reported by: JAELYN MADRID on 9/29/22 1127 Last Action: Converted Ezetimibe (Ezetimibe) 10 Mg Tablet, 10 MG PO HS, (Reported) Entered as Reported by: JAELYN MADRID on 10/04/22 1346 Last Action: Continued Famotidine (Famotidine) 20 Mg Tablet, 20 MG PO BID, (Reported) Entered as Reported by: JAELYN MADRID on 12/27/211126 Last Action: Continued Ibuprofen (Ibuprofen) 600 Mg Tablet, 600 MG PO TID PRN for PAIN-MILD (1-4), (Reported) Entered as Reported by: JAELYN MADRID on 12/27/211126 Last Action: Continued Metformin HCl (Metformin HCl) 500 Mg Tablet, 500 MG PO DAILY, (Reported) Entered as Reported by: CONNOR SANTORO on 12/08/20 0919 Last Action: Continued Methenamine Hippurate (Methenamine Hippurate) 1 Gram Tablet, 1 GM PO BID, (Reported) Entered as Reported by: JAELYN MADRID on 12/27/211126 Last Action: Held Omeprazole (Omeprazole) 20 Mg Capsule.dr, 20 MG PO DAILY, (Reported) Entered as Reported by: JAELYN MADRID on 12/27/211126 Last Action: Continued Oxybutynin Chloride (Oxybutynin Chloride ER) 15 Mg Tab.er.24, 15 MG PO DAILY, (Reported) Entered as Reported by: JAELYN MADRID on 10/26/19 1342 Last Action: Converted Rivaroxaban (Xarelto) 10 Mg Tablet, 10 MG PO HS, (Reported) Entered as Reported by: JAELYN MADRID on 12/27/211126 Last Action: Continued Rosuvastatin Calcium (Rosuvastatin Calcium) 5 Mg Tablet, 5 MG PO HS, (Reported) Entered as Reported by: JAELYN MADRID on 12/27/211126 Last Action: Continued Discontinued Medications Cefuroxime Axetil (Cefuroxime) 500 Mg Tablet, 500 MG PO BID Discontinued Reason: No Longer Taking Prescribed by: OZZY LEMUS on 07/19/22 2361 Last Action: Discontinued Diazepam (Diazepam) 10 Mg Tablet, 10 MG PO 0200,0800,2000, (Reported) Discontinued Reason: No Longer Taking Entered as Reported by: CARLEY VERNON on 04/10/19 1607 Last Action: Discontinued Levofloxacin (Levofloxacin) 750 Mg Tablet, 750 MG PO DAILY Discontinued Reason: No Longer Taking Prescribed by: JONN LIRA on 12/28/21 1218 Last Action: Discontinued Past Wgkehgp-Ylkwwf-Strvzl Hx Patient Social History Tobacco Use?: No Use of E-Cig and/or Vaping dev: No Substance use?: No Alcohol Use?: No Pt feels they are or have been: No Immunizations Up To Date Date of Influenza Vaccine: Feb 09, 2020 First/Initial COVID19 Vaccinat: 2020 Second COVID19 Vaccination [place]: 2020 Seasonal Allergies Seasonal Allergies: No Current Status status: No status: No Advance Directives: No Communicates: Verbally Primary Language: Kazakh Preferred Spoken Language: Kazakh Is interpretation needed?: No Implanted or Applied Medical D: Orthopedic hardware (thoracic spine) Past Medical History Surgeries: Amputation (R aka), Gallbladder, 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, Orthopedic Paralysis, Spinal Cord Injury [employer] History: 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 Kidney Stones, Neurogenic Bladder, UTI-Chronic Gastroesophageal Reflux Amputee, Back Injury Diabetes, Non-Insulin dep Anxiety Blood Disorders: Yes (IRON DEFICIENCY ANEMIA) Family Medical History Heart Disease, Cancer, Stroke Review of Systems Constitutional: No chills, No diaphoresis; fever EENTM: nose congestion; No hearing loss, No vision loss Respiratory: No cough, No short of breath Cardiovascular: No chest pain, No palpitations Gastrointestinal: No abdominal pain, No nausea, No vomiting Genitourinary: No dysuria, No hematuria; other (suprapubic catheter) Musculoskeletal: other (paralysis) Psychiatric/Neurological: Denies Headache; Pre-Existing Deficit (paralysis) Physical Exam Vital Signs Vital Signs - First Documented 10/03/22 10/04/22 21:58 04:04 Temp 39.4 Pulse 136 Resp 18 B/P (MAP) 181/71 (107) Pulse Ox 93 O2 Delivery Room Air FiO2 21 Capillary Refill : Less Than 3 Seconds Height, Weight, BMI Height: 5'5.00" Weight: 175lbs. oz. [id number]; 25.27 BMI Method:Estimated General Appearance: No Apparent Distress HEENT: PERRL/EOMI, Moist Mucous Membranes Neck: Supple Respiratory: Lungs Clear, No Accessory Muscle Use, No Respiratory Distress Cardiovascular: Normal Peripheral Pulses, Tachycardia Gastrointestinal: Non Tender, Soft Rectal: Deferred Extremity: Non Tender, Other (R AKA) Neurologic/Psychiatric: Alert, Oriented x3, Normal Mood/Affect Skin: No Cool, No Cyanosis, No Diaphoresis Assessment/Plan Assessment and Plan Sepsis Complicated UTI Fever Leukocytosis Lactic acidosis- resolved Tachycardia Tele ICU consulted Continue meropenem 500mg Awaiting cx results, has grown psuedomonas in the past sensitive to meropenem UA + for leukocyte esterase, nitrites, and bacteria Blood culture pending afebrile now, continue to monitor vitals Hx of recurrent UTI in setting of suprapubic cath Lactic acid normalized to 1.9 from 3.7 WBC down to 11 from 18 on admission, continue daily CBC Tachycardic in low 100s, likely related to infectious etiology unremarkable CXR Received 1L of NaCl in ED Elevated PT and PTT both minimally elevated on 10/03 No signs of bleeding continue to monitor Paraplegia Rotate patient for ulcer ppx sacral decubitis ulcer present Hx of amputation- R AKA T2DM SSI Last glucose 181 DVT ppx- xarelto 10mg daily CODE status- full Move to 4th Admission Diagnosis Admission Status: Inpatient Order (span 2 midnights) NELA SHAIKH DO 10/04/222206: History of Present Illness History of Present Illness Date Seen by a Provider: Oct 04, 2022 Allergies and Home Medications Allergies Coded Allergies: Sulfa (Sulfonamide Antibiotics) (Verified Allergy, Unknown, 10/23/18) vancomycin (Verified Allergy, Unknown, 10/23/18) Patient Home Medication List Home Medication List Reviewed: Yes Ascorbic Acid (Vitamin C) 1,000 Mg Tablet, 1,000 MG PO BID, (Reported) Entered as Reported by: CARLEY VERNON on 04/10/191606 Last Action: Converted Baclofen (Baclofen) 20 Mg Tablet, 20 MG PO QID, (Reported) Entered as Reported by: CARLEY VERNON on 04/10/19 160 Last Action: Converted Cetirizine HCl (Cetirizine HCl) 10 Mg Tablet, 10 MG PO 0200,0800, (Reported) Entered as Reported by: JAELYN MADRID on 04/12/19 0914 Last Action: Converted Diazepam (Diazepam) 10 Mg Tablet, 5 MG PO 0200,0800,1400,2000, (Reported) Entered as Reported by: JAELYN MADRID on 12/27/21 1127 Last Action: Converted Ezetimibe (Ezetimibe) 10 Mg Tablet, 10 MG PO HS, (Reported) Entered as Reported by: JAELYN MADRID on 10/04/22 1346 Last Action: Continued Famotidine (Famotidine) 20 Mg Tablet, 20 MG PO BID, (Reported) Entered as Reported by: JAELYN MADRID on 12/27/211126 Last Action: Continued Ibuprofen (Ibuprofen) 600 Mg Tablet, 600 MG PO TID PRN for PAIN-MILD (1-4), (Reported) Entered as Reported by: JAELYN MADRID on 12/27/211126 Last Action: Continued Metformin HCl (Metformin HCl) 500 Mg Tablet, 500 MG PO DAILY, (Reported) Entered as Reported by: CONNOR SANTORO on 12/08/20 0943 Last Action: Continued Methenamine Hippurate (Methenamine Hippurate) 1 Gram Tablet, 1 GM PO BID, (Reported) Entered as Reported by: JAELYN MADRID on 12/27/211126 Last Action: Held Omeprazole (Omeprazole) 20 Mg Capsule.dr, 20 MG PO DAILY, (Reported) Entered as Reported by: JAELYN MADRID on 12/27/211126 Last Action: Continued Oxybutynin Chloride (Oxybutynin Chloride ER) 15 Mg Tab.er.24, 15 MG PO DAILY, (Reported) Entered as Reported by: JAELYN MADRID on 10/26/19 1342 Last Action: Converted Rivaroxaban (Xarelto) 10 Mg Tablet, 10 MG PO HS, (Reported) Entered as Reported by: JAELYN MADRID on 12/27/211126 Last Action: Continued Rosuvastatin Calcium (Rosuvastatin Calcium) 5 Mg Tablet, 5 MG PO HS, (Reported) Entered as Reported by: JAELYN MADRID on 12/27/211126 Last Action: Continued Discontinued Medications Cefuroxime Axetil (Cefuroxime) 500 Mg Tablet, 500 MG PO BID Discontinued Reason: No Longer Taking Prescribed by: OZZY LEMUS on 07/19/225 Last Action: Discontinued Diazepam (Diazepam) 10 Mg Tablet, 10 MG PO 0200,0800,2000, (Reported) Discontinued Reason: No Longer Taking Entered as Reported by: CARLEY VERNON on 04/10/19 1607 Last Action: Discontinued Levofloxacin (Levofloxacin) 750 Mg Tablet, 750 MG PO DAILY Discontinued Reason: No Longer Taking Prescribed by: JONN LIRA on 12/28/21 1218 Last Action: Discontinued Past Jnnvidd-Tmgxnh-Rpspny Hx Patient Social History Marrital Status: single Employed/Student: unemployed Smoking Status: Former Smoker Past Medical History Deep Vein Thrombosis Review of Systems Constitutional: see HPI, dizziness, fever, malaise, weakness Physical Exam General Appearance: No Apparent Distress, WD/WN, Chronically ill Respiratory: Lungs Clear, Normal Breath Sounds Cardiovascular: Regular Rate, Rhythm, No Edema Neurologic/Psychiatric: Alert, Oriented x3, Depressed Affect Assessment/Plan Assessment and Plan Problems: (1) Severe sepsis Status: Acute (2) Paraplegia at T4 level (3) Unilateral complete AKA (4) Suprapubic catheter Status: Acute Admission Diagnosis Admission Status: Inpatient Order (span 2 midnights) Reason for Inpatient Admission: Severe sepsis Supervisory-Addendum Brief Verification & Attestation Participated in pt care: history, MDM, physical Personally performed: exam, history, MDM, supervision of care Care discussed with: Medical Student Procedures: n/a Results interpretation: Verified all documentation Verification and Attestation of Medical Student E/M Service A medical student performed and documented this service in my presence. I reviewed and verified all information documented by the medical student and made modifications to such information, when appropriate. I personally performed the physical exam and medical decision making. Nela Shaikh, Oct 04, 2022,22:08 NALINI BEAVERS Oct 04, 2022 10:22 NELA SHAIKH DO Oct 04, 2022 22:07
[2022-10-04] MEDS: MICONAZOLE 2% POWDER (DESENEX AF) 90 GM TOP PRN (11:29)
[2022-10-04] MEDS: HYPOCHLOROUS ACID/NaCl (VASHE) 250 ML IR PRN (11:29)
[2022-10-04] MEDS ORDERED: FLEET ENEMA ADULT 1 EA BTL PR PRN (12:30)
[2022-10-04] MEDS ORDERED: LACTULOSE SYRUP 10GM/15ML (ENULOSE) 30ML UDC PO PRN (12:30)
[2022-10-04] MEDS ORDERED: CALCIUM CARBONATE 500 MG (TUMS) TAB.CHEW PO PRN (12:30)
[2022-10-04] MEDS ORDERED: DOCUSATE SODIUM 100 MG (COLACE) CAP PO PRN (12:30)
[2022-10-04] MEDS ORDERED: diphenhydrAMINE 25 MG TAB (BENADRYL) PO PRN ×2 (12:30)
[2022-10-04] MEDS ORDERED: LOPERAMIDE 2 MG (IMODIUM) TABLET PO PRN (12:30)
[2022-10-04] MEDS ORDERED: BISACODYL 10 MG SUPP (DULCOLAX) PR PRN (12:30)
[2022-10-04] MEDS ORDERED: ONDANSETRON 4 MG (ZOFRAN) ORAL DISSOLVE TAB PO PRN (12:30)
[2022-10-04] MEDS ORDERED: ONDANSETRON 4 MG/2 ML (SDV) Z0FRAN IV PRN (12:30)
[2022-10-04] MEDS ORDERED: ACETAMINOPHEN 325 MG TABLET PO PRN (12:30)
[2022-10-04] MEDS ORDERED: MELATONIN 3 MG TABLET PO PRN (12:30)
[2022-10-04] MEDS ORDERED: EZET10TA49 PO (13:46)
[2022-10-04 14:44] VITALS: BP 116/55
[2022-10-04 16:00] VITALS: BP 136/69
[2022-10-04] MEDS ORDERED: RIVAROXABAN 10 MG TABLET (XARELTO) PO SCH (18:00)
[2022-10-04] MEDS: SIMETHICONE 80 MG (MYLICON) CHEW PO SCH ×2 (18:34→20:10)
[2022-10-04 19:50] VITALS: BP 118/56
[2022-10-04] MEDS: polyethylene glycoL POWDER 17 GM (MIRALAX) PACK PO SCH (20:10)
[2022-10-04] MEDS: SENNA W/DOCUSATE (SENOKOT S) TABLET PO SCH (20:10)
[2022-10-04 23:46] VITALS: BP 110/65
[2022-10-05] MEDS: MEROPENEM 500 MG/NS 100 ML IVPB IV SCH ×8 (00:20→18:14)
[2022-10-05] MEDS: LORATADINE (CLARITIN) 10 MG TAB PO SCH ×2 (01:28→09:06)
[2022-10-05] MEDS: CATHETER FLUSH 10 ML SYR IVP SCH ×3 (05:30→22:11)
[2022-10-05 05:42] LABS: BASOPHILS # (AUTO) 0.1 10^3/uL (0.0-0.1); BASOPHILS % (AUTO) 1 % (0-10); EOSINOPHILS # (AUTO) 0.4 10^3/uL (0.0-0.3); EOSINOPHILS % (AUTO) 4 % (0-10); HEMATOCRIT 38 % (35-52); LYMPHOCYTES # (AUTO) 2.1 10^3/uL (1.0-4.0); LYMPHOCYTES % (AUTO) 21 % (12-44); MEAN CORPUSCULAR HEMOGLOBIN 27 pg (25-34); MEAN CORPUSCULAR HGB CONC 31 g/dL (32-36); MEAN CORPUSCULAR VOLUME 85 fL (80-99); MEAN PLATELET VOLUME 10.2 fL (9.0-12.2); MONOCYTES # (AUTO) 1.3 10^3/uL (0.0-1.0); MONOCYTES % (AUTO) 12 % (0-12); NEUTROPHILS # (AUTO) 6.4 10^3/uL (1.8-7.8); NEUTROPHILS % (AUTO) 62 % (42-75); PLATELET COUNT 309 10^3/uL (130-400); WHITE BLOOD COUNT 10.3 10^3/uL (4.3-11.0)
[2022-10-05 06:01] LABS: BILIRUBIN,TOTAL 0.5 MG/DL (0.1-1.0); CALCIUM 9.2 MG/DL (8.5-10.1); CREATININE SERUM 0.7 MG/DL (0.60-1.30); MAGNESIUM 1.7 MG/DL (1.6-2.4); POTASSIUM 3.7 MMOL/L (3.6-5.0); TOTAL PROTEIN 7.3 GM/DL (6.4-8.2)
--- NOTE | 2022-10-05 07:19 | Progress Note - Hospitalist ---
Subjective HPI/CC On Admission Date Seen by Provider: Oct 05, 2022 Time Seen by Provider: 11:00 Subjective/Events-last exam Patient doing much better Pain is controlled Awaiting final culture No BM yet she will have to do a manual disimpaction Review of Systems General: Fatigue, Malaise Focused Exam Lactate Level 10/04/22 00:02: Lactic Acid Level 3.20*H 10/04/22 02:05: Lactic Acid Level 2.51*H 10/04/22 09:45: Lactic Acid Level 1.95 Objective Exam Vital Signs Vital Signs Date Time Temp Pulse Resp B/P (MAP) Pulse Ox O2 Delivery O2 Flow Rate FiO2 10/05/22 20:07 36.7 95 18 116/71 (86) 96 Room Air 10/05/22 09:15 0.00 10/04/22 04:04 21 Capillary Refill : Less Than 3 Seconds General Appearance: No Apparent Distress, WD/WN, Chronically ill Respiratory: Lungs Clear, Normal Breath Sounds Cardiovascular: Regular Rate, Rhythm Neurologic/Psychiatric: Alert, Oriented x3 Results/Procedures Lab Laboratory Tests 10/05/22 05:30 Patient resulted labs reviewed. Assessment/Plan Assessment and Plan Assess & Plan/Chief Complaint Assessment and Plan Sepsis Complicated UTI Fever Leukocytosis Lactic acidosis- resolved Tachycardia Tele ICU consulted Continue meropenem 500mg Awaiting cx results, has grown psuedomonas in the past sensitive to meropenem UA + for leukocyte esterase, nitrites, and bacteria Blood culture pending afebrile now, continue to monitor vitals Hx of recurrent UTI in setting of suprapubic cath Lactic acid normalized to 1.9 from 3.7 WBC down to 11 from 18 on admission, continue daily CBC Tachycardic in low 100s, likely related to infectious etiology unremarkable CXR Received 1L of NaCl in ED Elevated PT and PTT both minimally elevated on 10/03 No signs of bleeding continue to monitor Paraplegia Rotate patient for ulcer ppx sacral decubitis ulcer present Hx of amputation- R AKA T2DM SSI Last glucose 181 DVT ppx- xarelto 10mg daily CODE status- full Move to 4th Critical Care Critically Ill Patient Diagnosis/Problems Diagnosis/Problems (1) Severe sepsis Status: Acute (2) Paraplegia at T4 level (3) Unilateral complete AKA (4) Suprapubic catheter Status: Acute Clinical Quality Measures Admission Status Admission Dx ROMY SHAIKH DO Oct 05, 2022 07:19
[2022-10-05 07:29] VITALS: BP 115/74
[2022-10-05] MEDS ORDERED: NON-FORMULARY MEDICATION 1 EA EA (Oxybutynin Chloride (Oxybutynin Chloride ER) 15 MG) PO SCH (09:00)
[2022-10-05] MEDS ORDERED: NON-FORMULARY MEDICATION 1 EA EA (Baclofen 20 MG) PO SCH (09:00)
[2022-10-05] MEDS: SIMETHICONE 80 MG (MYLICON) CHEW PO SCH ×4 (09:01→20:07)
[2022-10-05] MEDS: metFORMIN 500 MG (GLUCOPHAGE) TAB PO SCH (09:02)
[2022-10-05] MEDS: FAMOTIDINE 20 MG (PEPCID) TABLET PO SCH ×2 (09:02→20:08)
[2022-10-05] MEDS: BACLOFEN 10 MG (LIORESAL) TAB PO SCH ×4 (09:02→20:08)
[2022-10-05] MEDS: ASCORBIC ACID (VIT C) 500 MG TABLET PO SCH ×2 (09:02→20:07)
[2022-10-05] MEDS: PANTOPRAZOLE 20 MG TABLET (PROTONIX) PO SCH (09:02)
[2022-10-05] MEDS: OXYBUTYNIN (DITROPAN) 5 MG TAB PO SCH ×3 (09:02→20:08)
[2022-10-05] MEDS: polyethylene glycoL POWDER 17 GM (MIRALAX) PACK PO SCH ×3 (09:09→22:12)
[2022-10-05] MEDS: SENNA W/DOCUSATE (SENOKOT S) TABLET PO SCH ×3 (09:09→22:12)
[2022-10-05 12:40] VITALS: BP 115/62
[2022-10-05 16:24] VITALS: BP 123/79
[2022-10-05 20:07] VITALS: BP 116/71
[2022-10-05] MEDS: eZETimibe 10 MG (ZETIA) TABLET PO SCH (20:07)
[2022-10-05] MEDS: ROSUVASTATIN 5 MG (CRESTOR) TABLET PO SCH (20:07)
[2022-10-05] MEDS: RIVAROXABAN 10 MG TABLET (XARELTO) PO SCH (20:14)
[2022-10-05] MEDS ORDERED: RIVAROXABAN 10 MG TABLET (XARELTO) PO SCH (21:00)
[2022-10-06] MEDS: MEROPENEM 500 MG/NS 100 ML IVPB IV SCH ×4 (00:32→06:15)
[2022-10-06 00:59] VITALS: BP 132/62
[2022-10-06] MEDS: LORATADINE (CLARITIN) 10 MG TAB PO SCH ×2 (02:11→10:57)
[2022-10-06] MEDS: CATHETER FLUSH 10 ML SYR IVP SCH ×3 (06:15→22:30)
--- NOTE | 2022-10-06 07:08 | Progress Note - Hospitalist ---
Subjective HPI/CC On Admission Date Seen by Provider: Oct 06, 2022 Time Seen by Provider: 11:00 Subjective/Events-last exam Patient doing a lot better Disimpacted and she feels much betterPatient about the same Needs wound care recommendations before discharge tomorrow Focused Exam Lactate Level 10/04/22 00:02: Lactic Acid Level 3.20*H 10/04/22 02:05: Lactic Acid Level 2.51*H 10/04/22 09:45: Lactic Acid Level 1.95 Objective Exam Vital Signs Vital Signs Date Time Temp Pulse Resp B/P (MAP) Pulse Ox O2 Delivery O2 Flow Rate FiO2 10/06/22 19:15 Room Air 10/06/22 16:27 36.4 96 18 116/55 (75) 98 10/05/22 09:15 0.00 10/04/22 04:04 21 Capillary Refill : Less Than 3 Seconds General Appearance: No Apparent Distress, WD/WN Results/Procedures Lab Patient resulted labs reviewed. Assessment/Plan Assessment and Plan Assess & Plan/Chief Complaint Assessment and Plan Sepsis Complicated UTI Fever Leukocytosis Lactic acidosis- resolved Tachycardia Tele ICU consulted Continue meropenem 500mg Awaiting cx results, has grown psuedomonas in the past sensitive to meropenem UA + for leukocyte esterase, nitrites, and bacteria Blood culture pending afebrile now, continue to monitor vitals Hx of recurrent UTI in setting of suprapubic cath Lactic acid normalized to 1.9 from 3.7 WBC down to 11 from 18 on admission, continue daily CBC Tachycardic in low 100s, likely related to infectious etiology unremarkable CXR Received 1L of NaCl in ED Elevated PT and PTT both minimally elevated on 10/03 No signs of bleeding continue to monitor Paraplegia Rotate patient for ulcer ppx sacral decubitis ulcer present Hx of amputation- R AKA T2DM SSI Last glucose 181 DVT ppx- xarelto 10mg daily CODE status- full Move to 4th Discharge home tomorrow Critical Care Critically Ill Patient Diagnosis/Problems Diagnosis/Problems (1) Severe sepsis Status: Acute (2) Paraplegia at T4 level (3) Unilateral complete AKA (4) Suprapubic catheter Status: Acute Clinical Quality Measures Admission Status Admission Dx NEELROMY AVILA Oct 06, 2022 07:08
[2022-10-06 08:00] VITALS: BP 135/64
[2022-10-06] MEDS: PANTOPRAZOLE 20 MG TABLET (PROTONIX) PO SCH (10:42)
[2022-10-06] MEDS: FAMOTIDINE 20 MG (PEPCID) TABLET PO SCH ×2 (10:42→20:27)
[2022-10-06] MEDS: AUGMENTIN 875 MG TAB (AMOXICILLIN/CLAVULANATE) PO SCH ×2 (10:42→18:26)
[2022-10-06] MEDS: metFORMIN 500 MG (GLUCOPHAGE) TAB PO SCH (10:42)
[2022-10-06] MEDS: OXYBUTYNIN (DITROPAN) 5 MG TAB PO SCH ×3 (10:43→20:27)
[2022-10-06] MEDS: BACLOFEN 10 MG (LIORESAL) TAB PO SCH ×4 (10:44→20:28)
[2022-10-06] MEDS: SENNA W/DOCUSATE (SENOKOT S) TABLET PO SCH ×2 (10:44→19:57)
[2022-10-06] MEDS: ASCORBIC ACID (VIT C) 500 MG TABLET PO SCH ×2 (10:45→20:28)
[2022-10-06] MEDS: SIMETHICONE 80 MG (MYLICON) CHEW PO SCH ×4 (10:45→20:27)
[2022-10-06] MEDS: polyethylene glycoL POWDER 17 GM (MIRALAX) PACK PO SCH ×2 (10:45→19:57)
[2022-10-06] MEDS: MICONAZOLE 2% POWDER (DESENEX AF) 90 GM TOP PRN ×2 (10:46→22:36)
[2022-10-06] MEDS: MENTHOL/ZINC OXIDE (CALMOSEPTINE) 113 GM TUBE TP PRN (11:24)
[2022-10-06 16:27] VITALS: BP 116/55
[2022-10-06 20:01] VITALS: BP 123/78
[2022-10-06] MEDS: RIVAROXABAN 10 MG TABLET (XARELTO) PO SCH (20:27)
[2022-10-06] MEDS: eZETimibe 10 MG (ZETIA) TABLET PO SCH (20:28)
[2022-10-06] MEDS: ROSUVASTATIN 5 MG (CRESTOR) TABLET PO SCH (20:28)
[2022-10-06] MEDS: HYPOCHLOROUS ACID/NaCl (VASHE) 250 ML IR PRN (22:36)
[2022-10-06 23:07] VITALS: BP 115/76
[2022-10-07] MEDS: LORATADINE (CLARITIN) 10 MG TAB PO SCH ×2 (02:07→09:38)
[2022-10-07] MEDS: MENTHOL/ZINC OXIDE (CALMOSEPTINE) 113 GM TUBE TP PRN (02:08)
[2022-10-07 06:05] LABS: BASOPHILS # (AUTO) 0.1 10^3/uL (0.0-0.1); BASOPHILS % (AUTO) 1 % (0-10); EOSINOPHILS # (AUTO) 0.4 10^3/uL (0.0-0.3); EOSINOPHILS % (AUTO) 5 % (0-10); HEMATOCRIT 36 % (35-52); HEMOGLOBIN 11.2 g/dL (11.5-16.0); LYMPHOCYTES # (AUTO) 3.2 10^3/uL (1.0-4.0); LYMPHOCYTES % (AUTO) 42 % (12-44); MEAN CORPUSCULAR HEMOGLOBIN 26 pg (25-34); MEAN CORPUSCULAR HGB CONC 31 g/dL (32-36); MEAN CORPUSCULAR VOLUME 84 fL (80-99); MONOCYTES # (AUTO) 0.9 10^3/uL (0.0-1.0); MONOCYTES % (AUTO) 12 % (0-12); NEUTROPHILS % (AUTO) 40 % (42-75); PLATELET COUNT 344 10^3/uL (130-400); WHITE BLOOD COUNT 7.5 10^3/uL (4.3-11.0)
[2022-10-07] MEDS: CATHETER FLUSH 10 ML SYR IVP SCH ×2 (06:30→13:05)
[2022-10-07 06:36] LABS: ALBUMIN 3.9 GM/DL (3.2-4.5); BILIRUBIN,TOTAL 0.4 MG/DL (0.1-1.0); CALCIUM 9.4 MG/DL (8.5-10.1); CREATININE SERUM 0.72 MG/DL (0.60-1.30); MAGNESIUM 1.8 MG/DL (1.6-2.4); POTASSIUM 3.6 MMOL/L (3.6-5.0)
[2022-10-07 07:31] VITALS: BP 127/67
[2022-10-07] MEDS: SIMETHICONE 80 MG (MYLICON) CHEW PO SCH ×2 (09:33→13:05)
[2022-10-07] MEDS: metFORMIN 500 MG (GLUCOPHAGE) TAB PO SCH (09:33)
[2022-10-07] MEDS: ASCORBIC ACID (VIT C) 500 MG TABLET PO SCH (09:33)
[2022-10-07] MEDS: BACLOFEN 10 MG (LIORESAL) TAB PO SCH ×3 (09:33→16:52)
[2022-10-07] MEDS: PANTOPRAZOLE 20 MG TABLET (PROTONIX) PO SCH (09:34)
[2022-10-07] MEDS: SENNA W/DOCUSATE (SENOKOT S) TABLET PO SCH (09:34)
[2022-10-07] MEDS: FAMOTIDINE 20 MG (PEPCID) TABLET PO SCH (09:34)
[2022-10-07] MEDS: AUGMENTIN 875 MG TAB (AMOXICILLIN/CLAVULANATE) PO SCH ×2 (09:34→16:52)
[2022-10-07] MEDS: polyethylene glycoL POWDER 17 GM (MIRALAX) PACK PO SCH (09:34)
[2022-10-07] MEDS: OXYBUTYNIN (DITROPAN) 5 MG TAB PO SCH ×2 (09:40→13:04)
[2022-10-07] MEDS ORDERED: AMOX1TAB12 PO (10:58)
--- NOTE | 2022-10-07 10:59 | Discharge Summary ---
Discharge Summary Hospital Course Was the Problem List Reviewed?: Yes Problems/Dx: (1) Severe sepsis Status: Acute (2) Paraplegia at T4 level (3) Unilateral complete AKA (4) Suprapubic catheter Status: Acute Hospital Course Date of Admission: Oct 04, 2022 at 02:55 Admission Diagnosis : Family Physician/Provider: Kenneth Nelson MD Date of Discharge: 10/07/22 Discharge Diagnosis: [ ] Hospital Course: Patient had an uneventful hospital course after she was admitted for sepsis from complicated suprapubic catheter UTI. Broad-spectrum antibiotics initiated. Overall she did very well labs returned back to normal and ultimately urine culture showed mixed yoli due to the suprapubic catheter status she was placed on Augmentin and discharged home in improved condition. Labs and Pending Lab Test: Laboratory Tests 10/07/22 05:48: White Blood Count 7.5, Red Blood Count 4.28, Hemoglobin 11.2L, Hematocrit 36, Mean Corpuscular Volume 84, Mean Corpuscular Hemoglobin 26, Mean Corpuscular Hemoglobin Concent 31L, Red Cell Distribution Width 15.3H, Platelet Count 344, Mean Platelet Volume 10.0, Immature Granulocyte % (Auto) 1, Neutrophils (%) (Auto) 40L, Lymphocytes (%) (Auto) 42, Monocytes (%) (Auto) 12, Eosinophils (%) (Auto) 5, Basophils (%) (Auto) 1, Neutrophils # (Auto) 3.0, Lymphocytes # (Auto) 3.2, Monocytes # (Auto) 0.9, Eosinophils # (Auto) 0.4H, Basophils # (Auto) 0.1, Immature Granulocyte # (Auto) 0.0, Sodium Level 138, Potassium Level 3.6, Chloride Level 105, Carbon Dioxide Level 22, Anion Gap 11, Blood Urea Nitrogen 11, Creatinine 0.72, Estimat Glomerular Filtration Rate 101, BUN/Creatinine Ratio 15, Glucose Level 179H, Calcium Level 9.4, Corrected Calcium 9.5, Magnesium Level 1.8, Total Bilirubin 0.4, Aspartate Amino Transf (AST/SGOT) 39H, Alanine Aminotransferase (ALT/SGPT) 34, Alkaline Phosphatase 88, Total Protein 7.0, Albumin 3.9 Microbiology 10/04/22 MRSA Screen - Final, Complete 10/03/22 Urine Culture - Final, Complete Gram Pos Mixed Bacterial Yoli Gram Neg Mixed Bacterial Yoli 10/03/22 Blood Culture - Preliminary, Resulted No growth Home Meds Active Amox Tr-K Clv 875-125 mg Tab (Amoxicillin/Potassium Clav) 875 Mg-125 Mg Tablet 875 Mg PO BID WITH MEALS Reported Ezetimibe 10 Mg Tablet 10 Mg PO HS Famotidine 20 Mg Tablet 20 Mg PO BID Omeprazole 20 Mg Capsule.dr 20 Mg PO DAILY Diazepam 10 Mg Tablet 5 Mg PO 0200,0800,1400,2000 TAKES OF A 10MG Xarelto (Rivaroxaban) 10 Mg Tablet 10 Mg PO HS Ibuprofen 600 Mg Tablet 600 Mg PO TID PRN Methenamine Hippurate 1 Gram Tablet 1 Gm PO BID Rosuvastatin Calcium 5 Mg Tablet 5 Mg PO HS Metformin HCl 500 Mg Tablet 500 Mg PO DAILY Oxybutynin Chloride ER (Oxybutynin Chloride) 15 Mg Tab.er.24 15 Mg PO DAILY Cetirizine HCl 10 Mg Tablet 10 Mg PO 0200,0800 Baclofen 20 Mg Tablet 20 Mg PO QID Vitamin C (Ascorbic Acid) 1,000 Mg Tablet 1,000 Mg PO BID Assessment/Pt Instructions PCP in 1 week Discharge Planning: <30 minutes discharge planning Discharge Instructions Discharge Diet: No Restrictions Discharge Physical Examination Vital Signs Vital Signs Date Time Temp Pulse Resp B/P (MAP) Pulse Ox O2 Delivery O2 Flow Rate FiO2 10/07/22 08:00 Room Air 10/07/22 07:31 37.2 88 18 127/67 (87) 95 10/05/22 09:15 0.00 10/04/22 04:04 21 General Appearance: No Apparent Distress, WD/WN, Chronically ill Allergies: Coded Allergies: Sulfa (Sulfonamide Antibiotics) (Verified Allergy, Unknown, 10/23/18) vancomycin (Verified Allergy, Unknown, 10/23/18) Discharge Summary Date of Admission Oct 04, 2022 at 02:55 Date of Discharge Discharge Date: Oct 07, 2022 Discharge Diagnosis Assessment and Plan Sepsis Complicated UTI Fever Leukocytosis Lactic acidosis- resolved Tachycardia Tele ICU consulted Continue meropenem 500mg Awaiting cx results, has grown psuedomonas in the past sensitive to meropenem UA + for leukocyte esterase, nitrites, and bacteria Blood culture pending afebrile now, continue to monitor vitals Hx of recurrent UTI in setting of suprapubic cath Lactic acid normalized to 1.9 from 3.7 WBC down to 11 from 18 on admission, continue daily CBC Tachycardic in low 100s, likely related to infectious etiology unremarkable CXR Received 1L of NaCl in ED Elevated PT and PTT both minimally elevated on 10/03 No signs of bleeding continue to monitor Paraplegia Rotate patient for ulcer ppx sacral decubitis ulcer present Hx of amputation- R AKA T2DM SSI Last glucose 181 DVT ppx- xarelto 10mg daily CODE status- full Move to 4th Discharge home tomorrow (1) Severe sepsis Status: Acute (2) Paraplegia at T4 level (3) Unilateral complete AKA (4) Suprapubic catheter Status: Acute ROMY SHAIKH DO Oct 07, 2022 10:59
--- NOTE | 2022-10-07 10:59 | D/C HH Face to Face Order ---
D/C HH Face to Face Orders Reconcile Patient Problems Problems Reviewed?: Yes Instructions for Patient HH Patient Instructions/FollowUp: PCP 1 week Physician to follow Patient: PCP Discharge Diet for Home: No Restrictions Patient Problems: Debility Sepsis Patient Data-Allergies,Ht & Wt Patient Allergies: Coded Allergies: Sulfa (Sulfonamide Antibiotics) (Verified Allergy, Unknown, 10/23/18) vancomycin (Verified Allergy, Unknown, 10/23/18) Height (Feet): 5 Height (Inches): 5.00 Weight (Pounds): 175 Home Health Need/Face to Face Date of Face to Face: Oct 07, 2022 Clinical Findings: Generalized weakness and fatigue, Instability, Muscle weakness I have seen Pt [id number]: Yes Discharged To: Home Diagnosis/Conditions: Debility Patient is Homebound due to: Muscle weakness Homebound Status Due to the above stated illness, injury or surgical procedure (medical condition or diagnosis) and associated clinical findings, the patient is homebound because of his/her inability to leave home except with aid of a supportive device and/or person AND leaving the home requires a considerable and taxing effort or is medically contraindicated. Pt req the following assistanc: Wheelchair Home Health Nursing Orders Home Health Services Order: Nursing Services, Therapy Manager-Evaluate & Treat, Physical Therapy-Evaluate & Treat, Wound Care-Eval/Treat Home Health Infusion Therapy Line Start Date: Oct 03, 2022 Certify Stmt I certify that this patient is under my care and that I, a nurse practitioner or a physician; a medical practice assistant working with me, had a face to face encounter that - meets the physician face to face encounter requirements with this patient as dated. ROMY SHAIKH DO Oct 07, 2022 10:59
[2022-10-07] MEDS ORDERED: MENT71OI TP ×2 (11:33→11:37)
[2022-10-07 16:29] VITALS: BP 110/57
[2022-10-07 18:13] VITALS: BP 110/57
--- NOTE | 2022-10-07 20:35 | Physician Query-Final Dx ---
MIMA AMES 10/07/222034: Final Diagnosis Give Final Diagnosis Please give Final Diagnosis The medical record reflects the following clinical scenario: The patient, in the setting of History/Risk factors, severe sepsis with UTI on admission paraplegic with chronic indwelling suprapubic catheter, Bowel incontinent, Clinical Findings "UA suspicious for UTI which are consistent with urosepsis", ".suprapubic catheter with recurrent UTIs" urine culture positive for gram- positive mixed bacterial yoli and gram-negative mixed bacterial yoli Treatment normal saline 1 L, meropenem IV, suprapubic catheter changed on day of admission sterile technique used Question: Can you specify if the UTI is likely due to/associated with indwelling suprapubic catheter ? Yes - UTI is likely due to/associated with indwelling suprapubic catheter and present on admission No - UTI is not due to/associated with indwelling suprapubic catheter Other, with explanation of the clinical findings Clinically undetermined, no explanation for the clinical findings Please clarify and document your clinical opinion in the Progress Notes and Discharge Summary including the definitive and/or presumptive diagnosis, (suspected or probable), related to the above clinical findings. Please include clinical findings supporting your diagnosis. In responding to this query, please exercise your independent professional judgment. The purpose of this communication is to more accurately reflect the complexity of your patients condition. The fact that a question is asked does not imply that any particular answer is desired or expected. Thank you for timely response to this clarification. Mima Ames, MSN, RN [employer] [phone] ROMY SHAIKH DO 10/07/222118: Final Diagnosis Give Final Diagnosis Yes - UTI is likely due to/associated with indwelling suprapubic catheter and present on admission MIMA AMES Oct 07, 2022 20:35 ROMY SHAIKH DO Oct 07, 2022 21:19
== END 2022-10-07 18:16 | disposition home health service (06) | DRG 698 ==
LOC: EDUNIT# 21:54 → ER FS 21:55 → ICU 10-04 02:55 → 4TH 10-04 13:45
PROVIDERS: ADMIT Internal Medicine; ATTEND Internal Medicine
DX: T83.518A Infection and inflammatory reaction due to other urinary catheter, initial encounter (principal); A41.9 Sepsis, unspecified organism; R65.20 Severe sepsis without septic shock; G82.20 Paraplegia, unspecified; N39.0 Urinary tract infection, site not specified; E87.20 Acidosis, unspecified; Z89.611 Acquired absence of right leg above knee; Z79.84 Long term (current) use of oral hypoglycemic drugs; Z79.899 Other long term (current) drug therapy; N31.9 Neuromuscular dysfunction of bladder, unspecified; K21.9 Gastro-esophageal reflux disease without esophagitis; E11.9 Type 2 diabetes mellitus without complications; F41.9 Anxiety disorder, unspecified
CPT/HCPCS: 36415; 71045; 80053; 81000; 82947; 83605; 83735; 84100; 85007; 85025; 85027; 85610; 85730; 87040; 87081; 87088; 94760; 96365

== ENCOUNTER 2023-01-18 13:11 | Emergency (ER) | payer MEDICARE, MEDICAID ==
[~2023-01-18 13:11] MED LIST changes: +EZET10TA49 PO; +MENT71OI TP
[2023-01-18 13:22] VITALS: BP 124/68
== END 2023-01-18 13:20 | disposition home or self-care (01) ==
LOC: EDUNIT# 13:11 → ER FS 13:12
DX: T83.091A Other mechanical complication of indwelling urethral catheter, initial encounter (principal)
CPT/HCPCS: 51702